=== PATIENT | female | born 1945 | race Caucasian/White ===

== ENCOUNTER 2019-08-09 20:16 | Inpatient (IN) | payer MEDICARE, SELFPAY ==
[2019-08-10 03:47] VITALS: BP 147/63; PULSE 68; RESP 18; TEMP 36.8; O2SAT 96
[2019-08-10] MEDS: pantoprazole 40 mg SDV IVP ×2 (03:53→12:02)
[2019-08-10 05:30] LABS: Add RBC Morph No
[2019-08-10 05:37] LABS: Basophils # 0.1 10^3/uL (0.0-0.1); Basophils % 0.6 %; Eosinophils # 0.1 10^3/uL (0.0-0.8); Eosinophils % 0.8 %; Hematocrit 39.9 % (37.0-47.0); Hemoglobin 12.9 g/dL (11.5-15.3); Lymphocytes # 1.4 10^3/uL (0.8-4.8); Mean Corpuscular HGB Conc 32.3 g/dL (30.0-36.0); Mean Corpuscular Hemoglobin 27.5 pg (28.0-34.0); Mean Corpuscular Volume 85.1 fL (81-99); Mean Platelet Volume 10.6 fL (7.4-10.4); Monocytes % 7.1 %; Neutrophils # 11.7 10^3/uL (1.8-7.7); Neutrophils % 81.2 %; Nucleated Red Blood Cells % 0 %; Platelet Count 288 10^3/cmm (130-400); Red Blood Count 4.69 10^6/uL (4.1-5.3); Red Cell Distribution Width 12.1 % (12.1-15.1); White Blood Count 14.4 10^3/uL (4.0-10.0)
[2019-08-10 05:52] LABS: Alanine Aminotransferase 28 U/L (0-33); Albumin Level 4.3 g/dL (3.5-5.2); Alkaline Phosphatase 94 IU/L (35-105); Anion Gap 19.7 (5-19); Aspartate Amino Transferase 36 U/L (0-32); Blood Urea Nitrogen 13 mg/dL (8-23); Calcium 9.4 mg/Dl (8.8-10.2); Carbon Dioxide 20 mmol/L (22-29); Chloride 93 mmol/L (98-107); Globulin 1.3 g/dL (1.3-4.6); Glucose 89 mg/dL (74-106); Potassium 3.7 mmol/L (3.5-5.1); Sodium 129 mmol/L (136-145); Total Bilirubin 0.6 mg/dL (0.15-1.2); Total Protein 5.6 g/dL (6.6-8.7)
[2019-08-10 08:00] VITALS: BP 164/75; PULSE 71; RESP 18; TEMP 36.7; O2SAT 97
[2019-08-10] MEDS: ondansetron 2 mg/ML SDV 2 mL 4 MG IVP ×2 (09:08→18:10)
[2019-08-10 11:47] LABS: Magnesium 1.9 mg/dL (1.7-2.3)
[2019-08-10 11:54] VITALS: BP 108/64; PULSE 86; RESP 16; TEMP 36.3; O2SAT 95
--- NOTE | 2019-08-10 13:29 | PC.CHAP ---
Pastoral Care Encounter/Spiritual Assessment Type of Contact [] Declined dynamometer tester visit [] Patient/Family/Request visit [] Outpatient visit [] Follow-up visit [] Physician referral [] Code/Alert [x] Routine visit [] Staff referral [] Actively dying [] Patient sleeping [] Family support [] [] Out of room [] Palliative care [] [] Receiving care in room [] Pre-surgical visit [] Trauma [] Long length of stay [] ICU visit [] Other: Relational/Emotional Strength [] Patient feels connected with others/family/visitors/staff [] Distress [x] Loneliness/isolation [] Abandonment Spirituality of Patient [x Person of Kiara [] Attends Judaism of their Ki[place] [] Believes in Prayer [] Reads Bible or Amish materials [] There are Spiritual issues to be addressed Foundry Engineer Interventions [x] Prayer [x] Active listening [x] Non-anxious presence [x] Spiritual/emotional support [] Crisis/trauma care [x] Spiritual counseling [] Bereavement support [] Provided bereavement packet [] Provided Bible/devotional materials [] Provided toy/stuffed animal, coloring book to patient or family member [] Completed spiritual assessment [] Provided Communion [] Anointing/[place] [] Salvation [] Other: Impact on Illness or Injury [] Angry [] Fearful [] Anxious [x] Often cries [x] Exhaustion [] Unable to work [] Unable to attend caodaism [] Unable to walk/stand [] Unable to read [] Unable to drive [] Unable to eat/drink [] Unable to sleep [] Unable to be with family [] Other: Summary wants to go home Time spent with patient 6 min
--- NOTE | 2019-08-10 15:58 | PM.PN ---
Subjective Subjective: Interval history: Vivian reports she feels better with her NG tube. It was reviewed. Vitals/I&O/Wt Last Vital Signs Temp 97.4 F L 08/10/19 11:54 Pulse 86 08/10/19 11:54 Resp 16 08/10/19 11:54 BP 108/64 08/10/19 11:54 Pulse Ox 95 08/10/19 11:54 08/10/19 08/10/19 08/10/19 06:59 14:59 22:59 Output Total 900 / 900 Balance -900 / -900 Physical Exam Narrative: EXAM NARRATIVE: General exam is an elderly white female with NG tube, conversant and oriented Cardiovascular regular rate and rhythm without murmur Lungs clear no wheezing or crackles Abdomen is soft. Slight tenderness epigastric area. Positive bowel sounds. No obvious organomegaly. Extremities no cyanosis clubbing or edema Data Labs: Other Labs: All Labs last 24 hrs except CBC/BMP 08/09/19 08/09/19 08/09/19 14:32 14:32 14:32 RBC 4.79 MCV 82.3 MCH 27.6 L MCHC 33.5 RDW 12.0 L MPV 10.7 H Neut % (Auto) 76.4 Lymph % (Auto) 16.5 [place] % (Auto) 5.2 Eos % (Auto) 0.9 Baso % (Auto) 0.6 Neut # (Auto) 10.7 H Lymph # (Auto) 2.3 [place] # (Auto) 0.7 Eos # (Auto) 0.1 Baso # (Auto) 0.1 Nucleated RBC % (a uto) 0 Nucleated RBCs # 0.0 Random Glucose 76 Lactic Acid Calcium 10.4 H Magnesium Total Bilirubin 0.6 AST 42 H ALT 34 H Alkaline Phosphata se 104 Troponin T Baselin e 27.36 H NT-Pro-B Natriuret Pep 592 H Total Protein 7.1 Albumin 4.5 Globulin 2.6 Lipase 114 H TSH Urine Color Urine Appearance Urine pH Ur Specific Gravit y Urine Protein Urine Glucose (UA) Urine Ketones Urine Occult Blood Urine Nitrite Urine Bilirubin Urine Urobilinogen Ur Leukocyte Ольга ase Influenza Type A A g Influenza Type B A g 08/09/19 08/09/19 08/09/19 15:33 15:49 16:50 RBC MCV MCH MCHC RDW MPV Neut % (Auto) Lymph % (Auto) [place] % (Auto) Eos % (Auto) Baso % (Auto) Neut # (Auto) Lymph # (Auto) [place] # (Auto) Eos # (Auto) Baso # (Auto) Nucleated RBC % (a uto) Nucleated RBCs # Random Glucose 73 Lactic Acid 1.0 Calcium 10.6 H Magnesium Total Bilirubin 0.7 AST 46 H ALT 37 H Alkaline Phosphata se 115 H Troponin T Baselin e NT-Pro-B Natriuret Pep Total Protein 7.6 Albumin 4.7 Globulin 2.9 Lipase TSH Urine Color Urine Appearance Urine pH Ur Specific Gravit y Urine Protein Urine Glucose (UA) Urine Ketones Urine Occult Blood Urine Nitrite Urine Bilirubin Urine Urobilinogen Ur Leukocyte Ольга ase Influenza Type A A g NEGATIVE Influenza Type B A g NEGATIVE 08/09/19 08/09/19 08/10/19 16:50 16:52 05:07 RBC 4.69 MCV 85.1 MCH 27.5 L MCHC 32.3 RDW 12.1 MPV 10.6 H Neut % (Auto) 81.2 Lymph % (Auto) 10.0 [place] % (Auto) 7.1 Eos % (Auto) 0.8 Baso % (Auto) 0.6 Neut # (Auto) 11.7 H Lymph # (Auto) 1.4 [place] # (Auto) 1.0 H Eos # (Auto) 0.1 Baso # (Auto) 0.1 Nucleated RBC % (a uto) 0 Nucleated RBCs # 0.0 Random Glucose Lactic Acid Calcium Magnesium Total Bilirubin AST ALT Alkaline Phosphata se Troponin T Baselin e NT-Pro-B Natriuret Pep Total Protein Albumin Globulin Lipase TSH 3.67 Urine Color YELLOW Urine Appearance CLEAR Urine pH 5 Ur Specific Gravit y 1.015 Urine Protein NEG Urine Glucose (UA) NORM Urine Ketones 1+ H Urine Occult Blood NEG Urine Nitrite NEG Urine Bilirubin NEG Urine Urobilinogen NORM Ur Leukocyte Ольга ase NEG Influenza Type A A g Influenza Type B A g 08/10/19 05:07 RBC MCV MCH MCHC RDW MPV Neut % (Auto) Lymph % (Auto) [place] % (Auto) Eos % (Auto) Baso % (Auto) Neut # (Auto) Lymph # (Auto) [place] # (Auto) Eos # (Auto) Baso # (Auto) Nucleated RBC % (a uto) Nucleated RBCs # Random Glucose Lactic Acid Calcium 9.4 Magnesium 1.9 Total Bilirubin 0.6 AST 36 H ALT 28 Alkaline Phosphata se 94 Troponin T Baselin e NT-Pro-B Natriuret Pep Total Protein 5.6 L Albumin 4.3 Globulin 1.3 Lipase TSH Urine Color Urine Appearance Urine pH Ur Specific Gravit y Urine Protein Urine Glucose (UA) Urine Ketones Urine Occult Blood Urine Nitrite Urine Bilirubin Urine Urobilinogen Ur Leukocyte Ольга ase Influenza Type A A g Influenza Type B A g A&P Assessment and plan (1) Intractable nausea and vomiting: Symptomatically improved after NG placement. I believe she needs an EGD. Currently on Protonix. Surgery consulted. Status: Acute Code(s): R11.2 - Nausea with vomiting, unspecified (2) Hyponatremia: Improved. Likely secondary to recurrent nausea and vomiting Status: Acute Code(s): E87.1 - Hypo-osmolality and hyponatremia (3) Lung cancer: Status: Acute Code(s): C34.90 - Malignant neoplasm of unspecified part of unspecified bronchus or lung (4) Transaminitis: Improved Status: Acute Code(s): R74.0 - Nonspecific elevation of levels of transaminase and lactic acid dehydrogenase [LDH] (5) Hypertension: Stable Status: Acute Code(s): I10 - Essential (primary) hypertension (6) GERD (gastroesophageal reflux disease): Status: Acute Code(s): K21.9 - Gastro-esophageal reflux disease without esophagitis Attestations Medical Necessity Statement*: Needs continued hospital stay for hydration secondary to intractable nausea and vomiting pending further evaluation Coding Level of Care Code Acute Ingot Weigher for [facility] Fwd Diagnoses Intractable nausea and vomiting R11.2 Hyponatremia E87.1 Lung cancer C34.90 Transaminitis R74.0 Hypertension I10 GERD (gastroesophageal reflux disease) K21.9
[2019-08-10 16:00] VITALS: BP 131/73; PULSE 94; RESP 20; TEMP 36.9; O2SAT 95
[2019-08-10 16:11] LABS: Glucose Point of Care 102 mg/dL (70-110)
[2019-08-10] MEDS: dextrose 5%-sod chloride 0.9% 1,000 ML 100 ML IV (22:00)
[2019-08-10 22:16] LABS: Glucose Point of Care 135 mg/dL (70-110)
[2019-08-11] VITALS (12 sets, daily range): BP systolic 110–175; BP diastolic 69–103; PULSE 57–125; RESP 16–20; TEMP 36.1–36.9; O2SAT 95–99
[2019-08-11] MEDS: pantoprazole 40 mg SDV IVP ×2 (00:13→11:35)
[2019-08-11] MEDS: ondansetron 2 mg/ML SDV 2 mL 4 MG IVP ×2 (00:13→07:57)
[2019-08-11] MEDS: dextrose 5%-sod chloride 0.9% 1,000 ML 100 ML IV ×2 (05:25→16:25)
[2019-08-11 05:44] LABS: Basophils # 0.1 10^3/uL (0.0-0.1); Basophils % 0.7 %; Eosinophils # 0.2 10^3/uL (0.0-0.8); Eosinophils % 1.2 %; Hematocrit 41.2 % (37.0-47.0); Hemoglobin 13.5 g/dL (11.5-15.3); Lymphocytes # 1.8 10^3/uL (0.8-4.8); Lymphocytes % 14.1 %; Mean Corpuscular HGB Conc 32.8 g/dL (30.0-36.0); Mean Corpuscular Hemoglobin 28.1 pg (28.0-34.0); Mean Corpuscular Volume 85.7 fL (81-99); Mean Platelet Volume 10.8 fL (7.4-10.4); Monocytes # 1.1 10^3/uL (0.2-0.9); Monocytes % 8.6 %; Neutrophils # 9.5 10^3/uL (1.8-7.7); Neutrophils % 75.2 %; Nucleated Red Blood Cells % 0 %; Platelet Count 277 10^3/cmm (130-400); Red Blood Count 4.81 10^6/uL (4.1-5.3); Red Cell Distribution Width 12.6 % (12.1-15.1); White Blood Count 12.7 10^3/uL (4.0-10.0)
[2019-08-11 05:46] LABS: Add RBC Morph No
[2019-08-11 06:03] LABS: Anion Gap 15.2 (5-19); Blood Urea Nitrogen 8 mg/dL (8-23); Calcium 9.9 mg/Dl (8.8-10.2); Carbon Dioxide 23 mmol/L (22-29); Chloride 101 mmol/L (98-107); Glucose 116 mg/dL (74-106); Potassium 3.2 mmol/L (3.5-5.1); Sodium 136 mmol/L (136-145)
[2019-08-11 06:52] LABS: Glucose Point of Care 113 mg/dL (70-110)
[2019-08-11] MEDS: sodium chloride 0.9% 1,000 ML 30 ML (08:05)
--- NOTE | 2019-08-11 08:17 | ANES.PREANES ---
Pre-Anesthetic Assessment Pre-Anesthetic Assessment: Height/Weight: Weight 57.924 kg Temp Pulse Resp BP Pulse Ox 98.3 F 88 20 H 169/89 96 08/11/19 08:13 08/11/19 08:13 08/11/19 08:13 08/11/19 08:13 08/11/19 08:13 Preop Diagnosis: intractable N/V Proposed Procedure: Operation Date: 08/11/19 07:30 Proposed Procedures p EGD(Not Applicable) - Prem Carranza MD Was Beta Brett taken within 24 hours: N/A Last intake: >3days Social: Social History: Tobacco (quit 20 yr ago) Exam: Pre-Anes Outpt Exam: alert, oriented x 3, clear to auscultation bilaterally (right diminshed) and regular rate & rhythm Airway: Submandibular: WNL Cervical ROM: WNL MP: 2 Dentition: False (both) Pulmonary: Pulmonary: SOB Comments: prev R lobectomy lung cancer CV/HEM: CV/HEM: HTN Comments: denies CP : : None reported Hepatic: Hepatic: None reported GI: GI: GERD Comments: NGT for N/V Metabolic: Metabolic: Thyroid (hypo) Musc/skel: Musc/skel: OA/DJD Neuropsych: Neuropsych: CASTILLO Anesthetic Plan: ASA status: III Anesthesia: MAC Risk of > 500 ml blood loss (7ml/kg in children): No Meds/Allergies Current Medications: Current Medications Generic Name Dose Route Start Last Admin Trade Name Freq PRN Reason Stop Dose Admin Dextrose/Sodium Ch loride 1,000 mls @ 100 m ls/hr 08/10/19 00:00 08/11/19 05:25 Dextrose 5%-Sod Chloride 0.9% IV 100 mls/hr .Q10H MARIALUISA Administration Ondansetron HCl 4 mg 08/10/19 00:00 08/11/19 07:57 Zofran IVP 4 mg Q6H PRN Administration NAUSEA AND VOMITI NG IN NPO Pantoprazole Sodiu m 40 mg 08/10/19 00:00 08/11/19 00:13 Protonix IVP 40 mg Q12H MARIALUISA Administration PFSH Anesthesia PFSH: Medical History (Updated 08/10/19 @ 16:00 by Haseeb Edward MD) Hypertension (Acute) Data Anesthesia Labs: Other Labs: Laboratory Results - last 48 hr 08/09/19 08/09/19 08/09/19 14:32 14:32 14:32 WBC 14.1 H RBC 4.79 Hgb 13.2 Hct 39.4 MCV 82.3 MCH 27.6 L MCHC 33.5 RDW 12.0 L Plt Count 312 MPV 10.7 H Neut % (Auto) 76.4 Lymph % (Auto) 16.5 [place] % (Auto) 5.2 Eos % (Auto) 0.9 Baso % (Auto) 0.6 Neut # (Auto) 10.7 H Lymph # (Auto) 2.3 [place] # (Auto) 0.7 Eos # (Auto) 0.1 Baso # (Auto) 0.1 Nucleated RBC % (a uto) 0 Nucleated RBCs # 0.0 Sodium 124 L Potassium 4.1 Chloride 80 L Carbon Dioxide 25 Anion Gap 23.1 H BUN 15 Creatinine 1.1 H Glucose POC Glucose Random Glucose 76 Lactic Acid Calcium 10.4 H Magnesium Total Bilirubin 0.6 AST 42 H ALT 34 H Alkaline Phosphata se 104 Troponin T Baselin e 27.36 H Troponin T Hi Sens 2 Hr Troponin T Hi Sens 2Hr Delta Troponin T Hi Sens 6Hr Troponin T Hi Sens 6Hr [place] NT-Pro-B Natriuret Pep 592 H Total Protein 7.1 Albumin 4.5 Globulin 2.6 Lipase 114 H TSH Urine Color Urine Appearance Urine pH Ur Specific Gravit y Urine Protein Urine Glucose (UA) Urine Ketones Urine Occult Blood Urine Nitrite Urine Bilirubin Urine Urobilinogen Ur Leukocyte Ольга ase Influenza Type A A g Influenza Type B A g 08/09/19 08/09/19 08/09/19 15:33 15:49 16:50 WBC RBC Hgb Hct MCV MCH MCHC RDW Plt Count MPV Neut % (Auto) Lymph % (Auto) [place] % (Auto) Eos % (Auto) Baso % (Auto) Neut # (Auto) Lymph # (Auto) [place] # (Auto) Eos # (Auto) Baso # (Auto) Nucleated RBC % (a uto) Nucleated RBCs # Sodium Potassium Chloride Carbon Dioxide Anion Gap BUN Creatinine Glucose POC Glucose Random Glucose Lactic Acid 1.0 Calcium Magnesium Total Bilirubin AST ALT Alkaline Phosphata se Troponin T Baselin e Troponin T Hi Sens 2 Hr 29.62 H Troponin T Hi Sens 2Hr Delta 2.26 Troponin T Hi Sens 6Hr Troponin T Hi Sens 6Hr [place] NT-Pro-B Natriuret Pep Total Protein Albumin Globulin Lipase TSH Urine Color Urine Appearance Urine pH Ur Specific Gravit y Urine Protein Urine Glucose (UA) Urine Ketones Urine Occult Blood Urine Nitrite Urine Bilirubin Urine Urobilinogen Ur Leukocyte Ольга ase Influenza Type A A g NEGATIVE Influenza Type B A g NEGATIVE 08/09/19 08/09/19 08/09/19 16:50 16:50 16:52 WBC RBC Hgb Hct MCV MCH MCHC RDW Plt Count MPV Neut % (Auto) Lymph % (Auto) [place] % (Auto) Eos % (Auto) Baso % (Auto) Neut # (Auto) Lymph # (Auto) [place] # (Auto) Eos # (Auto) Baso # (Auto) Nucleated RBC % (a uto) Nucleated RBCs # Sodium 125 L Potassium 4.0 Chloride 84 L Carbon Dioxide 23 Anion Gap 22.0 H BUN 15 Creatinine 1.1 H Glucose POC Glucose Random Glucose 73 Lactic Acid Calcium 10.6 H Magnesium Total Bilirubin 0.7 AST 46 H ALT 37 H Alkaline Phosphata se 115 H Troponin T Baselin e Troponin T Hi Sens 2 Hr Troponin T Hi Sens 2Hr Delta Troponin T Hi Sens 6Hr Troponin T Hi Sens 6Hr Delta NT-Pro-B Natriuret Pep Total Protein 7.6 Albumin 4.7 Globulin 2.9 Lipase TSH 3.67 Urine Color YELLOW Urine Appearance CLEAR Urine pH 5 Ur Specific Gravit y 1.015 Urine Protein NEG Urine Glucose (UA) NORM Urine Ketones 1+ H Urine Occult Blood NEG Urine Nitrite NEG Urine Bilirubin NEG Urine Urobilinogen NORM Ur Leukocyte Ольга ase NEG Influenza Type A A g Influenza Type B A g 08/09/19 08/10/19 08/10/19 20:38 05:07 05:07 WBC 14.4 H RBC 4.69 Hgb 12.9 Hct 39.9 MCV 85.1 MCH 27.5 L MCHC 32.3 RDW 12.1 Plt Count 288 MPV 10.6 H Neut % (Auto) 81.2 Lymph % (Auto) 10.0 [place] % (Auto) 7.1 Eos % (Auto) 0.8 Baso % (Auto) 0.6 Neut # (Auto) 11.7 H Lymph # (Auto) 1.4 [place] # (Auto) 1.0 H Eos # (Auto) 0.1 Baso # (Auto) 0.1 Nucleated RBC % (a uto) 0 Nucleated RBCs # 0.0 Sodium 129 L Potassium 3.7 Chloride 93 L Carbon Dioxide 20 L Anion Gap 19.7 H BUN 13 Creatinine 1.1 H Glucose 89 POC Glucose Random Glucose Lactic Acid Calcium 9.4 Magnesium 1.9 Total Bilirubin 0.6 AST 36 H ALT 28 Alkaline Phosphata se 94 Troponin T Baselin e Troponin T Hi Sens 2 Hr Troponin T Hi Sens 2Hr Delta Troponin T Hi Sens 6Hr 31.63 H Troponin T Hi Sens 6Hr Delta 4.27 NT-Pro-B Natriuret Pep Total Protein 5.6 L Albumin 4.3 Globulin 1.3 Lipase TSH Urine Color Urine Appearance Urine pH Ur Specific Gravit y Urine Protein Urine Glucose (UA) Urine Ketones Urine Occult Blood Urine Nitrite Urine Bilirubin Urine Urobilinogen Ur Leukocyte Ольга ase Influenza Type A A g Influenza Type B A g 08/10/19 08/10/19 08/11/19 16:04 22:11 05:06 WBC 12.7 H RBC 4.81 Hgb 13.5 Hct 41.2 MCV 85.7 MCH 28.1 MCHC 32.8 RDW 12.6 Plt Count 277 MPV 10.8 H Neut % (Auto) 75.2 Lymph % (Auto) 14.1 [place] % (Auto) 8.6 Eos % (Auto) 1.2 Baso % (Auto) 0.7 Neut # (Auto) 9.5 H Lymph # (Auto) 1.8 [place] # (Auto) 1.1 H Eos # (Auto) 0.2 Baso # (Auto) 0.1 Nucleated RBC % (a uto) 0 Nucleated RBCs # 0.0 Sodium Potassium Chloride Carbon Dioxide Anion Gap BUN Creatinine Glucose POC Glucose 102 135 Random Glucose Lactic Acid Calcium Magnesium Total Bilirubin AST ALT Alkaline Phosphata se Troponin T Baselin e Troponin T Hi Sens 2 Hr Troponin T Hi Sens 2Hr Delta Troponin T Hi Sens 6Hr Troponin T Hi Sens 6Hr [place] NT-Pro-B Natriuret Pep Total Protein Albumin Globulin Lipase TSH Urine Color Urine Appearance Urine pH Ur Specific Gravit y Urine Protein Urine Glucose (UA) Urine Ketones Urine Occult Blood Urine Nitrite Urine Bilirubin Urine Urobilinogen Ur Leukocyte Ольга ase Influenza Type A A g Influenza Type B A g 08/11/19 08/11/19 05:06 06:25 WBC RBC Hgb Hct MCV MCH MCHC RDW Plt Count MPV Neut % (Auto) Lymph % (Auto) [place] % (Auto) Eos % (Auto) Baso % (Auto) Neut # (Auto) Lymph # (Auto) [place] # (Auto) Eos # (Auto) Baso # (Auto) Nucleated RBC % (a uto) Nucleated RBCs # Sodium 136 Potassium 3.2 L Chloride 101 Carbon Dioxide 23 Anion Gap 15.2 BUN 8 Creatinine 1.0 H Glucose 116 H POC Glucose 113 Random Glucose Lactic Acid Calcium 9.9 Magnesium Total Bilirubin AST ALT Alkaline Phosphata se Troponin T Baselin e Troponin T Hi Sens 2 Hr Troponin T Hi Sens 2Hr Delta Troponin T Hi Sens 6Hr Troponin T Hi Sens 6Hr [place] NT-Pro-B Natriuret Pep Total Protein Albumin Globulin Lipase TSH Urine Color Urine Appearance Urine pH Ur Specific Gravit y Urine Protein Urine Glucose (UA) Urine Ketones Urine Occult Blood Urine Nitrite Urine Bilirubin Urine Urobilinogen Ur Leukocyte Ольга ase Influenza Type A A g Influenza Type B A g Cardiac Studies: No Data to Display
--- NOTE | 2019-08-11 11:03 | PC.NURSE ---
PT COUGHED UP NG TUBE POST PROCEDURE. DR GODOY SAID CAN LEAVE IT OUT. ORDER PUT IN.
--- NOTE | 2019-08-11 11:13 | PM.CONSULT ---
Providers/Reason For Consult Consulting Physican/Specialty*: Dr. Edward Reason for Consult*: Intractable nausea and vomiting Attending Physician: Haseeb Edward MD Primary Care Provider: Nina Lucia History of Present Illness History of Present Illness Chief complaint: Nausea and vomiting Vivian Hummel is a 74 year old female with multiple comorbidities who presented to the ER with 3-week history of intractable nausea and vomiting patient states that she had an EGD many years ago but denies any history of peptic ulcer disease. She denies any hematemesis melena or black stools. She denies any epigastric or chest pain. Review of Systems Const: Denies: fever, chills, change in weight or fatigue Eyes: Denies: change in vision ENMT: Denies: painful swallowing Card: Denies: chest pain Resp: Denies: shortness of breath GI: Denies: abdominal pain or blood in stool : Denies: painful urination Skin/Breast: Denies: rash, nipple discharge or breast mass/lump Neuro: Denies: seizure-like activity Petr/Lymph: Denies: easy bruising Meds/Allergies Home Medications and Allergies Home Medications Medication Instructions Recorded Confirmed Type Vitamin B-12 DAILY 08/10/19 History amlodipine 5 mg PO DAILY 08/10/19 08/10/19 History aspirin 325 mg PO DAILY 08/10/19 08/10/19 History atorvastatin 40 mg PO DAILY 08/10/19 08/10/19 History hydroxyzine pamoate 25 mg PO ONCE 08/10/19 08/10/19 History losartan 100 mg PO BID 08/10/19 08/10/19 History meloxicam 15 mg PO DAILY 08/10/19 08/10/19 History metoprolol succinate 50 mg PO BID 08/10/19 08/10/19 History emscwkolxgzp-We-msim-minerals tab PO 08/10/19 History [Multiple Vitamin, Womens] oxybutynin chloride 5 mg PO BID 08/10/19 08/10/19 History Allergies Allergy/AdvReac Type Severity Reaction Status Date / Time povidone-iodine Allergy Severe ALGY-Swell Verified 08/09/19 20:28 Lip/Tongue/Throat soap Allergy Severe ALGY-Swell Verified 08/09/19 20:28 Lip/Tongue/Throat Fish Containing Products Allergy Unknown Unknown Verified 08/09/19 20:28 iodine Allergy Unknown Unknown Verified 08/09/19 20:28 Current Medications Current Medications Generic Name Dose Route Start Last Admin Trade Name Freq PRN Reason Stop Dose Admin Dextrose/Sodium Chloride 1,000 mls @ 100 mls/hr 08/10/19 00:00 08/11/19 05:25 Dextrose 5%-Sod Chloride 0.9% IV 100 mls/hr .Q10H MARIALUISA Administration Ondansetron HCl 4 mg 08/10/19 00:00 08/11/19 07:57 Zofran IVP 4 mg Q6H PRN Administration NAUSEA AND VOMITING IN NPO Pantoprazole Sodium 40 mg 08/10/19 00:00 08/11/19 00:13 Protonix IVP 40 mg Q12H MARIALUISA Administration PFSH Acute PFSH: Statuses (acute, chronic, etc) shown below reflect problem list status as previously entered and may not be historically accurate Medical History (Updated 08/11/19 @ 11:32 by Prem Carranza MD) Hypertension (Acute) Lung cancer (Acute) Surgical History (Updated 08/11/19 @ 11:32 by Prem Carranza MD) H/O hysterectomy for benign disease (Acute) History of lobectomy of lung (Acute) History of mandibular surgery (Acute) S/P cholecystectomy (Acute) Vitals/I&O/Wt Last Vital Signs Temp 97 F L 08/11/19 09:42 Pulse 87 08/11/19 10:20 Resp 20 H 08/11/19 10:20 BP 157/83 08/11/19 10:20 Pulse Ox 98 08/11/19 10:20 08/10/19 08/11/19 08/11/19 22:59 06:59 14:59 Intake Total 220 / 3807.720 8572.000 / 1220.000 Output Total 900 / 1300 400 / 1300 670 / 670 Balance -680 / -80.000 600.000 / -80.000 -670 / -670 Weight last 48 hrs Weight 127 lb 11.2 oz Weight 127 lb 11.2 oz Physical Exam Const: COMMON NORMALS: no apparent distress ORIENTATION/CONSCIOUSNESS: Yes oriented to person, Yes oriented to place and Yes oriented to time HENMT: COMMON NORMALS: normocephalic HEAD & SCALP: normocephalic Eye: GENERAL EYE: normal appearance of both eyes Resp: COMMON NORMALS: clear to auscultation bilaterally AUSCULTATION: clear to auscultation bilaterally Cardio: COMMON NORMALS: S1 normal heart sound and S2 normal heart sound HEART SOUNDS: S1 normal and S2 normal GI: COMMON NORMALS: soft to palpation PALPATION: Yes soft Neuro: SENSORIUM/ORIENTATION: Yes oriented to person, Yes oriented to place and Yes oriented to time Skin: COMMON NORMALS: no rashes or lesions noted GENERAL SKIN EXAM: no rashes or lesions noted A&P Assessment and plan (1) Intractable nausea and vomiting: Plan for EGD under MAC Procedure, risks, benefits and alternatives have been discussed with the patient who wishes to proceed with surgery. Status: Acute Code(s): R11.2 - Nausea with vomiting, unspecified Consult Attestations Medical Necessity Statement: Intractable nausea and vomiting Coding Level of Care Code Acute Digital Account Coordinator for [facility] Fw Diagnoses Intractable nausea and vomiting R11.2
[2019-08-11] MEDS: lidocaine 1% INJ 20 mL 5 ML IV (11:34)
[2019-08-11] MEDS: potassium chloride premix 40 MEQ/100 ML PREMIX 25 MEQ IV (11:34)
[2019-08-11 11:36] LABS: Glucose Point of Care 111 mg/dL (70-110)
--- NOTE | 2019-08-11 12:31 | PM.PN ---
Subjective Subjective: Interval history: Vivian has undergone her EGD. 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 When I visited her she has no significant symptoms. NG has been removed. Clear liquid diet has been ordered. Medications: Reviewed: Yes Vitals/I&O/Wt Last Vital Signs Temp 98.4 F 08/11/19 12:00 Pulse 96 08/11/19 12:00 Resp 18 08/11/19 12:00 BP 123/74 08/11/19 12:00 Pulse Ox 99 08/11/19 12:00 08/10/19 08/11/19 08/11/19 22:59 06:59 14:59 Intake Total 220 / 220 1000.000 / 1220.000 Output Total 900 / 900 400 / 1300 670 / 670 Balance -680 / -680 600.000 / -80.000 -670 / -670 Weight last 48 hrs Weight 57.924 kg Weight 57.924 kg Physical Exam Narrative: EXAM NARRATIVE: General exam no apparent distress Cardiovascular regular in rhythm with a 2/6 systolic murmur Lungs clear Abdomen is soft with positive bowel sounds Extremities no cyanosis clubbing or edema A&P Assessment and plan (1) Intractable nausea and vomiting: Symptomatically improved after NG placement. Protonix initiated. EGD performed today demonstrating pyloric narrowing which was dilated. Starting clear liquid diet. Status: Acute Code(s): R11.2 - Nausea with vomiting, unspecified (2) Hyponatremia: Improved. Likely secondary to recurrent nausea and vomiting Status: Acute Code(s): E87.1 - Hypo-osmolality and hyponatremia (3) Lung cancer: Status: Acute Code(s): C34.90 - Malignant neoplasm of unspecified part of unspecified bronchus or lung (4) Transaminitis: Improved Status: Acute Code(s): R74.0 - Nonspecific elevation of levels of transaminase and lactic acid dehydrogenase [LDH] (5) Hypertension: Stable Status: Acute Code(s): I10 - Essential (primary) hypertension (6) GERD (gastroesophageal reflux disease): Status: Acute Code(s): K21.9 - Gastro-esophageal reflux disease without esophagitis Attestations Medical Necessity Statement*: Needs continued hospitalization for close monitoring following dilation of pyloric channel stenosis Coding Level of Care Code Acute Water/Wastewater Engineer for g Fwd Diagnoses Intractable nausea and vomiting R11.2 Hyponatremia E87.1 Lung cancer C34.90 Transaminitis R74.0 Hypertension I10 GERD (gastroesophageal reflux disease) K21.9
[2019-08-11 16:58] LABS: Glucose Point of Care 150 mg/dL (70-110)
[2019-08-11] MEDS: metoprolol succinate ER (24 HR) 50 mg Tablet PO (17:10)
[2019-08-11 21:07] LABS: Glucose Point of Care 109 mg/dL (70-110)
[2019-08-12 01:11] VITALS: BP 128/71; PULSE 57; RESP 20; TEMP 36.6; O2SAT 97
[2019-08-12 04:37] VITALS: BP 145/76; PULSE 57; RESP 20; TEMP 36.6; O2SAT 98
[2019-08-12 07:14] VITALS: BP 172/72; PULSE 63; RESP 18; TEMP 37.3; O2SAT 97
[2019-08-12 08:55] LABS: Glucose Point of Care 90 mg/dL (70-110)
[2019-08-12] MEDS: metoprolol succinate ER (24 HR) 50 mg Tablet PO (10:00)
[2019-08-12] MEDS: pantoprazole DR 40 mg Tablet PO (10:01)
[2019-08-12] MEDS: amlodipine 5 mg Tablet PO (10:01)
[2019-08-12] MEDS: atorvastatin 40 mg Tablet PO (10:01)
--- NOTE | 2019-08-12 10:40 | P.DS_ITS ---
Discharge Providers Date of Admission: 08/09/19 20:30 Date of Discharge: 08/12/19 Attending Provider at Admission: Noreen Healy MD Attending Provider at Discharge: Haseeb Edward MD Primary Care Provider: Nina Lucia Diagnoses at Discharge Discharge Diagnosis (1) Intractable nausea and vomiting: Status: Acute Problem details: Resolved. Secondary to gastric outlet obstruction, with pyloric channel narrowing. This was dilated (2) Hyponatremia: Status: Acute Problem details: Resolved (3) Lung cancer: Status: Acute Problem details: Unchanged (4) Transaminitis: Status: Acute Problem details: Resolved (5) Hypertension: Status: Acute Problem details: Stable (6) GERD (gastroesophageal reflux disease): Status: Acute Problem details: Improved following dilation of gastric outlet obstruction Reason for Visit Reason for Visit: Reason For Visit: Intractable N/V, Hyponatremia, Pancreatitis, Hospital Course Hospital Course: Vivian presented to the hospital with vomiting for 3 weeks. In the emergency department a CT scan was performed demonstrating increased debris in her stomach. She was hyponatremic. An NG was placed and she was rehydrated with IV fluids. The following day she was much improved. Surgery was consulted for EGD. This demonstrated pyloric channel narrowing, necessitating dilation. Following dilation she was able to initiate a diet, and had no further vomiting. It was thought she could be discharged home and was in stable condition at discharge. She was instructed to follow a soft diet with low residue, and follow-up in surgery clinic 2 to 3 weeks. Physical Exam Narrative: EXAM NARRATIVE: General exam no apparent distress Cardiovascular regular rate and rhythm without murmur Lungs clear Abdomen is soft, positive bowel sounds Extremities no cyanosis clubbing or edema Discharge Data Data Completed and Pending: Labs from last 24 hours 08/12/19 08/11/19 08/11/19 06:20 20:22 16:54 POC Glucose 90 109 150 08/11/19 11:33 POC Glucose 111 Vitals: Last Vital Signs Temp 99.2 F 08/12/19 07:14 Pulse 63 08/12/19 07:14 Resp 18 08/12/19 07:14 BP 172/72 08/12/19 07:14 Pulse Ox 97 08/12/19 07:14 Discharge Plan Discharge Patient Disposition: Home, Self-Care Condition: Stable Prescriptions: New aspirin 81 mg tablet,delayed release (DR/EC) 81 mg PO DAILY Qty: 30 RF: 0 Continued atorvastatin 40 mg Tablet 40 mg PO DAILY RF: 0 amlodipine 5 mg Tablet 5 mg PO DAILY RF: 0 oxybutynin chloride 5 mg Tablet 5 mg PO BID RF: 0 metoprolol succinate 50 mg Tablet Extended Release 24 Hr 50 mg PO BID RF: 0 losartan 100 mg Tablet 100 mg PO DAILY RF: 0 Multiple Vitamin, Womens Tablet PO RF: 0 Vitamin B-12 DAILY RF: 0 tramadol 50 mg Tablet 50 mg PO DAILY RF: 0 levothyroxine 88 mcg Tablet 88 mcg PO DAILY RF: 0 Changed omeprazole 40 mg Capsule,Delayed Release(Dr/Ec) 40 mg PO BIDPC Qty: 60 RF: 0 Discontinued hydroxyzine pamoate 25 mg Capsule 25 mg PO ONCE RF: 0 aspirin 325 mg Tablet 325 mg PO DAILY RF: 0 meloxicam 15 mg Tablet 15 mg PO DAILY RF: 0 hydrochlorothiazide 12.5 mg Capsule 12.5 mg PO DAILY RF: 0 Referrals: Nina Lucia APN [Primary Care Provider] - 4-7 days Haseeb Edward MD [Hospitalist] - Prem Carranza MD [Physician] - 2 weeks Discharge Diet: soft mechanical low residue Discharge Activity: Resume usual activity Discharge Attestations Time Spent in Discharge Care*: greater than 30 min Quality Metrics Clinical Quality Measures During this hospital stay, did patient experience: None Coding Level of Care Code Acute Vibratory Pile Driver for Chg Fwd Diagnoses Intractable nausea and vomiting R11.2 Hyponatremia E87.1 Lung cancer C34.90 Transaminitis R74.0 Hypertension I10 GERD (gastroesophageal reflux disease) K21.9
[2019-08-12 11:36] VITALS: BP 135/69; PULSE 69; RESP 18; TEMP 37.2; O2SAT 93
[2019-08-12 11:38] VITALS: RESP 18; TEMP 37.2; O2SAT 93
[2019-08-12 12:12] LABS: Glucose Point of Care 146 mg/dL (70-110)
== END 2019-08-12 13:22 | disposition home or self-care (01) | DRG 381 ==
PROVIDERS: Surgery; Admitting Provider Internal Medicine; Family Provider Nurse Practitioner Family; PCP Nurse Practitioner Family; Visit Provider Internal Medicine
PROC: 0DJ08ZZ Inspection of Upper Intestinal Tract, Via Natural or Artificial Opening Endoscopic (ICD-10-PCS; CPT 43235; principal; 2019-08-11 07:30)
DX: K31.1 Adult hypertrophic pyloric stenosis (principal); E87.1 Hypo-osmolality and hyponatremia; Z90.2 Acquired absence of lung [part of]; I25.10 Atherosclerotic heart disease of native coronary artery without angina pectoris; I10 Essential (primary) hypertension; K21.9 Gastro-esophageal reflux disease without esophagitis; G89.29 Other chronic pain; M54.9 Dorsalgia, unspecified; M19.90 Unspecified osteoarthritis, unspecified site; E78.5 Hyperlipidemia, unspecified; E03.9 Hypothyroidism, unspecified; N32.81 Overactive bladder; Z87.891 Personal history of nicotine dependence; R74.0 Nonspecific elevation of levels of transaminase and lactic acid dehydrogenase [LDH]; E86.0 Dehydration; Z90.49 Acquired absence of other specified parts of digestive tract
CPT/HCPCS: 36415; 36416; 43249; 71045; 71250; 74150; 80048; 80053; 81003; 82962; 83605; 83690; 83880; 84443; 84484; 85025; 87804; 93005; 96361; 96365; 96375; 99221; 99285; C9113; J2001; J2270; J2405; J2704; J2765; J3480; J3490; J7030; J7050

== ENCOUNTER 2019-09-13 06:13 | Day surgery (SDC) | payer MEDICARE, SELFPAY ==
[2019-09-12 07:31] VITALS: BMI 24.7
[2019-09-13 06:35] VITALS: BP 195/62; PULSE 54; RESP 18; TEMP 36.3; O2SAT 98
--- NOTE | 2019-09-13 06:51 | ANES.PREANE2 ---
Pre-Anesthetic Assessment Pre-Anesthetic Assessment: Height/Weight: Height 1.52 m Weight 57.606 kg Temp Pulse Resp BP Pulse Ox 97.4 F L 54 L 18 195/62 98 09/13/19 06:35 09/13/19 06:35 09/13/19 06:35 09/13/19 06:35 09/13/19 06:35 Preop Diagnosis: Pyloric stenosis Proposed Procedure: Operation Date: 09/13/19 07:00 Proposed Procedures p EGD 57670 K21.9(Not Applicable) - Prem Carranza MD Familial anesthetic complications: none Was Beta Brett taken within 24 hours: Yes Last intake: Intake Last Liquid Date 09/12/19 Last Liquid Time 22:00 Last Solid Date 09/12/19 Last Solid Time 20:00 Social: Social History: Tobacco (quit 25yrs ago) Exam: Pre-Anes Outpt Exam: alert, oriented x 3, clear to auscultation bilaterally and regular rate & rhythm Airway: Submandibular: WNL Cervical ROM: WNL MP: 2 Dentition: False (U& L) History/ROS: No significant history except as noted and No significant complaints Pulmonary: Comments: history of lung cancer with lobectomy CV/HEM: CV/HEM: Anemia and HTN : : None reported Hepatic: Hepatic: None reported GI: GI: GERD Comments: pyloric stenosis with history of balloon dilatation Metabolic: Metabolic: Hyperlipidemia and Thyroid Musc/skel: Musc/skel: OA/DJD Neuropsych: Neuropsych: None reported Anesthetic Plan: ASA status: II Anesthesia: Anesthesia Evaluation and MAC Risk of > 500 ml blood loss (7ml/kg in children): No PFSH Anesthesia PFSH: Social History Smoking and tobacco status: former smoker Alcohol intake: never Lives independently: Yes Household members: none Marital status: / History of recent travel: No Data Anesthesia Cardiac Studies: No Data to Display
--- NOTE | 2019-09-13 07:02 | PM.HPUD ---
H&P update H&P Update: DATE OF SURGERY/PROCEDURE: 09/13/19 DATE H&P PERFORMED: 08/23/18 H&P UPDATE INFORMATION: H&P completed within last 30 days and No changes to prior documentation PLANNED PROCEDURE: Operation Date: 09/13/19 07:00 Proposed Procedures p EGD 80306 K21.9(Not Applicable) - Prem Carranza MD Full H&P Perinent History: Medical/Surgical History: Medical History (Updated 08/23/19 @ 16:30 by Prem Carranza MD) Acquired hypothyroidism (Acute) Chronic constipation (Acute) Glaucoma (Acute) Hyperlipidemia (Acute) Hypertension (Acute) Stable Lung cancer (Acute) Unchanged Family History: Family History (Updated 08/23/19 @ 16:12 by NICOLAS Olvera) Mother Glaucoma Social History: Social History Smoking and tobacco status: former smoker Alcohol intake: never Lives independently: Yes Household members: none Marital status: / History of recent travel: No
--- NOTE | 2019-09-13 07:12 | PC.NURSE ---
multiple attempts made by Deann garcia, Lizzette garcia, and Jacy DAHL.
[2019-09-13] MEDS: sodium chloride 0.9% 1,000 ML 30 ML (07:15)
--- NOTE | 2019-09-13 07:29 | SUR.OPER ---
Balloon dilation used. Began with 6,7,8 progressed to sizes 8,9,10 progressed to sizes 10,11,12
--- NOTE | 2019-09-13 07:40 | SUR.OPER ---
Balloon dilation used size 12,13.5,15
[2019-09-13 07:49] VITALS: BP 122/48; PULSE 61; RESP 16; TEMP 36.3; O2SAT 94
[2019-09-13 08:13] VITALS: BP 147/70; PULSE 65; RESP 18; TEMP 36.4; O2SAT 97
--- NOTE | 2019-09-13 09:06 | ANE.PACU2 ---
 Inpatient post-anesthesia follow up: Airway intact: Yes Vital signs: Temperature 97.6 F Pulse Rate 65 Respiratory Rate 18 Blood Pressure 147/70 Pulse Oximetry 97 Oxygen Delivery Me thod Room Air Oxygen Flow Rate 3 Fraction of Inspir ed Oxygen Hydration adequate: Yes Nausea and vomiting: No Mental status: Baseline
== END 2019-09-13 08:45 | disposition home or self-care (01) ==
PROVIDERS: Visit Provider Surgery
PROC: 0DJ08ZZ Inspection of Upper Intestinal Tract, Via Natural or Artificial Opening Endoscopic (ICD-10-PCS; CPT 43235; principal; 2019-09-13 07:00)
DX: K31.1 Adult hypertrophic pyloric stenosis (principal); K21.9 Gastro-esophageal reflux disease without esophagitis; Z79.82 Long term (current) use of aspirin; E78.5 Hyperlipidemia, unspecified; Z87.891 Personal history of nicotine dependence; I10 Essential (primary) hypertension; M19.90 Unspecified osteoarthritis, unspecified site; K44.9 Diaphragmatic hernia without obstruction or gangrene
CPT/HCPCS: 12345; 43249; 88305; J2001; J2704; J7030

== ENCOUNTER → 2019-10-25 11:19 | Outpatient (BNVA) | payer MEDICARE, SELFPAY | PROVIDERS: PCP Family Medicine; Visit Provider Family Medicine | DX: E78.5 Hyperlipidemia, unspecified (principal); E03.9 Hypothyroidism, unspecified | CPT/HCPCS: 80053; 80061; 84443; 85025 ==

== ENCOUNTER → 2019-11-02 15:09 | Outpatient (BNVA) | payer MEDICARE, SELFPAY | PROVIDERS: PCP Family Medicine; Visit Provider Family Medicine | DX: J02.9 Acute pharyngitis, unspecified (principal); H66.92 Otitis media, unspecified, left ear; R05 Cough | CPT/HCPCS: 87081; 87880 ==

== ENCOUNTER → 2019-12-27 11:05 | Outpatient (BNVA) | payer MEDICARE, SELFPAY | PROVIDERS: PCP Family Medicine; Visit Provider Family Medicine | DX: M25.561 Pain in right knee (principal); M25.562 Pain in left knee; M79.671 Pain in right foot; M79.672 Pain in left foot; R60.0 Localized edema | CPT/HCPCS: 84550; 85651; 86038; 86431 ==

== ENCOUNTER → 2020-01-05 11:14 | Outpatient (BNVA) | payer MEDICARE, SELFPAY | PROVIDERS: PCP Family Medicine; Visit Provider Family Medicine | DX: R06.02 Shortness of breath (principal) | CPT/HCPCS: 71046 ==

== ENCOUNTER → 2020-02-21 08:42 | Outpatient (BNVA) | payer MEDICARE, SELFPAY | PROVIDERS: PCP Family Medicine; Visit Provider Nurse Practitioner Family | DX: N39.0 Urinary tract infection, site not specified (principal) | CPT/HCPCS: 81003 ==

== ENCOUNTER 2020-03-29 21:26 | Emergency (ER) | payer MEDICARE, SELFPAY ==
[2020-03-29 21:37] VITALS: BP 167/70; PULSE 61; RESP 18; TEMP 36.6; O2SAT 98; BMI 27.3
--- NOTE | 2020-03-29 21:53 | ED_ITS ---
HPI - Dizziness General: Chief Complaint: Dizziness Stated Complaint: dizzy/naseas/cant hold food down Time Seen by Provider: 03/29/20 21:32 Source: patient Mode of arrival: ambulatory Limitations: no limitations History of Present Illness: HPI Narrative: 75-year-old female states she has a history of gastric outlet obstruction from pyloric narrowing. Patient states over the last 2 to 3 days she has been having difficulty keeping foods down and a lot of nausea. She denies any fever. She denies any worsening or improving factors. Associated symptoms: Reports nausea and vomiting; Denies chest pain, chills or headache(s) Review of Systems Const: Denies: fever(s), chills, body aches or change in appetite Eyes: Denies: blurry vision or eye discomfort ENMT: Denies: throat pain or dental pain Card: Denies: chest pain Resp: Denies: dyspnea GI: Reports: nausea and vomiting : Denies: dysuria Musc: Denies: neck pain or back pain Skin/Breast: Denies: rash Neuro: Denies: headache(s) Psych: Denies: depression Petr/Lymph: Denies: easy bruising All/Imm: Denies: urticaria PFSH ED PFSH: Medical History (Updated 03/30/20 @ 00:55 by Ewa Pena MD) Acquired hypothyroidism Chronic constipation Glaucoma Hyperlipidemia Hypertension Stable Lung cancer Unchanged Pyloric stenosis Surgical History H/O esophagogastroduodenoscopy 07/29/2019: EGD with dilation for pyloric stenosis 09/13/2019: EGD with dilation to 15 mm for pyloric stenosis H/O hysterectomy for benign disease History of lobectomy of lung History of mandibular surgery S/P cholecystectomy Family History Mother Glaucoma Social History Smoking and tobacco status: former smoker Alcohol intake: never Lives independently: Yes Household members: none Marital status: / History of recent travel: No Physical Exam Const: COMMON NORMALS: no acute distress, patient oriented x3 and healthy appearing HENMT: COMMON NORMALS: normocephalic and atraumatic HEAD & SCALP: normocephalic and atraumatic Eye: COMMON NORMALS: Equal, round and reactive pupils present and EOMs intact bilaterally PUPIL: Yes Equal, round and reactive pupils present Neck/C-Spine: COMMON NORMALS: full ROM and supple Chest: COMMONS NORMALS: normal inspection of the chest and normal palpation of entire chest wall Resp: COMMON NORMALS: normal respiratory effort, No retractions, No use of accessory muscles and clear to auscultation bilaterally AUSCULTATION: clear to auscultation bilaterally Cardio: COMMON NORMALS: regular rate, regular rhythm and No murmurs present (Cardio) RATE: regular rate RHYTHM: regular rhythm GI: COMMON NORMALS: Normal to inspection, nondistended, normoactive bowel sounds present, Soft to palpation, non-tender and no masses PALPATION: Yes Soft to palpation Extremity: COMMON NORMALS: normal to inspection and full ROM Neuro: COMMON NORMALS: patient oriented x3, moves all extremities and no focal motor deficits Psych: COMMON NORMALS: mental status grossly normal, Normal thought process present and cooperative THOUGHT PROCESS: Normal thought process present Skin: COMMON NORMALS: no rashes or lesions noted and no wounds GENERAL SKIN EXAM: no rashes or lesions noted Course Vital Signs: Vital signs: Vital Signs Temperature 97.8 F 03/29/20 21:37 Pulse Rate 61 03/30/20 00:18 Respiratory Rate 15 03/30/20 01:08 Blood Pressure 175/79 03/30/20 01:08 Pulse Oximetry 99 03/30/20 00:18 MDM - Dizziness MDM Narrative: Medical decision making narrative: Patient presents with some nausea does have a history of pyloric dysfunction. Patient CT here shows no gastric outlet obstruction. Will get patient is set up appointment with Dr. Carranza. Patient also has vertigo that is chronic in nature. Patient took hydroxyzine in the past but feels much improved here after Antivert and will prescribe her Antivert and DC her hydroxyzine. She has no signs of acute stroke. Lab Data: Labs: Lab Results 03/29/20 03/29/20 Range/Units 22:18 22:18 WBC 10.0 (4.0-10.0) 10^3/ uL RBC 4.47 (4.1-5.3) 10^6/u L Hgb 11.9 (11.5-15.3) g/dL Hct 38.7 (37.0-47.0) % MCV 86.6 (81-99) fL MCH 26.6 L (28.0-34.0) pg MCHC 30.7 (30.0-36.0) g/dL RDW 13.6 (12.1-15.1) % Plt Count 330 (130-400) 10^3/c mm MPV 10.5 H (7.4-10.4) fL Neut % (Auto) 75.8 % Lymph % (Auto) 17.1 % [place] % (Auto) 5.0 % Eos % (Auto) 1.1 % Baso % (Auto) 0.7 % Neut # (Auto) 7.54 (1.8-7.7) 10^3/u L Lymph # (Auto) 1.7 (0.8-4.8) 10^3/u L [place] # (Auto) 0.5 (0.2-0.9) 10^3/u L Eos # (Auto) 0.1 (0.0-0.8) 10^3/u L Baso # (Auto) 0.1 (0.0-0.1) 10^3/u L Nucleated RBC % (a uto) 0 % Nucleated RBCs # 0.0 /100WBC Sodium 135 L (136-145) mmol/L Potassium 4.8 (3.5-5.1) mmol/L Chloride 101 (98-107) mmol/L Carbon Dioxide 23 (22-29) mmol/L Anion Gap 15.8 (5-19) BUN 23 (8-23) mg/dL Creatinine 1.2 H (0.5-0.9) mg/dL GFR Calculation Not Reportable Glucose 113 (65-115) mg/dL Calculated Osmolal ity 278 L (285-295) mOsm/k g Calcium 9.9 (8.5-10.5) mg/dL Total Bilirubin 0.6 (0.15-1.2) mg/dL AST 24 (0-32) U/L ALT 19 (0-33) U/L Alkaline Phosphata se 120 H (35-105) IU/L Total Protein 6.9 (6.6-8.7) g/dL Albumin 4.2 (3.5-5.2) g/dL Globulin 2.7 (1.3-4.6) g/dL Lipase 70 H (13-60) U/L Imaging Data^: CT Abd/Pel: Radiologist's impression: [address] [address] [address] Scan Report Signed Patient: Vivian Hummel Unit #: [id number] : 1945 Age/Sex: 75 / F ADM Date: 03/29/20 Loc: ER Room/Bed: Attending Dr: Ordering Provider/Ordering MD: Ewa Pena MD Date of Service: 03/29/20 Procedure(s): CT abdomen pelvis wo con [id number] Accession Number(s): [id number] Report Number: [id number] PROCEDURE INFORMATION: Exam: CT Abdomen And Pelvis Without Contrast Exam date and time: 03/29/2020 10:03 PM Age: 75 years old Clinical indication: Nausea and vomiting; Abdominal pain; Generalized; Prior surgery; Surgery type: Hysterectomy, cholecystectomy; Additional info: Abd pain TECHNIQUE: Imaging protocol: Computed tomography of the abdomen and pelvis without contrast. Radiation optimization: All CT scans at this facility use at least one of these dose optimization techniques: automated exposure control; mA and/or kV adjustment per patient size (includes targeted exams where dose is matched to clinical indication); or iterative reconstruction. Other contrast: Oral, redicat, 450; COMPARISON: CT abdomen pelvis w con* [id number] 08/05/2019 6:12 PM RADIATION DOSE METRICS: Total DLP (mGy-cm): 711.81 FINDINGS: Lungs: Partially calcified 9 mm nodularity seen within the left lower lobe laterally the likely representing partially calcifying the granuloma. Liver: There are stable small hepatic cysts present. Gallbladder and bile ducts: Status post cholecystectomy. The common bile duct is mildly prominent measuring 9.8 mm in its midportion tapering to normal caliber within the pancreas. Pancreas: Normal. No ductal dilation. Spleen: Normal. No splenomegaly. Adrenals: Normal. No mass. Kidneys and ureters: A stable hypoattenuation lesions seen within the left kidney measuring approximately 8 mm compatible with a simple cyst. Stomach and bowel: Diverticula are seen within the sigmoid colon. There are no inflammatory changes seen to suggest diverticulitis. There is some thickening of the proximal and mid gastric wall although the stomach is nondistended. However, gastritis cannot be entirely excluded. Appendix: See Soft tissues finding. Intraperitoneal space: Unremarkable. No free air. No significant fluid collection. Vasculature: Unremarkable. No abdominal aortic aneurysm. Lymph nodes: Unremarkable. No enlarged lymph nodes. Bladder: Unremarkable as visualized. Reproductive: Status post hysterectomy. Bones/joints: There appears to be a rib resection laterally on the right. Soft tissues: There is a small right inguinal hernia. The appendix extends into the hernia sac and appears to contain contrast material. There are no inflammatory changes seen surrounding the appendix to suggest appendicitis. CT/CT abdomen pelvis wo con [id number] IMPRESSION: 1. Stable small hepatic cysts 2. Some gastric wall thickening seen proximally although the stomach is nondistended. However, gastritis cannot be entirely excluded. 3. Diverticulosis of the sigmoid colon 4. Small right inguinal hernia containing the appendix. The appendix is otherwise normal containing some contrast material. 5. Partially calcified 9 mm nodularity in the left lower lobe laterally appearing stable compared with 08/09/2019. CT Head: Radiologist's impression: [place] [address] CT Scan Report Signed Patient: Vivian Hummel Unit #: [id number] : 1945 Age/Sex: 75 / F ADM Date: 03/29/20 Loc: ER Room/Bed: Attending Dr: Ordering Provider/Ordering MD: Ewa Pena MD Date of Service: 03/30/20 Procedure(s): CT head wo con* [id number] Accession Number(s): [id number] Report Number: [id number] PROCEDURE INFORMATION: Exam: CT Head Without Contrast Exam date and time: 03/30/2020 1:09 AM Age: 75 years old Clinical indication: Pain; Dizziness; Headache not specified; Prior surgery; Surgery date: 6+ months; Surgery type: Aneurysm; Additional info: Dizzy TECHNIQUE: Imaging protocol: Computed tomography of the head without contrast. Radiation optimization: All CT scans at this facility use at least one of these dose optimization techniques: automated exposure control; mA and/or kV adjustment per patient size (includes targeted exams where dose is matched to clinical indication); or iterative reconstruction. COMPARISON: CT head wo con* [id number] 02/23/2019 7:53 PM RADIATION DOSE METRICS: Total DLP (mGy-cm): 895.88 FINDINGS: Brain: There is moderate diffuse cerebral atrophy. Patchy areas of hypoattenuation are seen in the deep white of the cerebral hemispheres bilaterally compatible with deep white matter microvascular disease. Hypoattenuation and atrophy is seen within the right frontal and anterior temporal regions compatible with chronic infarction. These appear stable compared with 02/23/2019. Ventricles: Normal. No ventriculomegaly. Bones/joints: Postoperative changes are seen within the mandible on the left. Sinuses: Visualized sinuses are unremarkable. No fluid levels. Mastoid air cells: There is partial opacification the left mastoid sinuses. Vasculature: Status post right temporal craniotomy with aneurysmal clips seen within the right middle cerebral artery branches. Soft tissues: Unremarkable. CT/CT head wo con* [id number] IMPRESSION: 1. There are no acute intracranial findings. 2. Right frontal and temporal chronic infarctions appears stable compared with 02/23/2019. Discharge Plan Discharge Patient Disposition: Home Clinical Impression: Nausea, Abdominal pain, Dizziness Condition: Stable Prescriptions: New Zofran 4 mg tablet 4 mg PO QID PRN (Reason: nausea and vomiting) Qty: 14 RF: 0 meclizine 25 mg tablet 25 mg PO TID PRN (Reason: dizziness) Qty: 20 RF: 0 No Action cephalexin 500 mg capsule 500 mg PO BID Qty: 20 RF: 0 oxybutynin chloride 5 mg tablet 5 mg PO BID Qty: 180 RF: 2 Shingrix gE Antigen Component 50 mcg suspension for reconstitution 50 mcg IM ONCE Qty: 1 RF: 0 albuterol sulfate [ProAir HFA] 90 mcg/actuation HFA aerosol inhaler 2 puff INHALATION QID PRN (Reason: shortness of breath or wheezing) Qty: 18 RF: 1 furosemide [Lasix] 20 mg tablet 20 mg PO QAM Qty: 30 RF: 0 omeprazole 40 mg capsule,delayed release(DR/EC) 40 mg PO BID 30 Days Qty: 180 RF: 2 metoprolol succinate 50 mg tablet extended release 24 hr See Rx Instructions .ROUTE .COMPLEX Qty: 180 RF: 0 losartan 100 mg tablet 100 mg PO DAILY Qty: 90 RF: 1 hydroxyzine HCl 25 mg tablet 25 mg PO TID Qty: 270 RF: 0 polyethylene glycol 3350 17 gram/dose powder See Rx Instructions .ROUTE .COMPLEX Qty: 1020 RF: 0 atorvastatin 40 mg Tablet 40 mg PO DAILY RF: 0 Multiple Vitamin, Womens Tablet 1 tab PO DAILY RF: 0 levothyroxine 88 mcg Tablet 88 mcg PO DAILY RF: 0 aspirin 81 mg tablet,delayed release (DR/EC) 81 mg PO DAILY Qty: 30 RF: 0 fluticasone propionate 50 mcg/actuation spray,suspension 50 mcg INTRANASAL DAILY PRN (Reason: Allergy Symptoms) RF: 0 Referrals: Anita Ng MD [Primary Care Provider] - 1-3 days Discharge Diet: Advance as tolerated Discharge Activity: Resume usual activity Patient Instructions: Abdominal Pain (ED) Coding Level of Care Code ED Exceptional Student Education Aide for Abeba Fwd Exam Comprehensive
[2020-03-29] MEDS: ondansetron 2 mg/ML SDV 2 mL 4 MG IVP (22:15)
[2020-03-29] MEDS: sodium chloride 0.9% 1,000 ML 999 ML IV (22:16)
[2020-03-29 22:24] VITALS: BP 213/97; PULSE 69; RESP 17; O2SAT 98
[2020-03-29 22:38] LABS: Basophils # 0.1 10^3/uL (0.0-0.1); Basophils % 0.7 %; Eosinophils # 0.1 10^3/uL (0.0-0.8); Eosinophils % 1.1 %; Hematocrit 38.7 % (37.0-47.0); Hemoglobin 11.9 g/dL (11.5-15.3); Lymphocytes # 1.7 10^3/uL (0.8-4.8); Lymphocytes % 17.1 %; Mean Corpuscular HGB Conc 30.7 g/dL (30.0-36.0); Mean Corpuscular Hemoglobin 26.6 pg (28.0-34.0); Mean Corpuscular Volume 86.6 fL (81-99); Mean Platelet Volume 10.5 fL (7.4-10.4); Monocytes # 0.5 10^3/uL (0.2-0.9); Neutrophils # 7.54 10^3/uL (1.8-7.7); Neutrophils % 75.8 %; Nucleated Red Blood Cells % 0 %; Platelet Count 330 10^3/cmm (130-400); Red Blood Count 4.47 10^6/uL (4.1-5.3); Red Cell Distribution Width 13.6 % (12.1-15.1)
[2020-03-29 22:54] LABS: Alanine Aminotransferase 19 U/L (0-33); Albumin Level 4.2 g/dL (3.5-5.2); Alkaline Phosphatase 120 IU/L (35-105); Anion Gap 15.8 (5-19); Aspartate Amino Transferase 24 U/L (0-32); Blood Urea Nitrogen 23 mg/dL (8-23); Calcium 9.9 mg/dL (8.5-10.5); Carbon Dioxide 23 mmol/L (22-29); Chloride 101 mmol/L (98-107); Globulin 2.7 g/dL (1.3-4.6); Glucose 113 mg/dL (65-115); Lipase 70 U/L (13-60); Osmolality Calculated 278 mOsm/kg (285-295); Potassium 4.8 mmol/L (3.5-5.1); Sodium 135 mmol/L (136-145); Total Bilirubin 0.6 mg/dL (0.15-1.2); Total Protein 6.9 g/dL (6.6-8.7)
[2020-03-29 23:30] VITALS: BP 167/93; PULSE 63; RESP 16; O2SAT 97
--- NOTE | 2020-03-30 00:14 | PC.NURSE ---
PATIENT BACK FROM CT
[2020-03-30 00:18] VITALS: BP 164/74; PULSE 61; RESP 16; O2SAT 99
--- NOTE | 2020-03-30 00:56 | CTR_ITS ---
PROCEDURE INFORMATION: Exam: CT Head Without Contrast Exam date and time: 03/30/2020 1:09 AM Age: 75 years old Clinical indication: Pain; Dizziness; Headache not specified; Prior surgery; Surgery date: 6+ months; Surgery type: Aneurysm; Additional info: Dizzy TECHNIQUE: Imaging protocol: Computed tomography of the head without contrast. Radiation optimization: All CT scans at this facility use at least one of these dose optimization techniques: automated exposure control; mA and/or kV adjustment per patient size (includes targeted exams where dose is matched to clinical indication); or iterative reconstruction. COMPARISON: CT head wo con* [id number] 02/23/2019 7:53 PM RADIATION DOSE METRICS: Total DLP (mGy-cm): 895.88 FINDINGS: Brain: There is moderate diffuse cerebral atrophy. Patchy areas of hypoattenuation are seen in the deep white of the cerebral hemispheres bilaterally compatible with deep white matter microvascular disease. Hypoattenuation and atrophy is seen within the right frontal and anterior temporal regions compatible with chronic infarction. These appear stable compared with 02/23/2019. Ventricles: Normal. No ventriculomegaly. Bones/joints: Postoperative changes are seen within the mandible on the left. Sinuses: Visualized sinuses are unremarkable. No fluid levels. Mastoid air cells: There is partial opacification the left mastoid sinuses. Vasculature: Status post right temporal craniotomy with aneurysmal clips seen within the right middle cerebral artery branches. Soft tissues: Unremarkable. CT/CT head wo con* [id number] IMPRESSION: 1. There are no acute intracranial findings. 2. Right frontal and temporal chronic infarctions appears stable compared with 02/23/2019. Radiation Dose CTDIVOL = (mGy): DLP = 895.88 (mGy-cm)
[2020-03-30] MEDS: meclizine 25 mg tablet PO (01:06)
[2020-03-30 01:08] VITALS: BP 175/79; RESP 15
--- NOTE | 2020-03-30 01:21 | PC.NURSE ---
PATIENT TO CT
--- NOTE | 2020-03-30 01:29 | PC.NURSE ---
BACK FROM CT
[2020-03-30 01:57] VITALS: BP 171/94; PULSE 65; RESP 16; O2SAT 98
--- NOTE | 2020-03-30 09:14 | DCPLANNER ---
railroad emergency services manager had message to schedule a follow up appointment for patient with Dr. Carranza. railroad emergency services manager called [facility], spoke with Lauren, a follow up appointment is scheduled for Friday, April 10, 2020 at 1:[address] Carranza. Clinic will call patient with appointment information.
--- NOTE | 2020-04-27 15:25 | DCPLANNER ---
Patient had an appointment scheduled for 04.10.20 with [facility] - patient did attend appointment.
== END 2020-03-30 02:03 | disposition home or self-care (01) ==
PROVIDERS: Emergency Provider Emergency Medicine; PCP Family Medicine
DX: R42 Dizziness and giddiness (principal); R11.0 Nausea; R10.9 Unspecified abdominal pain; Z79.82 Long term (current) use of aspirin; E78.5 Hyperlipidemia, unspecified; I10 Essential (primary) hypertension; Z85.118 Personal history of other malignant neoplasm of bronchus and lung; Z87.891 Personal history of nicotine dependence; Z90.2 Acquired absence of lung [part of]
CPT/HCPCS: 12345; 70450; 74176; 80053; 83690; 85025; 96361; 96374; 96375; 99283; J2405; J7030; J8597

== ENCOUNTER → 2020-07-09 12:05 | Outpatient (BNVA) | payer MEDICARE, SELFPAY | PROVIDERS: PCP Family Medicine; Visit Provider Nurse Practitioner Family | DX: Z20.828 Contact with and (suspected) exposure to other viral communicable diseases (principal); J06.9 Acute upper respiratory infection, unspecified | CPT/HCPCS: 87635 ==

== ENCOUNTER → 2020-07-23 09:42 | Outpatient (BNVA) | payer MEDICARE, SELFPAY | PROVIDERS: PCP Family Medicine; Visit Provider Nurse Practitioner Family | DX: R05 Cough (principal); I10 Essential (primary) hypertension | CPT/HCPCS: 71046; 80053; 84443; 85025 ==

== ENCOUNTER → 2020-10-03 11:59 | Outpatient (BNVA) | payer MEDICARE, SELFPAY | PROVIDERS: PCP Family Medicine; Visit Provider Nurse Practitioner Family | DX: R30.0 Dysuria (principal); M25.561 Pain in right knee; M25.562 Pain in left knee; M85.80 Other specified disorders of bone density and structure, unspecified site; M17.11 Unilateral primary osteoarthritis, right knee | CPT/HCPCS: 73562; 81003; 87086 ==

== ENCOUNTER 2020-11-29 12:19 | Observation (INO) | payer MEDICARE, SELFPAY ==
[2020-11-29] VITALS (11 sets, daily range): BP systolic 148–198; BP diastolic 67–116; PULSE 56–77; RESP 14–20; TEMP 36.6–36.7; O2SAT 96–99; BMI 28.3
--- NOTE | 2020-11-29 12:21 | ECG_ITS ---
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 Measurements Intervals [place] Rate: 56 P: 66 UT: 226 QRS: 4 QRSD: 80 T: 50 QT: 395 QTc: 384 Interpretive Statements SINUS BRADYCARDIA WITH FIRST DEGREE AV BLOCK SEPTAL MYOCARDIAL INFARCTION , OF INDETERMINATE AGE [40+ ms Q WAVE IN V1/V2] Compared to ECG 08/09/2019 18:10:08 First degree AV block now present Myocardial infarct finding now present Sinus rhythm no longer present Electronically Signed On 11-29-2020 21:45:24 CDT by Stuart Nguyen M.D. [id number]
--- NOTE | 2020-11-29 12:21 | XR_ITS ---
WS: [id number] Portable AP upright chest, 11/29/2020 Clinical Data: chest pain Comparison: PA and lateral chest, 07/23/2020. Findings: No nodules, masses or effusions are seen. The heart is slightly enlarged. The pulmonary vas cularity is not increased. No pneumonia or pneumothorax is seen. 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 The aortic arch and descending aorta are tortuous. There is a calcified granulo ma in the left lower lobe. The patient has had surgery on the mandible with a plate on the right side and symphysis fixed with small screws. XR/XR chest 1V portable [id number] Impression: 1. Right thoracotomy changes which remain the same. 2. Cardiomegaly and atherosclerosis.
--- NOTE | 2020-11-29 12:35 | W.ED.CHESTPA ---
HPI - Chest Pain General: Chief Complaint: Chest Pain Stated Complaint: CHEST TIGHTNESS Time Seen by Provider: 11/29/20 12:20 History of Present Illness: HPI narrative: 75-year-old female presents morning via EMS complaining of chest pressure and dizziness. She has numbness of her face and tongue bilaterally. No to change in vision no difficulty with speech or swallowing no difficulty numbness or weakness that is lateralizing. She has had problems chronically with dizziness intermittently. She not had any shortness of breath with this. No radiation of the discomfort in her chest into the neck arms or back. MD complaint: chest pain Pertinent past history: coronary artery disease Onset (ago): minute(s) Timing of current episode: episodic Onset: during rest Pain location: left chest Pain radiation: none Severity: mild Quality: heaviness Relieving factors: nothing Exacerbating factors: nothing Associated symptoms: Reports nausea; Deny abdominal pain, diaphoresis, dyspnea, fever(s), leg edema, palpitations, sense of impending doom, syncope or vomiting Treatment prior to arrival: none Review of Systems Const: Denies: fever(s) or diaphoresis ENMT: Denies: throat pain, ear or mastoid pain, nasal discharge or nasal congestion Card: Denies: palpitations or syncope Resp: Denies: dyspnea GI: Reports: nausea; Denies: abdominal pain or vomiting : Denies: flank pain, difficulty voiding, dysuria, urinary frequency or urinary urgency Skin/Breast: Denies: rash or pruritus PENDING SALE TO [facility] ED PFSH: Medical History (Updated 11/30/20 @ 16:18 by Quoc Mckay DO) Acquired hypothyroidism Chronic constipation Glaucoma Hyperlipidemia Hypertension Stable Lung cancer Pyloric stenosis Surgical History H/O esophagogastroduodenoscopy 07/29/2019: EGD with dilation for pyloric stenosis 09/13/2019: EGD with dilation to 15 mm for pyloric stenosis H/O hysterectomy for benign disease History of lobectomy of lung History of mandibular surgery S/P cholecystectomy Family History Mother Glaucoma Social History Smoking and tobacco status: former smoker Quit status (tobacco): has quit using tobacco Year quit tobacco: 1998 Former quit date comment: smoked PPD 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 Second hand smoke exposure: No Alcohol intake: never Lives independently: Yes Household members: none Marital status: / Current occupational status: retired History of recent travel: No Current gender identity: Female Physical Exam Const: COMMON NORMALS: no acute distress GENERAL APPEARANCE: cooperative and comfortable HENMT: COMMON NORMALS: normocephalic, atraumatic and hearing grossly normal bilaterally HEAD & SCALP: normocephalic and atraumatic Eye: COMMON NORMALS: Equal, round and reactive pupils present, EOMs intact bilaterally, conjunctivae normal and no scleral icterus CONJUNCTIVA: Yes conjunctivae normal PUPIL: Yes Equal, round and reactive pupils present Neck/C-Spine: COMMON NORMALS: full ROM, no lymphadenopathy, supple and no JVD Lymph: LYMPHATIC: no lymphadenopathy noted and no lymphedema noted Resp: COMMON NORMALS: normal respiratory effort, No retractions, No use of accessory muscles and clear to auscultation bilaterally AUSCULTATION: clear to auscultation bilaterally Cardio: COMMON NORMALS: no JVD, regular rate, regular rhythm and No murmurs present (Cardio) RATE: regular rate RHYTHM: regular rhythm GI: COMMON NORMALS: Soft to palpation and No hepatosplenomegaly present AUSCULTATION: Yes normoactive bowel sounds PALPATION: Yes Soft to palpation, No Tenderness to palpation present (GI), No Guarding due to palpation present (GI) and Yes No hepatosplenomegaly present Extremity: COMMON NORMALS: normal to inspection, capillary refill normal, no clubbing, cyanosis or edema, no calf tenderness and no pedal edema Skin: COMMON NORMALS: no rashes or lesions noted GENERAL SKIN EXAM: no rashes or lesions noted Course Vital Signs: Vital signs: Vital Signs Temperature 97.7 F 11/30/20 15:17 Pulse Rate 76 11/30/20 15:17 Respiratory Rate 18 11/30/20 15:17 Blood Pressure 160/73 11/30/20 15:17 Pulse Oximetry 97 11/30/20 15:17 MDM - Chest Pain MDM Narrative: Medical decision making narrative: Positive delta troponin will admit for rule out SC discussed with the patient discussed with hospitalist. Patient TIA symptoms have resolved her blood pressure still remains accelerated. Lab Data: Attestation: I reviewed the patient's lab results. Labs: Lab Results 11/29/20 11/29/20 11/29/20 Range/Units 12:50 12:50 12:50 WBC 14.6 H (4.0-10.0) 10^3/ uL RBC 5.02 (4.1-5.3) 10^6/u L Hgb 13.9 (11.5-15.3) g/dL Hct 44.8 (37.0-47.0) % MCV 89.2 (81-99) fL MCH 27.7 L (28.0-34.0) pg MCHC 31.0 (30.0-36.0) g/dL RDW 13.4 (12.1-15.1) % Plt Count 254 (130-400) 10^3/c mm MPV 11.2 H (7.4-10.4) fL Neut % (Auto) 82.5 % Lymph % (Auto) 11.1 % [place] % (Auto) 3.9 % Eos % (Auto) 1.3 % Baso % (Auto) 0.8 % Neut # (Auto) 12.06 H (1.8-7.7) 10^3/u L Lymph # (Auto) 1.6 (0.8-4.8) 10^3/u L [place] # (Auto) 0.6 (0.2-0.9) 10^3/u L Eos # (Auto) 0.2 (0.0-0.8) 10^3/u L Baso # (Auto) 0.1 (0.0-0.1) 10^3/u L Nucleated RBC % (a uto) 0 % Nucleated RBCs # 0.0 /100WBC Sodium Cancelled Potassium Cancelled Chloride Cancelled Carbon Dioxide Cancelled Anion Gap Cancelled BUN Cancelled Creatinine Cancelled GFR Calculation Cancelled Glucose Cancelled Calculated Osmolal ity Cancelled Calcium Cancelled Total Bilirubin Cancelled AST Cancelled ALT Cancelled Alkaline Phosphata se Cancelled Troponin T Baselin e Cancelled Troponin T 120 Min [place] (0-10) ng/L Delta Troponin T (0-10) ABS# Total Protein Cancelled Albumin Cancelled Globulin Cancelled Urine Color (Yellow) Urine Appearance (CLEAR) Urine pH (5-7) Ur Specific Gravit y (1.005-1.030) Urine Protein (Negative) Urine Glucose (UA) (Normal) Urine Ketones (Negative) Urine Blood (Negative) Urine Nitrate (Negative) Urine Bilirubin (Negative) Urine Urobilinogen (Negative) mg/dL Ur Leukocyte Ольга ase (Negative) 11/29/20 11/29/20 11/29/20 Range/Units 13:48 13:48 14:25 WBC (4.0-10.0) 10^3/ uL RBC (4.1-5.3) 10^6/u L Hgb (11.5-15.3) g/dL Hct (37.0-47.0) % MCV (81-99) fL MCH (28.0-34.0) pg MCHC (30.0-36.0) g/dL RDW (12.1-15.1) % Plt Count (130-400) 10^3/c mm MPV (7.4-10.4) fL Neut % (Auto) % Lymph % (Auto) % [place] % (Auto) % Eos % (Auto) % Baso % (Auto) % Neut # (Auto) (1.8-7.7) 10^3/u L Lymph # (Auto) (0.8-4.8) 10^3/u L [place] # (Auto) (0.2-0.9) 10^3/u L Eos # (Auto) (0.0-0.8) 10^3/u L Baso # (Auto) (0.0-0.1) 10^3/u L Nucleated RBC % (a uto) % Nucleated RBCs # /100WBC Sodium 139 Potassium 4.1 Chloride 104 Carbon Dioxide 26 Anion Gap 13.1 BUN 11 Creatinine 0.9 GFR Calculation Not Reportable Glucose 88 Calculated Osmolal ity 287 Calcium 8.9 Total Bilirubin 0.4 AST 27 ALT 52 H Alkaline Phosphata se 112 H Troponin T Baselin e 17 H Troponin T 120 Min [place] (0-10) ng/L Delta Troponin T (0-10) ABS# Total Protein 6.2 L Albumin 3.8 Globulin 2.4 Urine Color Straw (Yellow) Urine Appearance Clear (CLEAR) Urine pH 5 (5-7) Ur Specific Gravit y 1.010 (1.005-1.030) Urine Protein Neg (Negative) Urine Glucose (UA) Norm (Normal) Urine Ketones Negative (Negative) Urine Blood Neg (Negative) Urine Nitrate Negative (Negative) Urine Bilirubin Neg (Negative) Urine Urobilinogen Norm (Negative) mg/dL Ur Leukocyte Ольга ase Negative (Negative) 11/29/20 Range/Units 16:08 WBC (4.0-10.0) 10^3/ uL RBC (4.1-5.3) 10^6/u L Hgb (11.5-15.3) g/dL Hct (37.0-47.0) % MCV (81-99) fL MCH (28.0-34.0) pg MCHC (30.0-36.0) g/dL RDW (12.1-15.1) % Plt Count (130-400) 10^3/c mm MPV (7.4-10.4) fL Neut % (Auto) % Lymph % (Auto) % [place] % (Auto) % Eos % (Auto) % Baso % (Auto) % Neut # (Auto) (1.8-7.7) 10^3/u L Lymph # (Auto) (0.8-4.8) 10^3/u L [place] # (Auto) (0.2-0.9) 10^3/u L Eos # (Auto) (0.0-0.8) 10^3/u L Baso # (Auto) (0.0-0.1) 10^3/u L Nucleated RBC % (a uto) % Nucleated RBCs # /100WBC Sodium Potassium Chloride Carbon Dioxide Anion Gap BUN Creatinine GFR Calculation Glucose Calculated Osmolal ity Calcium Total Bilirubin AST ALT Alkaline Phosphata se Troponin T Baselin e Troponin T 120 Min [place] 21.55 H (0-10) ng/L Delta Troponin T 4.55 (0-10) ABS# Total Protein Albumin Globulin Urine Color (Yellow) Urine Appearance (CLEAR) Urine pH (5-7) Ur Specific Gravit y (1.005-1.030) Urine Protein (Negative) Urine Glucose (UA) (Normal) Urine Ketones (Negative) Urine Blood (Negative) Urine Nitrate (Negative) Urine Bilirubin (Negative) Urine Urobilinogen (Negative) mg/dL Ur Leukocyte Ольга ase (Negative) Discharge Plan Discharge Patient Disposition: Admitted As Inpatient Admit Provider: Kvng Carias Clinical Impression: Elevated troponin, Brain TIA, Accelerated hypertension Condition: Stable Discharge Diet: Cardiac Discharge Activity: Resume usual activity Coding Level of Care Code 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
--- NOTE | 2020-11-29 13:01 | PC.NURSE ---
Took Meclizine at 0400 and 10 this morning. Dizziness continues.
[2020-11-29 13:04] LABS: Basophils # 0.1 10^3/uL (0.0-0.1); Basophils % 0.8 %; Eosinophils # 0.2 10^3/uL (0.0-0.8); Eosinophils % 1.3 %; Hematocrit 44.8 % (37.0-47.0); Hemoglobin 13.9 g/dL (11.5-15.3); Lymphocytes # 1.6 10^3/uL (0.8-4.8); Lymphocytes % 11.1 %; Mean Corpuscular Hemoglobin 27.7 pg (28.0-34.0); Mean Corpuscular Volume 89.2 fL (81-99); Mean Platelet Volume 11.2 fL (7.4-10.4); Monocytes # 0.6 10^3/uL (0.2-0.9); Monocytes % 3.9 %; Neutrophils # 12.06 10^3/uL (1.8-7.7); Neutrophils % 82.5 %; Nucleated Red Blood Cells % 0 %; Platelet Count 254 10^3/cmm (130-400); Red Blood Count 5.02 10^6/uL (4.1-5.3); Red Cell Distribution Width 13.4 % (12.1-15.1); White Blood Count 14.6 10^3/uL (4.0-10.0)
--- NOTE | 2020-11-29 13:39 | PC.PHAR ---
pt states she takes care of her own medications-pt states she normally takes meclizine 25mg bid @13,17 but states sometimes she takes more-rx was written for 25mg tid prn-pt states she takes miralax bid rx written on 10/12/20 for once a day-pt states she only has one inhaler-
[2020-11-29 14:21] LABS: Alanine Aminotransferase 52 U/L (0-33); Albumin Level 3.8 g/dL (3.5-5.2); Alkaline Phosphatase 112 IU/L (35-105); Anion Gap 13.1 (5-19); Aspartate Amino Transferase 27 U/L (0-32); Blood Urea Nitrogen 11 mg/dL (8-23); Calcium 8.9 mg/dL (8.5-10.5); Carbon Dioxide 26 mmol/L (22-29); Chloride 104 mmol/L (98-107); Creatinine Clr Calc Pharmacy 44.3014; Globulin 2.4 g/dL (1.3-4.6); Glucose 88 mg/dL (65-115); Osmolality Calculated 287 mOsm/kg (285-295); Potassium 4.1 mmol/L (3.5-5.1); Sodium 139 mmol/L (136-145); Total Bilirubin 0.4 mg/dL (0.15-1.2); Total Protein 6.2 g/dL (6.6-8.7)
--- NOTE | 2020-11-29 14:21 | ECG_ITS ---
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 Measurements Intervals [place] Rate: 55 P: 76 ID: [id number] QRS: 5 QRSD: 85 T: 45 QT: 408 QTc: 393 Interpretive Statements SINUS BRADYCARDIA WITH FIRST DEGREE AV BLOCK SEPTAL MYOCARDIAL INFARCTION , OF INDETERMINATE AGE [40+ ms Q WAVE IN V1/V2] Compared to ECG 11/29/2020 12:26:32 No significant changes Electronically Signed On 11-29-2020 21:54:55 CDT by Stuart Nguyen M.D. [email or web address]/[id number]
[2020-11-29 14:22] LABS: Troponin(5th) Baseline 17 ng/L (0-10)
--- NOTE | 2020-11-29 14:24 | CT_ITS ---
WS: [id number] CT HEAD TECHNIQUE: Noncontrast CT of the head obtained from the skullbase to the vertex. CLINICAL INFORMATION: dizziness, numbness tingling COMPARISON: March 30, 2020 DLP: 796.[address] scans at [facility] use at least one of these dose optimization techniques: automat ed exposure control; mA and/or kV adjustment per patient size (includes targeted exams where dose is matched to clinical indication); or iterative reconstruction. FINDINGS: No evidence of intracranial hemorrhage or mass effect. Ventricular system and basal cisterns are olvera nt. Prior postoperative changes right frontal temporal craniotomy with aneurysm coiling. Chronic ence phalomalacia right frontal and anterior temporal lobes with encephalomalacia. Stable 9 mm calcified l esion along the corpus callosum. No hydrocephalus. No extra axial fluid collections. Right mastoid ai r cells well aerated. Mucosal thickening left mastoid air cells. Paranasal sinuses are well aerated. CT/CT head wo con* [id number] IMPRESSION: 1. No evidence of intracranial hemorrhage or mass effect. 2. No significant changes since March 30, 2020 3. Prior postoperative changes right frontotemporal craniotomy with encephalom alacia in the right frontal and right anterior temporal lobes. 4. Prior aneurysm coiling right MCA trifurcation.
[2020-11-29 14:48] LABS: Add Urine Microscopic? NO; Charge for UA Resulting for Rev
[2020-11-29 15:21] LABS: Bilirubin Urine Neg (Negative); Blood Urine Neg (Negative); Glucose Urine UA Norm (Normal); Ketones Urine Negative (Negative); Leukocyte Esterase Urine Negative (Negative); Nitrate Urine Negative (Negative); Protein Urine Neg (Negative); Urine Appearance Clear (CLEAR); Urine Color Straw (Yellow); Urobilinogen Urine Norm (Negative); pH Urine 5 (5-7)
[2020-11-29 17:01] LABS: Troponin 5 2HR 21.55 ng/L (0-10); Troponin 5 2HR Delta 4.55 ABS# (0-10)
[2020-11-29] MEDS: aspirin 81 mg Chew Tablet 324 MG PO (18:03)
[2020-11-29] MEDS: enoxaparin 80 mg/0.8 mL Syringe 70 MG SUBCUT (18:03)
[2020-11-29] MEDS: nitroglycerin 1 gm/inch oint Pkt 0.5 INCH TOPICAL (18:03)
--- NOTE | 2020-11-29 18:17 | PM.HP ---
Providers/Chief Complaint Primary Care Provider: Anita Ng MD Chief Complaint: CHEST TIGHTNESS History of Present Illness Vivian Hummel is a 75 year old female with a past medical history of CVA, hypertension, hyperlipidemia, hypothyroidism, vertigo, history of lung cancer status post thoracotomy, COPD, who presents [facility] due to complaints of elevated blood pressure with associated facial numbness, dizziness, and chest pain. Patient tells me that she lives by herself, early in the morning, she noticed that her blood pressure was high, after taking her blood pressure medications, and she started to feel dizziness, it was like the room was spinning around her, but occur in any position, she then started develop bilateral facial numbness, no other paresthesias, no facial droop, no slurring of her speech, no focal neurologic deficits, no focal new weakness,. She said that also during this time she started to develop some chest pain, substernal, pressure-like pain, lasting a few minutes, nonradiating, no lightheadedness, dizziness, no nausea, no vomiting, no fevers, no chills. She takes her medications as prescribed. Denies smoking, quit smoking many years ago, no alcohol use, no drug use. Review of Systems Const: Denies: fever(s), chills, fatigue or malaise Eyes: Denies: change in vision or blurry vision ENMT: Denies: nasal congestion Card: Reports: chest pain and lightheadedness; Denies: palpitations, irregular heart rhythm, edema, syncope or pre-syncope Resp: Denies: dyspnea, productive cough, non-productive cough or wheezing GI: Denies: abdominal pain, nausea, vomiting, hematemesis, diarrhea, constipation, hematochezia or melena : Denies: flank pain, dysuria or urinary frequency Musc: Denies: neck pain or back pain Skin/Breast: Denies: rash Neuro: Reports: sensory changes; Denies: headache(s), numbness in extremities, weakness in extremities, lack of coordination, difficulty walking, frequent falls, dizziness, vertigo, confusion, Slurred speech present, difficulty communicating thoughts, seizure-like activity or involuntary movements Psych: Denies: anxiety or depression Endo: Denies: polyuria or polydipsia Medications/Allergies Home Medications Medication Instructions Recorded Confirmed Last Taken Type albuterol sulfate 90 mcg/actuation 2 puff INHALATION QID PRN #18 gm 02/27/20 11/29/20 Unknown Rx aerosol inhaler Celebrex 200 mg PO BID@,11/29/20 11/29/20 11/29/20 04:00 History acetaminophen [Tylenol Extra 500 mg PO PRN 11/29/20 11/29/20 Unknown History Strength] aspirin 325 mg PO DAILY@11/29/20 11/29/20 11/29/20 04:00 History atorvastatin 40 mg PO DAILY@11/29/20 11/29/20 11/28/20 History fluticasone propionate 2 spray INTRANASAL DAILY PRN 11/29/20 11/29/20 Unknown History furosemide 20 mg PO DAILY@11/29/20 11/29/20 11/29/20 07:00 History levothyroxine 88 mcg PO DAILY@11/29/20 11/29/20 11/28/20 History losartan 100 mg PO DAILY@11/29/20 11/29/20 11/29/20 04:00 History meclizine 25 mg PO BID@, PRN 11/29/20 11/29/20 11/29/20 10:00 History see pharmacy comment metoprolol succinate 50 mg PO BID@,11/29/20 11/29/20 11/29/20 04:00 History multivitamin 1 tab PO DAILY@11/29/20 11/29/20 11/28/20 History omeprazole 40 mg PO BID@,11/29/20 11/29/20 11/29/20 04:00 History oxybutynin chloride 5 mg PO BID@,11/29/20 11/29/20 11/29/20 04:00 History polyethylene glycol 3350 17 g PO BID@08,20 11/29/20 11/29/20 Unknown History Allergies Allergy/AdvReac Type Severity Reaction Status Date / Time povidone-iodine Allergy Severe ALGY-Swell Verified 11/29/20 12:31 Lip/Tongue/Throat soap Allergy Severe ALGY-Swell Verified 10/17/20 13:57 Lip/Tongue/Throat Fish Containing Products Allergy Unknown ALGY-Swell Verified 11/29/20 12:31 Lip/Tongue/Throat iodine Allergy Unknown ALGY-Swell Verified 11/29/20 12:31 Lip/Tongue/Throat PFSH Acute PFSH: Medical History (Updated 11/29/20 @ 18:26 by Kvng Carias MD) Acquired hypothyroidism Chronic constipation Glaucoma Hyperlipidemia Hypertension Stable Lung cancer Pyloric stenosis Surgical History H/O esophagogastroduodenoscopy 07/29/2019: EGD with dilation for pyloric stenosis 09/13/2019: EGD with dilation to 15 mm for pyloric stenosis H/O hysterectomy for benign disease History of lobectomy of lung History of mandibular surgery S/P cholecystectomy Family History Mother Glaucoma Social History Smoking and tobacco status: former smoker Quit status (tobacco): has quit using tobacco Year quit tobacco: 1998 Former quit date comment: smoked 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 Second hand smoke exposure: No Alcohol intake: never Lives independently: Yes Household members: none Marital status: / Current occupational status: retired History of recent travel: No Current gender identity: Female Vitals/I&O/Wt Last Vital Signs Temp 97.9 F 11/29/20 12:20 Pulse 59 L 11/29/20 15:48 Resp 14 11/29/20 15:48 BP 153/73 11/29/20 15:48 Pulse Ox 99 11/29/20 15:48 Weight last 48 hrs Weight 65.771 kg Physical Exam Const: COMMON NORMALS: no acute distress and patient oriented x3 GENERAL APPEARANCE: cooperative and comfortable HENMT: COMMON NORMALS: normocephalic HEAD & SCALP: normocephalic Eye: COMMON NORMALS: Equal, round and reactive pupils present and EOMs intact bilaterally GENERAL EYE: appearance normal, both eyes and all related structures PUPIL: Yes Equal, round and reactive pupils present Neck/C-Spine: COMMON NORMALS: full ROM THYROID: Thyroid normal Lymph: LYMPHATIC: no lymphadenopathy noted Resp: COMMON NORMALS: normal respiratory effort, No retractions, No use of accessory muscles and clear to auscultation bilaterally AUSCULTATION: clear to auscultation bilaterally Cardio: COMMON NORMALS: no JVD, regular rate, regular rhythm, S1 normal heart sound present, S2 normal heart sound present, No gallops present (Cardio), No clicks present (Cardio) and No murmurs present (Cardio) RATE: regular rate RHYTHM: regular rhythm HEART SOUNDS: S1 normal heart sound present and S2 normal heart sound present GI: COMMON NORMALS: Normal to inspection, nondistended, normoactive bowel sounds present, Soft to palpation, non-tender and No hepatosplenomegaly present PALPATION: Yes Soft to palpation and Yes No hepatosplenomegaly present Extremity: COMMON NORMALS: normal to inspection, full ROM and no pedal edema Neuro: COMMON NORMALS: patient oriented x3, CN's II-XII intact bilaterally, moves all extremities and no focal motor deficits Psych: COMMON NORMALS: mental status grossly normal, Normal thought process present and cooperative THOUGHT PROCESS: Normal thought process present Data : 11/29/20 12:50 11/29/20 13:48 A&P Assessment and plan (1) Transient ischemic attack: CT: -right frontal temporal craniotomy with aneurysm coiling. -chronic encephalomalacia right frontal and anterior temporal lobes with encephalomalacia -facial numbness, vertigo -no resolved PLAN: -cardiac echocardiogram -carotid ultrasound -neurochecks -telemetry monitoring -start home blood pressure medications -labetalol PRN for SBP>180 or DBP>100, hold if HR<60 Status: Acute (2) Chest pain: PLAN: -aspirin, atorvastatin, metoprolol -echocardiogram -monitor for chest pain -troponin, EKG, monitoring -npo midnight for stres test tommorow morning Status: Acute (3) Hypertensive urgency: PLAN: -continue metoprolol 50mg BID -losartan 100mg qD -labetalol PRN Status: Acute (4) Hyperlipidemia: -atorvastatin Status: Acute (5) COPD (chronic obstructive pulmonary disease): Status: Acute (6) Lung cancer: Status: Acute (7) Hypertension: Status: Acute Qualifiers: Hypertension type: essential hypertension Qualified Code(s): I10 - Essential (primary) hypertension Attestations Medical Necessity Statement*: patient requires hospitalization,outpatient with observation, for chest pain, tia, htn urgency Coding Level of Care Code 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
[2020-11-29 20:05] LABS: Troponin 5 6HR 19.82 ng/L (0-10); Troponin 5 6HR Delta 2.82 ng/L (0-12)
[2020-11-30] VITALS (11 sets, daily range): BP systolic 135–174; BP diastolic 68–81; PULSE 62–84; RESP 17–20; TEMP 36.5–37.1; O2SAT 92–97
[2020-11-30 05:08] LABS: Basophils # 0.1 10^3/uL (0.0-0.1); Basophils % 0.9 %; Eosinophils # 0.2 10^3/uL (0.0-0.8); Eosinophils % 2.3 %; Hematocrit 37.6 % (37.0-47.0); Hemoglobin 11.8 g/dL (11.5-15.3); Lymphocytes # 2.1 10^3/uL (0.8-4.8); Lymphocytes % 22.5 %; Mean Corpuscular HGB Conc 31.4 g/dL (30.0-36.0); Mean Corpuscular Hemoglobin 27.4 pg (28.0-34.0); Mean Corpuscular Volume 87.2 fL (81-99); Monocytes # 0.6 10^3/uL (0.2-0.9); Monocytes % 6.5 %; Neutrophils # 6.42 10^3/uL (1.8-7.7); Neutrophils % 67.5 %; Nucleated Red Blood Cells % 0 %; Platelet Count 237 10^3/cmm (130-400); Red Blood Count 4.31 10^6/uL (4.1-5.3); Red Cell Distribution Width 13.4 % (12.1-15.1); White Blood Count 9.5 10^3/uL (4.0-10.0)
[2020-11-30 05:26] LABS: Alanine Aminotransferase 47 U/L (0-33); Albumin Level 3.5 g/dL (3.5-5.2); Alkaline Phosphatase 98 IU/L (35-105); Aspartate Amino Transferase 27 U/L (0-32); Blood Urea Nitrogen 13 mg/dL (8-23); Carbon Dioxide 26 mmol/L (22-29); Chloride 107 mmol/L (98-107); Creatinine Clr Calc Pharmacy 44.3014; Globulin 2.2 g/dL (1.3-4.6); Glucose 99 mg/dL (65-115); Osmolality Calculated 292 mOsm/kg (285-295); Sodium 141 mmol/L (136-145); Total Bilirubin 0.3 mg/dL (0.15-1.2); Total Protein 5.7 g/dL (6.6-8.7)
[2020-11-30 05:29] LABS: Cholesterol 136 mg/dL (0-200); HDL Cholesterol 40 mg/dL (60-100); LDL Cholesterol Calculated 65 mg/dL (50-129); LDL HDL Ratio 1.63 RATIO (0.00-3.22); NT Pro B Type Natriuretic Pept 512 pg/mL (0-450); Triglycerides 153 mg/dL (0-150)
[2020-11-30 05:31] LABS: Magnesium 1.8 mg/dL (1.7-2.3); Phosphorus 3.8 mg/dL (2.5-4.5); Thyroid Stimulating Hormone 0.77 uIU/mL (0.27-4.20)
[2020-11-30 06:33] LABS: Estmated Average Glucose 105; Hemoglobin A1C 5.3 % (4.0-6.0)
--- NOTE | 2020-11-30 06:37 | ECG_ITS ---
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 The perfusion scan will be documented separately. DATA: Baseline heart rate was 72 beats per minute. Baseline blood pressure was 172/86 millimeters of mercury. Target heart rate was 143. Maximum heart rate achieved was 118. which was 82 % of the predicted target heart rate. Maximum blood pressure was 204/86 millimeters of mercury. The reason for ending the test was completion of the protocol. The patient did not experience any symptoms. ELECTROCARDIOGRAM: BASELINE: Sinus rhythm. Normal axis. Otherwise, no ST-T changes suggestive of ischemia noted. No arrhythmia noted. EXERCISE: After Lexiscan injection, no ST-T changes suggestive of ischemic noted. No arrhythmia noted. CONCLUSION: Please note due to baseline abnormality of the EKG specificity and sensitivity of the EKG portion of LexiScan MIBI stress test will be low 1. EKG not suggestive of ischemia 2. Lexiscan injection unremarkable. Patient was noted to be hypertensive 3. Perfusion scan will be documented separately. Electronically Signed On 12-01-2020 19:26:00 CDT by LIZ BOBO [email or web address] [email or web address]/OM/[id number]
--- NOTE | 2020-11-30 12:14 | P.DS_ITS ---
Discharge Providers Date of Admission: 11/29/20 17:37 Date of Discharge: November 30, 2020 Attending Provider at Admission: Kvng Carias MD Attending Provider at Discharge: Kvng Carias MD Primary Care Provider: Anita Ng MD Diagnoses at Discharge Discharge Diagnosis (1) Transient ischemic attack: Status: Acute (2) Chest pain: Status: Acute (3) Hypertensive urgency: Status: Acute (4) Hyperlipidemia: Status: Acute (5) COPD (chronic obstructive pulmonary disease): Status: Acute (6) Lung cancer: Status: Acute (7) Hypertension: Status: Acute Permanent problem details: Stable Qualifiers: Hypertension type: essential hypertension Qualified Code(s): I10 - Essential (primary) hypertension Reason for Visit Reason for Visit: CHEST TIGHTNESS Hospital Course Hospital Course Vivian Hummel is a 75 year old female with a past medical history of CVA, hypertension, hyperlipidemia, hypothyroidism, vertigo, history of lung cancer status post thoracotomy, COPD, who presents [facility] due to complaints of elevated blood pressure with associated facial numbness, dizziness, and chest pain. Patient describes a chain of events as she develops some chest tightness, with some fluttering of her chest she felt, it felt like her heart skipped a beat, and after she started to feel lightheaded and dizzy, and developed facial numbness. Currently as inpatient her symptoms had resolved, alert oriented x3, NIH stroke scale 0. This is highly suspicious for a paroxysmal atrial fibrillation event. As inpatient her EKGs showed sinus bradycardia with first- degree AV block, telemetry did not show any A. fib events. Nonetheless, I am still highly suspicious for an A. fib events so I have discharge her with an event monitor, with close follow-up with cardiology as outpatient For her chest pain, EKG showed no acute ST-T wave changes, did show Q waves in septal leads, no significant troponin leak, no chest pain as inpatient. Stress test showed low probability of obstructive CAD. 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 Received PT OT as inpatient, as this TIA episode occurred on aspirin 325. I will discharge her on aspirin 81 mg daily, with Plavix 75 mg daily for 3 weeks, statin, with follow-up with neurology as outpatient. As above I am highly concerned for the possibility of paroxysmal atrial fibrillation events as etiology behind her symptomatology, I have discharged her on event monitor with close follow-up with cardiology. But certainly patient's hypertensive urgency could be the etiology behind her TIA. For hypertensive urgency, most of her blood pressure resolved with her home blood pressure medications, I have added added Norvasc 10 mg daily, with a follow-up with primary care provider as outpatient Physical Exam Const: COMMON NORMALS: no acute distress and patient oriented x3 HENMT: COMMON NORMALS: normocephalic HEAD & SCALP: normocephalic Neck/C-Spine: COMMON NORMALS: no JVD Resp: COMMON NORMALS: normal respiratory effort, No retractions, No use of accessory muscles and clear to auscultation bilaterally AUSCULTATION: clear to auscultation bilaterally Cardio: COMMON NORMALS: no JVD, regular rate, regular rhythm, S1 normal heart sound present and S2 normal heart sound present RATE: regular rate RHYTHM: regular rhythm HEART SOUNDS: S1 normal heart sound present and S2 normal heart sound present GI: COMMON NORMALS: Normal to inspection, nondistended, normoactive bowel sounds present, Soft to palpation, non-tender, No hepatosplenomegaly present, no masses and no bruits PALPATION: Yes Soft to palpation and Yes No hepatosplenomegaly present Extremity: COMMON NORMALS: capillary refill normal, no clubbing, cyanosis or edema, no calf tenderness and no pedal edema Neuro: COMMON NORMALS: patient oriented x3 Psych: COMMON NORMALS: mental status grossly normal Discharge Data Data Completed and Pending: Completed Studies During Hospitalization Category Date Time Status CT head wo con* [id number] Stat Cat Scan 11/29/20 14:24 Completed XR chest 1V monse ble [id number] Stat Exams 11/29/20 12:21 Completed Pending at discharge Category Date Time Status Sestamibi Stress Test Request Routi ne Exams 11/29/20 20:42 Stop Req Sestamibi Stress Test Request Routi ne Exams 11/30/20 06:37 Ordered Magnesium AM LABS Lab 12/01/20 04:00 Ordered Magnesium AM LABS Lab 12/02/20 04:00 Ordered Phosphorus AM LAB S Lab 12/01/20 04:00 Ordered Phosphorus AM LAB S Lab 12/02/20 04:00 Ordered NM vandana perf SPECT r/s* [id number] Routin e Nuc Med 11/30/20 20:42 Ordered CV carotid duplex BI* [id number] Routine Ultrasound 11/30/20 20:42 Taken CV echo complete* [id number] Routine Ultrasound 11/30/20 20:42 Taken Labs from last 24 hours 11/30/20 11/30/20 11/30/20 04:08 04:08 04:08 WBC RBC Hgb Hct MCV MCH MCHC RDW Plt Count MPV Neut % (Auto) Lymph % (Auto) [place] % (Auto) Eos % (Auto) Baso % (Auto) Neut # (Auto) Lymph # (Auto) [place] # (Auto) Eos # (Auto) Baso # (Auto) Nucleated RBC % (a uto) Nucleated RBCs # Sodium Potassium Chloride Carbon Dioxide Anion Gap BUN Creatinine GFR Calculation Glucose Estimat Average Gl ucose 105 Hemoglobin A1c 5.3 Calculated Osmolal ity Calcium Phosphorus 3.8 Magnesium 1.8 Total Bilirubin AST ALT Alkaline Phosphata se Troponin T Baselin e Troponin T 120 Min [place] Delta Troponin T Troponin T Hi Sens 6Hr Troponin T Hi Sens 6Hr Delta NT-Pro-B Natriuret Pep 512 H Total Protein Albumin Globulin Triglycerides 153 H Cholesterol 136 LDL Cholesterol, C alc 65 HDL Cholesterol 40 L LDL/HDL Ratio 1.63 Cholesterol/HDL Ra brenda 3.40 TSH 0.77 Urine Color Urine Appearance Urine pH Ur Specific Gravit y Urine Protein Urine Glucose (UA) Urine Ketones Urine Blood Urine Nitrate Urine Bilirubin Urine Urobilinogen Ur Leukocyte Ольга ase 11/30/20 11/30/20 11/29/20 04:08 04:08 19:32 WBC 9.5 RBC 4.31 Hgb 11.8 Hct 37.6 MCV 87.2 MCH 27.4 L MCHC 31.4 RDW 13.4 Plt Count 237 MPV 11.0 H Neut % (Auto) 67.5 Lymph % (Auto) 22.5 [place] % (Auto) 6.5 Eos % (Auto) 2.3 Baso % (Auto) 0.9 Neut # (Auto) 6.42 Lymph # (Auto) 2.1 [place] # (Auto) 0.6 Eos # (Auto) 0.2 Baso # (Auto) 0.1 Nucleated RBC % (a uto) 0 Nucleated RBCs # 0.0 Sodium 141 Potassium 4.0 Chloride 107 Carbon Dioxide 26 Anion Gap 12.0 BUN 13 Creatinine 0.9 GFR Calculation Not Reportable Glucose 99 Estimat Average Gl ucose Hemoglobin A1c Calculated Osmolal ity 292 Calcium 9.0 Phosphorus Magnesium Total Bilirubin 0.3 AST 27 ALT 47 H Alkaline Phosphata se 98 Troponin T Baselin e Troponin T 120 Min [place] Delta Troponin T Troponin T Hi Sens 6Hr 19.82 H Troponin T Hi Sens 6Hr Delta 2.82 NT-Pro-B Natriuret Pep Total Protein 5.7 L Albumin 3.5 Globulin 2.2 Triglycerides Cholesterol LDL Cholesterol, C alc HDL Cholesterol LDL/HDL Ratio Cholesterol/HDL Ra brenda TSH Urine Color Urine Appearance Urine pH Ur Specific Gravit y Urine Protein Urine Glucose (UA) Urine Ketones Urine Blood Urine Nitrate Urine Bilirubin Urine Urobilinogen Ur Leukocyte Ольга ase 11/29/20 11/29/20 11/29/20 16:08 14:25 13:48 WBC RBC Hgb Hct MCV MCH MCHC RDW Plt Count MPV Neut % (Auto) Lymph % (Auto) [place] % (Auto) Eos % (Auto) Baso % (Auto) Neut # (Auto) Lymph # (Auto) [place] # (Auto) Eos # (Auto) Baso # (Auto) Nucleated RBC % (a uto) Nucleated RBCs # Sodium Potassium Chloride Carbon Dioxide Anion Gap BUN Creatinine GFR Calculation Glucose Estimat Average Gl ucose Hemoglobin A1c Calculated Osmolal ity Calcium Phosphorus Magnesium Total Bilirubin AST ALT Alkaline Phosphata se Troponin T Baselin e 17 H Troponin T 120 Min [place] 21.55 H Delta Troponin T 4.55 Troponin T Hi Sens 6Hr Troponin T Hi Sens 6Hr Delta NT-Pro-B Natriuret Pep Total Protein Albumin Globulin Triglycerides Cholesterol LDL Cholesterol, C alc HDL Cholesterol LDL/HDL Ratio Cholesterol/HDL Ra brenda TSH Urine Color Straw Urine Appearance Clear Urine pH 5 Ur Specific Gravit y 1.010 Urine Protein Neg Urine Glucose (UA) Norm Urine Ketones Negative Urine Blood Neg Urine Nitrate Negative Urine Bilirubin Neg Urine Urobilinogen Norm Ur Leukocyte Ольга ase Negative 11/29/20 11/29/20 11/29/20 13:48 12:50 12:50 WBC RBC Hgb Hct MCV MCH MCHC RDW Plt Count MPV Neut % (Auto) Lymph % (Auto) [place] % (Auto) Eos % (Auto) Baso % (Auto) Neut # (Auto) Lymph # (Auto) [place] # (Auto) Eos # (Auto) Baso # (Auto) Nucleated RBC % (a uto) Nucleated RBCs # Sodium 139 Cancelled Potassium 4.1 Cancelled Chloride 104 Cancelled Carbon Dioxide 26 Cancelled Anion Gap 13.1 Cancelled BUN 11 Cancelled Creatinine 0.9 Cancelled GFR Calculation Not Reportable Cancelled Glucose 88 Cancelled Estimat Average Gl ucose Hemoglobin A1c Calculated Osmolal ity 287 Cancelled Calcium 8.9 Cancelled Phosphorus Magnesium Total Bilirubin 0.4 Cancelled AST 27 Cancelled ALT 52 H Cancelled Alkaline Phosphata se 112 H Cancelled Troponin T Baselin e Cancelled Troponin T 120 Min [place] Delta Troponin T Troponin T Hi Sens 6Hr Troponin T Hi Sens 6Hr Delta NT-Pro-B Natriuret Pep Total Protein 6.2 L Cancelled Albumin 3.8 Cancelled Globulin 2.4 Cancelled Triglycerides Cholesterol LDL Cholesterol, C alc HDL Cholesterol LDL/HDL Ratio Cholesterol/HDL Ra brenda TSH Urine Color Urine Appearance Urine pH Ur Specific Gravit y Urine Protein Urine Glucose (UA) Urine Ketones Urine Blood Urine Nitrate Urine Bilirubin Urine Urobilinogen Ur Leukocyte Ольга ase 11/29/20 12:50 WBC 14.6 H RBC 5.02 Hgb 13.9 Hct 44.8 MCV 89.2 MCH 27.7 L MCHC 31.0 RDW 13.4 Plt Count 254 MPV 11.2 H Neut % (Auto) 82.5 Lymph % (Auto) 11.1 [place] % (Auto) 3.9 Eos % (Auto) 1.3 Baso % (Auto) 0.8 Neut # (Auto) 12.06 H Lymph # (Auto) 1.6 [place] # (Auto) 0.6 Eos # (Auto) 0.2 Baso # (Auto) 0.1 Nucleated RBC % (a uto) 0 Nucleated RBCs # 0.0 Sodium Potassium Chloride Carbon Dioxide Anion Gap BUN Creatinine GFR Calculation Glucose Estimat Average Gl ucose Hemoglobin A1c Calculated Osmolal ity Calcium Phosphorus Magnesium Total Bilirubin AST ALT Alkaline Phosphata se Troponin T Baselin e Troponin T 120 Min [place] Delta Troponin T Troponin T Hi Sens 6Hr Troponin T Hi Sens 6Hr Delta NT-Pro-B Natriuret Pep Total Protein Albumin Globulin Triglycerides Cholesterol LDL Cholesterol, C alc HDL Cholesterol LDL/HDL Ratio Cholesterol/HDL Ra brenda TSH Urine Color Urine Appearance Urine pH Ur Specific Gravit y Urine Protein Urine Glucose (UA) Urine Ketones Urine Blood Urine Nitrate Urine Bilirubin Urine Urobilinogen Ur Leukocyte Ольга ase Vitals: Last Vital Signs Temp 98 F 11/30/20 11:44 Pulse 74 11/30/20 11:44 Resp 20 H 11/30/20 11:44 BP 164/78 11/30/20 11:44 Pulse Ox 94 11/30/20 11:44 Discharge Plan Discharge Patient Disposition: Home Condition: Stable Prescriptions: New aspirin 81 mg Tablet,Delayed Release (Dr/Ec) 81 mg PO DAILY 30 Days Qty: 30 RF: 0 clopidogrel 75 mg Tablet 75 mg PO DAILY 21 Days Qty: 21 RF: 0 amlodipine 10 mg Tablet 10 mg PO DAILY 30 Days Qty: 30 RF: 0 Continued albuterol sulfate [ProAir HFA] 90 mcg/actuation HFA aerosol inhaler 2 puff INHALATION QID PRN (Reason: shortness of breath or wheezing) Qty: 18 RF: 1 multivitamin Tablet 1 tab PO DAILY@11 RF: 0 Tylenol Extra Strength 500 mg Tablet 500 mg PO PRN RF: 0 atorvastatin 40 mg tablet 40 mg PO DAILY@17 RF: 0 metoprolol succinate 50 mg tablet extended release 24 hr 50 mg PO BID@ RF: 0 omeprazole 40 mg capsule,delayed release(DR/EC) 40 mg PO BID@ RF: 0 levothyroxine 88 mcg tablet 88 mcg PO DAILY@13 RF: 0 meclizine 25 mg tablet 25 mg PO BID@ PRN (Reason: dizziness) RF: 0 furosemide 20 mg tablet 20 mg PO DAILY@07 RF: 0 polyethylene glycol 3350 17 gram/dose powder 17 g PO BID@ RF: 0 oxybutynin chloride 5 mg tablet 5 mg PO BID@ RF: 0 losartan 100 mg tablet 100 mg PO DAILY@04 RF: 0 fluticasone propionate 50 mcg/actuation spray,suspension 2 spray INTRANASAL DAILY PRN (Reason: Allergy Symptoms) RF: 0 Discontinued aspirin 325 mg Tablet 325 mg PO DAILY@04 RF: 0 Celebrex 200 mg capsule 200 mg PO BID@ RF: 0 Discharge Orders: Discharge Order (Routine); Ordered 11/30/20 Ordered By: Kvng Carias Other Ambulatory Orders: CA cardiac event monitor (Routine) Timeframe: 1 Day Facility: [facility] - Location: Cardiac Diagnostic Laboratory Ordered By: Kvng Carias Referrals: Nubia Bean MD [Physician] - 1 month Noreen Moyer MD [Physician] - 1 month Discharge Diet: Cardiac Discharge Activity: Resume usual activity Patient Instructions: Opioid Safety Activity Restrictions/Additional Instructions: -If you have recurrent chest palpitations, please go to emergency room -If no recurrent chest pain please go to emergency room -If you have recurrent strokelike symptoms, please call 911 -Please continue aspirin 81 mg daily indefinitely -Please continue Plavix 75 mg daily for 3 weeks -Follow-up with your primary care provider in 1 week for recheck CBC -If you have any bloody or black stools please come the emergency room Discharge Attestations Time Spent in Discharge Care*: greater than 30 min Quality Metrics Clinical Quality Measures During this hospital stay, did patient experience: None Coding Level of Care Code Acute [facility] note Exam Comprehensive Diagnoses Transient ischemic attack G45.9 Chest pain R07.9 Hypertensive urgency I16.0 Hyperlipidemia E78.5 COPD (chronic obstructive pulmonary disease) J44.9 Lung cancer C34.90 Hypertension I10 Hypertension type: essential hypertension
[2020-11-30] MEDS: aminophylline 25 mg/mL SDV 10 mL IVP ×2 (12:40→12:48)
[2020-11-30] MEDS: regadenoson 0.4 Mg/5 ml Syringe IVP (12:40)
[2020-11-30] MEDS: acetaminophen 500 mg Tablet PO (14:01)
[2020-11-30] MEDS: amlodipine 10 mg Tablet PO (14:02)
[2020-11-30] MEDS: levothyroxine 88 mcg Tablet PO (14:02)
[2020-11-30] MEDS: clopidogrel 75 mg Tablet PO (14:02)
[2020-11-30] MEDS: multivitamin therapeutic Tablet 1 TAB PO (14:03)
--- NOTE | 2020-11-30 14:29 | PC.CHAP ---
Pastoral Care Encounter/Spiritual Assessment Type of Contact [] Declined elder assistant visit [] Patient/Family/Request visit [] Outpatient visit [] Follow-up visit [] Physician referral [] Code/Alert [] Routine visit [] Staff referral [] Actively dying [] Patient sleeping [] Family support [] [xx] Out of room [] Palliative care [] [] Receiving care in room [] Pre-surgical visit [] Trauma [] Long length of stay [] ICU visit [] Other: Relational/Emotional Strength [] Patient feels connected with others/family/visitors/staff [] Distress [] Loneliness/isolation [] Abandonment Spirituality of Patient [] Person of Kiara [] Attends Restorationism of their Kiara [] Believes in Prayer [] Reads Bible or Yazdanism materials [] There are Spiritual issues to be addressed Greenskeeper Head Interventions [] Prayer [] Active listening [] Non-anxious presence [] Spiritual/emotional support [] Crisis/trauma care [] Spiritual counseling [] Bereavement support [] Provided bereavement packet [] Provided Bible/devotional materials [] Provided toy/stuffed animal, coloring book to patient or family member [] Provided Communion [] Anointing/[place] [] Salvation [] Completed spiritual assessment [] Other: Impact on Illness or Injury [] Angry [] Fearful [] Anxious [] Often cries [] Exhaustion [] Unable to work [] Unable to attend latter-day [] Unable to walk/stand [] Unable to read [] Unable to drive [] Unable to eat/drink [] Unable to sleep [] Unable to be with family [] Patient intubated [] Other: Summary Patient was busy with medical staff at beginning of elder assistant's rounds and out of room for testing at end of elder assistant's rounds. Follow up needed. Time spent with patient
[2020-11-30] MEDS: losartan 50 mg Tablet 100 MG PO (14:39)
[2020-11-30] MEDS: FUROsemide 20 mg Tablet PO (14:39)
[2020-11-30] MEDS: enoxaparin 40 mg/0.4 mL Syringe SUBCUT (14:40)
--- NOTE | 2020-11-30 15:58 | PC.RESP ---
Pulmonary Rehab information sent to patient.
--- NOTE | 2020-11-30 17:58 | PC.NURSE ---
pt verbalized understanding of discharge instructions, follow up appointments, home medications, and new prescriptions. pt is wanting to eat dinner prior to discharge.
[2020-11-30] MEDS: oxybutynin 5 mg Tablet PO (18:05)
[2020-11-30] MEDS: famotidine 20 mg Tablet PO (18:05)
[2020-11-30] MEDS: pantoprazole DR 40 mg Tablet PO (18:05)
[2020-11-30] MEDS: atorvastatin 40 mg Tablet PO (18:05)
[2020-11-30] MEDS: metoprolol succinate ER (24 HR) 50 mg Tablet PO (18:05)
--- NOTE | 2020-11-30 20:42 | NMCV_ITS ---
NM vandana perf SPECT r/s* [id number] Vivian Hummel Age: 75 Gender: F : 1945 Exam Date: 11/30/2020 11:59 Ordering Phys: Kvng Carias MD Technologist: CHANDNI Walker Exam Location: [facility] Indications: CHEST TIGHTNESS STRESS TEST Please see separate [facility] for full findings IMAGE PROTOCOL Rest/Stress 1 Lexiscan Day Radiopharmaceutical Dose (mCi) Administration Site Administered by Rest: Tc-99m 10.6 IV CHANDNI Hoyos Sestamibi Stress:Tc-99m 30.4 IV CHANDNI Hoyos Sestamibi Rest: 30-Nov-2020 60 Discovery 630 Stress: 30-Nov-2020 30 Discovery 630 0.4mg Lexiscan. Supine position only as patient was unable to lay prone. SPECT RESULTS Technical Quality: Excellent Raw Data Analysis: Normal Image Corrections: No attenuation or motion correction applied Summed Stress Score: 0 Summed Rest Score: 0 Summed Difference Score: 0 PERFUSION FINDINGS SPECT images demonstrate homogeneous tracer distribution throughout the myocardium. FUNCTIONAL RESULTS (calculated via Gated SPECT) Stress Image LV EF (%): 80 Stress EDV (mL):51 TID: 1 Stress ESV (mL):10 Rest Image LV EF (%): 80 FUNCTIONAL FINDINGS: There is normal left ventricular systolic function. IMPRESSIONS Myocardial perfusion imaging is normal and low probability for obstructive coronary artery disease. EKG segment will be documented separately. Noreen Moyer MD (Electronically Signed) Final Date: 30 November 2020 15:38 S
--- NOTE | 2020-11-30 20:42 | USCV_ITS ---
Vivian Hummel Age: 75 Gender: F : 1945 Exam Date: 11/30/2020 06:08 Ordering Phys: Kvng Carias MD Technologist: Mai Jacome [place]am [place] [facility] [place] Indication: Shortness of breath BP: 135 / 68 HR: 62 Rhythm: Sinus Technical Quality: Technically difficult study MEASUREMENTS (Male / Female) Normal Values 2D ECHO LV Diastolic Diameter PLAX 3.2 cm 4.2 - 5.9 / 3.9 - 5.3 cm LV Systolic Diameter PLAX 2.0 cm IVS Diastolic Thickness 1.3 cm 0.6 - 1.0 / 0.6 - 0.9 cm IVS Systolic Thickness 1.5 cm LVPW Diastolic Thickness 1.2 cm 0.6 - 1.0 / 0.6 - 0.9 cm LVPW Systolic Thickness 1.4 cm LVOT Diameter 2.0 cm LV Ejection Fraction 2D Teich 69.9 % LV Ejection Fraction MOD 2C 59.0 % LV Ejection Fraction 2C AL 57.9 % LA Diameter 2.9 cm LA Width 3.3 cm LA Height 4.4 cm RA Width 2.8 cm RA Height 4.3 cm Aorta at Sinotubular Diameter 2.5 cm M-MODE LV Diastolic Diameter MM 5.6 cm 4.2 - 5.9 / 3.9 - 5.3 cm LV Systolic Diameter MM 3.3 cm LV Ejection Fraction MM Teich 71.6 % IVS Diastolic Thickness MM 1.4 cm 0.6 - 1.0 / 0.6 - 0.9 cm IVS Systolic Thickness MM 1.9 cm LVPW Diastolic Thickness MM 1.3 cm 0.6 - 1.0 / 0.6 - 0.9 cm LVPW Systolic Thickness MM 2.3 cm Aortic Annulus Diameter 3.5 cm LA Ao Ratio MM 0.9 MV E Point Septal Separation 0.4 cm DOPPLER AV Peak Velocity 162.0 cm/s LVOT Peak Velocity 140.0 cm/s AV Area Cont Eq vti 2.7 cm squared AV Area Cont Eq pk 2.8 cm squared MV Area PHT 4.4 cm squared Mitral E to A Ratio 0.9 MV E' Velocity 39.5 cm/s Mitral E to MV E' Ratio 7.5 Mitral E to LV E' Lateral Ratio 7.3 Mitral E to LV E' Septal Ratio 7.7 TR Peak Velocity 355.3 cm/s TR Peak Gradient 50.5 mmHg TV Peak E Velocity 83.0 cm/s Right Atrial Pressure 3.0 mmHg Pulmonary Artery Systolic Pressu 53.5 mmHg PV Peak Velocity 92.0 cm/s RV Acceleration Time 0.1 s RV Ejection Time 0.3 s RV AcT/ET 0.2 FINDINGS Left Ventricle Normal left ventricular cavity size. Normal left ventricular systolic function. No regional wall motion abnormalities. Left ventricular ejection fraction is estimated at 60 %. Grade I/IV diastolic dysfunction (abnormal relaxation filling pattern), normal to mildly elevated filling pressures. Right Ventricle The right ventricle is normal in size and function. Right Atrium The right atrium is normal in size. Left Atrium The left atrium is normal in size. Mitral Valve Structurally normal mitral valve without significant stenosis or prolapse. There is no mitral regurgitation. Aortic Valve Structurally normal aortic valve without significant sclerosis or stenosis. There is no aortic regurgitation. Tricuspid Valve Structurally normal tricuspid valve without significant stenosis or regurgitation. Pulmonary artery systolic pressure is normal. Pulmonic Valve Structurally normal pulmonic valve without significant stenosis. There is no pulmonic regurgitation. Pericardium Normal pericardium without effusion. Aorta Normal ascending aorta dimension. CONCLUSIONS 1-Normal left ventricular cavity size. Normal left ventricular systolic function. No regional wall motion abnormalities. Left ventricular ejection fraction is estimated at 60 %. Grade I/IV diastolic dysfunction (abnormal relaxation filling pattern), normal to mildly elevated filling pressures. 2-There is no pericardial effusion. 3-No significant valve abnormalities. 4-Right atrial pressure is around 5 mm of mercury. 5-There are no prior echocardiogram studies to compare. Noreen Moyer MD (Electronically Signed) Final Date: 30 November 2020 16:18 S
--- NOTE | 2020-11-30 20:42 | USCV_ITS ---
Estephanie Vivian Age: 75 Gender: F : 1945 Exam Date: 11/30/2020 06:45 Ordering Phys: Kvng Carais MD Technologist: Mai Jacome Exam Location: [facility] [place] Indication: Shortness of breath Risk Factors: Previous Vascular Surgery: Right Brachial BP: / Left Brachial BP: / Right Left Velocity (cm/s) Spectral Plaque Velocity (cm/s) Spectral Plaque Syst/Diast Broadening Syst/Diast Broadening 52.00/ 8.50 Prox CCA 100.00/ 19.70 64.20/ 10.70 Mid CCA 70.40 / 14.80 68.40/ 9.30 Distal CCA 57.60 / 10.20 48.90/ 11.50 Prox ICA 45.20 / 10.20 48.20/ 10.20 Mid ICA 42.70 / 9.50 43.40/ 8.10 Distal ICA 57.30 / 18.70 117.00 ECA 111.50 0.76 ICA/CCA 0.81 Antegrade Vertebral Antegrade 32.60/ 7.50 cm/s 66.20/ 15.40 cm/s Tri Subclavian Tri 145.7 235.7 0 0 CONCLUSIONS Right ICA stenosis <50%. Left ICA stenosis <50%. Normal antegrade Doppler flow noted in the right vertebral artery. Normal antegrade Doppler flow noted in the left vertebral artery. Johnny River MD (Electronically Signed) Final Date: 30 November 2020 13:11 S
== END 2020-11-30 19:02 | disposition home or self-care (01) ==
LOC: ER 17:41 → MEDSURG 19:31
PROVIDERS: Admitting Provider Family Medicine; Emergency Provider Family Medicine; PCP Family Medicine; Visit Provider Family Medicine
DX: G45.9 Transient cerebral ischemic attack, unspecified (principal); R07.9 Chest pain, unspecified; I16.0 Hypertensive urgency; E78.5 Hyperlipidemia, unspecified; J44.9 Chronic obstructive pulmonary disease, unspecified; C34.90 Malignant neoplasm of unspecified part of unspecified bronchus or lung; I10 Essential (primary) hypertension; E03.9 Hypothyroidism, unspecified; Z85.118 Personal history of other malignant neoplasm of bronchus and lung; Z87.891 Personal history of nicotine dependence
CPT/HCPCS: 36415; 70450; 71045; 78452; 80053; 80061; 81003; 83036; 83735; 83880; 84100; 84443; 84484; 85025; 93005; 93017; 93306; 93880; 94664; 96372; 96374; 97110; 97161; 97166; 99285; A9500; G0378; J0280; J1650; J2785

== ENCOUNTER 2020-12-07 13:57 | Emergency (ER) | payer MEDICARE, SELFPAY ==
[2020-12-07 14:04] VITALS: BP 147/71; PULSE 65; RESP 15; TEMP 36.4; O2SAT 98; BMI 29.2
[2020-12-07 14:37] VITALS: PULSE 73
--- NOTE | 2020-12-07 14:37 | CTR_ITS ---
PROCEDURE INFORMATION: Exam: CT Abdomen And Pelvis With Contrast Exam date and time: 12/07/2020 2:56 PM Age: 75 years old Clinical indication: Bloating and nausea; Prior surgery; Surgery date: 6+ months; Surgery type: Hyst, gb; Patient HX: C/O abd pain w nausea and distention TECHNIQUE: Imaging protocol: Computed tomography of the abdomen and pelvis with contrast. Total images: 221 Radiation optimization: All CT scans at this facility use at least one of these dose optimization techniques: automated exposure control; mA and/or kV adjustment per patient size (includes targeted exams where dose is matched to clinical indication); or iterative reconstruction. Contrast material: VISI 320; Contrast volume: 95 ml; Contrast route: INTRAVENOUS (IV); COMPARISON: CT abdomen pelvis wo con [id number] 03/30/2020 12:03 AM RADIATION DOSE METRICS: Total DLP (mGy-cm): 1312.44 FINDINGS: Lungs: Limited assessment of the lung bases fails to reveal evidence for active cardiopulmonary process. Heart: Cardiac size upper limits of normal. No visible pericardial effusion. Liver: No visible hepatic mass. Stable small hepatic cysts. Gallbladder and bile ducts: Status post cholecystectomy. Pancreas: Pancreas unremarkable. No visible pancreatic ductal ectasia. Spleen: Normal. No splenomegaly. Adrenal glands: Adrenal glands unremarkable. Kidneys and ureters: No hydronephrosis or perinephric fluid bilaterally. No visible nephrolithiasis. No visible ureterolithiasis. Stable small simple renal cortical cysts. No follow-up recommended. Stomach and bowel: Diverticulosis coli without visible evidence for acute diverticulitis. Nonobstructive bowel pattern. No visible adynamic or reactive ileus. Appendix: The appendix is visualized and appears noninflamed. The appendix contains oral contrast from previous examinations. Intraperitoneal space: No visible evidence of mesenteric lymphadenitis or active mesenteritis/panniculitis. No visible pneumoperitoneum or intraperitoneal ascites. Vasculature: The abdominal aorta is nonaneurysmal. Moderate arterial sclerotic disease. Portal vein patent. Lymph nodes: No current visible evidence of active mesenteric or retroperitoneal lymphadenopathy. Urinary bladder: Urinary bladder unremarkable. Reproductive: Status post hysterectomy. Bones/joints: No visible active or acute osseous pathology. Degenerative disease and degenerative disc disease of the spine most advanced L2/L3. Old compression deformity T12. Mild scoliotic curvature. Soft tissues: Small right inguinal hernia containing the noninflamed appendix. This is called a De Garengeot hernia CT/CT abdomen pelvis w con* [id number] IMPRESSION: 1. Currently no visible evidence for acute abdominal or pelvic pathologic process. 2. De Garengeot hernia. 3. The appendix is visualized and appears noninflamed. 4. Diverticulosis coli without visible evidence for acute diverticulitis. Radiation Dose CTDIVOL = (mGy): DLP = 1312.44 (mGy-cm)
--- NOTE | 2020-12-07 14:53 | W.ED.ABDPA2 ---
HPI - Abdominal Pain General: Chief Complaint: Abdominal Pain Stated Complaint: abd distention, nausea Time Seen by Provider: 12/07/20 14:08 History of Present Illness: HPI narrative: 85-year-old female presents emergency room complaint abdominal discomfort distention and nausea. She did have a bowel movement today she is concerned that she may have a bowel obstruction because of her previous history of bowel obstructions. No fever sweats chills no dysuria urgency or frequency. Patient denies shortness of breath or chest pain. MD elicited complaint: abdominal pain Onset (ago): hour(s) Location: Diffuse Severity: mild Quality: cramping Radiation: none Migration to: no migration Exacerbating factors: nothing Relieving factors: nothing Associated Symptoms: Reports bloating, GI cramping, nausea and poor appetite; Denies anorexia, belching, change in bowel habits, change in stool character, chills, coffee ground emesis, constipation, diarrhea, dyspepsia, dysuria, excessive flatus, fever(s), heartburn, hematochezia, hematuria, hematemesis, fecal incontinence, loose stools, melena, syncope and vomiting Review of Systems Const: Denies: fever(s) or chills ENMT: Denies: throat pain, ear or mastoid pain, nasal discharge or nasal congestion Card: Denies: syncope Resp: Denies: dyspnea, productive cough or non-productive cough GI: Reports: nausea, bloating and GI cramping; Denies: vomiting, hematemesis, coffee ground emesis, heartburn, diarrhea, constipation, belching, excessive flatus, fecal incontinence, change in bowel habits, change in stool character, hematochezia or melena : Denies: dysuria or hematuria Skin/Breast: Denies: rash or pruritus PFSH ED PFSH: Medical History Acquired hypothyroidism Chronic constipation Glaucoma Hyperlipidemia Hypertension Stable Lung cancer Pyloric stenosis Surgical History H/O esophagogastroduodenoscopy 07/29/2019: EGD with dilation for pyloric stenosis 09/13/2019: EGD with dilation to 15 mm for pyloric stenosis H/O hysterectomy for benign disease History of lobectomy of lung History of mandibular surgery S/P cholecystectomy Family History Mother Glaucoma Social History Smoking and tobacco status: former smoker Quit status (tobacco): has quit using tobacco Year quit tobacco: 1998 Former quit date comment: smoked PPD 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 Second hand smoke exposure: No Alcohol intake: never Lives independently: Yes Household members: none Marital status: / Current occupational status: retired History of recent travel: No Current gender identity: Female Physical Exam Const: COMMON NORMALS: average body habitus, patient oriented x3 and alert GENERAL APPEARANCE: cooperative, comfortable, well kempt and well developed NUTRITIONAL APPEARANCE: obese ORIENTATION/CONSCIOUSNESS: Yes awake, Yes oriented to person and Yes oriented to place HENMT: COMMON NORMALS: normocephalic, atraumatic and EAC's normal HEAD & SCALP: normocephalic and atraumatic EXTERNAL AUDITORY CANAL: EAC's normal Eye: COMMON NORMALS: Equal, round and reactive pupils present, EOMs intact bilaterally, conjunctivae normal and no scleral icterus CONJUNCTIVA: Yes conjunctivae normal PUPIL: Yes Equal, round and reactive pupils present Neck/C-Spine: COMMON NORMALS: full ROM, no lymphadenopathy, supple, no meningeal signs and Thyroid normal THYROID: Thyroid normal and asymmetrical Lymph: LYMPHATIC: no lymphadenopathy noted Resp: COMMON NORMALS: normal respiratory effort, No retractions, No use of accessory muscles and clear to auscultation bilaterally AUSCULTATION: clear to auscultation bilaterally Cardio: COMMON NORMALS: regular rate and regular rhythm RATE: regular rate RHYTHM: regular rhythm HEART SOUNDS: no murmurs GI: COMMON NORMALS: Normal to inspection, nondistended, normoactive bowel sounds present, Soft to palpation and No hepatosplenomegaly present PALPATION: Yes Soft to palpation and Yes No hepatosplenomegaly present : COMMON NORMALS: Yes no CVA tenderness BLADDER/KIDNEY EXAM: Yes no CVA tenderness Back/Pelvis: COMMON NORMALS: no CVA tenderness LUMBAR SPINE/LOWER BACK: Yes normal to inspection Extremity: COMMON NORMALS: no clubbing, cyanosis or edema, no calf tenderness and no pedal edema Neuro: COMMON NORMALS: patient oriented x3 SENSORIUM/ORIENTATION: Yes alert, Yes oriented to person and Yes oriented to place MENINGEAL SIGNS: Yes no meningeal signs Psych: APPEARANCE: Yes well kempt Skin: COMMON NORMALS: no rashes or lesions noted and turgor normal GENERAL SKIN EXAM: no rashes or lesions noted and turgor normal Course Vital Signs: Vital signs: Vital Signs Temperature 97.5 F L 12/07/20 14:04 Pulse Rate 78 12/07/20 18:07 Respiratory Rate 18 12/07/20 18:07 Blood Pressure 133/78 12/07/20 18:07 Pulse Oximetry 94 12/07/20 18:07 MDM - Abdominal Pain MDM Narrative: Medical decision making narrative: Repeat exam patient still has good bowel sounds mildly tender but nothing specific CT is negative she has a slight elevation of her white count is 16 3. We will have her do a clear liquid diet for the next 24 hours advance as tolerated. If she has any worsening or change return would like a recheck with her doctor within the next 24 to 48 hours. Lab Data: Labs: Lab Results 12/07/20 12/07/20 12/07/20 Range/Units 15:10 15:10 15:10 WBC 16.3 H (4.0-10.0) 10^3/ uL RBC 4.84 (4.1-5.3) 10^6/u L Hgb 13.4 (11.5-15.3) g/dL Hct 41.7 (37.0-47.0) % MCV 86.2 (81-99) fL MCH 27.7 L (28.0-34.0) pg MCHC 32.1 (30.0-36.0) g/dL RDW 13.2 (12.1-15.1) % Plt Count 274 (130-400) 10^3/c mm MPV 11.1 H (7.4-10.4) fL Neut % (Auto) 83.2 % Lymph % (Auto) 10.4 % [place] % (Auto) 4.5 % Eos % (Auto) 1.0 % Baso % (Auto) 0.5 % Neut # (Auto) 13.60 H (1.8-7.7) 10^3/u L Lymph # (Auto) 1.7 (0.8-4.8) 10^3/u L [place] # (Auto) 0.7 (0.2-0.9) 10^3/u L Eos # (Auto) 0.2 (0.0-0.8) 10^3/u L Baso # (Auto) 0.1 (0.0-0.1) 10^3/u L Nucleated RBC % (a uto) 0 % Nucleated RBCs # 0.0 /100WBC Sodium 133 L (136-145) mmol/L Potassium 4.5 (3.5-5.1) mmol/L Chloride 96 L (98-107) mmol/L Carbon Dioxide 23 (22-29) mmol/L Anion Gap 18.5 (5-19) BUN 21 (8-23) mg/dL Creatinine 1.4 H (0.5-0.9) mg/dL GFR Calculation Not Reportable Glucose 97 (65-115) mg/dL Calculated Osmolal ity 279 L (285-295) mOsm/k g Lactic Acid 1.2 (0.5-2.2) mmol/L Calcium 9.3 (8.5-10.5) mg/dL Total Bilirubin 0.5 (0.15-1.2) mg/dL AST 26 (0-32) U/L ALT 59 H (0-33) U/L Alkaline Phosphata se 134 H (35-105) IU/L Total Protein 6.9 (6.6-8.7) g/dL Albumin 4.3 (3.5-5.2) g/dL Globulin 2.6 (1.3-4.6) g/dL Lipase 51 (13-60) U/L Urine Color (Yellow) Urine Appearance (CLEAR) Urine pH (5-7) Ur Specific Gravit y (1.005-1.030) Urine Protein (Negative) Urine Glucose (UA) (Normal) Urine Ketones (Negative) Urine Blood (Negative) Urine Nitrate (Negative) Urine Bilirubin (Negative) Urine Urobilinogen (Negative) mg/dL Ur Leukocyte Ольга ase (Negative) Urine RBC (0-2) /hpf Urine WBC (0-5) /hpf Ur Squamous Epith Cells (0-5) /hpf Amorphous Sediment Urine Bacteria (NONE) /hpf 12/07/20 Range/Units 16:46 WBC (4.0-10.0) 10^3/ uL RBC (4.1-5.3) 10^6/u L Hgb (11.5-15.3) g/dL Hct (37.0-47.0) % MCV (81-99) fL MCH (28.0-34.0) pg MCHC (30.0-36.0) g/dL RDW (12.1-15.1) % Plt Count (130-400) 10^3/c mm MPV (7.4-10.4) fL Neut % (Auto) % Lymph % (Auto) % [place] % (Auto) % Eos % (Auto) % Baso % (Auto) % Neut # (Auto) (1.8-7.7) 10^3/u L Lymph # (Auto) (0.8-4.8) 10^3/u L [place] # (Auto) (0.2-0.9) 10^3/u L Eos # (Auto) (0.0-0.8) 10^3/u L Baso # (Auto) (0.0-0.1) 10^3/u L Nucleated RBC % (a uto) % Nucleated RBCs # /100WBC Sodium (136-145) mmol/L Potassium (3.5-5.1) mmol/L Chloride (98-107) mmol/L Carbon Dioxide (22-29) mmol/L Anion Gap (5-19) BUN (8-23) mg/dL Creatinine (0.5-0.9) mg/dL GFR Calculation Glucose (65-115) mg/dL Calculated Osmolal ity (285-295) mOsm/k g Lactic Acid (0.5-2.2) mmol/L Calcium (8.5-10.5) mg/dL Total Bilirubin (0.15-1.2) mg/dL AST (0-32) U/L ALT (0-33) U/L Alkaline Phosphata se (35-105) IU/L Total Protein (6.6-8.7) g/dL Albumin (3.5-5.2) g/dL Globulin (1.3-4.6) g/dL Lipase (13-60) U/L Urine Color Straw (Yellow) Urine Appearance Clear (CLEAR) Urine pH 5 (5-7) Ur Specific Gravit y 1.005 (1.005-1.030) Urine Protein Neg (Negative) Urine Glucose (UA) Norm (Normal) Urine Ketones Negative (Negative) Urine Blood Neg (Negative) Urine Nitrate Negative (Negative) Urine Bilirubin Neg (Negative) Urine Urobilinogen Norm (Negative) mg/dL Ur Leukocyte Ольга ase 1+ H (Negative) Urine RBC None (0-2) /hpf Urine WBC 0-4 H (0-5) /hpf Ur Squamous Epith Cells 0-4 H (0-5) /hpf Amorphous Sediment Not Reportable Urine Bacteria Trace (NONE) /hpf Discharge Plan Discharge Patient Disposition: Home Clinical Impression: Abdominal pain Condition: Stable Prescriptions: No Action potassium chloride 10 mEq capsule, extended release 10 meq PO DAILY Qty: 30 RF: 3 albuterol sulfate [ProAir HFA] 90 mcg/actuation HFA aerosol inhaler 2 puff INHALATION QID PRN (Reason: shortness of breath or wheezing) Qty: 18 RF: 1 oxybutynin chloride 5 mg tablet See Rx Instructions .ROUTE .COMPLEX Qty: 180 RF: 0 multivitamin Tablet 1 tab PO DAILY@11 RF: 0 acetaminophen [Tylenol Extra Strength] 500 mg Tablet 500 mg PO PRN RF: 0 atorvastatin 40 mg tablet 40 mg PO DAILY RF: 0 metoprolol succinate 50 mg tablet extended release 24 hr 50 mg PO BID@04,17 RF: 0 omeprazole 40 mg capsule,delayed release(DR/EC) 40 mg PO BID@04,17 RF: 0 levothyroxine 88 mcg tablet 88 mcg PO DAILY@1400 RF: 0 meclizine 25 mg tablet 25 mg PO BID PRN (Reason: dizziness) RF: 0 polyethylene glycol 3350 17 gram/dose powder 17 g PO BID@08,20 RF: 0 losartan 100 mg tablet 100 mg PO DAILY RF: 0 fluticasone propionate 50 mcg/actuation spray,suspension 2 spray INTRANASAL DAILY PRN (Reason: Allergy Symptoms) RF: 0 aspirin 81 mg Tablet,Delayed Release (Dr/Ec) 81 mg PO DAILY 30 Days Qty: 30 RF: 0 amlodipine 10 mg Tablet 10 mg PO DAILY 30 Days Qty: 30 RF: 0 clopidogrel 75 mg Tablet 75 mg PO DAILY 21 Days Qty: 21 RF: 0 celecoxib 200 mg capsule 200 mg PO BID RF: 0 furosemide 40 mg tablet 40 mg PO DAILY RF: 0 diclofenac sodium 75 mg tablet,delayed release (DR/EC) 75 mg PO BID PRN (Reason: pain) RF: 0 Discharge Orders: Discharge ED (Routine); Ordered 12/07/20 Ordered By: Quoc Mckay Referrals: Anita Ng MD [Primary Care Provider] - Discharge Diet: Usual diet Discharge Activity: Resume usual activity Patient Instructions: Abdominal Pain (ED), Opioid Safety Activity Restrictions/Additional Instructions: Return if pain worsens. Coding Level of Care Code ED Benefits Analyst for Abeba Vazquez
[2020-12-07 15:19] LABS: Basophils # 0.1 10^3/uL (0.0-0.1); Basophils % 0.5 %; Eosinophils # 0.2 10^3/uL (0.0-0.8); Hematocrit 41.7 % (37.0-47.0); Hemoglobin 13.4 g/dL (11.5-15.3); Lymphocytes # 1.7 10^3/uL (0.8-4.8); Lymphocytes % 10.4 %; Mean Corpuscular HGB Conc 32.1 g/dL (30.0-36.0); Mean Corpuscular Hemoglobin 27.7 pg (28.0-34.0); Mean Corpuscular Volume 86.2 fL (81-99); Mean Platelet Volume 11.1 fL (7.4-10.4); Monocytes # 0.7 10^3/uL (0.2-0.9); Monocytes % 4.5 %; Neutrophils % 83.2 %; Nucleated Red Blood Cells % 0 %; Platelet Count 274 10^3/cmm (130-400); Red Blood Count 4.84 10^6/uL (4.1-5.3); Red Cell Distribution Width 13.2 % (12.1-15.1); White Blood Count 16.3 10^3/uL (4.0-10.0)
[2020-12-07] MEDS: hydrocortisone 100 mg/2 mL SDV IVP (15:20)
[2020-12-07] MEDS: diphenhydrAMINE 50 mg/mL SDV 1mL 25 MG IVP (15:20)
[2020-12-07] MEDS: sodium chloride 0.9% 1,000 ML 999 ML IV (15:21)
[2020-12-07] MEDS: ondansetron 2 mg/ML SDV 2 mL 4 MG IVP (15:21)
[2020-12-07 15:39] LABS: Lactic Sepsis W/Reflex 1.2 mmol/L (0.5-2.2)
[2020-12-07 15:40] LABS: Alanine Aminotransferase 59 U/L (0-33); Albumin Level 4.3 g/dL (3.5-5.2); Alkaline Phosphatase 134 IU/L (35-105); Anion Gap 18.5 (5-19); Aspartate Amino Transferase 26 U/L (0-32); Blood Urea Nitrogen 21 mg/dL (8-23); Calcium 9.3 mg/dL (8.5-10.5); Carbon Dioxide 23 mmol/L (22-29); Chloride 96 mmol/L (98-107); Globulin 2.6 g/dL (1.3-4.6); Glucose 97 mg/dL (65-115); Lipase 51 U/L (13-60); Osmolality Calculated 279 mOsm/kg (285-295); Potassium 4.5 mmol/L (3.5-5.1); Sodium 133 mmol/L (136-145); Total Bilirubin 0.5 mg/dL (0.15-1.2); Total Protein 6.9 g/dL (6.6-8.7)
[2020-12-07] MEDS: iodixanol 320 mg/mL 100mL Btl IV (15:46)
[2020-12-07 16:11] VITALS: RESP 15
[2020-12-07 16:58] VITALS: BP 137/64; PULSE 73; RESP 15; O2SAT 94
[2020-12-07 17:18] LABS: Add Urine Microscopic? YES; Bilirubin Urine Neg (Negative); Blood Urine Neg (Negative); Glucose Urine UA Norm (Normal); Ketones Urine Negative (Negative); Leukocyte Esterase Urine 1+ (Negative); Nitrate Urine Negative (Negative); Protein Urine Neg (Negative); Specific Gravity, Urine 1.005 (1.005-1.030); Urine Appearance Clear (CLEAR); Urine Color Straw (Yellow); Urobilinogen Urine Norm (Negative); pH Urine 5 (5-7)
[2020-12-07 17:20] LABS: Add Urine Culture? No; Bacteria Urine TRACE /hpf; Squamous Epithelial Cell Urine 0-4 /hpf (0-5); WBC Urine 0-4 /hpf (0-5)
[2020-12-07 18:00] VITALS: BP 133/78; PULSE 78; RESP 18; O2SAT 94
[2020-12-07 18:07] VITALS: BP 133/78; PULSE 78; RESP 18; O2SAT 94
== END 2020-12-07 18:07 | disposition home or self-care (01) ==
PROVIDERS: Emergency Provider Family Medicine; PCP Family Medicine
DX: R10.9 Unspecified abdominal pain (principal); Z79.82 Long term (current) use of aspirin; Z79.02 Long term (current) use of antithrombotics/antiplatelets; E78.5 Hyperlipidemia, unspecified; I10 Essential (primary) hypertension; Z85.118 Personal history of other malignant neoplasm of bronchus and lung; Z87.891 Personal history of nicotine dependence; Z90.2 Acquired absence of lung [part of]
CPT/HCPCS: 74177; 80053; 81001; 83605; 83690; 85025; 96361; 96374; 96375; 99284; J1200; J1720; J2405; J7030; Q9967

== ENCOUNTER → 2020-12-31 12:27 | Outpatient (BNVA) | payer MEDICARE, SELFPAY | PROVIDERS: PCP Family Medicine; Visit Provider Specialist | DX: G45.0 Vertebro-basilar artery syndrome (principal); R60.1 Generalized edema; N17.9 Acute kidney failure, unspecified; J44.9 Chronic obstructive pulmonary disease, unspecified; Z87.891 Personal history of nicotine dependence | CPT/HCPCS: 99205 ==

== ENCOUNTER 2020-12-31 14:59 | Outpatient (CLI) | payer MEDICARE, SELFPAY ==
[2020-12-31 15:38] LABS: Basophils # 0.1 10^3/uL (0.0-0.1); Basophils % 1.2 %; Eosinophils # 0.2 10^3/uL (0.0-0.8); Eosinophils % 2.4 %; Hematocrit 38.6 % (37.0-47.0); Hemoglobin 12.2 g/dL (11.5-15.3); Lymphocytes # 1.7 10^3/uL (0.8-4.8); Lymphocytes % 17.2 %; Mean Corpuscular HGB Conc 31.6 g/dL (30.0-36.0); Mean Corpuscular Hemoglobin 28.1 pg (28.0-34.0); Mean Corpuscular Volume 88.9 fL (81-99); Mean Platelet Volume 10.9 fL (7.4-10.4); Monocytes # 0.7 10^3/uL (0.2-0.9); Monocytes % 7.2 %; Neutrophils # 7.01 10^3/uL (1.8-7.7); Neutrophils % 71.6 %; Nucleated Red Blood Cells % 0 %; Platelet Count 296 10^3/cmm (130-400); Red Blood Count 4.34 10^6/uL (4.1-5.3); White Blood Count 9.8 10^3/uL (4.0-10.0)
[2020-12-31 16:04] LABS: Alanine Aminotransferase 39 U/L (0-33); Albumin Level 4.1 g/dL (3.5-5.2); Alkaline Phosphatase 84 IU/L (35-105); Anion Gap 14.9 (5-19); Aspartate Amino Transferase 24 U/L (0-32); Blood Urea Nitrogen 24 mg/dL (8-23); C Reactive Protein 0.3 mg/L (0.0-4.9); Calcium 9.3 mg/dL (8.5-10.5); Carbon Dioxide 26 mmol/L (22-29); Chloride 103 mmol/L (98-107); Globulin 2.7 g/dL (1.3-4.6); Glucose 86 mg/dL (65-115); Osmolality Calculated 291 mOsm/kg (285-295); Potassium 4.9 mmol/L (3.5-5.1); Sodium 139 mmol/L (136-145); Total Bilirubin 0.5 mg/dL (0.15-1.2); Total Protein 6.8 g/dL (6.6-8.7)
[2020-12-31 16:31] LABS: Free T4 Free Thyroxine 1.64 ng/dL (0.82-1.77)
[2020-12-31 16:33] LABS: Erythrocyte Sedimentation Rate 16 mm/hr (0-15)
== END 2020-12-31 15:00 | disposition home or self-care (01) ==
LOC: LAB 15:03
PROVIDERS: PCP Family Medicine; Visit Provider Specialist
DX: I63.9 Cerebral infarction, unspecified (principal)
CPT/HCPCS: 80053; 84439; 85025; 85651; 86140

== ENCOUNTER 2021-01-10 13:03 | Outpatient (CLI) | payer MEDICARE, SELFPAY ==
--- NOTE | 2021-01-10 13:30 | CT_ITS ---
WS: [id number] CTA HEAD AND NECK TECHNIQUE: Contrast enhanced CTA of the head and neck with coronal and sagittal reformatted images an d maximum intensity projection (MIP) images. NASCET criteria utilized. CLINICAL INFORMATION: I63.9 - Cerebral infarction, unspecified COMPARISON: Ultrasound November 30, 2020 DLP: 1719.[address] scans at [facility] use at least one of these dose optimization techniques: automat ed exposure control; mA and/or kV adjustment per patient size (includes targeted exams where dose is matched to clinical indication); or iterative reconstruction. FINDINGS: RIGHT: Right common carotid artery is patent. No significant right ICA stenosis. Mild calcified ather omatous disease right carotid bulb extending into the ICA. Right ICA is patent to the skull base. Tor tuous right cervical ICA. LEFT: Left common carotid artery is patent. Mild atheromatous disease left carotid bulb extending int o the ICA. No significant left ICA stenosis. Left ICA is patent to the skull base. INTRACRANIAL CTA: Codominant and patent vertebral arteries bilaterally. Basilar artery is patent. Anterior dominant cir culation. Both ICAs are patent at the skull base. Mild cavernous carotid calcification. Normal vascularity to t he NIELS and MCA territories bilaterally. No evidence of high-grade proximal stenosis. Persistent right HOOP COILER. Lung apices are well aerated. A few hazy groundglass opacities in the left upper lobe. Aortic arch ca lcification. Paranasal sinuses and mastoid air cells are well aerated. Prior postoperative changes ri ght frontotemporal craniotomy with aneurysm clipping right MCA trifurcation. Chronic infarct with enc ephalomalacia in the right frontal lobe and right anterior temporal lobe. Mild parenchymal volume los s. Slight reversal the normal cervical lordosis. Moderate spondylitic changes. Slight anterolisthesis C2 on C3 and C3 on C4 worse at C3 on C4 measuring 3.[address]/CT angio headneck* [id number] IMPRESSION: 1. No significant ICA stenosis bilaterally. Mild carotid bulb calcification. 2. Codominant and patent vertebral arteries bilaterally. 3. Normal intracranial CTA. No flow-limiting stenosis. 4. Right frontoparietal craniotomy with aneurysm clipping right MCA trifurcati on. 5. Chronic infarcts involving the right frontal lobe and anterior right tempor al lobe with encephalomalacia. 6. Slight anterolisthesis C2 on C3 and C3 on C4. Mild spondylitic changes cerv ical spine.
[2021-01-10] MEDS: iodixanol 320 mg/mL 100mL Btl IV (13:56)
== END 2021-01-10 13:04 | disposition home or self-care (01) ==
LOC: RAD 13:09
PROVIDERS: PCP Family Medicine; Visit Provider Specialist
DX: I63.9 Cerebral infarction, unspecified (principal); I65.23 Occlusion and stenosis of bilateral carotid arteries; I67.1 Cerebral aneurysm, nonruptured; G93.89 Other specified disorders of brain
CPT/HCPCS: 70496; 70498; 99205

== ENCOUNTER 2021-01-19 12:42 | Emergency (ER) | payer MEDICARE, SELFPAY ==
[2021-01-19 12:53] VITALS: BP 147/71; PULSE 67; RESP 18; TEMP 37; O2SAT 98; BMI 28.1
--- NOTE | 2021-01-19 13:15 | XRR_ITS ---
PROCEDURE INFORMATION: Exam: XR Right Hip Exam date and time: 01/19/2021 1:15 PM Age: 75 years old Clinical indication: Injury or trauma; Fall; Blunt trauma (contusions or hematomas); Right; Hip; Additional info: One view pelvis too please; Trauma TECHNIQUE: Imaging protocol: XR Right hip. Views: 1 view hip with pelvis when performed. COMPARISON: CT abdomen pelvis w con* [id number] 12/07/2020 3:58 PM FINDINGS: Bones/joints: There are degenerative changes across the hip joints. No evidence for acute fracture. Soft tissues: Unremarkable. XR/XR hip RT 2-3V wo/w pel* [id number] IMPRESSION: No evidence for acute fracture.
--- NOTE | 2021-01-19 13:16 | W.ED.FALL ---
HPI - Fall General: Chief Complaint: Fall Stated Complaint: RIGHT KNEE/TIBIA PAIN S/P FALL Time Seen by Provider: 01/19/21 13:07 Source: patient Mode of arrival: EMS Limitations: no limitations History of Present Illness: HPI Narrative: Patient is a 75-year-old female who presents to ED today with complaint of right lower extremity pain following a fall. Patient tells me she was outside watering her bowens when she accidentally tripped and fell and landed on her right leg. She is noting pain to her right hip and right knee. She tells me she has not been ambulatory since the fall. Denies striking her head or LOC. Denies neck or back pain. complaint: fall Onset (ago): hour(s) Fall from: standing Fall witnessed: yes, by family Place fall occurred: home Loss of consciousness: None Prolonged down time: no Symptoms prior to fall: none Context: tripped/slipped Location of injury - extremities: Right: knee Associated symptoms-after fall: Reports difficulty walking (secondary to pain/injury); Denies abdominal pain, chest pain, headache(s), lightheadedness or neck pain Review of Systems Const: Denies: fever(s), chills, fatigue or malaise Eyes: Denies: change in vision or blurry vision Card: Denies: chest pain, palpitations, irregular heart rhythm, edema, lightheadedness, syncope or pre-syncope Resp: Denies: dyspnea GI: Denies: abdominal pain, nausea or vomiting Musc: Reports: joint pain (R knee, R hip), joint swelling (R knee) and limited range of motion (secondary to pain); Denies: neck pain, back pain, extremity pain, extremity swelling, joint redness or joint warmth Neuro: Reports: difficulty walking (secondary to pain/injury); Denies: headache(s), numbness in extremities, weakness in extremities or sensory changes PFS ED PFSH: Medical History Acquired hypothyroidism Brain TIA Chronic constipation COVID-19 Glaucoma Hyperlipidemia Hypertension Stable Lung cancer Pyloric stenosis Surgical History H/O esophagogastroduodenoscopy 07/29/2019: EGD with dilation for pyloric stenosis 09/13/2019: EGD with dilation to 15 mm for pyloric stenosis H/O hysterectomy for benign disease History of lobectomy of lung History of mandibular surgery S/P cholecystectomy Family History Mother Glaucoma Social History Smoking and tobacco status: former smoker Quit status (tobacco): has quit using tobacco Year quit tobacco: 1998 Former quit date comment: smoked PPD 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 Second hand smoke exposure: No Alcohol intake: never Lives independently: Yes Household members: none Marital status: / Current occupational status: retired History of recent travel: No Current gender identity: Female Physical Exam Const: COMMON NORMALS: no acute distress, patient oriented x3, no limitations and alert GENERAL APPEARANCE: cooperative ORIENTATION/CONSCIOUSNESS: Yes awake, Yes oriented to person, Yes oriented to place and Yes oriented to time HENMT: COMMON NORMALS: normocephalic and atraumatic HEAD & SCALP: normocephalic and atraumatic Neck/C-Spine: COMMON NORMALS: full ROM CERVICAL SPINE: Yes cervical ROM normal, No Cervical spine tenderness and No Paracervical muscle tenderness Chest: COMMONS NORMALS: normal inspection of the chest and normal palpation of entire chest wall Resp: COMMON NORMALS: normal respiratory effort and clear to auscultation bilaterally AUSCULTATION: clear to auscultation bilaterally Cardio: COMMON NORMALS: regular rate and regular rhythm RATE: regular rate RHYTHM: regular rhythm GI: COMMON NORMALS: Normal to inspection, nondistended, normoactive bowel sounds present, Soft to palpation and non-tender PALPATION: Yes Soft to palpation Back/Pelvis: COMMON NORMALS: thoracic and lumbar spine normal to inspection, no thoracic nor lumbar tenderness and thoraco-lumbar ROM normal Extremity: GENERAL: Yes normal exam except as noted OTHER: mild tenderness to posterolateral R hip w/o deformity/shortening/rotation; she has a large amount of swelling and developing ecchymosis to lateral aspect of R knee; very tender to palpation here; extremity NV intact Neuro: COMMON NORMALS: patient oriented x3, moves all extremities, no focal motor deficits and no sensory deficits noted SENSORIUM/ORIENTATION: Yes alert, Yes oriented to person, Yes oriented to place and Yes oriented to time Skin: COMMON NORMALS: no rashes or lesions noted GENERAL SKIN EXAM: no rashes or lesions noted TRAUMA: no lacerations or abrasions Course Vital Signs: Vital signs: Vital Signs Temperature 98.6 F 01/19/21 12:53 Pulse Rate 67 01/19/21 12:53 Respiratory Rate 18 01/19/21 12:53 Blood Pressure 147/71 01/19/21 12:53 Pulse Oximetry 98 01/19/21 12:53 MDM - Fall MDM Narrative: Medical decision making narrative: Patient's XRs are negative. She was ambulated here with walker and did well. She reported pain but stated it was tolerable. She will be allowed home. Recommend usage of her walker at home to prevent falls. Ice/elevation for R LE hematoma. Recommend follow up with PCP next week. Lab Data: Labs: Lab Results 01/19/21 01/19/21 Range/Units 14:30 14:30 WBC 12.6 H (4.0-10.0) 10^3/ uL RBC 4.52 (4.1-5.3) 10^6/u L Hgb 12.6 (11.5-15.3) g/dL Hct 39.3 (37.0-47.0) % MCV 86.9 (81-99) fL MCH 27.9 L (28.0-34.0) pg MCHC 32.1 (30.0-36.0) g/dL RDW 14.1 (12.1-15.1) % Plt Count 300 (130-400) 10^3/c mm MPV 10.7 H (7.4-10.4) fL Neut % (Auto) 75.0 % Lymph % (Auto) 16.0 % Limestone % (Auto) 5.8 % Eos % (Auto) 2.1 % Baso % (Auto) 0.7 % Neut # (Auto) 9.44 H (1.8-7.7) 10^3/u L Lymph # (Auto) 2.0 (0.8-4.8) 10^3/u L Limestone # (Auto) 0.7 (0.2-0.9) 10^3/u L Eos # (Auto) 0.3 (0.0-0.8) 10^3/u L Baso # (Auto) 0.1 (0.0-0.1) 10^3/u L Nucleated RBC % (a uto) 0 % Nucleated RBCs # 0.0 /100WBC Sodium 137 (136-145) mmol/L Potassium 3.9 (3.5-5.1) mmol/L Chloride 105 (98-107) mmol/L Carbon Dioxide 21 L (22-29) mmol/L Anion Gap 14.9 (5-19) BUN 18 (8-23) mg/dL Creatinine 1.1 H (0.5-0.9) mg/dL GFR Calculation Not Reportable Glucose 99 (65-115) mg/dL Calculated Osmolal ity 286 (285-295) mOsm/k g Calcium 9.0 (8.5-10.5) mg/dL Total Bilirubin 0.3 (0.15-1.2) mg/dL AST 21 (0-32) U/L ALT 39 H (0-33) U/L Alkaline Phosphata se 93 (35-105) IU/L Total Protein 6.3 L (6.6-8.7) g/dL Albumin 4.0 (3.5-5.2) g/dL Globulin 2.3 (1.3-4.6) g/dL Imaging Data^: XR R knee: Radiologist's impression: [address] [id number] ReportSigned Patient: Vivian Hummel #: [id number]: [id number]#:[id number]/Sex: 75 / FADM Date: 01/19/21Loc: ERRoom/Bed:Attending Dr: Ordering Provider/Ordering MD: Yamel Ramachandran Date of Service: 01/19/21 Procedure(s): XR knee RT 3V* [id number] Accession Number(s): [id number] Report Number: [id number] PROCEDURE INFORMATION: Exam: XR Right Knee Exam date and time: 01/19/2021 1:15 PM Age: 75 years old Clinical indication: Injury or trauma; Fall; Blunt trauma; Knee; Right TECHNIQUE: Imaging protocol: XR Right knee. Views: 3 views. COMPARISON: No relevant prior studies available. FINDINGS: Bones/joints: There are tricompartmental primary osteoarthritic changes including joint space narrowing, subchondral cystic/sclerotic changes, and marginal osteophyte formations. Soft tissues: There is edema in the soft tissues surrounding the knee. XR/XR knee RT 3V* [id number] IMPRESSION: 1. There is edema in the soft tissues surrounding the knee. 2. 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 Dictated By:Winnie Ramirez MDSigned By:Winnie Ramirez MDSigned Date/Time:01/19/21 1446DD/ 1445 XR R hip/pelvis: Radiologist's impression: [address] [place], [place] [address]JKdv ReportSigned Patient: Vivian Hummel #: [id number]: 1945cct#:[id number]/Sex: 75 / FADM Date: 01/19/21Loc: ERRoom/Bed:Attending Dr: Ordering Provider/Ordering MD: Yamel Ramachandran Date of Service: 01/19/21 Procedure(s): XR hip RT 2-3V wo/w pel* [id number] Accession Number(s): [id number] Report Number: [id number] PROCEDURE INFORMATION: Exam: XR Right Hip Exam date and time: 01/19/2021 1:15 PM Age: 75 years old Clinical indication: Injury or trauma; Fall; Blunt trauma (contusions or hematomas); Right; Hip; Additional info: One view pelvis too please; Trauma TECHNIQUE: Imaging protocol: XR Right hip. Views: 1 view hip with pelvis when performed. COMPARISON: CT abdomen pelvis w con* [id number] 12/07/2020 3:58 PM FINDINGS: Bones/joints: There are degenerative changes across the hip joints. No evidence for acute fracture. Soft tissues: Unremarkable. XR/XR hip RT 2-3V wo/w pel* [id number] IMPRESSION: No evidence for acute fracture. Dictated By:Winnie Ramirez MDSigned By:Winnie Ramirez MDSigned Date/Time:01/19/21 1450DD/ 1448 XR R tib/fib: Radiologist's impression: [address] [place] [address] XRay Report Signed Patient: Vivian Hummel Unit #: [id number] : 1945 Age/Sex: 75 / F ADM Date: 01/19/21 Loc: ER Room/Bed: Attending Dr: Ordering Provider/Ordering MD: Yamel Ramachandran Date of Service: 01/19/21 Procedure(s): XR tibia fibula RT 2V 38580 Accession Number(s): [id number] Report Number: [id number] PROCEDURE INFORMATION: Exam: XR Right Tibia and Fibula Exam date and time: 01/19/2021 1:29 PM Age: 75 years old Clinical indication: Injury or trauma; Fall; Blunt trauma; Lower leg; Right; Additional info: One view pelvis too please; Trauma TECHNIQUE: Imaging protocol: XR Right tibia and fibula. Views: 2 views. COMPARISON: CR (LOW EXM, ) 01/19/2021 1:25 PM FINDINGS: Bones/joints: Multi-articular primary osteoarthritic changes including joint space narrowing, subchondral cystic/sclerotic changes, and marginal osteophyte formations. No evidence for acute fracture. Soft tissues: There is edema in the soft tissues surrounding the lower leg. XR/XR tibia fibula RT 2V [id number] IMPRESSION: There is edema in the soft tissues surrounding the lower leg. Dictated By: Winnie Ramirez MD Signed By: Winnie Ramirez MD Signed Date/Time: 01/19/211452 DD/ 145 Discharge Plan Discharge Patient Disposition: Home Clinical Impression: Fall from slip, trip, or stumble Qualifiers: Encounter type: initial encounter Qualified Code(s): W01.0XXA - Fall on same level from slipping, tripping and stumbling without subsequent striking against object, initial encounter Contusion of leg, right Qualifiers: Encounter type: initial encounter Qualified Code(s): S80.11XA - Contusion of right lower leg, initial encounter Condition: Stable Prescriptions: No Action amitriptyline 10 mg tablet 10 mg PO DAILY Qty: 30 RF: 0 ondansetron 8 mg tablet,disintegrating 8 mg PO TID Qty: 30 RF: 2 albuterol sulfate [ProAir HFA] 90 mcg/actuation HFA aerosol inhaler 2 puff INHALATION QID PRN (Reason: shortness of breath or wheezing) Qty: 18 RF: 1 multivitamin Tablet 1 tab PO DAILY@11 RF: 0 acetaminophen [Tylenol Extra Strength] 500 mg Tablet 500 mg PO PRN RF: 0 atorvastatin 40 mg tablet 40 mg PO DAILY@0430 RF: 0 metoprolol succinate 50 mg tablet extended release 24 hr 50 mg PO BID@, RF: 0 omeprazole 40 mg capsule,delayed release(DR/EC) 40 mg PO BID@, RF: 0 levothyroxine 88 mcg tablet 88 mcg PO DAILY@1400 RF: 0 meclizine 25 mg tablet 25 mg PO BID PRN (Reason: dizziness) RF: 0 polyethylene glycol 3350 17 gram/dose powder 17 g PO BID@,20 RF: 0 losartan 100 mg tablet 100 mg PO DAILY@0430 RF: 0 fluticasone propionate 50 mcg/actuation spray,suspension 2 spray INTRANASAL DAILY PRN (Reason: Allergy Symptoms) RF: 0 furosemide 40 mg tablet 80 mg PO DAILY@0430 RF: 0 Hold Instructions: Dose Change Vitamin C 1 tab PO DAILY@0430 RF: 0 vitamin B complex 1 tab PO DAILY@0430 RF: 0 Mobic 15 mg tablet 15 mg PO DAILY@0430 RF: 0 clopidogrel 75 mg tablet 75 mg PO DAILY@0430 RF: 0 amlodipine 10 mg tablet 10 mg PO DAILY@0430 RF: 0 oxybutynin chloride 5 mg tablet 5 mg PO BID@0430,1400 RF: 0 potassium chloride 20 mEq tablet extended release 20 meq PO DAILY@0430 RF: 0 Discharge Orders: Discharge ED (Routine); Ordered 01/19/21 Ordered By: Yamel Ramachandran Referrals: Anita Ng MD [Primary Care Provider] - Patient Instructions: Contusion, RICE Therapy (ED) Activity Restrictions/Additional Instructions: As we discussed your x-rays today are negative. The swelling to your right leg will take 1 to 2 weeks for improvement. It may appear/look worse before it begins to improve. Ice the affected area for 15-20 mins every other hour as well as elevate to help with swelling. You may also apply a compression bandage. Walk with your walker or cane at all times to prevent further falls. You need to follow-up with your primary care provider next week for reevaluation. Coding Level of Care Code ED Offset [employer] for Chg Fwd Exam Comprehensive
[2021-01-19 14:42] LABS: Basophils # 0.1 10^3/uL (0.0-0.1); Basophils % 0.7 %; Eosinophils # 0.3 10^3/uL (0.0-0.8); Eosinophils % 2.1 %; Hematocrit 39.3 % (37.0-47.0); Hemoglobin 12.6 g/dL (11.5-15.3); Mean Corpuscular HGB Conc 32.1 g/dL (30.0-36.0); Mean Corpuscular Hemoglobin 27.9 pg (28.0-34.0); Mean Corpuscular Volume 86.9 fL (81-99); Mean Platelet Volume 10.7 fL (7.4-10.4); Monocytes # 0.7 10^3/uL (0.2-0.9); Monocytes % 5.8 %; Neutrophils # 9.44 10^3/uL (1.8-7.7); Nucleated Red Blood Cells % 0 %; Platelet Count 300 10^3/cmm (130-400); Red Blood Count 4.52 10^6/uL (4.1-5.3); Red Cell Distribution Width 14.1 % (12.1-15.1); White Blood Count 12.6 10^3/uL (4.0-10.0)
[2021-01-19 14:53] LABS: Alanine Aminotransferase 39 U/L (0-33); Alkaline Phosphatase 93 IU/L (35-105); Anion Gap 14.9 (5-19); Aspartate Amino Transferase 21 U/L (0-32); Blood Urea Nitrogen 18 mg/dL (8-23); Carbon Dioxide 21 mmol/L (22-29); Chloride 105 mmol/L (98-107); Globulin 2.3 g/dL (1.3-4.6); Glucose 99 mg/dL (65-115); Osmolality Calculated 286 mOsm/kg (285-295); Potassium 3.9 mmol/L (3.5-5.1); Sodium 137 mmol/L (136-145); Total Bilirubin 0.3 mg/dL (0.15-1.2); Total Protein 6.3 g/dL (6.6-8.7)
[2021-01-19 15:29] VITALS: BP 138/88; PULSE 88; RESP 18; O2SAT 98
[2021-01-19 15:48] VITALS: BP 138/88; PULSE 88; RESP 18; O2SAT 98
== END 2021-01-19 15:53 | disposition home or self-care (01) ==
PROVIDERS: Emergency Provider Physician Assistant; PCP Family Medicine
DX: S80.11XA Contusion of right lower leg, initial encounter (principal); W01.0XXA Fall on same level from slipping, tripping and stumbling without subsequent striking against object, initial encounter; I10 Essential (primary) hypertension; E78.5 Hyperlipidemia, unspecified; G45.9 Transient cerebral ischemic attack, unspecified; Z85.118 Personal history of other malignant neoplasm of bronchus and lung; Z86.16 Personal history of COVID-19
CPT/HCPCS: 51702; 73502; 73562; 73590; 80053; 85025; 99283

== ENCOUNTER 2021-04-18 08:59 | Outpatient (CLI) | payer MEDICARE, SELFPAY ==
--- NOTE | 2021-04-18 09:30 | USCV_ITS ---
Vivian Hummel Age: 76 Gender: F : 1945 Exam Date: 04/18/2021 09:27 Ordering Phys: Noreen Moyer MD ([email or web address]) Technologist: Mai Jacome [place] [facility] [place]: H[place]ORY: Lower extremity swelling. PROCEDURES: Bilateral duplex Venous Insufficiency study of the Deep and Superficial systems was carried out according to normal protocol with the patient in supine positon for deep system and dependent position for the superficial system. FINDINGS: There is no evidence of bilateral deep vein thrombosis. No notable reflux was seen at this time. The veins were found to be easily compressible with spontaneous blood flow. Non pulsatile flow pattern. CONCLUSIONS No evidence of DVT in the above-mentioned identifiable veins. No significant venous reflux either in the deep or in the superficial veins Relatively small caliber veins bilaterally. The below-knee veins were found to be less than 1 cm deep from the surface The venous dimensions and the depth from the surface are as mentioned above Dr Stuart Nguyen MD [facility] (Electronically Signed) Final Date: 19 April 2021 09:12 S
== END 2021-04-18 09:00 | disposition home or self-care (01) ==
LOC: US 09:02
PROVIDERS: PCP Family Medicine; Visit Provider Internal Medicine Cardiovascular Disease
DX: I83.892 Varicose veins of left lower extremity with other complications (principal); M79.89 Other specified soft tissue disorders
CPT/HCPCS: 80053; 85025; 93970

== ENCOUNTER → 2021-09-24 10:45 | Outpatient (BNVA) | payer MEDICARE, SELFPAY | PROVIDERS: PCP Family Medicine; Visit Provider Nurse Practitioner Family | DX: J44.9 Chronic obstructive pulmonary disease, unspecified (principal); I10 Essential (primary) hypertension; E78.5 Hyperlipidemia, unspecified; E03.9 Hypothyroidism, unspecified; J32.9 Chronic sinusitis, unspecified; M25.561 Pain in right knee; M25.562 Pain in left knee; G89.29 Other chronic pain; K21.9 Gastro-esophageal reflux disease without esophagitis | CPT/HCPCS: 80053; 80061; 84443 ==

== ENCOUNTER → 2021-11-18 14:03 | Outpatient (BNVA) | payer MEDICARE, SELFPAY | PROVIDERS: PCP Family Medicine; Referring Provider Nurse Practitioner Family; Visit Provider Specialist | DX: M17.0 Bilateral primary osteoarthritis of knee (principal); Z87.891 Personal history of nicotine dependence | CPT/HCPCS: 73560; 73565; 99203; 99204 ==

== ENCOUNTER → 2021-12-05 09:35 | Outpatient (BNVA) | payer MEDICARE, SELFPAY | PROVIDERS: PCP Family Medicine; Visit Provider Specialist | DX: M17.0 Bilateral primary osteoarthritis of knee (principal); Z71.89 Other specified counseling; Z87.891 Personal history of nicotine dependence | CPT/HCPCS: 20610; J7327 ==

== ENCOUNTER → 2021-12-19 11:54 | Outpatient (BNVA) | payer MEDICARE, SELFPAY | PROVIDERS: PCP Family Medicine; Visit Provider Nurse Practitioner Family | DX: N39.0 Urinary tract infection, site not specified (principal); R10.31 Right lower quadrant pain; R07.9 Chest pain, unspecified; R10.11 Right upper quadrant pain; J44.9 Chronic obstructive pulmonary disease, unspecified; R91.1 Solitary pulmonary nodule; Z85.118 Personal history of other malignant neoplasm of bronchus and lung; M17.0 Bilateral primary osteoarthritis of knee; M25.50 Pain in unspecified joint; M25.552 Pain in left hip; K46.9 Unspecified abdominal hernia without obstruction or gangrene; R19.5 Other fecal abnormalities | CPT/HCPCS: 80053; 85651 ==

== ENCOUNTER 2021-12-27 09:23 | Outpatient (CLI) | payer MEDICARE, MEDICAID, SELFPAY ==
--- NOTE | 2021-12-27 10:45 | US_ITS ---
WS: [id number] TRANSABDOMINAL PELVIC ULTRASOUND HISTORY: vaginal prolapse, abnormal CT, COMPARISON: 12/07/2020 Only transabdominal imaging is obtained due to patient's discomfort. Patient is status post hysterectomy. No uterus identified. No midline mass. No free fluid. Neither ov john is identified. No adnexal mass. US/US pelvic complete* [id number] IMPRESSION: 1. Prior hysterectomy. The uterus and neither ovary are identified. 2. No free fluid.
== END 2021-12-27 09:24 | disposition home or self-care (01) ==
PROVIDERS: PCP Family Medicine; Visit Provider Nurse Practitioner Family
DX: N81.10 Cystocele, unspecified (principal); R93.89 Abnormal findings on diagnostic imaging of other specified body structures
CPT/HCPCS: 76856

== ENCOUNTER 2022-02-26 09:13 | Outpatient (CLI) | payer MEDICARE, MEDICAID, SELFPAY ==
--- NOTE | 2022-02-26 09:15 | US_ITS ---
WS: [id number] Limited abdomen ultrasound. HISTORY: RIGHT lower quadrant pain. Ultrasound directed to the RIGHT lower quadrant. The appendix is not identified. There is a very larg e amount of shadowing from bowel. No inflammatory mass. No free fluid in the pelvis. The urinary blad jose david is moderately well distended and normal. US/US abdomen limited [id number] IMPRESSION: Appendix is not identified. There is a large amount shadowing from bowel conten t in the RIGHT lower quadrant.
== END 2022-02-26 09:14 | disposition home or self-care (01) ==
LOC: RAD 09:14
PROVIDERS: PCP Family Medicine; Visit Provider Nurse Practitioner Family
DX: R10.31 Right lower quadrant pain (principal); R10.11 Right upper quadrant pain
CPT/HCPCS: 76705

== ENCOUNTER 2022-03-06 09:10 | Outpatient (CLI) | payer MEDICARE, MEDICAID, SELFPAY ==
--- NOTE | 2022-03-06 09:30 | CT_ITS ---
WS: [id number] CT CHEST, ABDOMEN AND PELVIS WITHOUT CONTRAST HISTORY: chest pain, SOB, R/O metastatic disease (Iodine allergy) TECHNIQUE: Contiguous 5 mm axial imaging performed through the chest, abdomen and pelvis without IV c ontrast, oral contrast has not been provided. Coronal and sagittal reformats chest. Coronal and sagit lauren reformats through the abdomen and pelvis. All CT scans at [facility] use at least one of these dose optimization techniques: automated exposure control; mA and/or kV adjustment per patient s ize (includes targeted exams where dose is matched to clinical indication); or iterative reconstructi on. CONTRAST: None DLP: 1114.77 mGy.cm COMPARISON: 12/07/[address]: Multifocal areas of groundglass attenuation throughout the lungs but greatest in the LEFT u pper lobe. The largest groundglass focus measures 2.1 x 2.7 cm. These are greatest in the upper lung pastor bilaterally. Benign granuloma in the central LEFT lung. Resection RIGHT upper lobe. No recurre nt solid mass. Postoperative changes are noted in the lateral RIGHT thorax with rib resections. Chandni l size aorta. Atherosclerotic changes throughout a nondilated aorta. No mediastinal or hilar adenopat hy. No axillary adenopathy. Heart is normal size. Abdomen CT: Normal size liver with a few scattered hypodensities which were present on the prior stud y. No bile duct dilatation. Prior cholecystectomy. Normal spleen and pancreas. Normal adrenal glands. Very slight renal atrophy with no obstruction. Moderate atherosclerotic disease within the aorta but no aneurysm. No ascites or adenopathy. Stomach is normally distended. No small bowel obstruction. The appendix is not identified. There are a few scattered diverticula in the distal colon. Pelvic CT: Well-distended urinary bladder. No free fluid or adenopathy in the pelvis. Moderate-sized RIGHT inguinal hernia contains fat only. Small fat-containing hernia on the LEFT. CT/[place] [id number] IMPRESSION: 1. Bilateral inguinal hernia contains fat only. RIGHT inguinal hernia is large r than the LEFT. 2. Mild sigmoid diverticulosis. 3. Numerous bilateral groundglass opacifications but greatest in the LEFT uppe r lobe. Stable since 12/07/2020. 4. Volume loss and postsurgical changes in the RIGHT thorax. No interval rose e. No suspicious solid mass. 5. No adrenal mass.
== END 2022-03-06 09:11 | disposition home or self-care (01) ==
LOC: RAD 09:10
PROVIDERS: PCP Family Medicine; Visit Provider Nurse Practitioner Family
DX: K46.9 Unspecified abdominal hernia without obstruction or gangrene (principal); R19.5 Other fecal abnormalities; R10.11 Right upper quadrant pain; R10.12 Left upper quadrant pain; K57.30 Diverticulosis of large intestine without perforation or abscess without bleeding
CPT/HCPCS: 71250; 74176

== ENCOUNTER → 2022-04-21 12:24 | Outpatient (BNVA) | payer MEDICARE, MEDICAID, SELFPAY | PROVIDERS: PCP Family Medicine; Visit Provider Nurse Practitioner Family | DX: E78.5 Hyperlipidemia, unspecified (principal); E03.9 Hypothyroidism, unspecified; K21.9 Gastro-esophageal reflux disease without esophagitis; I10 Essential (primary) hypertension; R60.9 Edema, unspecified; J44.9 Chronic obstructive pulmonary disease, unspecified | CPT/HCPCS: 80053; 80061; 84443 ==

== ENCOUNTER → 2022-06-04 12:18 | Outpatient (BNVA) | payer MEDICARE, MEDICAID, SELFPAY | PROVIDERS: PCP Family Medicine; Visit Provider Internal Medicine Cardiovascular Disease | DX: I10 Essential (primary) hypertension (principal); E78.5 Hyperlipidemia, unspecified; Z86.73 Personal history of transient ischemic attack (TIA), and cerebral infarction without residual deficits; Z87.891 Personal history of nicotine dependence; I87.2 Venous insufficiency (chronic) (peripheral) | CPT/HCPCS: 99213; 99214 ==

== ENCOUNTER → 2022-09-11 12:00 | Outpatient (BNVA) | payer MEDICARE, MEDICAID, SELFPAY | PROVIDERS: PCP Family Medicine; Visit Provider Nurse Practitioner Family | DX: E78.5 Hyperlipidemia, unspecified (principal); I10 Essential (primary) hypertension; K21.9 Gastro-esophageal reflux disease without esophagitis | CPT/HCPCS: 80053; 80061; 84443 ==

== ENCOUNTER → 2022-11-03 12:36 | Outpatient (BNVA) | payer MEDICARE, MEDICAID, SELFPAY | PROVIDERS: PCP Family Medicine; Visit Provider Nurse Practitioner Family | DX: N39.0 Urinary tract infection, site not specified (principal) | CPT/HCPCS: 81003; 87086 ==

== ENCOUNTER → 2022-11-28 15:00 | Outpatient (BNVA) | payer MEDICARE, MEDICAID, SELFPAY | PROVIDERS: PCP Family Medicine; Referring Provider Nurse Practitioner Family; Visit Provider Obstetrics & Gynecology | DX: N39.0 Urinary tract infection, site not specified (principal) | CPT/HCPCS: 87086 ==

== ENCOUNTER → 2022-12-10 14:45 | Outpatient (BNVA) | payer MEDICARE, MEDICAID, SELFPAY | PROVIDERS: PCP Family Medicine; Visit Provider Internal Medicine Cardiovascular Disease | DX: Z86.73 Personal history of transient ischemic attack (TIA), and cerebral infarction without residual deficits (principal); Q28.2 Arteriovenous malformation of cerebral vessels; I10 Essential (primary) hypertension; R60.0 Localized edema; E78.5 Hyperlipidemia, unspecified; Z87.891 Personal history of nicotine dependence | CPT/HCPCS: 99214 ==

== ENCOUNTER → 2023-01-06 10:49 | Outpatient (BNVA) | payer MEDICARE, MEDICAID, SELFPAY | PROVIDERS: PCP Family Medicine; Visit Provider Obstetrics & Gynecology | DX: Z01.818 Encounter for other preprocedural examination (principal) | CPT/HCPCS: 81000 ==

== ENCOUNTER → 2023-01-21 11:37 | Outpatient (BNVA) | payer MEDICARE, MEDICAID, SELFPAY | PROVIDERS: PCP Family Medicine; Visit Provider Nurse Practitioner Family | DX: T14.8XXA Other injury of unspecified body region, initial encounter (principal); W57.XXXA Bitten or stung by nonvenomous insect and other nonvenomous arthropods, initial encounter | CPT/HCPCS: 80053; 86618; 86666; 86757 ==

== ENCOUNTER 2023-02-26 22:06 | Inpatient (IN) | payer MEDICARE, MEDICAID, SELFPAY ==
[2023-02-26 22:08] VITALS: BP 118/74; PULSE 121; RESP 16; TEMP 38; O2SAT 90; BMI 26.9
--- NOTE | 2023-02-26 22:14 | CTR_ITS ---
PROCEDURE INFORMATION: Exam: CT Head Without Contrast Exam date and time: 02/26/2023 10:31 PM Age: 78 years old Clinical indication: Injury or trauma; Fall; Blunt trauma (contusions or hematomas); Consciousness not specified TECHNIQUE: Imaging protocol: Computed tomography of the head without contrast. Radiation optimization: All CT scans at this facility use at least one of these dose optimization techniques: automated exposure control; mA and/or kV adjustment per patient size (includes targeted exams where dose is matched to clinical indication); or iterative reconstruction. REPORTING DATA: Count of CT and Cardiac NM exams in prior 12 months: This patient has received [address] and 0 known cardiac nuclear medicine studies in the 12 months prior to the current study. COMPARISON: CT head wo con* [id number] 11/29/2020 2:57 PM RADIATION DOSE METRICS: Total DLP (mGy-cm): 1222.52 FINDINGS: Brain: There is gliosis and encephalomalacia identified in the right frontal lobe and right temporal lobe. The patient appears to be status post aneurysm repair. There is mild small vessel disease. There is no evidence of acute parenchymal hemorrhage, extra-axial collection, or acute infarction. There is no mass effect, midline shift, or downward herniation. Cerebral ventricles: No ventriculomegaly. Paranasal sinuses: Visualized sinuses are unremarkable. No fluid levels. Mastoid air cells: Visualized mastoid air cells are well aerated. Bones/joints: The patient is status post right frontotemporal craniotomy. Soft tissues: There is right periorbital soft tissue swelling. CT/CT head wo con* [id number] IMPRESSION: 1. No evidence of acute intracranial process. 2. Right frontal lobe and right temporal lobe gliosis and encephalomalacia likely due to old ischemic or hemorrhagic event. 3. Mild small vessel disease.
--- NOTE | 2023-02-26 22:14 | XRR_ITS ---
PROCEDURE INFORMATION: Exam: XR Chest Exam date and time: 02/26/2023 10:46 PM Age: 78 years old Clinical indication: Injury or trauma; Fall; Crushing TECHNIQUE: Imaging protocol: Radiologic exam of the chest. Views: 1 view. COMPARISON: [place] [id number] 03/06/2022 9:59 AM FINDINGS: Lungs: There is a calcified granuloma towards the left lung base. Otherwise the lungs are clear. Pleural spaces: Unremarkable. No pleural effusion. No pneumothorax. Heart/Mediastinum: Unremarkable. No cardiomegaly. Bones/joints: Unremarkable. XR/XR chest 1V portable [id number] IMPRESSION: No evidence of acute pulmonary process.
--- NOTE | 2023-02-26 22:14 | XRR_ITS ---
PROCEDURE INFORMATION: Exam: XR Right Hip Exam date and time: 02/26/2023 10:38 PM Age: 78 years old Clinical indication: Injury or trauma; Fall; Crushing; Right; Hip and pelvic region; Hip and pelvic area TECHNIQUE: Imaging protocol: Radiologic exam of the right hip. Views: 1 view hip with pelvis when performed. COMPARISON: CR XR pelvis 1-2V* [id number] 02/26/2023 10:35 PM FINDINGS: Bones/joints: Unremarkable. No acute fracture. Soft tissues: Unremarkable. XR/XR hip RT 2-3V wo/w pel* [id number] IMPRESSION: No acute findings.
--- NOTE | 2023-02-26 22:14 | XRR_ITS ---
PROCEDURE INFORMATION: Exam: XR Right Elbow Exam date and time: 02/26/2023 10:43 PM Age: 78 years old Clinical indication: Injury or trauma; Fall; Crushing; Elbow; Right TECHNIQUE: Imaging protocol: Radiologic exam of the right elbow. Views: 3 or more views. COMPARISON: No relevant prior studies available. FINDINGS: Bones/joints: There appears to be a nondisplaced fracture through the radial neck. Soft tissues: Normal. XR/XR elbow RT min 3V* [id number] IMPRESSION: Nondisplaced radial neck fracture.
--- NOTE | 2023-02-26 22:14 | XRR_ITS ---
PROCEDURE INFORMATION: Exam: XR Right Femur Exam date and time: 02/26/2023 10:39 PM Age: 78 years old Clinical indication: Injury or trauma; Fall; Crushing; Upper leg; Right TECHNIQUE: Imaging protocol: Radiologic exam of the right femur. Views: 2 views. COMPARISON: CR (PELVIS, ) 02/26/2023 10:38 PM FINDINGS: Bones/joints: There is osteopenia present. There is advanced osteoarthritis of the knee joint. No acute fracture. Soft tissues: Unremarkable. XR/XR femur RT min 2V* [id number] IMPRESSION: 1. No acute findings. The bones are osteopenic limiting the sensitivity of radiography. 2. Advanced right knee osteoarthritis.
--- NOTE | 2023-02-26 22:14 | XRR_ITS ---
PROCEDURE INFORMATION: Exam: XR Pelvis Exam date and time: 02/26/2023 10:35 PM Age: 78 years old Clinical indication: Injury or trauma; Fall; Crushing; Right; Hip and pelvic region; Hip and pelvic area TECHNIQUE: Imaging protocol: Radiologic exam of the pelvis. Views: 1 or 2 view. COMPARISON: [place] [id number] 03/06/2022 9:59 AM FINDINGS: Bones/joints: There is osteopenia present. There is mild bilateral osteoarthritis. No acute fracture. Soft tissues: Unremarkable. XR/XR pelvis 1-2V* [id number] IMPRESSION: No acute findings. The bones are osteopenic limiting the sensitivity of radiography.
--- NOTE | 2023-02-26 22:16 | ED_ITS ---
HPI - Fall General: Chief Complaint: Trauma Stated Complaint: FALL Time Seen by Provider: 02/26/23 22:07 Source: patient and EMS Mode of arrival: EMS Limitations: no limitations History of Present Illness: 78-year-old female who is here after a fall at home states she tripped and fell she did hit her head landed on her right side she did have loss conscious has a mild headache states most pain she has in her right hip femur she also has some right elbow pain denies any worsening proving factors. Associated symptoms-after fall: Reports headache(s); Denies abdominal pain, chest pain or neck pain Review of Systems Const: Denies: fever(s), chills, body aches or change in appetite ENMT: Denies: throat pain or dental pain Card: Denies: chest pain Resp: Denies: dyspnea GI: Denies: abdominal pain, nausea, vomiting or diarrhea Musc: Reports: extremity pain; Denies: neck pain or back pain Skin/Breast: Denies: rash Neuro: Reports: headache(s) PFSH ED PFSH: Medical History Acquired hypothyroidism Brain TIA Chronic constipation Chronic venous insufficiency of lower extremity COVID-19 Glaucoma Hyperlipidemia Hypertension Stable Lung cancer Pyloric stenosis Surgical History H/O esophagogastroduodenoscopy 07/29/2019: EGD with dilation for pyloric stenosis 09/13/2019: EGD with dilation to 15 mm for pyloric stenosis H/O hysterectomy for benign disease History of lobectomy of lung History of mandibular surgery S/P cholecystectomy Family History Mother Glaucoma Social History Smoking and tobacco status: former smoker Quit status (tobacco): has quit using tobacco Year quit tobacco: 1998 Former quit date comment: smoked PPD 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 Second hand smoke exposure: No Alcohol intake: never Substance/Drug Use: never Lives independently: Yes Household members: none Marital status: / Current occupational status: retired Current gender identity: Female Physical Exam Const: COMMON NORMALS: no acute distress, patient oriented x3 and healthy appearing HENMT: OTHER: Contusion forehead Eye: COMMON NORMALS: Equal, round and reactive pupils present and EOMs intact bilaterally PUPIL: Yes Equal, round and reactive pupils present Neck/C-Spine: COMMON NORMALS: full ROM and supple CERVICAL SPINE: Yes cervical ROM normal, No pain with cervical ROM and No Cervical spine tenderness Chest: COMMONS NORMALS: normal inspection of the chest and normal palpation of entire chest wall Resp: COMMON NORMALS: normal respiratory effort, No retractions, No use of accessory muscles and clear to auscultation bilaterally AUSCULTATION: clear to auscultation bilaterally Cardio: COMMON NORMALS: regular rate, regular rhythm and No murmurs present (Cardio) RATE: regular rate RHYTHM: regular rhythm GI: COMMON NORMALS: Normal to inspection, nondistended, normoactive bowel sounds present, Soft to palpation, non-tender and no masses PALPATION: Yes Soft to palpation Extremity: NARRATIVE EXTREMITY EXAM: Tenderness over right hip and femur along with right elbow Neuro: COMMON NORMALS: patient oriented x3, moves all extremities and no focal motor deficits Psych: COMMON NORMALS: mental status grossly normal, Normal thought process present and cooperative THOUGHT PROCESS: Normal thought process present Skin: COMMON NORMALS: no rashes or lesions noted and no wounds GENERAL SKIN EXAM: no rashes or lesions noted Course Vital Signs: Vital signs: Vital Signs Temperature 100.4 F H 02/26/23 22:08 Pulse Rate 93 02/27/23 01:50 Respiratory Rate 16 02/27/23 01:50 Blood Pressure 135/91 02/27/23 01:50 Pulse Oximetry 99 02/27/23 01:50 Oxygen Delivery Me thod Nasal Cannula 02/27/23 01:32 Oxygen Flow Rate 2 02/27/23 01:32 MDM - Fall Medical Decision Making Patient presents here with pubic rami fracture along with a radial head fracture from a fall she is not able to ambulate she does live alone I spoke to the spitalist will admit at this time. She did have an elevated white count no signs of infection or source. Medical Records I reviewed the patient's medical records. Lab Data I reviewed the patient's lab results. 02/26/23 23:37 02/26/23 23:37 Radiology Impressions Chest X-Ray 02/26/23 22:14 IMPRESSION: No evidence of acute pulmonary process. Elbow X-Ray 02/26/23 22:14 IMPRESSION: Nondisplaced radial neck fracture. Femur X-Ray 02/26/23 22:14 IMPRESSION: 1. No acute findings. The bones are osteopenic limiting the sensitivity of radiography. 2. Advanced right knee osteoarthritis. Head CT 02/26/23 22:14 IMPRESSION: 1. No evidence of acute intracranial process. 2. Right frontal lobe and right temporal lobe gliosis and encephalomalacia likely due to old ischemic or hemorrhagic event. 3. Mild small vessel disease. Hip/Pelvis X-Ray 02/26/23 22:14 IMPRESSION: No acute findings. Pelvis X-Ray 02/26/23 22:14 IMPRESSION: No acute findings. The bones are osteopenic limiting the sensitivity of radiography. Hip CT 02/26/23 23:30 IMPRESSION: 1. Acute partially displaced and comminuted fracture through the right inferior pubic ramus. There is a nondisplaced fracture through the right superior pubic ramus just lateral to the pubic symphysis. 2. Presumed soft tissue hematoma in the lateral right thigh. Laboratory Results WBC 24.2 10^3/uL (4.0-10.0) H 02/26/23 23:37 RBC 4.15 10^6/uL (4.1-5.3) 02/26/23 23:37 Hgb 11.5 g/dL (11.5-15.3) 02/26/23 23:37 Hct 37.2 % (37.0-47.0) 02/26/23 23:37 MCV 89.6 fl (81-99) 02/26/23 23:37 MCH 27.7 pg (28.0-34.0) L 02/26/23 23:37 MCHC 30.9 g/dL (30.0-36.0) 02/26/23 23:37 RDW 13.7 % (12.1-15.1) 02/26/23 23:37 Plt Count 250 10^3/cmm (130-400) 02/26/23 23:37 MPV 10.7 fL (7.4-10.4) H 02/26/23 23:37 Neut % (Auto) 86.8 % 02/26/23 23:37 Lymph % (Auto) 7.0 % 02/26/23 23:37 Pickett % (Auto) 4.6 % 02/26/23 23:37 Eos % (Auto) 0.2 % 02/26/23 23:37 Baso % (Auto) 0.4 % 02/26/23 23:37 Neut # (Auto) 20.99 10^3/uL (1.8-7.7) H 02/26/23 23:37 Lymph # (Auto) 1.7 10^3/uL (0.8-4.8) 02/26/23 23:37 Pickett # (Auto) 1.1 10^3/uL (0.2-0.9) H 02/26/23 23:37 Eos # (Auto) 0.1 10^3/uL (0.0-0.8) 02/26/23 23:37 Baso # (Auto) 0.1 10^3/uL (0.0-0.1) 02/26/23 23:37 Nucleated RBC % (auto) 0 % 02/26/23 23:37 Nucleated RBCs # 0.0 /100WBC 02/26/23 23:37 PT 13.80 SECONDS (12.1-14.9) 02/26/23 23:37 INR 1.03 (0.8-1.2) 02/26/23 23:37 Sodium 142 mmol/L (136-145) 02/26/23 23:37 Potassium 3.8 mmol/L (3.5-5.1) 02/26/23 23:37 Chloride 104 mmol/L (98-107) 02/26/23 23:37 Carbon Dioxide 24 mmol/L (22-29) 02/26/23 23:37 Anion Gap 17.8 (5-19) 02/26/23 23:37 BUN 22 mg/dL (8-23) 02/26/23 23:37 Creatinine 1.6 mg/dL (0.5-0.9) H 02/26/23 23:37 GFR Calculation Not Reportable 02/26/23 23:37 Glucose 149 mg/dL (65-115) H 02/26/23 23:37 Calculated Osmolality 300 mOsm/kg (285-295) H 02/26/23 23:37 Lactic Acid 2.9 mmol/L (0.5-2.2) H 02/26/23 23:37 Calcium 9.3 mg/dL (8.5-10.5) 02/26/23 23:37 Urine Color Yellow (Yellow) 02/27/23 00:15 Urine Appearance Sl hazy (CLEAR) A 02/27/23 00:15 Urine pH 5 (5-7) 02/27/23 00:15 Ur Specific Biddle 1.020 (1.005-1.030) 02/27/23 00:15 Urine Protein Trace (Negative) 02/27/23 00:15 Urine Glucose (UA) Norm (Normal) 02/27/23 00:15 Urine Ketones 1+ (Negative) H 02/27/23 00:15 Urine Blood Neg (Negative) 02/27/23 00:15 Urine Nitrate Negative (Negative) 02/27/23 00:15 Urine Bilirubin Neg (Negative) 02/27/23 00:15 Urine Urobilinogen Neg mg/dL (Negative) 02/27/23 00:15 Ur Leukocyte Esterase Negative (Negative) 02/27/23 00:15 Urine RBC None /hpf (0-2) 02/27/23 00:15 Urine WBC None /hpf (0-5) 02/27/23 00:15 Ur Squamous Epith Cells None /hpf (0-5) 02/27/23 00:15 Amorphous Sediment Not Reportable 02/27/23 00:15 Urine Bacteria Trace /hpf (NONE) 02/27/23 00:15 Hyaline Casts 5-10 /lpf H 02/27/23 00:15 Urine Mucus 3+ /hpf 02/27/23 00:15 Discharge Plan Discharge Patient Disposition: Admitted As Inpatient Clinical Impression: Fall, Closed pelvic fracture, Closed fracture of right elbow Condition: Stable Prescriptions: No Action metoprolol succinate 50 mg tablet extended release 24 hr 50 mg PO BID Qty: 180 3RF aspirin [Adult Low Dose Aspirin] 81 mg tablet,delayed release (DR/EC) 81 mg PO DAILY potassium chloride 20 mEq tablet extended release 20 meq PO DAILY Qty: 90 3RF fluticasone propionate 50 mcg/actuation spray,suspension 2 spray INTRANASAL DAILY PRN (Reason: Allergy Symptoms) Qty: 16 11RF doxycycline hyclate 100 mg capsule 100 mg PO DAILY 10 Days Qty: 20 0RF atorvastatin 40 mg tablet 40 mg PO DAILY Qty: 90 3RF clopidogrel 75 mg tablet 75 mg PO DAILY 90 Days Qty: 90 1RF furosemide 40 mg tablet 40 mg PO DAILY Qty: 90 3RF Hold Instructions: Dose Change oxybutynin chloride 5 mg tablet See Rx Instructions .ROUTE .COMPLEX Qty: 180 0RF Dose Instruction: TAKE 1 TABLET TWICE DAILY AT 4:30AM AND 2PM Rx Instructions: TAKE 1 TABLET TWICE DAILY AT 4:30AM AND 2PM clotrimazole 1 % cream See Rx Instructions .ROUTE .COMPLEX Qty: 45 0RF Dose Instruction: APPLY 1 APPLICATION TOPICALLY TWICE A DAY FOR 4 WEEKS Rx Instructions: APPLY 1 APPLICATION TOPICALLY TWICE A DAY FOR 4 WEEKS levothyroxine 88 mcg tablet See Rx Instructions .ROUTE .COMPLEX Qty: 90 3RF Dose Instruction: TAKE 1 TABLET EVERY DAY Rx Instructions: TAKE 1 TABLET EVERY DAY multivitamin Tablet 1 tab PO DAILY@11 polyethylene glycol 3350 17 gram/dose powder 17 g PO BID@08,20 PRN (Reason: Constipation) Vitamin C 1 tab PO DAILY@0430 vitamin B complex 1 tab PO DAILY@0430 omeprazole 40 mg capsule,delayed release(DR/EC) 40 mg PO BID Rx Instructions: TAKE 1 CAPSULE TWICE DAILY AT 4:00 AM AND 5:00 PM meclizine 25 mg tablet 25 mg PO TID Rx Instructions: TAKE 1 TABLET THREE TIMES DAILY NEEDED FOR DIZZINESS Referrals: Ainta Ng MD [Primary Care Provider] - Coding Level of Care Code ED Senior [employer] for [facility] Vazquez
[2023-02-26 22:18] VITALS: BP 118/74; PULSE 108; RESP 16; O2SAT 90
[2023-02-26] MEDS: acetaminophen 500 mg Tablet 1000 MG PO (23:09)
[2023-02-26] MEDS: ondansetron 2 mg/ML SDV 2 mL 4 MG IVP (23:10)
[2023-02-26 23:12] VITALS: BP 118/74; PULSE 97; RESP 16; O2SAT 94
--- NOTE | 2023-02-26 23:30 | CTR_ITS ---
PROCEDURE INFORMATION: Exam: CT Right Lower Extremity With Contrast; Thigh Exam date and time: 02/27/2023 12:23 AM Age: 78 years old Clinical indication: Injury or trauma; Fall; Swelling (edema); Thigh or upper leg; Right TECHNIQUE: Imaging protocol: CT of the right lower extremity with intravenous contrast was performed. Exam focused on the thigh. Radiation optimization: All CT scans at this facility use at least one of these dose optimization techniques: automated exposure control; mA and/or kV adjustment per patient size (includes targeted exams where dose is matched to clinical indication); or iterative reconstruction. Contrast material: OMNI 350; Contrast volume: 70 ml; Contrast route: INTRAVENOUS (IV); REPORTING DATA: Count of CT and Cardiac NM exams in prior 12 months: This patient has received [address] and 0 known cardiac nuclear medicine studies in the 12 months prior to the current study. COMPARISON: CR (LOW EXM, ) 02/26/2023 10:39 PM RADIATION DOSE METRICS: Total DLP (mGy-cm): 395.71 FINDINGS: Bones/joints: There is a partially displaced and comminuted fracture through the right inferior right pubic ramus. There is a nondisplaced fracture through the right superior pubic ramus just lateral to the pubic symphysis. Soft tissues: There is presumed hematoma in the subcutaneous fat of the lateral right thigh measuring 5.2 x 3[address]/CT hip RT w con [id number] IMPRESSION: 1. Acute partially displaced and comminuted fracture through the right inferior pubic ramus. There is a nondisplaced fracture through the right superior pubic ramus just lateral to the pubic symphysis. 2. Presumed soft tissue hematoma in the lateral right thigh.
[2023-02-26 23:43] LABS: Basophils # 0.1 10^3/uL (0.0-0.1); Basophils % 0.4 %; Eosinophils # 0.1 10^3/uL (0.0-0.8); Eosinophils % 0.2 %; Hematocrit 37.2 % (37.0-47.0); Hemoglobin 11.5 g/dL (11.5-15.3); Lymphocytes # 1.7 10^3/uL (0.8-4.8); Mean Corpuscular HGB Conc 30.9 g/dL (30.0-36.0); Mean Corpuscular Hemoglobin 27.7 pg (28.0-34.0); Mean Corpuscular Volume 89.6 fl (81-99); Mean Platelet Volume 10.7 fL (7.4-10.4); Monocytes # 1.1 10^3/uL (0.2-0.9); Monocytes % 4.6 %; Neutrophils # 20.99 10^3/uL (1.8-7.7); Neutrophils % 86.8 %; Nucleated Red Blood Cells % 0 %; Platelet Count 250 10^3/cmm (130-400); Red Blood Count 4.15 10^6/uL (4.1-5.3); Red Cell Distribution Width 13.7 % (12.1-15.1); White Blood Count 24.2 10^3/uL (4.0-10.0)
[2023-02-26 23:55] LABS: INR 1.03 (0.8-1.2)
[2023-02-27] VITALS (17 sets, daily range): BP systolic 92–156; BP diastolic 51–96; PULSE 67–102; RESP 16–19; TEMP 36.1–36.9; O2SAT 91–100
[2023-02-27] MEDS: diphenhydrAMINE 50 mg/mL SDV 1mL IVP (00:07)
[2023-02-27] MEDS: methylPREDNISolone sod succ 40 MG in water for injection-sterile 1 ML 12 MG IVP (00:07)
[2023-02-27 00:09] LABS: Anion Gap 17.8 (5-19); Blood Urea Nitrogen 22 mg/dL (8-23); Calcium 9.3 mg/dL (8.5-10.5); Carbon Dioxide 24 mmol/L (22-29); Chloride 104 mmol/L (98-107); Glucose 149 mg/dL (65-115); Osmolality Calculated 300 mOsm/kg (285-295); Potassium 3.8 mmol/L (3.5-5.1); Sodium 142 mmol/L (136-145)
[2023-02-27 00:12] LABS: Lactic Sepsis W/Reflex 2.9 mmol/L (0.5-2.2)
[2023-02-27] MEDS: iohexol 350 mg/mL 500 mL Btl (per mL) IV (00:24)
[2023-02-27 00:34] LABS: Urine Appearance SL Hazy (CLEAR); Urine Color Yellow (Yellow)
[2023-02-27 00:35] LABS: Add Urine Microscopic? YES; Bilirubin Urine Neg (Negative); Blood Urine Neg (Negative); Glucose Urine UA Norm (Normal); Ketones Urine 1+ (Negative); Leukocyte Esterase Urine Negative (Negative); Nitrate Urine Negative (Negative); Protein Urine Trace (Negative); Urobilinogen Urine Neg (Negative); pH Urine 5 (5-7)
[2023-02-27 00:36] LABS: Add Urine Culture? No; Bacteria Urine TRACE /hpf; Mucus Urine 3+ /hpf
[2023-02-27] MEDS: sodium chloride 0.9% 1,000 ML 999 ML IV ×2 (00:43→01:38)
--- NOTE | 2023-02-27 01:24 | PC.NURSE ---
Pt c/o R sided pain. Upon initial assessment, pt strongly states that she does not want opioids. Pt states that she feels uncomfortable with taking them as she feels silly and hallucinated one time after taking opioids. Pt given acetaminophen for pain control. RN educated pt about pain control and how opioids would be appropriate for controlling her high level of pain after falling at home. RN also educated pt on her right to choose and deny medication, but that her pain may not be controlled by regular painkillers alone. Pt verbalized understanding. Pt still refusing opioid medication at this time. notified. Will continue to monitor.
[2023-02-27 01:48] LABS: Reflex Lactate Order REFLEX LACTIC ORDERD
[2023-02-27] MEDS: oxyCODONE 5 mg IR Tab/Cap PO ×4 (01:58→19:04)
--- NOTE | 2023-02-27 02:02 | PM.HP ---
Providers/Chief Complaint Admitting Physician: Haseeb Edward MD Primary Care Provider: Anita Ng MD Chief Complaint: FALL History of Present Illness Vivian Hummel is a 78 year old female who presented to the emergency department after a fall. She reports she has had several other falls within the last 6 months to year. She states she usually falls when she turns quickly, as she did tonight to go to the TV although she cannot remember all of the events. After the fall around 7 PM she believes she was unconscious for a while. Son found her, and she was complaining of right elbow, right hip, and right head pain. She has had no vomiting, nausea. She has had no significant recent illness. She had been on doxycycline recently for a tick bite but had not been ill with the tick bite in any fashion. She has not had any dysuria, or abdominal pain. She has not been short of breath or coughing. Prior to the fall she felt completely normal. In the emergency department she was placed in a sling. She was in significant pain and refused to get up to try to ambulate. She initially refused pain medication. Review of Systems General: Reports: 10 or more systems reviewed and unremarkable except in HPI and below Card: Denies: chest pain Resp: Denies: dyspnea GI: Denies: abdominal pain, nausea, vomiting, hematochezia or melena Medications/Allergies Home Medications Medication Instructions Recorded Confirmed Last Taken Type multivitamin 1 tab PO DAILY@11 11/29/20 01/21/23 01/06/23 History Vitamin C 1 tab PO DAILY@0430 01/19/21 01/21/23 01/06/23 History vitamin B complex 1 tab PO DAILY@0430 01/19/21 01/21/23 01/06/23 History aspirin 81 mg tablet,delayed 81 mg PO DAILY 07/25/21 01/21/23 01/06/23 History release (Adult Low Dose Aspirin) polyethylene glycol 3350 17 17 g PO BID@08,20 PRN Constipation 07/25/21 01/21/23 01/06/23 History gram/dose oral powder potassium chloride 20 mEq 20 meq PO DAILY #90 tabs 07/25/21 01/21/23 01/06/23 Rx tablet,extended release metoprolol succinate 50 mg 50 mg PO BID #180 tabs 06/04/22 01/21/23 01/06/23 Rx tablet,extended release 24 hr atorvastatin 40 mg tablet 40 mg PO DAILY #90 tabs 07/14/22 01/21/23 01/06/23 Rx fluticasone propionate 50 2 spray intranasal DAILY PRN 09/26/22 01/21/23 01/04/23 Rx mcg/actuation nasal Allergy Symptoms #16 grams spray,suspension clopidogrel 75 mg tablet 75 mg PO DAILY 90 days #90 tabs 12/15/22 01/21/23 01/06/23 Rx meclizine 25 mg tablet 25 mg PO TID 01/06/23 01/21/23 01/06/23 History omeprazole 40 mg capsule,delayed 40 mg PO BID 01/06/23 01/21/23 01/06/23 History release furosemide 40 mg tablet 40 mg PO DAILY #90 tabs 01/15/23 01/21/23 Unknown Rx oxybutynin chloride 5 mg tablet See Rx Instructions .Route 01/15/23 01/21/23 Unknown Rx .COMPLEX #180 tabs doxycycline hyclate 100 mg capsule 100 mg PO DAILY 10 days #20 caps 01/21/23 01/21/23 Unknown Rx clotrimazole 1 % topical cream See Rx Instructions .Route 02/13/23 Unknown Rx .COMPLEX #45 grams levothyroxine 88 mcg tablet See Rx Instructions .Route 02/16/23 Unknown Rx .COMPLEX #90 tabs Allergies Allergy/AdvReac Type Severity Reaction Status Date / Time povidone-iodine Allergy Severe ALGY-Swell Verified 01/06/23 10:51 Lip/Tongue/Throat soap Allergy Severe ALGY-Swell Verified 01/06/23 10:51 Lip/Tongue/Throat Fish Containing Products Allergy Unknown ALGY-Swell Verified 01/06/23 10:51 Lip/Tongue/Throat iodine Allergy Unknown ALGY-Swell Verified 01/06/23 10:51 Lip/Tongue/Throat Opioids - Morphine Analogues Allergy ADR-Halluci Verified 01/06/23 12:06 inder PFSH Acute PFSH: Medical History (Updated 02/27/23 @ 02:33 by Haseeb Edward MD) Acquired hypothyroidism Brain TIA Chronic constipation Chronic venous insufficiency of lower extremity COPD (chronic obstructive pulmonary disease) COVID-19 GERD (gastroesophageal reflux disease) Improved following dilation of gastric outlet obstruction Glaucoma Hyperlipidemia Hypertension Stable Lung cancer Pyloric stenosis Vaginal prolapse Surgical History H/O esophagogastroduodenoscopy 07/29/2019: EGD with dilation for pyloric stenosis 09/13/2019: EGD with dilation to 15 mm for pyloric stenosis H/O hysterectomy for benign disease History of lobectomy of lung History of mandibular surgery S/P cholecystectomy Family History Mother Glaucoma Social History Smoking and tobacco status: former smoker Quit status (tobacco): has quit using tobacco Year quit tobacco: 1998 Former quit date comment: smoked PPD 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 Second hand smoke exposure: No Alcohol intake: never Substance/Drug Use: never Lives independently: Yes Household members: none Marital status: / Current occupational status: retired Current gender identity: Female Vitals/I&O/Wt Last Vital Signs Temp 100.4 F H 02/26/23 22:08 Pulse 93 02/27/23 01:50 Resp 16 02/27/23 01:50 BP 135/91 02/27/23 01:50 Pulse Ox 99 02/27/23 01:50 O2 Del Method Nasal Cannula 02/27/23 01:32 O2 Flow Rate 2 02/27/23 01:32 02/26/23 02/26/23 02/27/23 14:59 22:59 06:59 Intake Total Balance Weight last 48 hrs Weight 62.596 kg Physical Exam Narrative: General exam is a white female, conversant and pleasant, with obvious right facial, latter day hematoma. Note that her temperature was 100.4 HEENT: Pupils equally round, oropharynx clear Neck is supple no lymphadenopathy thyromegaly Cardiovascular regular rate and rhythm with gallop and a 2/6 to 3/6 systolic murmur Lungs clear no wheezing or crackles Abdomen is soft with positive bowel sounds. No obvious organomegaly. /hip exam demonstrates significant hematoma overlying the right upper hip/greater trochanter Skin no rash Neuro no obvious focal deficits Data 02/26/23 23:37 02/26/23 23:37 Other Labs: INR is 1.03 Lactic acid 2.9 Calcium 9.3 Urinalysis negative I have ordered liver function tests, procalcitonin, TSH, blood culture Hip CT demonstrates a comminuted fracture through the right inferior pubic ramus, and a right superior pubic ramus fracture as well. Hematoma is noted in the thigh. Pelvis x-ray did not show any acute findings nor did hip x-ray. Head CT which I reviewed demonstrated no acute findings Femur x-ray on the right demonstrated some arthritis Elbow x-ray demonstrated a nondisplaced radial neck fracture Chest x-ray which I reviewed demonstrated no infiltrate. A&P Assessment and plan (1) Closed pelvic fracture: Patient has a closed pelvic fracture Physical therapy to be consulted Pain control with oxycodone, Tylenol. She wants to try to avoid any IV narcotics It is unknown at this time with her other injuries including closed fracture of the elbow, underlying severe arthritis of her knees, if she will be able to go home with home health and therapy or she will need nursing facility placement. Physical therapy can help us determine this. This is associated with a hematoma which is 5 x 4 x 11 cm. Holding Plavix and aspirin currently. Repeat CBC this afternoon. (2) Closed fracture of right elbow: Sling was placed Outpatient orthopedic follow-up (3) Fall: Patient suffered a fall. Some of the characteristics are mechanical but because of her difficulty remembering all of this cannot exclude syncope. Secondary to heart murmur we will check echocardiogram. Check EKG, placed on telemetry CT head is already been done and no acute findings are noted. 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 Check CK (4) Closed head injury: Patient reports loss of consciousness. This is consistent with closed head injury, with concussion Close monitoring of neurologic status (5) Heart murmur: Check echocardiogram (6) Leukocytosis: Patient reports no preceding illness prior to the fall other than a tick bite for which she was on doxycycline, which had healed. As her temperature was 100.4, and leukocytosis was present we will check procalcitonin and blood cultures. Hold off on antibiotics for this time Elevated temperature, and white blood cell count could be secondary to hematoma Repeat CBC tomorrow Plan Multiple other medical problems as outlined in past medical history Full code SCDs for DVT prophylaxis. Anticoagulation held secondary to significant hematoma and pelvis Attestations Medical Necessity Statement*: May need less than 2 midnight stay for evaluation and treatment of fall, closed pelvic fracture, radial neck fracture, elevated temperature Diagnoses Closed pelvic fracture S32.9XXA Closed fracture of right elbow S42.401A Fall W19.XXXA Closed head injury S09.90XA Heart murmur R01.1 Leukocytosis D72.829 Time Spent (min) 61
--- NOTE | 2023-02-27 02:50 | USCV_ITS ---
Vivian Hummel Age: 78 Gender: F : 1945 Exam Date: 02/27/2023 04:09 Ordering Phys: Haseeb Edward MD Technologist: MELVA Exam Location: [facility] – [place] Indication: syncope, GLF, RT arm fx, RT hip fx. murmur. No history of cardiac intervention per patient. BP: 110 / 90 HR: 82 Rhythm: Sinus Technical Quality: technically difficult c/o RT hip/arm fractures MEASUREMENTS (Male / Female) Normal Values 2D ECHO LV Diastolic Diameter PLAX 3.1 cm 4.2 - 5.9 / 3.9 - 5.3 cm LV Systolic Diameter PLAX 2.2 cm IVS Diastolic Thickness 1.2 cm 0.6 - 1.0 / 0.6 - 0.9 cm IVS Systolic Thickness 1.3 cm LVPW Diastolic Thickness 1.1 cm 0.6 - 1.0 / 0.6 - 0.9 cm LVPW Systolic Thickness 1.4 cm LVOT Diameter 1.8 cm LV Ejection Fraction 2D Teich 56.0 % LV Ejection Fraction MOD 2C 58.9 % LV Ejection Fraction 2C AL 58.2 % LA Diameter 3.2 cm LA Width 2.6 cm LA Height 4.8 cm RA Width 3.1 cm RA Height 3.0 cm Aorta at Sinotubular Diameter 2.4 cm IVC Diameter 1.2 cm M-MODE Aortic Annulus Diameter 2.9 cm LA Ao Ratio MM 1.2 MV E Point Septal Separation 0.3 cm DOPPLER AV Peak Velocity 480.7 cm/s LVOT Peak Velocity 126.0 cm/s AV Area Cont Eq vti 0.5 cm squared AV Area Cont Eq pk 0.6 cm squared MV Peak Velocity 130.0 cm/s MV Area PHT 3.5 cm squared Mitral E to A Ratio 0.6 MV E' Velocity 34.5 cm/s Mitral E to MV E' Ratio 9.4 Mitral E to LV E' Lateral Ratio 11.0 Mitral E to LV E' Septal Ratio 8.2 TR Peak Velocity 275.0 cm/s TR Peak Gradient 30.3 mmHg TV Peak E Velocity 58.0 cm/s Right Atrial Pressure 5.0 mmHg Pulmonary Artery Systolic Pressu 35.3 mmHg PV Peak Velocity 100.0 cm/s RV Acceleration Time 0.1 s RV Ejection Time 0.3 s RV AcT/ET 0.3 FINDINGS Left Ventricle Study is technically difficult. Left ventricle size and function probably within normal limits. Ejection fraction 55 to 60%. No obvious wall motion disturbances. Grade 2 diastolic dysfunction. Right Ventricle Normal right ventricular size and systolic function. Normal right ventricular systolic pressure. Right Atrium The right atrium is normal in size. Left Atrium The left atrium is normal in size. Mitral Valve Structurally normal mitral valve. Mitral valve not well visualized. Aortic Valve Aortic valve not well visualized. Structurally normal trileaflet aortic valve. Tricuspid Valve Tricuspid valve not well visualized. Pulmonic Valve Pulmonic valve not well visualized. Pericardium Normal pericardium without effusion. Aorta Normal ascending aorta dimension. IVC The inferior vena cava appears normal. CONCLUSIONS Study is technically difficult. Left ventricle size and function probably within normal limits. Ejection fraction 55 to 60%. No obvious wall motion disturbances. Grade 2 diastolic dysfunction. From the previous echo dated 11/30/2020, there has been no change. Dr. Casey Jj MD (Electronically Signed) Final Date: 27 February 2023 08:30 S
[2023-02-27 02:58] LABS: Creatine Phosphokinase 123 U/L (26-192)
[2023-02-27 03:02] LABS: Lactic Acid level (Lactate) 2.7 mmol/L (0.5-2.2)
[2023-02-27 03:09] LABS: Thyroid Stimulating Hormone 3.07 uIU/mL (0.27-4.20)
[2023-02-27 03:20] LABS: Alanine Aminotransferase 36 U/L (0-33); Albumin Level 3.7 g/dL (3.5-5.2); Alkaline Phosphatase 90 U/L (35-105); Aspartate Amino Transferase 27 U/L (0-32); Total Bilirubin 0.3 mg/dL (0.15-1.2); Total Protein 5.7 g/dL (6.6-8.7)
--- NOTE | 2023-02-27 03:31 | ECG_ITS ---
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 Measurements Intervals [place] Rate: 88 P: 72 SC: 198 QRS: 52 QRSD: 86 T: 65 QT: 362 QTc: 440 Interpretive Statements SINUS RHYTHM Compared to ECG 11/29/2020 14:27:03 Sinus bradycardia no longer present First degree AV block no longer present Myocardial infarct finding no longer present Electronically Signed On 02-27-2023 11:43:28 CDT by Casey Jj M.D. [email or web address]
[2023-02-27] MEDS: sodium chloride 0.9% 1,000 ML 75 ML IV ×2 (03:53→16:43)
--- NOTE | 2023-02-27 03:58 | PC.NURSE ---
Admission skin assessment: Pt states that she has 2 small areas on her bottom at the crack but when nursing staff attempted to roll her to look it was too painful. Will reassess when the pt get up to the restroom.
[2023-02-27 04:09] LABS: Adenovirus Not Detected (NOT DETECT); Chlamydia Pneumoniae Not Detected (NOT DETECT); Coronavirus 229E,HKU1,NL63,OC4 Not Detected (NOT DETECT); Human Metapneumovirus Not Detected (NOT DETECT); Human Rhinovirus/Enterovirus Not Detected (NOT DETECT); Influenza A Not Detected (NOT DETECT); Influenza A H1 Not Detected (NOT DETECT); Influenza A H1-2009 Not Detected (NOT DETECT); Influenza A H3 Not Detected (NOT DETECT); Influenza B Not Detected (NOT DETECT); Mycoplasma Pneumoniae Not Detected (NOT DETECT); Parainfluenza Virus Type 1 Not Detected (NOT DETECT); Parainfluenza Virus Type 2 Not Detected (NOT DETECT); Parainfluenza Virus Type 3 Not Detected (NOT DETECT); Parainfluenza Virus Type 4 Not Detected (NOT DETECT); Respiratory Syncytial Virus A Not Detected (NOT DETECT); Respiratory Syncytial Virus B Not Detected (NOT DETECT); SARS-COV-2 Not Detected (NOT DETECT)
[2023-02-27] MEDS: metoprolol succinate ER (24 HR) 50 mg Tablet PO (08:41)
[2023-02-27] MEDS: pantoprazole DR 40 mg Tablet PO ×2 (08:41→19:04)
[2023-02-27] MEDS: levothyroxine 88 mcg Tablet PO (08:41)
--- NOTE | 2023-02-27 09:10 | PC.PHAR ---
Addendum entered by Rosio Burr 02/27/23 09:18: [facility] the pt called and cancelled her rx for valsartan 160mg daily-rx last filled 12/01/22 90d/s Original Note: pt states she takes care of her own medications-pt states she is unsure of all the names of her medications-pt states she had a list with her meds on it that she brought in, the list was not in pts room or medsur chart-medications entered are meds the pt states she could remember she took and what [facility] pharmacy states they mail to her-praveen states last filled kcl 20meq daily rx filled 07/11/22 90d/s no refills-tanner last filled doxycycline hyclate 100mg daily filled 01/21/23 20d/s-notes are made in the pharmacy comments
[2023-02-27 09:48] LABS: Basophils % 0.2 %; Eosinophils % 0.1 %; Hematocrit 30.1 % (37.0-47.0); Hemoglobin 8.7 g/dL (11.5-15.3); Mean Corpuscular HGB Conc 28.9 g/dL (30.0-36.0); Mean Corpuscular Hemoglobin 28.4 pg (28.0-34.0); Mean Corpuscular Volume 98.4 fl (81-99); Mean Platelet Volume 11.1 fL (7.4-10.4); Monocytes # 0.5 10^3/uL (0.2-0.9); Monocytes % 2.9 %; Neutrophils # 14.44 10^3/uL (1.8-7.7); Neutrophils % 90.5 %; Nucleated Red Blood Cells % 0 %; Platelet Count 167 10^3/cmm (130-400); Red Blood Count 3.06 10^6/uL (4.1-5.3); Red Cell Distribution Width 13.7 % (12.1-15.1)
--- NOTE | 2023-02-27 11:59 | CTR_ITS ---
PROCEDURE INFORMATION: Exam: CT Chest Without Contrast; Diagnostic Exam date and time: 02/27/2023 2:36 PM Age: 78 years old Clinical indication: Pain; Other: Generalized; Prior surgery; Surgery date: 6+ months; Surgery type: Gb, hyst, RT lung; Additional info: Fall, fevers, hypoxia, anemia TECHNIQUE: Imaging protocol: Diagnostic computed tomography of the chest without contrast. Radiation optimization: All CT scans at this facility use at least one of these dose optimization techniques: automated exposure control; mA and/or kV adjustment per patient size (includes targeted exams where dose is matched to clinical indication); or iterative reconstruction. REPORTING DATA: Count of CT and Cardiac NM exams in prior 12 months: This patient has received 2 known CTs and 0 known cardiac nuclear medicine studies in the 12 months prior to the current study. COMPARISON: CT chest [facility] [id number] 03/06/2022 9:59 AM RADIATION DOSE METRICS: Total DLP (mGy-cm): 0.01 FINDINGS: Lungs: Right upper lobectomy changes. Ill-defined ground-glass opacities noted within both lungs, predominantly located left upper lobe. Calcified granuloma noted in the left lung base. No suspicious mass. Pleural spaces: No pneumothorax. No pleural effusion. Heart: No cardiomegaly. No pericardial effusion. Lymph nodes: No enlarged lymph nodes. Vasculature: No aortic aneurysm. Bones/joints: No acute fracture. Soft tissues: Unremarkable. PROCEDURE INFORMATION: Exam: CT Abdomen And Pelvis Without Contrast Exam date and time: 02/27/2023 2:36 PM Age: 78 years old Clinical indication: Pain; Other: Generalized; Prior surgery; Surgery date: 6+ months; Surgery type: Gb, hyst, RT lung; Additional info: Fall, fevers, hypoxia, anemia TECHNIQUE: Imaging protocol: Computed tomography of the abdomen and pelvis without contrast. Radiation optimization: All CT scans at this facility use at least one of these dose optimization techniques: automated exposure control; mA and/or kV adjustment per patient size (includes targeted exams where dose is matched to clinical indication); or iterative reconstruction. REPORTING DATA: Count of CT and Cardiac NM exams in prior 12 months: This patient has received 2 known CTs and 0 known cardiac nuclear medicine studies in the 12 months prior to the current study. COMPARISON: CT chest [facility] [id number] 03/06/2022 9:59 AM RADIATION DOSE METRICS: Total DLP (mGy-cm): 844.45 FINDINGS: Liver: A few scattered subcentimeter cysts noted in both lobes. Gallbladder and bile ducts: Cholecystectomy. No ductal dilation. Pancreas: Normal. No ductal dilation. Spleen: Normal. No splenomegaly. Adrenal glands: Normal. No mass. Kidneys and ureters: 1.7 cm simple cyst noted in the left kidney. No hydronephrosis. Stomach and bowel: No obstruction. No mucosal thickening. Appendix: No evidence of appendicitis. Intraperitoneal space: No free air. No significant fluid collection. Vasculature: No abdominal aortic aneurysm. Lymph nodes: No enlarged lymph nodes. Urinary bladder: Unremarkable as visualized. Reproductive: Hysterectomy. Bones/joints: Fracture through the right inferior pubic ramus. No additional fractures. Soft tissues: Subcutaneous soft tissue stranding and a partially visualized hematoma measuring over 8 cm in length seen in the right anterior thigh. CT/[place] [id number] IMPRESSION: 1. No acute traumatic intrathoracic findings. 2. Ill-defined ground-glass opacities noted within both lungs, predominantly in the left upper lobe, suggestive of small airway infectious or inflammatory process. 3. Right upper lobectomy changes. IMPRESSION: Fracture through the right inferior pubic ramus. There is soft tissue stranding and a partially visualized hematoma measuring over 8 cm in length in the right anterior thigh. COMMENTS: Consistent with the [employer]'s Incidental Findings Committee white paper (J Am Lawrence Radiol 2018): Any incidental renal lesion less than 1 cm or classified as too small to characterize, or any incidental cystic renal lesion characterized as simple-appearing, is likely benign. No follow-up imaging is recommended for these lesions per consensus recommendations based on imaging criteria.
[2023-02-27] MEDS: polyethylene glycol 3350 Pkt 17 gm PO (12:13)
[2023-02-27 12:47] LABS: Hematocrit 30.5 % (37.0-47.0); Hemoglobin 8.9 g/dL (11.5-15.3)
[2023-02-27 13:09] LABS: Lactic Sepsis W/Reflex 2.6 mmol/L (0.5-2.2)
[2023-02-27 13:16] LABS: Anion Gap 16.6 (5-19); Blood Urea Nitrogen 26 mg/dL (8-23); Calcium 8.4 mg/dL (8.5-10.5); Carbon Dioxide 21 mmol/L (22-29); Chloride 107 mmol/L (98-107); Glucose 153 mg/dL (65-115); Osmolality Calculated 298 mOsm/kg (285-295); Potassium 4.6 mmol/L (3.5-5.1); Sodium 140 mmol/L (136-145)
[2023-02-27 13:50] LABS: Adenovirus Not Detected (NOT DETECT); Chlamydia Pneumoniae Not Detected (NOT DETECT); Coronavirus 229E,HKU1,NL63,OC4 Not Detected (NOT DETECT); Human Metapneumovirus Not Detected (NOT DETECT); Human Rhinovirus/Enterovirus Not Detected (NOT DETECT); Influenza A Not Detected (NOT DETECT); Influenza A H1 Not Detected (NOT DETECT); Influenza A H1-2009 Not Detected (NOT DETECT); Influenza A H3 Not Detected (NOT DETECT); Influenza B Not Detected (NOT DETECT); Mycoplasma Pneumoniae Not Detected (NOT DETECT); Parainfluenza Virus Type 1 Not Detected (NOT DETECT); Parainfluenza Virus Type 2 Not Detected (NOT DETECT); Parainfluenza Virus Type 3 Not Detected (NOT DETECT); Parainfluenza Virus Type 4 Not Detected (NOT DETECT); Respiratory Syncytial Virus A Not Detected (NOT DETECT); Respiratory Syncytial Virus B Not Detected (NOT DETECT); SARS-COV-2 Not Detected (NOT DETECT)
[2023-02-27 13:54] LABS: C Reactive Protein 16.7 mg/L (0.0-4.9)
[2023-02-27] MEDS: lactated ringers 500 ML 999 ML IV (13:56)
[2023-02-27 14:28] LABS: Reflex Lactate Order REFLEX LACTIC ORDERD
--- NOTE | 2023-02-27 15:07 | PM.PN ---
Subjective Subjective: - Patient was examined this morning -She denies any lightheadedness, denies any dizziness -She does not know how she fell, but does report loss of consciousness -She is surprised about the bruise of her right thigh -Denies any abdominal pain, no nausea, no vomiting - she tells me that she wants to avoid narcotics in bed due to severe pain she is willing to take it, but she wants to be put her back on her bowel regimen -She denies any feeling feverish overnight -She does complain of diffuse pain -Did is any dysuria, hematuria no shortness of breath no cough Vitals/I&O/Wt Last Vital Signs Temp 97.1 F L 02/27/23 12:00 Pulse 79 02/27/23 12:00 Resp 17 02/27/23 12:14 BP 92/57 02/27/23 12:00 Pulse Ox 100 02/27/23 12:00 O2 Del Method Nasal Cannula 02/27/23 12:00 O2 Flow Rate 2 02/27/23 01:32 02/27/23 02/27/23 02/27/23 06:59 14:59 22:59 Intake Total 2000 600 / 600 Balance 2000 600 / 600 Weight last 48 hrs Weight 62.596 kg Physical Exam Const: COMMON NORMALS: no acute distress and patient oriented x3 Resp: COMMON NORMALS: normal respiratory effort, No retractions, No use of accessory muscles and clear to auscultation bilaterally AUSCULTATION: clear to auscultation bilaterally Cardio: COMMON NORMALS: regular rate, regular rhythm, S1 normal heart sound present and S2 normal heart sound present RATE: regular rate RHYTHM: regular rhythm HEART SOUNDS: S1 normal heart sound present and S2 normal heart sound present GI: COMMON NORMALS: Normal to inspection, nondistended, normoactive bowel sounds present and non-tender Extremity: COMMON NORMALS: no pedal edema Neuro: COMMON NORMALS: patient oriented x3 Psych: COMMON NORMALS: mental status grossly normal Skin: NARRATIVE SKIN EXAM: Right thigh bruising, measuring 10 x 10 cm Bruising, right occipital region Data 02/27/23 12:32 02/27/23 12:32 Micro: Microbiology 02/27/23 02:26 Blood Culture - Preliminary Blood SPECIMEN COLLECTED 02/27/23 02:18 Blood Culture - Preliminary Blood SPECIMEN COLLECTED A&P Assessment and plan (1) Closed pelvic fracture: Patient has a closed pelvic fracture Physical therapy to be consulted Pain control with oxycodone, Tylenol PT OT (2) Closed fracture of right elbow: Sling was placed Outpatient orthopedic follow-up (3) Fall: Patient suffered a fall. Some of the characteristics are mechanical but because of her difficulty remembering all of this cannot exclude syncope. Secondary to heart murmur we will check echocardiogram. Check EKG, placed on telemetry CT head is already been done and no acute findings are noted. 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 (4) Closed head injury: Patient reports loss of consciousness. This is consistent with closed head injury, with concussion Close monitoring of neurologic status (5) Heart murmur: Check echocardiogram (6) Leukocytosis: - Leukocytosis, with fever -UA negative for UTI -Chest x-ray no focal pneumonia -Blood cultures pending. ? Respiratory viral panel. ? We will order griffith CT scan -Does have a right thigh hematoma (7) Traumatic hematoma of right thigh: - Hemoglobin down to 8.9 -Does have hypotension -Does have lactic acidosis -CT abdomen pelvis -Hold all blood thinners including aspirin, Plavix (8) Hypotension: - Combination of anemia, dehydration, right thigh hematoma -Monitor hemodynamics closely (9) Lactic acidosis: - Combination of fall, dehydration, anemia (10) Anemia: - Combination of dilutional, and right thigh hematoma -Monitor hemoglobin -CT abdomen -Hemoglobin every 6 hours -Transfuse if less than 7 (11) Acute kidney injury: - IV fluids (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 Anticoagulation held secondary to significant hematoma and pelvis Plan for today, CT chest abdomen pelvis, monitor hemoglobin, IV fluids, monitor fevers trend, respiratory viral panel follow blood cultures, follow echo Attestations Medical Necessity Statement*: Patient requires hospitalization for fall, with right thigh hematoma with hypotension with anemia with lactic acidosis with CEDRIC Diagnoses Closed pelvic fracture S32.9XXA Closed fracture of right elbow S42.401A Fall W19.XXXA Closed head injury S09.90XA Heart murmur R01.1 Leukocytosis D72.829 Traumatic hematoma of right thigh S70.11XA Hypotension I95.9 Lactic acidosis E87.20 Anemia D64.9 Acute kidney injury N17.9 Arteriovenous malformation, brain Q28.2 Brain aneurysm I67.1 Pyloric stenosis K31.1 Chronic constipation K59.09
--- NOTE | 2023-02-27 15:11 | PC.NURSE ---
Bladder scan. Pt hasnt urinated and tried this morning but couldnt. I bladder scanned and it showed 418ml of urine.
[2023-02-27 16:03] LABS: Lactic Acid level (Lactate) 2.2 mmol/L (0.5-2.2)
[2023-02-27] MEDS: cefTRIAXone 1,000 MG in sodium chloride 0.9% (plus) 50 ML 100 MG IV (16:43)
[2023-02-27] MEDS: acetaminophen 325 mg Tablet 650 MG PO (16:48)
[2023-02-27] MEDS: ondansetron 2 mg/ML SDV 2 mL 4 MG IVP (17:03)
[2023-02-27] MEDS: azithromycin 500 MG in sodium chloride 0.9% 250 ML 250 MG IV (17:54)
[2023-02-27 19:16] LABS: Hematocrit 24.1 % (37.0-47.0); Hemoglobin 7.3 g/dL (11.5-15.3)
[2023-02-28] VITALS (23 sets, daily range): BP systolic 100–179; BP diastolic 49–81; PULSE 59–114; RESP 15–18; TEMP 36.4–37.4; O2SAT 92–99
[2023-02-28 00:42] LABS: Hematocrit 25.3 % (37.0-47.0); Hemoglobin 7.6 g/dL (11.5-15.3)
[2023-02-28] MEDS: HYDROmorphone 1 mg/mL INJ 1 mL 0.5 MG IVP ×2 (00:50→10:45)
[2023-02-28 06:04] LABS: Basophils # 0.1 10^3/uL (0.0-0.1); Basophils % 0.4 %; Eosinophils # 0.3 10^3/uL (0.0-0.8); Eosinophils % 1.8 %; Hematocrit 24.7 % (37.0-47.0); Hemoglobin 7.5 g/dL (11.5-15.3); Lymphocytes # 1.5 10^3/uL (0.8-4.8); Lymphocytes % 9.5 %; Mean Corpuscular HGB Conc 30.4 g/dL (30.0-36.0); Mean Corpuscular Hemoglobin 28.2 pg (28.0-34.0); Mean Corpuscular Volume 92.9 fl (81-99); Mean Platelet Volume 11.5 fL (7.4-10.4); Monocytes # 1.1 10^3/uL (0.2-0.9); Monocytes % 6.6 %; Neutrophils # 12.94 10^3/uL (1.8-7.7); Neutrophils % 81.3 %; Nucleated Red Blood Cells % 0 %; Platelet Count 141 10^3/cmm (130-400); Red Blood Count 2.66 10^6/uL (4.1-5.3); Red Cell Distribution Width 14.1 % (12.1-15.1); White Blood Count 15.9 10^3/uL (4.0-10.0)
[2023-02-28 06:38] LABS: Alanine Aminotransferase 29 U/L (0-33); Albumin Level 3.1 g/dL (3.5-5.2); Alkaline Phosphatase 66 U/L (35-105); Aspartate Amino Transferase 25 U/L (0-32); Blood Urea Nitrogen 32 mg/dL (8-23); Calcium 8.3 mg/dL (8.5-10.5); Carbon Dioxide 23 mmol/L (22-29); Chloride 109 mmol/L (98-107); Globulin 1.7 g/dL (1.3-4.6); Glucose 102 mg/dL (65-115); Magnesium 1.8 mg/dL (1.7-2.3); Osmolality Calculated 297 mOsm/kg (285-295); Sodium 140 mmol/L (136-145); Total Bilirubin 0.3 mg/dL (0.15-1.2); Total Protein 4.8 g/dL (6.6-8.7)
[2023-02-28] MEDS: oxyCODONE 5 mg IR Tab/Cap PO ×2 (08:39→17:04)
[2023-02-28] MEDS: levothyroxine 88 mcg Tablet PO (08:40)
[2023-02-28] MEDS: pantoprazole DR 40 mg Tablet PO ×2 (08:40→17:04)
[2023-02-28] MEDS: polyethylene glycol 3350 Pkt 17 gm PO (08:40)
--- NOTE | 2023-02-28 12:27 | PM.PN ---
Subjective Subjective: - Patient was seen this morning -She is to cannulate of pain in her right elbow, pain in her tailbone -No fevers, no chills, no nausea, no vomiting -She tells me that it hurts whenever she moves, Vitals/I&O/Wt Last Vital Signs Temp 98.8 F 02/28/23 12:19 Pulse 100 02/28/23 12:19 Resp 16 02/28/23 12:19 BP 147/72 02/28/23 12:19 Pulse Ox 92 02/28/23 12:19 O2 Del Method Nasal Cannula 02/28/23 11:36 O2 Flow Rate 1 02/27/23 20:00 02/27/23 02/28/23 02/28/23 22:59 06:59 14:59 Intake Total 2122.5 / 2722.5 1600 / 1600 Output Total 425 / 425 Balance 1697.5 / 2297.5 1600 / 1600 Weight last 48 hrs Weight 62.596 kg Physical Exam Const: COMMON NORMALS: no acute distress and patient oriented x3 Resp: COMMON NORMALS: normal respiratory effort, No retractions, No use of accessory muscles and clear to auscultation bilaterally AUSCULTATION: clear to auscultation bilaterally Cardio: COMMON NORMALS: regular rate, regular rhythm, S1 normal heart sound present and S2 normal heart sound present RATE: regular rate RHYTHM: regular rhythm HEART SOUNDS: S1 normal heart sound present and S2 normal heart sound present GI: COMMON NORMALS: Normal to inspection, nondistended, normoactive bowel sounds present and non-tender Extremity: COMMON NORMALS: no pedal edema Neuro: COMMON NORMALS: patient oriented x3 Psych: COMMON NORMALS: mental status grossly normal Skin: NARRATIVE SKIN EXAM: - Bruising, right occipital region -Bruising, right jaw region -Bruising, right thigh, measuring 10 x 10 cm extending over to the right buttocks, down right thigh Urinary Catheter Management: Chavez: Cath Placed During This Visit: yes Reason for Continuing Indwelling Catheter: Acute Urinary Retention or Obstruction Urinary Catheter Date of Insertion: 02/27/23 Urinary Catheter Time of Insertion: 17:05 Data 02/28/23 05:53 02/28/23 05:53 Micro: Microbiology 02/27/23 02:26 Blood Culture - Preliminary Blood NEGATIVE TO DATE 02/27/23 02:18 Blood Culture - Preliminary Blood NEGATIVE TO DATE A&P Assessment and plan (1) Closed pelvic fracture: Patient has a closed pelvic fracture Fracture through the right inferior pubic ramus. Physical therapy to be consulted Pain control with oxycodone, Tylenol PT OT (2) Closed fracture of right elbow: Sling was placed Outpatient orthopedic follow-up (3) Fall: Patient suffered a fall. Some of the characteristics are mechanical but because of her difficulty remembering all of this cannot exclude syncope. Secondary to heart murmur we will check echocardiogram. Check EKG, placed on telemetry CT head is already been done and no acute findings are noted. 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 (4) Closed head injury: Patient reports loss of consciousness. This is consistent with closed head injury, with concussion Close monitoring of neurologic status (5) Heart murmur: Check echocardiogram (6) Leukocytosis: - Secondary to pneumonia (7) Traumatic hematoma of right thigh: - Hemoglobin down to 7.3 -Does have hypotension -Does have lactic acidosis -CT abdomen pelvis no evidence of retroperitoneal hematoma -Hold all blood thinners including aspirin, Plavix, discussed risk and benefits in detail with patient, she voiced understanding, all questions answered, agreed to proceed -Will be transfused 1 unit PRBC (8) Hypotension: - Combination of anemia, dehydration, right thigh hematoma -Monitor hemodynamics closely (9) Lactic acidosis: - Combination of fall, dehydration, anemia (10) Anemia: - Combination of dilutional, and right thigh hematoma -Monitor hemoglobin -CT abdomen does not show any radiographic evidence of retroperitoneal hematoma -Will transfuse 1 unit PRBC (11) Acute kidney injury: - IV fluids (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 ? Ill-defined ground-glass opacities noted within both lungs, predominantly in the left upper lobe, suggestive of small airway infectious or inflammatory process. -Likely explanation behind her leukocytosis and fevers -Currently on Rocephin and azithromycin Plan Multiple other medical problems as outlined in past medical history Full code SCDs for DVT prophylaxis. Anticoagulation held secondary to significant hematoma and pelvis Plan for today, pain control, up out of bed transfuse 1 unit PRBC, monitor hemodynamics, antibiotic therapy Attestations Medical Necessity Statement*: Patient requires hospitalization due to pubic rami fracture, right thigh hematoma, anemia, pneumonia Diagnoses Closed pelvic fracture S32.9XXA Closed fracture of right elbow S42.401A Fall W19.XXXA Closed head injury S09.90XA Heart murmur R01.1 Leukocytosis D72.829 Traumatic hematoma of right thigh S70.11XA Hypotension I95.9 Lactic acidosis E87.20 Anemia D64.9 Acute kidney injury N17.9 Arteriovenous malformation, brain Q28.2 Brain aneurysm I67.1 Pyloric stenosis K31.1 Chronic constipation K59.09 Pneumonia J18.9
[2023-02-28] MEDS: HYDROmorphone 1 mg/mL INJ 1 mL IVP (15:07)
[2023-02-28] MEDS: sodium chloride 0.9% 100 mL Bag 50 ML IV (15:18)
[2023-02-28] MEDS: cefTRIAXone 1,000 MG in sodium chloride 0.9% (plus) 50 ML 100 MG IV (16:31)
[2023-02-28] MEDS: azithromycin 500 MG in sodium chloride 0.9% 250 ML 250 MG IV (16:59)
[2023-02-28] MEDS: docusate sodium 100 mg Capsule PO (17:04)
[2023-02-28 21:40] LABS: Glucose Point of Care 101 mg/dL (70-110)
[2023-03-01] VITALS (17 sets, daily range): BP systolic 134–161; BP diastolic 57–75; PULSE 76–119; RESP 16–20; TEMP 36.2–37.1; O2SAT 94–97
[2023-03-01] MEDS: HYDROmorphone 1 mg/mL INJ 1 mL IVP ×2 (00:37→16:56)
[2023-03-01 05:06] LABS: Basophils # 0.1 10^3/uL (0.0-0.1); Basophils % 0.6 %; Eosinophils # 0.2 10^3/uL (0.0-0.8); Eosinophils % 1.6 %; Hemoglobin 9.3 g/dL (11.5-15.3); Lymphocytes # 1.5 10^3/uL (0.8-4.8); Lymphocytes % 10.6 %; Mean Corpuscular HGB Conc 32.1 g/dL (30.0-36.0); Mean Corpuscular Hemoglobin 29.2 pg (28.0-34.0); Mean Corpuscular Volume 90.9 fl (81-99); Mean Platelet Volume 11.8 fL (7.4-10.4); Monocytes # 1.1 10^3/uL (0.2-0.9); Neutrophils # 10.97 10^3/uL (1.8-7.7); Neutrophils % 78.8 %; Nucleated Red Blood Cells % 0 %; Platelet Count 119 10^3/cmm (130-400); Red Blood Count 3.19 10^6/uL (4.1-5.3); Red Cell Distribution Width 14.7 % (12.1-15.1); White Blood Count 13.9 10^3/uL (4.0-10.0)
[2023-03-01 05:40] LABS: Blood Urea Nitrogen 32 mg/dL (8-23); Calcium 8.4 mg/dL (8.5-10.5); Carbon Dioxide 21 mmol/L (22-29); Chloride 112 mmol/L (98-107); Glucose 109 mg/dL (65-115); Osmolality Calculated 301 mOsm/kg (285-295); Sodium 142 mmol/L (136-145)
[2023-03-01 05:41] LABS: Anion Gap 14.2 (5-19); Potassium 5.2 mmol/L (3.5-5.1)
[2023-03-01] MEDS: levothyroxine 88 mcg Tablet PO (08:37)
[2023-03-01] MEDS: pantoprazole DR 40 mg Tablet PO ×2 (08:37→17:56)
[2023-03-01] MEDS: docusate sodium 100 mg Capsule PO ×2 (08:37→17:55)
[2023-03-01] MEDS: oxyCODONE 5 mg IR Tab/Cap PO ×3 (08:38→20:06)
[2023-03-01] MEDS: polyethylene glycol 3350 Pkt 17 gm PO ×2 (08:38→19:54)
[2023-03-01] MEDS: cefTRIAXone 1,000 MG in sodium chloride 0.9% (plus) 50 ML 100 MG IV (15:52)
--- NOTE | 2023-03-01 15:55 | P.PN_ITS ---
Subjective Subjective: - Overnight there were concerns for increased confusion, left arm weakness -This morning patient is alert oriented x3, following all commands, denies any paresthesias or acute weakness, she does have a headache, no blurry vision, no nausea, vomiting -Patient's son is at bedside -I had an extensive discussion with patient, and her son about her medical condition including her fall, concerns for concussion, now with her right elbow fracture, and a right thigh hematoma requiring 1 unit transfusion, we are holding all her anticoagulant therapy given her acute anemia -We discussed the risks and benefits of holding aspirin and Plavix, they voiced understanding, all Qs answered, agreed to proceed -however depending on clinical progress I will resume aspirin this afternoon -She takes MiraLAX twice daily at home she was also resumed here she also takes metoprolol she wants us to resume it -She continues to have pain, she is trying her best not to use narcatoics -She continues to have pain, she continues to try to ambulate, but she has a lot of pain in her coccyx Vitals/I&O/Wt Last Vital Signs Temp 97.5 F L 03/01/23 12:00 Pulse 89 03/01/23 14:33 Resp 19 H 03/01/23 13:01 BP 153/73 03/01/23 12:00 Pulse Ox 97 03/01/23 14:33 O2 Del Method Nasal Cannula 03/01/23 14:33 O2 Flow Rate 2 03/01/23 14:33 03/01/23 03/01/23 03/01/23 06:59 14:59 22:59 Intake Total 960 / 960 Output Total 350 / 650 350 / 350 Balance -350 / 1490 610 / 610 Physical Exam Const: COMMON NORMALS: no acute distress and patient oriented x3 Neck/C-Spine: COMMON NORMALS: no JVD Resp: COMMON NORMALS: normal respiratory effort, No retractions, No use of accessory muscles and clear to auscultation bilaterally AUSCULTATION: clear to auscultation bilaterally Cardio: COMMON NORMALS: no JVD, regular rate, regular rhythm, S1 normal heart sound present and S2 normal heart sound present RATE: regular rate RHYTHM: regular rhythm HEART SOUNDS: S1 normal heart sound present and S2 normal hear t sound present GI: COMMON NORMALS: Normal to inspection, nondistended, normoactive bowel sounds present and non-tender Extremity: COMMON NORMALS: no pedal edema Neuro: COMMON NORMALS: patient oriented x3 Psych: COMMON NORMALS: mental status grossly normal Skin: NARRATIVE SKIN EXAM: - Bruising, right occipital region, right jaw region, right thigh Urinary Catheter Management: Chavez: Cath Placed During This Visit: yes Reason for Continuing Indwelling Catheter: Acute Urinary Retention or Obstruction Urinary Catheter Date of Insertion: 02/27/23 Urinary Catheter Time of Insertion: 17:05 Data 03/01/23 04:59 03/01/23 04:59 Micro: Microbiology 02/28/23 03:42 MRSA Culture - Final Nose A&P Assessment and plan (1) Closed pelvic fracture: Patient has a closed pelvic fracture Fracture through the right inferior pubic ramus. Physical therapy to be consulted Pain control with oxycodone, Dilaudid, Tylenol PT OT (2) Closed fracture of right elbow: Sling was placed Outpatient orthopedic follow-up (3) Fall: Patient suffered a fall. Some of the characteristics are mechanical but because of her difficulty remembering all of this cannot exclude syncope. CT head is already been done and no acute findings are noted. 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 (4) Closed head injury: Patient reports loss of consciousness. This is consistent with closed head injury, with concussion Close monitoring of neurologic status (5) Heart murmur: (6) Leukocytosis: - Secondary to pneumonia (7) Traumatic hematoma of right thigh: - Hemoglobin down to 7.3, status post 1 unit PRBC -Hypotension resolved -Lactic acidosis resolved -CT abdomen pelvis no evidence of retroperitoneal hematoma -Hold all blood thinners including Plavix, discussed risk and benefits in detail with patient, she voiced understanding, all questions answered, agreed to proceed -Resume aspirin tonight (8) Hypotension: - Combination of anemia, dehydration, right thigh hematoma -Monitor hemodynamics closely (9) Lactic acidosis: - Combination of fall, dehydration, anemia (10) Anemia: - Combination of dilutional, and right thigh hematoma -Monitor hemoglobin -CT abdomen does not show any radiographic evidence of retroperitoneal hematoma -Status post 1 unit PRBC (11) Acute kidney injury: - Off IV fluids (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 ? Ill-defined ground-glass opacities noted within both lungs, predominantly in the left upper lobe, suggestive of small airway infectious or inflammatory process. -Likely explanation behind her leukocytosis and fevers -Currently on Rocephin and azithromycin (17) Intractable pain: (18) Physical deconditioning: (19) Protein calorie malnutrition: Plan Multiple other medical problems as outlined in past medical history Full code SCDs for DVT prophylaxis. Anticoagulation held secondary to significant hematoma and pelvis Plan for today, pain control, up out of bed continue antibiotics, metoprolol, start aspirin, start statin, start Lasix, Attestations Medical Necessity Statement*: Patient requires hospitalization for pneumonia, anemia, right thigh hematoma, fall, intractable pain Coding Level of Care Code 49413 High Time for a total of 60 minutes, includes reviewing past or interval history, examining/interviewing patient, placing orders, counseling patient/family/other support, updating patient/family/other support, discussing plan of care with staff, communicating with other healthcare providers, documenting encounter and coordinating care Diagnoses Closed pelvic fracture S32.9XXA Closed fracture of right elbow S42.401A Fall W19.XXXA Closed head injury S09.90XA Heart murmur R01.1 Leukocytosis D72.829 Traumatic hematoma of right thigh S70.11XA Hypotension I95.9 Lactic acidosis E87.20 Anemia D64.9 Acute kidney injury N17.9 Arteriovenous malformation, brain Q28.2 Brain aneurysm I67.1 Pyloric stenosis K31.1 Chronic constipation K59.09 Pneumonia J18.9 Intractable pain R52 Physical deconditioning R53.81 Protein calorie malnutrition E46
[2023-03-01] MEDS: ondansetron 2 mg/ML SDV 2 mL 4 MG IVP (16:56)
[2023-03-01] MEDS: azithromycin 500 MG in sodium chloride 0.9% 250 ML 250 MG IV (16:59)
[2023-03-01] MEDS: atorvastatin 40 mg Tablet PO (17:56)
[2023-03-01] MEDS: FUROsemide 40 mg Tablet PO (17:56)
[2023-03-01] MEDS: metoprolol tartrate 25 mg Tablet PO (17:56)
[2023-03-01] MEDS: aspirin 81 mg EC Tablet PO (17:56)
[2023-03-02] VITALS (12 sets, daily range): BP systolic 143–162; BP diastolic 67–80; PULSE 66–100; RESP 16–18; TEMP 36.8–37.1; O2SAT 95–98
[2023-03-02] MEDS: oxyCODONE 5 mg IR Tab/Cap PO ×3 (00:50→13:07)
[2023-03-02] MEDS: ondansetron 2 mg/ML SDV 2 mL 4 MG IVP ×2 (01:52→10:40)
[2023-03-02] MEDS: metoprolol tartrate 25 mg Tablet PO (05:42)
[2023-03-02 06:19] LABS: Basophils # 0.1 10^3/uL (0.0-0.1); Basophils % 0.8 %; Eosinophils # 0.7 10^3/uL (0.0-0.8); Eosinophils % 5.9 %; Hematocrit 28.8 % (37.0-47.0); Hemoglobin 8.9 g/dL (11.5-15.3); Lymphocytes # 1.9 10^3/uL (0.8-4.8); Lymphocytes % 15.8 %; Mean Corpuscular HGB Conc 30.9 g/dL (30.0-36.0); Mean Corpuscular Hemoglobin 28.3 pg (28.0-34.0); Mean Corpuscular Volume 91.4 fl (81-99); Mean Platelet Volume 11.1 fL (7.4-10.4); Monocytes # 0.9 10^3/uL (0.2-0.9); Monocytes % 7.9 %; Neutrophils # 8.24 10^3/uL (1.8-7.7); Neutrophils % 69.1 %; Nucleated Red Blood Cells % 0 %; Platelet Count 148 10^3/cmm (130-400); Red Blood Count 3.15 10^6/uL (4.1-5.3); Red Cell Distribution Width 14.5 % (12.1-15.1); White Blood Count 11.9 10^3/uL (4.0-10.0)
[2023-03-02 06:48] LABS: Anion Gap 12.6 (5-19); Blood Urea Nitrogen 22 mg/dL (8-23); Calcium 8.6 mg/dL (8.5-10.5); Carbon Dioxide 24 mmol/L (22-29); Chloride 106 mmol/L (98-107); Glucose 99 mg/dL (65-115); Osmolality Calculated 289 mOsm/kg (285-295); Potassium 4.6 mmol/L (3.5-5.1); Sodium 138 mmol/L (136-145)
--- NOTE | 2023-03-02 07:55 | PC.SOCIAL ---
IMM Update pg 2 of IMM not updated @ this time as patient remains in observation status.
[2023-03-02] MEDS: docusate sodium 100 mg Capsule PO (08:30)
[2023-03-02] MEDS: levothyroxine 88 mcg Tablet PO (08:30)
[2023-03-02] MEDS: pantoprazole DR 40 mg Tablet PO ×2 (08:30→17:11)
[2023-03-02] MEDS: aspirin 81 mg EC Tablet PO (08:30)
[2023-03-02] MEDS: atorvastatin 40 mg Tablet PO (08:30)
[2023-03-02] MEDS: ascorbic acid 500 mg Tablet PO (08:30)
[2023-03-02] MEDS: polyethylene glycol 3350 Pkt 17 gm PO ×2 (08:30→19:55)
[2023-03-02] MEDS: aluminum-mag hydrox-simethicon 30 ML, sucralfate oral liq 1 GM PO (15:40)
[2023-03-02] MEDS: cefTRIAXone 1,000 MG in sodium chloride 0.9% (plus) 50 ML 100 MG IV (15:42)
[2023-03-02] MEDS: FUROsemide 40 mg Tablet PO (15:42)
--- NOTE | 2023-03-02 16:04 | PM.PN ---
Subjective Subjective: Patient was seen this morning, she continues to complain of pain, pain in her lower coccyx, decreased mobility, no fevers, no chills Vitals/I&O/Wt Last Vital Signs Temp 98.2 F 03/02/23 15:36 Pulse 95 03/02/23 15:36 Resp 17 03/02/23 15:36 BP 162/76 03/02/23 15:36 Pulse Ox 98 03/02/23 15:36 O2 Del Method Nasal Cannula 03/02/23 15:36 O2 Flow Rate 1.5 03/02/23 08:00 03/02/23 03/02/23 03/02/23 06:59 14:59 22:59 Intake Total 120 / 2160 720 / 720 Output Total 600 / 1650 Balance -480 / 510 720 / 720 Physical Exam Const: COMMON NORMALS: no acute distress and patient oriented x3 Resp: COMMON NORMALS: normal respiratory effort, No retractions, No use of accessory muscles and clear to auscultation bilaterally AUSCULTATION: clear to auscultation bilaterally Cardio: COMMON NORMALS: regular rate, regular rhythm, S1 normal heart sound present and S2 normal heart sound present RATE: regular rate RHYTHM: regular rhythm HEART SOUNDS: S1 normal heart sound present and S2 normal heart sound present GI: COMMON NORMALS: Normal to inspection, nondistended, normoactive bowel sounds present Extremity: COMMON NORMALS: no pedal edema Neuro: COMMON NORMALS: patient oriented x3 Psych: COMMON NORMALS: mental status grossly normal Skin: NARRATIVE SKIN EXAM: Bruising, right occipital region, right jaw region, right thigh Urinary Catheter Management: Chavez: Cath Placed During This Visit: yes Reason for Continuing Indwelling Catheter: Required Immobilization for Trauma or Surgery or Anesthesia Urinary Catheter Date of Insertion: 02/27/23 Urinary Catheter Time of Insertion: 17:05 Data 03/02/23 05:54 03/02/23 05:54 A&P Assessment and plan (1) Closed pelvic fracture: Patient has a closed pelvic fracture Fracture through the right inferior pubic ramus. Physical therapy to be consulted Pain control with oxycodone, Dilaudid, Tylenol PT OT (2) Closed fracture of right elbow: Sling was placed Outpatient orthopedic follow-up (3) Fall: Patient suffered a fall. Some of the characteristics are mechanical but because of her difficulty remembering all of this cannot exclude syncope. CT head is already been done and no acute findings are noted. 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 (4) Closed head injury: Patient reports loss of consciousness. This is consistent with closed head injury, with concussion Close monitoring of neurologic status (5) Heart murmur: (6) Leukocytosis: - Secondary to pneumonia (7) Traumatic hematoma of right thigh: - Hemoglobin down to 7.3, status post 1 unit PRBC -Hypotension resolved -Lactic acidosis resolved -CT abdomen pelvis no evidence of retroperitoneal hematoma -Hold all blood thinners including Plavix, discussed risk and benefits in detail with patient, she voiced understanding, all questions answered, agreed to proceed -Resume aspirin tonight (8) Hypotension: - Combination of anemia, dehydration, right thigh hematoma -Monitor hemodynamics closely (9) Lactic acidosis: - Combination of fall, dehydration, anemia (10) Anemia: - Combination of dilutional, and right thigh hematoma -Monitor hemoglobin -CT abdomen does not show any radiographic evidence of retroperitoneal hematoma -Status post 1 unit PRBC (11) Acute kidney injury: - Off IV fluids (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 ? Ill-defined ground-glass opacities noted within both lungs, predominantly in the left upper lobe, suggestive of small airway infectious or inflammatory process. -Likely explanation behind her leukocytosis and fevers -Currently on Rocephin and azithromycin (17) Intractable pain: (18) Physical deconditioning: (19) Protein calorie malnutrition: Plan Multiple other medical problems as outlined in past medical history Full code SCDs for DVT prophylaxis. Anticoagulation held secondary to significant hematoma and pelvis Plan for today, pain control, up out of bed continue antibiotics, increase metoprolol, start aspirin, start statin, start Lasix, continue to hold Plavix Attestations Medical Necessity Statement*: Patient requires hospitalization for right thigh hematoma, fall with sacral fracture, deconditioning, protein calorie malnutrition Diagnoses Closed pelvic fracture S32.9XXA Closed fracture of right elbow S42.401A Fall W19.XXXA Closed head injury S09.90XA Heart murmur R01.1 Leukocytosis D72.829 Traumatic hematoma of right thigh S70.11XA Hypotension I95.9 Lactic acidosis E87.20 Anemia D64.9 Acute kidney injury N17.9 Arteriovenous malformation, brain Q28.2 Brain aneurysm I67.1 Pyloric stenosis K31.1 Chronic constipation K59.09 Pneumonia J18.9 Intractable pain R52 Physical deconditioning R53.81 Protein calorie malnutrition E46
[2023-03-02] MEDS: azithromycin 500 MG in sodium chloride 0.9% 250 ML 250 MG IV (17:11)
[2023-03-02] MEDS: metoprolol tartrate 50 mg Tablet PO (17:11)
[2023-03-03] VITALS (14 sets, daily range): BP systolic 127–171; BP diastolic 51–75; PULSE 65–78; RESP 14–18; TEMP 36.4–37; O2SAT 97–100
[2023-03-03] MEDS: oxyCODONE 5 mg IR Tab/Cap PO ×3 (02:07→17:10)
[2023-03-03] MEDS: metoprolol tartrate 50 mg Tablet PO ×2 (05:24→17:10)
[2023-03-03 06:03] LABS: SARS Covid-2 Antigen negative (Negative)
[2023-03-03 07:19] LABS: Basophils # 0.1 10^3/uL (0.0-0.1); Basophils % 0.9 %; Eosinophils # 0.8 10^3/uL (0.0-0.8); Eosinophils % 9.1 %; Hemoglobin 7.6 g/dL (11.5-15.3); Lymphocytes # 1.7 10^3/uL (0.8-4.8); Lymphocytes % 19.2 %; Mean Corpuscular HGB Conc 31.7 g/dL (30.0-36.0); Mean Corpuscular Hemoglobin 28.7 pg (28.0-34.0); Mean Corpuscular Volume 90.6 fl (81-99); Mean Platelet Volume 11.4 fL (7.4-10.4); Monocytes # 0.8 10^3/uL (0.2-0.9); Monocytes % 8.8 %; Neutrophils # 5.49 10^3/uL (1.8-7.7); Neutrophils % 61.6 %; Nucleated Red Blood Cells % 0 %; Platelet Count 164 10^3/cmm (130-400); Red Blood Count 2.65 10^6/uL (4.1-5.3); Red Cell Distribution Width 13.9 % (12.1-15.1); White Blood Count 8.9 10^3/uL (4.0-10.0)
[2023-03-03 07:38] LABS: Anion Gap 10.3 (5-19); Blood Urea Nitrogen 19 mg/dL (8-23); Calcium 8.6 mg/dL (8.5-10.5); Carbon Dioxide 28 mmol/L (22-29); Chloride 106 mmol/L (98-107); Glucose 90 mg/dL (65-115); Osmolality Calculated 292 mOsm/kg (285-295); Potassium 4.3 mmol/L (3.5-5.1); Sodium 140 mmol/L (136-145)
[2023-03-03] MEDS: docusate sodium 100 mg Capsule PO (08:21)
[2023-03-03] MEDS: polyethylene glycol 3350 Pkt 17 gm PO ×2 (08:21→21:50)
[2023-03-03] MEDS: pantoprazole DR 40 mg Tablet PO ×2 (08:21→17:10)
[2023-03-03] MEDS: atorvastatin 40 mg Tablet PO (08:21)
[2023-03-03] MEDS: aspirin 81 mg EC Tablet PO (08:21)
[2023-03-03] MEDS: levothyroxine 88 mcg Tablet PO (08:22)
[2023-03-03] MEDS: ascorbic acid 500 mg Tablet PO (08:22)
[2023-03-03] MEDS: ondansetron 2 mg/ML SDV 2 mL 4 MG IVP (10:56)
--- NOTE | 2023-03-03 16:40 | P.PN_ITS ---
Subjective Subjective: Patient was seen several times throughout the morning, with a family meeting in the afternoon, patient and family were worried about her hemoglobin dropping down to 7.6, she will get 1 unit PRBC, she continues to have lower sacral pain, lack of energy, she had 1 episode of nausea this morning but no vomiting no abdominal pain she continues to complain of some episodes of headache, episodes of confusion, no neck pain, no neck stiffness, no chest pain, chest palpitations she tells me that the pain medications tend to work but she tends to avoid them as much as she can, I had an extensive discussion with family that I resumed her aspirin given her history of CVA, and to help with some degree of DVT prophylaxis given her immobility however with her drop of hemoglobin she is intolerant to any antiplatelet therapy so we will have to hold aspirin and Plavix for at least a month, which carries a risk of CVAs, acute cardiac events and DVTs, it her age and especially worried about her risk of DVTs, so we have to get her up and move her, have her sit up in a chair or do calf raises in bed and she understands this, in addition she has been having headaches as she has been keeping the TV on throughout the day, I advised that with her concussion, this can worsen her cough concussion-like symptoms or headaches, she should try reading or crossword puzzles, but I would avoid any type of extraneous mental exertion the TV tends to be overstimulating to the brain and I will not allow the brain to rest, advised to not watch any form of TV a few hours before bedtime, her family voiced understanding, all questions answered, they voiced understanding, hopefully she can be discharged to longterm facility tomorrow after hemoglobin stabilizes Vitals/I&O/Wt Last Vital Signs Temp 98.1 F 03/03/23 13:15 Pulse 78 03/03/23 13:15 Resp 15 03/03/23 13:15 BP 145/65 03/03/23 13:15 Pulse Ox 98 03/03/23 13:15 O2 Del Method Nasal Cannula 03/03/23 10:52 O2 Flow Rate 2 03/02/23 20:00 03/03/23 03/03/23 03/03/23 06:59 14:59 22:59 Intake Total 120 / 1530 1080 / 1080 Output Total 1400 / 1400 500 / 500 Balance -1280 / 130 580 / 580 Physical Exam Const: COMMON NORMALS: no acute distress and patient oriented x3 Resp: COMMON NORMALS: normal respiratory effort, No retractions, No use of accessory muscles and clear to auscultation bilaterally AUSCULTATION: clear to auscultation bilaterally Cardio: COMMON NORMALS: regular rate, regular rhythm, S1 normal heart sound present and S2 normal heart sound present RATE: regular rate RHYTHM: regular rhythm HEART SOUNDS: S1 normal heart sound present and S2 normal heart sound present GI: COMMON NORMALS: Normal to inspection, nondistended, normoactive bowel sounds present and non-tender Extremity: COMMON NORMALS: no pedal edema NARRATIVE EXTREMITY EXAM: Bruising, right occipital region, right mandibular region, right jaw region, right thigh Neuro: COMMON NORMALS: patient oriented x3 Psych: COMMON NORMALS: mental status grossly normal Urinary Catheter Management: Chavez: Cath Placed During This Visit: yes Reason for Continuing Indwelling Catheter: Required Immobilization for Trauma or Surgery or Anesthesia Urinary Catheter Date of Insertion: 02/27/23 Urinary Catheter Time of Insertion: 17:05 Data 03/03/23 06:46 03/03/23 06:46 A&P Assessment and plan (1) Closed pelvic fracture: Patient has a closed pelvic fracture Fracture through the right inferior pubic ramus. Physical therapy to be consulted Pain control with oxycodone, Dilaudid, Tylenol PT OT (2) Closed fracture of right elbow: Sling was placed Outpatient orthopedic follow-up (3) Fall: Patient suffered a fall. Some of the characteristics are mechanical but because of her difficulty remembering all of this cannot exclude syncope. CT head is already been done and no acute findings are noted. 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 (4) Closed head injury: Patient reports loss of consciousness. This is consistent with closed head injury, with concussion Close monitoring of neurologic status (5) Heart murmur: (6) Leukocytosis: - Secondary to pneumonia (7) Traumatic hematoma of right thigh: - Hemoglobin down to 7.3, status post 1 unit PRBC -Hypotension resolved -Lactic acidosis resolved -CT abdomen pelvis no evidence of retroperitoneal hematoma -Hold all blood thinners including Plavix, discussed risk and benefits in detail with patient, she voiced understanding, all questions answered, agreed to procee d -Resume aspirin tonight (8) Hypotension: - Combination of anemia, dehydration, right thigh hematoma -Monitor hemodynamics closely (9) Lactic acidosis: - Combination of fall, dehydration, anemia (10) Anemia: - Combination of dilutional, and right thigh hematoma -Monitor hemoglobin -CT abdomen does not show any radiographic evidence of retroperitoneal hematoma -Status post 1 unit PRBC, will give another unit PRBC (11) Acute kidney injury: - Off IV fluids (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 ? Ill-defined ground-glass opacities noted within both lungs, predominantly in the left upper lobe, suggestive of small airway infectious or inflammatory process. -Likely explanation behind her leukocytosis and fevers -De-escalate to doxycycline (17) Intractable pain: (18) Physical deconditioning: (19) Protein calorie malnutrition: Plan Multiple other medical problems as outlined in past medical history Full code SCDs for DVT prophylaxis. Anticoagulation held secondary to significant hematoma and pelvis Plan for today, pain control, up out of bed continue antibiotics, increase metoprolol, stop aspirin, switch to doxycycline, anemia, transfuse 1 unit PRBC Attestations Medical Necessity Statement*: Patient requires hospitalization for anemia, transfuse 1 unit PRBC, spoke to patient, spoke to family, over 70 minutes in patient care, discussion with family, and High Time for a total of 70 minutes, includes reviewing past or interval history, examining/interviewing patient, placing orders, counseling patient/family/other support, updating patient/family/other support, discussing plan of care with staff, communicating with other healthcare providers, documenting encounter and coordinating care Diagnoses Closed pelvic fracture S32.9XXA Closed fracture of right elbow S42.401A Fall W19.XXXA Closed head injury S09.90XA Heart murmur R01.1 Leukocytosis D72.829 Traumatic hematoma of right thigh S70.11XA Hypotension I95.9 Lactic acidosis E87.20 Anemia D64.9 Acute kidney injury N17.9 Arteriovenous malformation, brain Q28.2 Brain aneurysm I67.1 Pyloric stenosis K31.1 Chronic constipation K59.09 Pneumonia J18.9 Intractable pain R52 Physical deconditioning R53.81 Protein calorie malnutrition E46
[2023-03-03] MEDS: FUROsemide 40 mg Tablet PO (17:09)
[2023-03-03] MEDS: doxycycline 100 mg Tablet PO (17:09)
[2023-03-04] VITALS (11 sets, daily range): BP systolic 134–151; BP diastolic 53–83; PULSE 55–70; RESP 16–18; TEMP 36.4–37; O2SAT 97–100
[2023-03-04] MEDS: oxyCODONE 5 mg IR Tab/Cap PO ×2 (04:16→16:10)
[2023-03-04] MEDS: metoprolol tartrate 50 mg Tablet PO ×2 (05:11→17:11)
[2023-03-04 07:06] LABS: Basophils # 0.1 10^3/uL (0.0-0.1); Eosinophils # 0.7 10^3/uL (0.0-0.8); Eosinophils % 7.6 %; Hematocrit 30.7 % (37.0-47.0); Lymphocytes # 1.6 10^3/uL (0.8-4.8); Lymphocytes % 17.7 %; Mean Corpuscular HGB Conc 32.2 g/dL (30.0-36.0); Mean Corpuscular Hemoglobin 28.6 pg (28.0-34.0); Mean Corpuscular Volume 88.7 fl (81-99); Mean Platelet Volume 10.5 fL (7.4-10.4); Monocytes # 0.9 10^3/uL (0.2-0.9); Monocytes % 9.8 %; Nucleated Red Blood Cells % 0 %; Platelet Count 201 10^3/cmm (130-400); Red Blood Count 3.46 10^6/uL (4.1-5.3); Red Cell Distribution Width 14.8 % (12.1-15.1); White Blood Count 9.1 10^3/uL (4.0-10.0)
[2023-03-04 07:23] LABS: Hemoglobin 9.9 g/dL (11.5-15.3)
[2023-03-04 07:24] LABS: Blood Urea Nitrogen 15 mg/dL (8-23); Calcium 8.9 mg/dL (8.5-10.5); Carbon Dioxide 29 mmol/L (22-29); Chloride 104 mmol/L (98-107); Glucose 91 mg/dL (65-115); Osmolality Calculated 292 mOsm/kg (285-295); Sodium 141 mmol/L (136-145)
[2023-03-04 07:30] LABS: Anion Gap 12.7 (5-19); Potassium 4.7 mmol/L (3.5-5.1)
[2023-03-04] MEDS: doxycycline 100 mg Tablet PO ×2 (09:25→17:11)
[2023-03-04] MEDS: levothyroxine 88 mcg Tablet PO (09:25)
[2023-03-04] MEDS: atorvastatin 40 mg Tablet PO (09:26)
[2023-03-04] MEDS: ascorbic acid 500 mg Tablet PO (09:26)
[2023-03-04] MEDS: pantoprazole DR 40 mg Tablet PO ×2 (09:26→17:11)
[2023-03-04] MEDS: HYDROmorphone 1 mg/mL INJ 1 mL IVP (09:30)
--- NOTE | 2023-03-04 11:31 | P.DS_ITS ---
Discharge Providers Date of Admission: 03/02/23 16:31 Date of Discharge: March 04, 2023 Attending Provider at Admission: Haseeb Edward MD Attending Provider at Discharge: Kvng Carias MD Primary Care Provider: Anita Ng MD Diagnoses at Discharge Discharge Diagnosis (1) Closed pelvic fracture: Status: Acute (2) Closed fracture of right elbow: Status: Acute (3) Fall: Status: Acute (4) Closed head injury: Status: Acute (5) Heart murmur: Status: Acute (6) Leukocytosis: Status: Acute (7) Traumatic hematoma of right thigh: Status: Acute (8) Hypotension: Status: Acute (9) Lactic acidosis: Status: Acute (10) Anemia: Status: Acute (11) Acute kidney injury: Status: Acute (12) Arteriovenous malformation, brain: Status: Acute (13) Brain aneurysm: Status: Acute (14) Pyloric stenosis: Status: Acute (15) Chronic constipation: Status: Acute (16) Pneumonia: Status: Acute (17) Intractable pain: Status: Acute (18) Physical deconditioning: Status: Acute (19) Protein calorie malnutrition: Status: Acute Reason for Visit Reason for Visit: FALL Hospital Course Hospital Course Vivian Hummel is a 78 year old female who presented to the emergency department after a fall.? She reports she has had several other falls within the last 6 months to year.? She states she usually falls when she turns quickly, as she did tonight to go to the TV although she cannot remember all of the events.? After the fall around 7 PM she believes she was unconscious for a while.? Son found her, and she was complaining of right elbow, right hip, and right head pain.? She has had no vomiting, nausea.? She has had no significant recent illness.? She had been on doxycycline recently for a tick bite but had not been ill with the tick bite in any fashion.? She has not had any dysuria, or abdominal pain.? She has not been short of breath or coughing.? Prior to the fall she felt completely normal. In the emergency department she was placed in a sling.? She was in significant pain and refused to get up to try to ambulate.? She initially refused pain medication. Patient was admitted to [facility] for closed pelvic fracture, conservatively managed, received PT OT, pain control, discharged to custodial facility for PT OT discharged on oxycodone for pain control. For her right elbow fracture, placed in a sling, discharged with a sling, with outpatient orthopedic follow-up Given her closed head injury, there was concerns for concussion during hospitalization, she has episodes of headaches, forgetfulness, advised that she likely has a concussion, continue to monitor, avoid strenuous mental exertion, avoid screen time, conservative management of headaches. If her symptoms persist follow-up with neurology. Patient had a leukocytosis during hospitalization, likely secondary to pneumonia, managed with antibiotic therapy, discharged on doxycycline Patient was found to have traumatic hematoma of the right thigh, hemoglobin down to 7.3, status post 2 units PRBC, hemoglobin discharge was 9.9 In terms of antiplatelet therapy, aspirin, Plavix, patient was not able to tolerate Plavix or aspirin during his hospitalization due to recurrent recurrent anemia, I gave her a trial of aspirin for 48 hours and her hemoglobin dropped to 7.6 necessitating another unit of PRBC. On discharge I have held Plavix and his aspirin, for at least 1 month. I will have cardiology with repeat hemoglobin in 2 weeks. I had extensive discussion with patient and family about 4 s risk of cardiovascular events, risk of strokes, risk of hypercoagulable events. Certainly this is a difficult situation, on the one hand she he is at increased risk he is at increased risk of including but not limited to cardiovascular events, risk of strokes, CAD, hypercoagulable events, but on the other hand he has a risk of worsening anemia, worsening right thigh hematoma. After discussing the risks and benefits, and shared decision-making, she voiced understanding, all questions answered, agreed to hold antiplatelet therapy. She was advised if she were to have chest pain, chest palpitations, shortness of breath, strokelike symptoms, calf pain or calf swelling or hemoptysis or hematemesis please come to the emergency room immediately Physical Exam Const: COMMON NORMALS: no acute distress and patient oriented x3 Resp: COMMON NORMALS: normal respiratory effort, No retractions, No use of accessory muscles and clear to auscultation bilaterally AUSCULTATION: clear to auscultation bilaterally Cardio: COMMON NORMALS: regular rate, regular rhythm, S1 normal heart sound present and S2 normal heart sound present RATE: regular rate RHYTHM: regular rhythm HEART SOUNDS: S1 normal heart sound present and S2 normal heart sound present GI: COMMON NORMALS: Normal to inspection, nondistended, normoactive bowel sounds present and non-tender Extremity: COMMON NORMALS: no pedal edema Neuro: COMMON NORMALS: patient oriented x3 Psych: COMMON NORMALS: mental status grossly normal Urinary Catheter Management: Chavez: Cath Placed During This Visit: yes, but has since been removed by the nurse Reason for Continuing Indwelling Catheter: Decision to DC Catheter Urinary Catheter Date of Insertion: 02/27/23 Urinary Catheter Time of Insertion: 17:05 Date Urinary Catheter Removed: 03/04/23 Time Urinary Catheter Discontinued: 06:45 Discharge Data Studies Completed and Pending Completed Studies During Hospitalization Category Date Time Status CT chest abdomen pelvis [[place] [id number] Cat Scan 02/27/23 11:59 Completed ] Routine CT head wo con* [id number] Stat Cat Scan 02/26/23 22:[address] hip RT w con [id number] Stat Cat Scan 02/26/23 23:30 Completed CXRP [XR chest 1V portable [id number]] Stat Exams 02/26/23 22:14 Completed XR elbow RT min 3V* [id number] Stat Exams 02/26/23 22:14 Completed XR femur RT min 2V* [id number] Stat Exams 02/26/23 22:14 Completed XR hip RT 2-3V wo/w pel* [id number] Stat Exams 02/26/23 22:14 Completed XR pelvis 1-2V* [id number] Stat Exams 02/26/23 22:14 Completed CV. echo complete* [id number] Routine Ultrasound 02/27/23 02:50 Completed Pending at discharge Category Date Time Status Basic Metabolic Panel AM LABS Lab 03/05/23 04:00 Ordered Basic Metabolic Panel AM LABS Lab 03/06/23 04:00 Ordered Complete Blood Count w/Auto AM LABS Lab 03/05/23 04:00 Ordered Complete Blood Count w/Auto AM LABS Lab 03/06/23 04:00 Ordered Sputum Culture and Gram Stain Stat Lab 02/27/23 15:56 Uncollected Radiology Impressions Chest X-Ray 02/26/23 22:14 IMPRESSION: No evidence of acute pulmonary process. Elbow X-Ray 02/26/23 22:14 IMPRESSION: Nondisplaced radial neck fracture. Femur X-Ray 02/26/23 22:14 IMPRESSION: 1. No acute findings. The bones are osteopenic limiting the sensitivity of radiography. 2. Advanced right knee osteoarthritis. Head CT 02/26/23 22:14 IMPRESSION: 1. No evidence of acute intracranial process. 2. Right frontal lobe and right temporal lobe gliosis and encephalomalacia likely due to old ischemic or hemorrhagic event. 3. Mild small vessel disease. Hip/Pelvis X-Ray 02/26/23 22:14 IMPRESSION: No acute findings. Pelvis X-Ray 02/26/23 22:14 IMPRESSION: No acute findings. The bones are osteopenic limiting the sensitivity of radiography. Hip CT 02/26/23 23:30 IMPRESSION: 1. Acute partially displaced and comminuted fracture through the right inferior pubic ramus. There is a nondisplaced fracture through the right superior pubic ramus just lateral to the pubic symphysis. 2. Presumed soft tissue hematoma in the lateral right thigh. Chest/Abdomen/Pelvis CT 02/27/23 11:59 IMPRESSION: 1. No acute traumatic intrathoracic findings. 2. Ill-defined ground-glass opacities noted within both lungs, predominantly in the left upper lobe, suggestive of small airway infectious or inflammatory process. 3. Right upper lobectomy changes. IMPRESSION: Fracture through the right inferior pubic ramus. There is soft tissue stranding and a partially visualized hematoma measuring over 8 cm in length in the right anterior thigh. COMMENTS: Consistent with the [employer]'s Incidental Findings Committee white paper (J Am Lawrence Radiol 2018): Any incidental renal lesion less than 1 cm or classified as too small to characterize, or any incidental cystic renal lesion characterized as simple-appearing, is likely benign. No follow-up imaging is recommended for these lesions per consensus recommendations based on imaging criteria. ADDENDUM: 02/27/23 1528 There is also a nondisplaced fracture through the right superior pubic ramus. Please see corresponding lower extremity CT report for further description of the hematoma. Laboratory Results WBC 9.1 10^3/uL (4.0-10.0) 03/04/23 06:20 RBC 3.46 10^6/uL (4.1-5.3) L 03/04/23 06:20 Hgb 9.9 g/dL (11.5-15.3) L D 03/04/23 06:20 Hct 30.7 % (37.0-47.0) L 03/04/23 06:20 MCV 88.7 fl (81-99) 03/04/23 06:20 MCH 28.6 pg (28.0-34.0) 03/04/23 06:20 MCHC 32.2 g/dL (30.0-36.0) 03/04/23 06:20 RDW 14.8 % (12.1-15.1) 03/04/23 06:20 Plt Count 201 10^3/cmm (130-400) 03/04/23 06:20 MPV 10.5 fL (7.4-10.4) H 03/04/23 06:20 Neut % (Auto) 63.0 % 03/04/23 06:20 Lymph % (Auto) 17.7 % 03/04/23 06:20 M[place] % (Auto) 9.8 % 03/04/23 06:20 Eos % (Auto) 7.6 % 03/04/23 06:20 Baso % (Auto) 1.0 % 03/04/23 06:20 Neut # (Auto) 5.70 10^3/uL (1.8-7.7) 03/04/23 06:20 Lymph # (Auto) 1.6 10^3/uL (0.8-4.8) 03/04/23 06:20 Mckinley # (Auto) 0.9 10^3/uL (0.2-0.9) 03/04/23 06:20 Eos # (Auto) 0.7 10^3/uL (0.0-0.8) 03/04/23 06:20 Baso # (Auto) 0.1 10^3/uL (0.0-0.1) 03/04/23 06:20 Nucleated RBC % (auto) 0 % 03/04/23 06:20 Nucleated RBCs # 0.0 /100WBC 03/04/23 06:20 PT 13.80 SECONDS (12.1-14.9) 02/26/23 23:37 INR 1.03 (0.8-1.2) 02/26/23 23:37 Sodium 141 mmol/L (136-145) 03/04/23 06:20 Potassium 4.7 mmol/L (3.5-5.1) 03/04/23 06:20 Chloride 104 mmol/L (98-107) 03/04/23 06:20 Carbon Dioxide 29 mmol/L (22-29) 03/04/23 06:20 Anion Gap 12.7 (5-19) 03/04/23 06:20 BUN 15 mg/dL (8-23) 03/04/23 06:20 Creatinine 1.0 mg/dL (0.5-0.9) H 03/04/23 06:20 GFR Calculation Not Reportable 03/04/23 06:20 Glucose 91 mg/dL (65-115) 03/04/23 06:20 POC Glucose 101 mg/dL (70-110) 02/28/23 21:19 Calculated Osmolality 292 mOsm/kg (285-295) 03/04/23 06:20 Lactic Acid 2.6 mmol/L (0.5-2.2) H 02/27/23 12:32 Lactic Acid (Sepsis) 2.2 mmol/L (0.5-2.2) 02/27/23 15:40 Calcium 8.9 mg/dL (8.5-10.5) 03/04/23 06:20 Magnesium 1.8 mg/dL (1.7-2.3) 02/28/23 05:53 Total Bilirubin 0.3 mg/dL (0.15-1.2) 02/28/23 05:53 Direct Bilirubin 0.20 mg/dL (0.00-0.30) 02/26/23 23:37 AST 25 U/L (0-32) 02/28/23 05:53 ALT 29 U/L (0-33) 02/28/23 05:53 Alkaline Phosphatase 66 U/L (35-105) 02/28/23 05:53 Creatine Kinase 123 U/L (26-192) 02/26/23 23:37 C-Reactive Protein 16.7 mg/L (0.0-4.9) H 02/27/23 12:32 C-Reactive Protein Cancelled 02/27/23 12:32 Total Protein 4.8 g/dL (6.6-8.7) L 02/28/23 05:53 Albumin 3.1 g/dL (3.5-5.2) L 02/28/23 05:53 Globulin 1.7 g/dL (1.3-4.6) 02/28/23 05:53 Procalcitonin 0.10 ng/mL (0-0.5) 02/26/23 23:37 TSH 3.07 uIU/mL (0.27-4.20) 02/26/23 23:37 Random Cortisol 15.20 ug/dL (2.47-19.5) 02/27/23 12:32 Urine Color Yellow (Yellow) 02/27/23 00:15 Urine Appearance Sl hazy (CLEAR) A 02/27/23 00:15 Urine pH 5 (5-7) 02/27/23 00:15 Ur Specific [place] 1.020 (1.005-1.030) 02/27/23 00:15 Urine Protein Trace (Negative) 02/27/23 00:15 Urine Glucose (UA) Norm (Normal) 02/27/23 00:15 Urine Ketones 1+ (Negative) H 02/27/23 00:15 Urine Blood Neg (Negative) 02/27/23 00:15 Urine Nitrate Negative (Negative) 02/27/23 00:15 Urine Bilirubin Neg (Negative) 02/27/23 00:15 Urine Urobilinogen Neg mg/dL (Negative) 02/27/23 00:15 Ur Leukocyte Esterase Negative (Negative) 02/27/23 00:15 Urine RBC None /hpf (0-2) 02/27/23 00:15 Urine WBC None /hpf (0-5) 02/27/23 00:15 Ur Squamous Epith Cells None /hpf (0-5) 02/27/23 00:15 Amorphous Sediment Not Reportable 02/27/23 00:15 Urine Bacteria Trace /hpf (NONE) 02/27/23 00:15 Hyaline Casts 5-10 /lpf H 02/27/23 00:15 Urine Mucus 3+ /hpf 02/27/23 00:15 Nasal Influ A H1 2009 PCR Not detected (NOT DETECT) 02/27/23 11:25 Adenovirus (PCR) Not detected (NOT DETECT) 02/27/23 11:25 C. pneumoniae DNA (PCR) Not detected (NOT DETECT) 02/27/23 11:25 Coronavirus 229E (PCR) Not detected (NOT DETECT) 02/27/23 11:25 Human Metapneumovir PCR Not detected (NOT DETECT) 02/27/23 11:25 Influenza A (H1) PCR Not detected (NOT DETECT) 02/27/23 11:25 Influenza A (H3) PCR Not detected (NOT DETECT) 02/27/23 11:25 Influenza Type A (PCR) Not detected (NOT DETECT) 02/27/23 11:25 Influenza Type B (PCR) Not detected (NOT DETECT) 02/27/23 11:25 M. pneumoniae (PCR) Not detected (NOT DETECT) 02/27/23 11:25 Parainfluenza 1 (PCR) Not detected (NOT DETECT) 02/27/23 11:25 Parainfluenza 2 (PCR) Not detected (NOT DETECT) 02/27/23 11:25 Parainfluenza 3 (PCR) Not detected (NOT DETECT) 02/27/23 11:25 Parainfluenza 4 (PCR) Not detected (NOT DETECT) 02/27/23 11:25 RSV Type A (PCR) Not detected (NOT DETECT) 02/27/23 11:25 RSV Type B (PCR) Not detected (NOT DETECT) 02/27/23 11:25 Entero/Rhino (PCR) Not detected (NOT DETECT) 02/27/23 11:25 SARS-CoV-2 (PCR) Not detected (NOT DETECT) 02/27/23 11:25 SARS-CoV-2 Ag (Rapid) negative (Negative) 03/03/23 05:30 Blood Type A Positive 02/28/23 12:00 Blood Type Cancelled 02/28/23 12:00 Rho(D) Type Cancelled 02/28/23 12:00 Rho(D) Type Positive 02/28/23 12:00 Antibody Screen Cancelled 02/28/23 12:00 Antibody Screen Negative 02/28/23 12:00 Crossmatch See Detail 02/28/23 12:00 Vitals Last Vital Signs Temp 97.7 F 03/04/23 11:18 Pulse 65 03/04/23 11:18 Resp 18 03/04/23 11:18 BP 144/76 03/04/23 11:18 Pulse Ox 99 03/04/23 11:18 O2 Del Method Nasal Cannula 03/04/23 11:18 O2 Flow Rate 2 03/03/23 20:00 Discharge Plan Discharge Patient Disposition: Xfer SNF Condition: Stable Prescriptions: New oxycodone 5 mg Tablet 5 mg PO Q6H PRN (Reason: Severe Pain) 7 Days Qty: 28 0RF polyethylene glycol 3350 17 gram Powder In Packet 17 g PO Q24H PRN (Reason: constipation) 30 Days Qty: 60 0RF docusate sodium 100 mg Capsule 100 mg PO BID 30 Days Qty: 60 0RF doxycycline monohydrate 100 mg Tablet 100 mg PO BID 5 Days Qty: 10 0RF Continued metoprolol succinate 50 mg tablet extended release 24 hr 50 mg PO BID Qty: 180 3RF potassium chloride 20 mEq tablet extended release 20 meq PO DAILY Qty: 90 3RF atorvastatin 40 mg tablet 40 mg PO DAILY Qty: 90 3RF furosemide 40 mg tablet 40 mg PO DAILY Qty: 90 3RF Hold Instructions: Dose Change multivitamin Tablet 1 tab PO DAILY@11 polyethylene glycol 3350 17 gram/dose powder 17 g PO DAILY PRN (Reason: Constipation) omeprazole 40 mg capsule,delayed release(DR/EC) 40 mg PO BID meclizine 25 mg tablet 25 mg PO TID PRN (Reason: Dizziness) levothyroxine 88 mcg tablet 88 mcg PO DAILY Vitamin C 500 mg Tablet 500 mg PO DAILY vitamin B complex Tablet 1 tab PO DAILY oxybutynin chloride 5 mg tablet 5 mg PO BID@0430,1400 Held aspirin [Adult Low Dose Aspirin] 81 mg tablet,delayed release (DR/EC) 81 mg PO DAILY Hold Instructions: Resume on 04/06/23. clopidogrel 75 mg tablet 75 mg PO DAILY 90 Days Qty: 90 1RF Hold Instructions: Resume on 04/06/23. Discontinued fluticasone propionate 50 mcg/actuation spray,suspension 2 spray INTRANASAL DAILY PRN (Reason: Allergy Symptoms) Qty: 16 11RF clotrimazole 1 % cream See Rx Instructions .ROUTE .COMPLEX Qty: 45 0RF Dose Instruction: APPLY 1 APPLICATION TOPICALLY TWICE A DAY FOR 4 WEEKS Rx Instructions: APPLY 1 APPLICATION TOPICALLY TWICE A DAY FOR 4 WEEKS Discharge Orders: Discharge Order (Routine); Ordered 03/04/23 Ordered By: Kvng Carias Referrals: [facility] [Outside] Stuart Nguyen MD [Physician] - 03/18/23 11:00 am (PRIOR MADE APPOINTMENT WITH DR BRISCOE. ) Jose Roberto Saeed DO [Physician] - 03/10/23 11:30 am (right elbow fracture) Anita Ng MD [Primary Care Provider] - 03/11/23 2:20 pm Discharge Diet: Cardiac Discharge Activity: Resume usual activity Patient Instructions: Opioid Safety Activity Restrictions/Additional Instructions: - Please repeat hemoglobin in 48 hours, hemoglobin discharge 9.9 -Please hold aspirin and Plavix for at least 1 month -Please monitor for hypercoagulable events -Please monitor right thigh for expansion, monitor for risks for infection -For her right elbow fracture, sacral fracture, see Dr. Saeed -Pain control, please use oxycodone sparingly, Discharge Attestations Time Spent in Discharge Care*: greater than 30 min Quality Metrics Clinical Quality Measures [ No reported AMI, CVA or VTE this stay] Coding Level of Care Code 86392 Total time (in minutes) for Discharge: 50 Diagnoses Closed pelvic fracture S32.9XXA Closed fracture of right elbow S42.401A Fall W19.XXXA Closed head injury S09.90XA Heart murmur R01.1 Leukocytosis D72.829 Traumatic hematoma of right thigh S70.11XA Hypotension I95.9 Lactic acidosis E87.20 Anemia D64.9 Acute kidney injury N17.9 Arteriovenous malformation, brain Q28.2 Brain aneurysm I67.1 Pyloric stenosis K31.1 Chronic constipation K59.09 Pneumonia J18.9 Intractable pain R52 Physical deconditioning R53.81 Protein calorie malnutrition E46
[2023-03-04] MEDS: FUROsemide 40 mg Tablet PO (16:10)
[2023-03-05] VITALS (11 sets, daily range): BP systolic 150–174; BP diastolic 68–83; PULSE 58–91; RESP 14–18; TEMP 36.6; O2SAT 95–100
[2023-03-05] MEDS: oxyCODONE 5 mg IR Tab/Cap PO ×3 (00:01→13:36)
[2023-03-05] MEDS: ondansetron 2 mg/ML SDV 2 mL 4 MG IVP ×2 (00:16→13:55)
[2023-03-05 05:52] LABS: Basophils # 0.1 10^3/uL (0.0-0.1); Basophils % 0.9 %; Eosinophils # 0.7 10^3/uL (0.0-0.8); Eosinophils % 6.4 %; Hematocrit 29.9 % (37.0-47.0); Hemoglobin 9.6 g/dL (11.5-15.3); Lymphocytes # 1.9 10^3/uL (0.8-4.8); Lymphocytes % 17.7 %; Mean Corpuscular HGB Conc 32.1 g/dL (30.0-36.0); Mean Corpuscular Hemoglobin 28.5 pg (28.0-34.0); Mean Corpuscular Volume 88.7 fl (81-99); Mean Platelet Volume 10.3 fL (7.4-10.4); Monocytes # 1.1 10^3/uL (0.2-0.9); Monocytes % 10.1 %; Neutrophils # 6.92 10^3/uL (1.8-7.7); Neutrophils % 64.3 %; Nucleated Red Blood Cells % 0 %; Platelet Count 218 10^3/cmm (130-400); Red Blood Count 3.37 10^6/uL (4.1-5.3); Red Cell Distribution Width 14.4 % (12.1-15.1); White Blood Count 10.8 10^3/uL (4.0-10.0)
[2023-03-05 06:22] LABS: Anion Gap 12.8 (5-19); Blood Urea Nitrogen 16 mg/dL (8-23); Calcium 8.6 mg/dL (8.5-10.5); Carbon Dioxide 31 mmol/L (22-29); Chloride 101 mmol/L (98-107); Glucose 92 mg/dL (65-115); Osmolality Calculated 293 mOsm/kg (285-295); Potassium 3.8 mmol/L (3.5-5.1); Sodium 141 mmol/L (136-145)
[2023-03-05] MEDS: pantoprazole DR 40 mg Tablet PO (09:59)
[2023-03-05] MEDS: levothyroxine 88 mcg Tablet PO (09:59)
[2023-03-05] MEDS: ascorbic acid 500 mg Tablet PO (09:59)
[2023-03-05] MEDS: atorvastatin 40 mg Tablet PO (09:59)
[2023-03-05] MEDS: doxycycline 100 mg Tablet PO (09:59)
--- NOTE | 2023-03-05 10:33 | PC.SOCIAL ---
IMM update IMM updated with patient. Patient physically signed IMM. Copy Pg 2 provided to patient. Verbalized an understandings. Initialled, dated, timed, and placed in chart.
--- NOTE | 2023-03-05 12:18 | P.PN_ITS ---
Subjective Subjective: this is progress note from march 04 2023, patient was seen in am, no fever, no shortness of breath, seen in evening with [facility] at bedside, son at bedside, patient family would like hermelinda to go to [facility] as they have concerns at [facility] Vitals/I&O/Wt Last Vital Signs Temp 97.8 F 03/05/23 08:00 Pulse 83 03/05/23 08:00 Resp 16 03/05/23 09:59 BP 157/68 03/05/23 08:00 Pulse Ox 98 03/05/23 09:59 O2 Del Method Room Air 03/05/23 04:00 O2 Flow Rate 2 03/05/23 08:00 03/04/23 03/05/23 03/05/23 22:59 06:59 14:59 Intake Total 480 / 1773 2022 240 / 240 Output Total 650 / 650 Balance 480 / 3 2022 -410 / -410 Physical Exam Const: COMMON NORMALS: no acute distress and patient oriented x3 Resp: COMMON NORMALS: normal respiratory effort, No retractions, No use of accessory muscles and clear to auscultation bilaterally AUSCULTATION: clear to auscultation bilaterally Cardio: COMMON NORMALS: regular rate, regular rhythm, S1 normal heart sound present and S2 normal heart sound present RATE: regular rate RHYTHM: regular rhythm HEART SOUNDS: S1 normal heart sound present and S2 normal heart sound present GI: COMMON NORMALS: Normal to inspection, nondistended, normoactive bowel sounds present Extremity: COMMON NORMALS: no pedal edema Neuro: COMMON NORMALS: patient oriented x3 Psych: COMMON NORMALS: mental status grossly normal Urinary Catheter Management: Chavez: Cath Placed During This Visit: yes, but has since been removed by the nurse Reason for Continuing Indwelling Catheter: Decision to DC Catheter Urinary Catheter Date of Insertion: 02/27/23 Urinary Catheter Time of Insertion: 17:05 Date Urinary Catheter Removed: 03/04/23 Time Urinary Catheter Discontinued: 06:45 Data 03/05/23 05:39 03/05/23 05:39 A&P Assessment and plan (1) Closed pelvic fracture: Patient has a closed pelvic fracture Fracture through the right inferior pubic ramus. Physical therapy to be consulted Pain control with oxycodone, Dilaudid, Tylenol PT OT (2) Closed fracture of right elbow: Sling was placed Outpatient orthopedic follow-up (3) Fall: Patient suffered a fall. Some of the characteristics are mechanical but because of her difficulty remembering all of this cannot exclude syncope. CT head is already been done and no acute findings are noted. 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 (4) Closed head injury: Patient reports loss of consciousness. This is consistent with closed head injury, with concussion Close monitoring of neurologic status (5) Heart murmur: (6) Leukocytosis: - Secondary to pneumonia (7) Traumatic hematoma of right thigh: - Hemoglobin down to 7.3, status post 1 unit PRBC -Hypotension resolved -Lactic acidosis resolved -CT abdomen pelvis no evidence of retroperitoneal hematoma -Hold all blood thinners including Plavix, discussed risk and benefits in detail with patient, she voiced understanding, all questions answered, agreed to proceed -Resume aspirin tonight (8) Hypotension: - Combination of anemia, dehydration, right thigh hematoma -Monitor hemodynamics closely (9) Lactic acidosis: - Combination of fall, dehydration, anemia (10) Anemia: - Combination of dilutional, and right thigh hematoma -Monitor hemoglobin -CT abdomen does not show any radiographic evidence of retroperitoneal hematoma -Status post 1 unit PRBC, will give another unit PRBC (11) Acute kidney injury: - Off IV fluids (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 ? Ill-defined ground-glass opacities noted within both lungs, predominantly in the left upper lobe, suggestive of small airway infectious or inflammatory process. -Likely explanation behind her leukocytosis and fevers -De-escalate to doxycycline (17) Intractable pain: (18) Physical deconditioning: (19) Protein calorie malnutrition: Plan Multiple other medical problems as outlined in past medical history Full code SCDs for DVT prophylaxis. Anticoagulation held secondary to significant hematoma and pelvis Plan for today, pain control, up out of bed continue antibiotics, increase metoprolol,switch to doxycycline, anemia, Attestations Medical Necessity Statement*: patient requires hospitalization for fall, elbow fracture,right thigh hematoma Diagnoses Closed pelvic fracture S32.9XXA Closed fracture of right elbow S42.401A Fall W19.XXXA Closed head injury S09.90XA Heart murmur R01.1 Leukocytosis D72.829 Traumatic hematoma of right thigh S70.11XA Hypotension I95.9 Lactic acidosis E87.20 Anemia D64.9 Acute kidney injury N17.9 Arteriovenous malformation, brain Q28.2 Brain aneurysm I67.1 Pyloric stenosis K31.1 Chronic constipation K59.09 Pneumonia J18.9 Intractable pain R52 Physical deconditioning R53.81 Protein calorie malnutrition E46
[2023-03-05] MEDS: FUROsemide 10 mg/mL SDV 4mL 40 MG IVP (12:20)
[2023-03-05 15:33] LABS: SARS Covid-2 Antigen negative (Negative)
--- NOTE | 2023-03-05 16:57 | PC.NURSE ---
report was called to bruno hale at [facility] at 1439
== END 2023-03-05 16:56 | disposition skilled nursing facility (03) | DRG 535 ==
LOC: ER 02-27 02:16 → MEDSURG 02-27 02:29
PROVIDERS: Admitting Provider Internal Medicine; Emergency Provider Emergency Medicine; PCP Family Medicine; Visit Provider Family Medicine
DX: S32.591A Other specified fracture of right pubis, initial encounter for closed fracture (principal); J18.9 Pneumonia, unspecified organism; Q28.2 Arteriovenous malformation of cerebral vessels; S06.0X9A Concussion with loss of consciousness of unspecified duration, initial encounter; J44.0 Chronic obstructive pulmonary disease with (acute) lower respiratory infection; N17.9 Acute kidney failure, unspecified; K31.1 Adult hypertrophic pyloric stenosis; E46 Unspecified protein-calorie malnutrition; S32.511A Fracture of superior rim of right pubis, initial encounter for closed fracture; S52.134A Nondisplaced fracture of neck of right radius, initial encounter for closed fracture; W19.XXXA Unspecified fall, initial encounter; S70.11XA Contusion of right thigh, initial encounter; R01.1 Cardiac murmur, unspecified; I95.9 Hypotension, unspecified; D64.9 Anemia, unspecified; E86.0 Dehydration; K59.09 Other constipation; Z68.27 Body mass index [BMI] 27.0-27.9, adult; Z86.73 Personal history of transient ischemic attack (TIA), and cerebral infarction without residual deficits; M85.851 Other specified disorders of bone density and structure, right thigh; M17.11 Unilateral primary osteoarthritis, right knee; Z87.891 Personal history of nicotine dependence; Z90.2 Acquired absence of lung [part of]; Z85.118 Personal history of other malignant neoplasm of bronchus and lung; E78.5 Hyperlipidemia, unspecified; H40.9 Unspecified glaucoma; K21.9 Gastro-esophageal reflux disease without esophagitis; Z86.16 Personal history of COVID-19; E03.9 Hypothyroidism, unspecified
CPT/HCPCS: 36415; 36416; 36430; 51702; 70450; 71045; 71250; 72170; 73080; 73502; 73552; 73701; 74176; 80048; 80053; 80076; 81001; 82533; 82550; 82962; 83605; 83735; 84145; 84443; 85014; 85018; 85025; 85610; 86140; 86850; 86900; 86920; 87040; 87426; 87486; 87581; 87633; 87635; 87641; 93005; 93306; 96374; 96375; 97110; 97161; 97165; 97530; 97535; 99285; G0378; J0456; J0696; J1170; J1200; J1940; J2405; J2920; J7030; J7050; J7120; P9016; P9040; Q9967

== ENCOUNTER → 2023-03-10 12:01 | Outpatient (BNVA) | payer MEDICARE, MEDICAID, SELFPAY | PROVIDERS: PCP Family Medicine; Referring Provider Family Medicine; Visit Provider Student in an Organized Health Care Education/Training Program | DX: S52.131A Displaced fracture of neck of right radius, initial encounter for closed fracture; S32.591A Other specified fracture of right pubis, initial encounter for closed fracture; S32.511A Fracture of superior rim of right pubis, initial encounter for closed fracture; W18.39XA Other fall on same level, initial encounter | CPT/HCPCS: 24650; 73080; 73110; 99204 ==

== ENCOUNTER 2023-03-11 18:57 | Emergency (ER) | payer MEDICARE, MEDICAID, SELFPAY ==
[2023-03-11 18:59] VITALS: BMI 26.9
[2023-03-11 19:03] VITALS: BP 144/62; PULSE 67; RESP 16; O2SAT 98
--- NOTE | 2023-03-11 19:23 | W.ED.GENADLT ---
HPI - General Adult General: Chief complaint: General Medical Stated complaint: RT side weakness Time Seen by Provider: 03/11/23 18:58 Source: patient and EMS Mode of arrival: EMS Limitations: no limitations History of Present Illness: 78-year-old female who was seen here last week after a fall she had had a pelvic rami fracture she does have a large hematoma of the right thigh as well states she is had some pain and feeling with some numbness on that hematoma she denies any headache she denies any weakness or numbness to her upper extremities she denies any worsening proving factors. Associated symptoms: Deny chest pain, dyspnea, headache(s), nausea, rash or vomiting Review of Systems Const: Denies: fever(s), chills, body aches or change in appetite ENMT: Denies: throat pain or dental pain Card: Denies: chest pain Resp: Denies: dyspnea GI: Denies: abdominal pain, nausea, vomiting or diarrhea Musc: Denies: neck pain or back pain Skin/Breast: Denies: rash Neuro: Reports: numbness in extremities; Denies: headache(s) PFSH ED PFSH: Medical History Acquired hypothyroidism Brain TIA Chronic constipation Chronic venous insufficiency of lower extremity COPD (chronic obstructive pulmonary disease) COVID-19 GERD (gastroesophageal reflux disease) Improved following dilation of gastric outlet obstruction Glaucoma Hyperlipidemia Hypertension Stable Lung cancer Pyloric stenosis Vaginal prolapse Surgical History H/O esophagogastroduodenoscopy 07/29/2019: EGD with dilation for pyloric stenosis 09/13/2019: EGD with dilation to 15 mm for pyloric stenosis H/O hysterectomy for benign disease History of lobectomy of lung History of mandibular surgery S/P cholecystectomy Family History Mother Glaucoma Social History Smoking and tobacco status: former smoker Quit status (tobacco): has quit using tobacco Year quit tobacco: 1998 Former quit date comment: smoked PPD 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 Second hand smoke exposure: No Alcohol intake: never Substance/Drug Use: never Lives independently: Yes Household members: none Marital status: / Current occupational status: retired Current gender identity: Female Physical Exam Const: COMMON NORMALS: no acute distress, patient oriented x3 and healthy appearing HENMT: COMMON NORMALS: normocephalic; head/scalp not atraumatic (Old contusions right side of forehead) HEAD & SCALP: normocephalic; not atraumatic (Old contusions right side of forehead) Eye: COMMON NORMALS: Equal, round and reactive pupils present and EOMs intact bilaterally PUPIL: Yes Equal, round and reactive pupils present Neck/C-Spine: COMMON NORMALS: full ROM and supple Chest: COMMONS NORMALS: normal inspection of the chest and normal palpation of entire chest wall Resp: COMMON NORMALS: normal respiratory effort, No retractions, No use of accessory muscles and clear to auscultation bilaterally AUSCULTATION: clear to auscultation bilaterally Cardio: COMMON NORMALS: regular rate, regular rhythm and No murmurs present (Cardio) RATE: regular rate RHYTHM: regular rhythm GI: COMMON NORMALS: Normal to inspection, nondistended, normoactive bowel sounds present, Soft to palpation, non-tender and no masses PALPATION: Yes Soft to palpation Extremity: NARRATIVE EXTREMITY EXAM: Hematoma and contusion to right thigh from previous fall she has no numbness on my exam no signs of compartment syndrome distal pulses intact no weakness Neuro: COMMON NORMALS: patient oriented x3, moves all extremities and no focal motor deficits Psych: COMMON NORMALS: mental status grossly normal, Normal thought process present and cooperative THOUGHT PROCESS: Normal thought process present Skin: COMMON NORMALS: no rashes or lesions noted and no wounds GENERAL SKIN EXAM: no rashes or lesions noted Course Vital Signs: Vital signs: Vital Signs Pulse Rate 67 03/11/23 19:03 Respiratory Rate 16 03/11/23 19:03 Blood Pressure 144/62 03/11/23 19:03 Pulse Oximetry 98 03/11/23 19:03 [facility] - General Adult Medical Decision Making Patient presents here with complaints she states that she fell like she is having some numbness along the bruising to her right thigh this is likely from the hematoma does not appear to be expanding she has no signs of compartment syndrome distal pulses sensations intact she is no headaches no neck pain no signs of a stroke or head bleed at this time we will place an Branden wrap over the hematoma she is to ice it as well she is stable for discharge Medical Records I reviewed the patient's medical records. Lab Data I reviewed the patient's lab results. Discharge Plan Discharge Patient Disposition: Home Clinical Impression: Hematoma of right thigh Condition: Stable Prescriptions: No Action metoprolol succinate 50 mg tablet extended release 24 hr 50 mg PO BID Qty: 180 3RF aspirin [Adult Low Dose Aspirin] 81 mg tablet,delayed release (DR/EC) 81 mg PO DAILY Hold Instructions: Resume on 04/06/23. potassium chloride 20 mEq tablet extended release 20 meq PO DAILY Qty: 90 3RF ondansetron HCl 4 mg tablet 4 mg PO Q8H bisacodyl 10 mg suppository 10 mg [place] DAILY PRN oxybutynin chloride 5 mg tablet 5 mg PO BID atorvastatin 40 mg tablet 40 mg PO DAILY Qty: 90 3RF clopidogrel 75 mg tablet 75 mg PO DAILY 90 Days Qty: 90 1RF Hold Instructions: Resume on 04/06/23. furosemide 40 mg tablet 40 mg PO DAILY Qty: 90 3RF Hold Instructions: Dose Change multivitamin Tablet 1 tab PO DAILY@11 omeprazole 40 mg capsule,delayed release(DR/EC) 40 mg PO BID meclizine 25 mg tablet 25 mg PO TID PRN (Reason: Dizziness) levothyroxine 88 mcg tablet 88 mcg PO DAILY Vitamin C 500 mg Tablet 500 mg PO DAILY vitamin B complex Tablet 1 tab PO DAILY polyethylene glycol 3350 17 gram/dose powder 17 g PO DAILY PRN (Reason: Constipation) Qty: 119 0RF oxycodone 5 mg tablet 5 mg PO Q8H PRN (Reason: pain) 7 Days Qty: 21 0RF Discharge Orders: Discharge ED (Routine); Ordered 03/11/23 Ordered By: Ewa Pena Referrals: Antia Ng MD [Primary Care Provider] - Discharge Diet: Advance as tolerated Discharge Activity: Resume usual activity Patient Instructions: Hematoma (ED) Coding Level of Care Code ED Rn Clinical Documentation for Abeba Vazquez
== END 2023-03-11 23:43 | disposition home or self-care (01) ==
PROVIDERS: Emergency Provider Emergency Medicine; PCP Family Medicine
DX: S70.11XA Contusion of right thigh, initial encounter (principal); J44.9 Chronic obstructive pulmonary disease, unspecified; I10 Essential (primary) hypertension; E78.5 Hyperlipidemia, unspecified; E03.9 Hypothyroidism, unspecified; Z79.899 Other long term (current) drug therapy; Z79.82 Long term (current) use of aspirin; Z87.891 Personal history of nicotine dependence; Z86.16 Personal history of COVID-19; X58.XXXA Exposure to other specified factors, initial encounter
CPT/HCPCS: 99282

== ENCOUNTER → 2023-03-18 11:02 | Outpatient (BNVA) | payer MEDICARE, MEDICAID, SELFPAY | PROVIDERS: PCP Internal Medicine; Visit Provider Internal Medicine Cardiovascular Disease | DX: S70.11XA Contusion of right thigh, initial encounter (principal); W19.XXXA Unspecified fall, initial encounter; Y93.9 Activity, unspecified; Y92.009 Unspecified place in unspecified non-institutional (private) residence as the place of occurrence of the external cause; D64.9 Anemia, unspecified; J44.9 Chronic obstructive pulmonary disease, unspecified; Z86.73 Personal history of transient ischemic attack (TIA), and cerebral infarction without residual deficits; G45.0 Vertebro-basilar artery syndrome; I10 Essential (primary) hypertension; E78.5 Hyperlipidemia, unspecified | CPT/HCPCS: 99214 ==

== ENCOUNTER → 2023-03-31 13:32 | Outpatient (BNVA) | payer MEDICARE, MEDICAID, SELFPAY | PROVIDERS: PCP Internal Medicine; Visit Provider Student in an Organized Health Care Education/Training Program | DX: S52.131A Displaced fracture of neck of right radius, initial encounter for closed fracture (principal); S32.591A Other specified fracture of right pubis, initial encounter for closed fracture; S32.511A Fracture of superior rim of right pubis, initial encounter for closed fracture; W18.39XA Other fall on same level, initial encounter | CPT/HCPCS: 72190; 73080; 99213 ==

== ENCOUNTER 2023-04-02 20:12 | Emergency (ER) | payer MEDICARE, MEDICAID, SELFPAY ==
[2023-04-02 20:14] VITALS: BP 148/72; PULSE 68; RESP 16; TEMP 36.8; O2SAT 100
--- NOTE | 2023-04-02 20:15 | XRR_ITS ---
PROCEDURE INFORMATION: Exam: XR Abdomen Exam date and time: 04/02/2023 8:31 PM Age: 78 years old Clinical indication: Constipation TECHNIQUE: Imaging protocol: Radiologic exam of the abdomen. Views: Frontal supine view of the abdomen. 1 View. COMPARISON: [place] [id number] 02/27/2023 2:36 PM FINDINGS: Gastrointestinal tract: Large amount of stool in the rectum and distal sigmoid colon with moderate stool scattered throughout the remainder of the colon. No small bowel distention or obstruction. Intraperitoneal space: No visible pneumoperitoneum. Organs: Cholecystectomy clips. Bones/joints: Unremarkable. XR/XR KUB [id number] IMPRESSION: Findings consistent with rectal impaction and constipation.
[2023-04-02] MEDS: glycerin adult supp 1 EACH PR (21:45)
[2023-04-02] MEDS: lactulose oral liq 20 gm/30 mL UDC 30 GM PO (21:45)
--- NOTE | 2023-04-02 21:52 | W.ED.ABDPA2 ---
HPI - Abdominal Pain General: Chief Complaint: Abdominal Pain Stated Complaint: Constipation Time Seen by Provider: 04/02/23 20:58 Source: patient Mode of arrival: ambulatory Limitations: no limitations History of Present Illness: 78-year-old female who states she has been constipated states she has not had a bowel movement in 8 days states been having some lower abdominal pain and feeling full had some nausea she denies any vomiting she denies any fevers she has tried laxatives with no improvement. Associated Symptoms: Reports constipation; Denies chills, diarrhea, dysuria, fever(s), nausea and vomiting Review of Systems Const: Denies: fever(s) or chills Eyes: Denies: eye discomfort ENMT: Denies: throat pain or dental pain Card: Denies: chest pain Resp: Denies: dyspnea GI: Reports: abdominal pain and constipation; Denies: nausea, vomiting or diarrhea : Denies: dysuria Musc: Denies: neck pain or back pain Skin/Breast: Denies: rash Neuro: Denies: headache(s) PFSH ED PFSH: Medical History Acquired hypothyroidism Brain TIA Chronic constipation Chronic venous insufficiency of lower extremity COPD (chronic obstructive pulmonary disease) COVID-19 GERD (gastroesophageal reflux disease) Improved following dilation of gastric outlet obstruction Glaucoma Hyperlipidemia Hypertension Stable Lung cancer Pyloric stenosis Vaginal prolapse Surgical History H/O esophagogastroduodenoscopy 07/29/2019: EGD with dilation for pyloric stenosis 09/13/2019: EGD with dilation to 15 mm for pyloric stenosis H/O hysterectomy for benign disease History of lobectomy of lung History of mandibular surgery S/P cholecystectomy Family History Mother Glaucoma Social History Smoking and tobacco status: former smoker Quit status (tobacco): has quit using tobacco Year quit tobacco: 1998 Former quit date comment: smoked PPD 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 Second hand smoke exposure: No Alcohol intake: never Substance/Drug Use: never Lives independently: Yes Household members: none Marital status: / Current occupational status: retired Current gender identity: Female Physical Exam Const: COMMON NORMALS: no acute distress, patient oriented x3 and healthy appearing HENMT: COMMON NORMALS: normocephalic and atraumatic HEAD & SCALP: normocephalic and atraumatic Neck/C-Spine: COMMON NORMALS: full ROM and supple Chest: COMMONS NORMALS: normal inspection of the chest and normal palpation of entire chest wall Resp: COMMON NORMALS: normal respiratory effort, No retractions, No use of accessory muscles and clear to auscultation bilaterally AUSCULTATION: clear to auscultation bilaterally Cardio: COMMON NORMALS: regular rate, regular rhythm and No murmurs present (Cardio) RATE: regular rate RHYTHM: regular rhythm GI: COMMON NORMALS: Normal to inspection, nondistended, normoactive bowel sounds present, Soft to palpation, non-tender and no masses PALPATION: Yes Soft to palpation Extremity: COMMON NORMALS: normal to inspection and full ROM Neuro: COMMON NORMALS: patient oriented x3, moves all extremities and no focal motor deficits Psych: COMMON NORMALS: mental status grossly normal, Normal thought process present and cooperative THOUGHT PROCESS: Normal thought process present Skin: COMMON NORMALS: no rashes or lesions noted and no wounds GENERAL SKIN EXAM: no rashes or lesions noted Procedures Rectal Disimpaction Time out performed rectal disimpaction: Yes Indication: fecal impaction Procedural Sedation: No Sedation/Analgesia: benzodiazepines Technique: manual disimpaction with gloved finger Result: significant stool output Patient Tolerated Procedure: well Complications: none Course Vital Signs: Vital signs: Vital Signs Temperature 98.3 F 04/02/23 20:14 Pulse Rate 76 04/02/23 23:00 Respiratory Rate 16 04/02/23 20:14 Blood Pressure 138/66 04/02/23 23:00 Pulse Oximetry 100 04/02/23 23:00 Oxygen Delivery Me thod Room Air 04/02/23 23:00 Oxygen Flow Rate 2 04/02/23 20:14 MDM - Abdominal Pain Medical Decision Making Patient presents here with constipation did restfully disimpact her and got a significant mount out did give her lactulose she is continue to MiraLAX at home return if worsening abdominal exam is benign otherwise. Medical Records I reviewed the patient's medical records. Lab Data I reviewed the patient's lab results. 04/02/23 21:57 04/02/23 21:57 Labs/Radiology: Radiology Impressions KUB X-Ray 04/02/23 20:15 IMPRESSION: Findings consistent with rectal impaction and constipation. Laboratory Results WBC 12.33 10^3/uL (3.29-11.43) H 04/02/23 21:57 RBC 4.91 10^6/uL (3.85-5.65) 04/02/23 21:57 Hgb 14.00 g/dL (11.27-16.99) 04/02/23 21:57 Hct 45.7 % (36-47) 04/02/23 21:57 MCV 93.1 fl (85-98) 04/02/23 21:57 MCH 28.5 pg (27-33) 04/02/23 21:57 MCHC 30.6 g/dL (30-55) 04/02/23 21:57 RDW 14.5 % (12.1-15.1) 04/02/23 21:57 Plt Count 269 10^3/cmm (157-399) 04/02/23 21:57 MPV 11.6 fL (7.4-10.4) H 04/02/23 21:57 Neut % (Auto) 82.5 % 04/02/23 21:57 Lymph % (Auto) 11.2 % 04/02/23 21:57 [place] % (Auto) 4.0 % 04/02/23 21:57 Eos % (Auto) 1.1 % 04/02/23 21:57 Baso % (Auto) 1.0 % 04/02/23 21:57 Neut # (Auto) 10.18 10^3/uL (1.8-7.7) H 04/02/23 21:57 Lymph # (Auto) 1.4 10^3/uL (0.8-4.8) 04/02/23 21:57 [place] # (Auto) 0.5 10^3/uL (0.2-0.9) 04/02/23 21:57 Eos # (Auto) 0.1 10^3/uL (0.0-0.8) 04/02/23 21:57 Baso # (Auto) 0.1 10^3/uL (0.0-0.1) 04/02/23 21:57 Nucleated RBC % (auto) 0 % 04/02/23 21:57 Nucleated RBCs # 0.0 /100WBC 04/02/23 21:57 Sodium 143 mmol/L (136-145) 04/02/23 21:57 Potassium 4.5 mmol/L (3.5-5.1) 04/02/23 21:57 Chloride 102 mmol/L (98-107) 04/02/23 21:57 Carbon Dioxide 27 mmol/L (22-29) 04/02/23 21:57 Anion Gap 18.5 (5-19) 04/02/23 21:57 BUN 26 mg/dL (8-23) H 04/02/23 21:57 Creatinine 1.0 mg/dL (0.5-0.9) H 04/02/23 21:57 GFR Calculation Not Reportable 04/02/23 21:57 Glucose 93 mg/dL (65-115) 04/02/23 21:57 Calculated Osmolality 300 mOsm/kg (285-295) H 04/02/23 21:57 Calcium 10.3 mg/dL (8.5-10.5) 04/02/23 21:57 Total Bilirubin 0.5 mg/dL (0.15-1.2) 04/02/23 21:57 AST 32 U/L (0-32) 04/02/23 21:57 ALT 30 U/L (0-33) 04/02/23 21:57 Alkaline Phosphatase 188 U/L (35-105) H 04/02/23 21:57 Total Protein 7.5 g/dL (6.6-8.7) 04/02/23 21:57 Albumin 4.7 g/dL (3.5-5.2) 04/02/23 21:57 Globulin 2.8 g/dL (1.3-4.6) 04/02/23 21:57 Discharge Plan Discharge Patient Disposition: Home Clinical Impression: Constipation Condition: Stable Prescriptions: New Miralax 17 gram powder in packet 17 g PO BID PRN (Reason: constipation) Qty: 30 0RF No Action aspirin [Adult Low Dose Aspirin] 81 mg tablet,delayed release (DR/EC) 81 mg PO DAILY Hold Instructions: Resume on 04/06/23. potassium chloride 20 mEq tablet extended release 20 meq PO DAILY Qty: 90 3RF atorvastatin 40 mg tablet 40 mg PO DAILY metoprolol succinate 50 mg tablet extended release 24 hr 50 mg PO BID oxycodone 5 mg tablet 5 mg PO Q6H PRN bisacodyl 10 mg suppository 10 mg [place] DAILY PRN oxybutynin chloride 5 mg tablet 5 mg PO BID clopidogrel 75 mg tablet 75 mg PO DAILY 90 Days Qty: 90 1RF Hold Instructions: Resume on 04/06/23. furosemide 40 mg tablet 40 mg PO DAILY Qty: 90 3RF Hold Instructions: Dose Change valsartan 160 mg tablet 160 mg PO DAILY Qty: 90 3RF docusate sodium [Colace] 100 mg capsule 100 mg PO BID Qty: 60 4RF ondansetron HCl 4 mg tablet 4 mg PO Q8H PRN (Reason: nausea and vomiting) Qty: 30 0RF multivitamin Tablet 1 tab PO DAILY@11 omeprazole 40 mg capsule,delayed release(DR/EC) 40 mg PO BID meclizine 25 mg tablet 25 mg PO TID PRN (Reason: Dizziness) levothyroxine 88 mcg tablet 88 mcg PO DAILY Vitamin C 500 mg Tablet 500 mg PO DAILY vitamin B complex Tablet 1 tab PO DAILY polyethylene glycol 3350 17 gram/dose powder 17 g PO DAILY PRN (Reason: Constipation) Qty: 119 0RF Discharge Orders: Discharge ED (Routine); Ordered 04/02/23 Ordered By: Ewa Pena Referrals: Bhargav De Leon DO [Primary Care Provider] - 1-3 days Discharge Diet: Advance as tolerated Discharge Activity: Resume usual activity Patient Instructions: Constipation (ED) Coding Level of Care Code ED Machinery Engineer for Abeba Vazquez
[2023-04-02 22:02] VITALS: BP 155/65; PULSE 75; O2SAT 99
[2023-04-02 22:06] LABS: Basophils # 0.1 10^3/uL (0.0-0.1); Eosinophils # 0.1 10^3/uL (0.0-0.8); Eosinophils % 1.1 %; Hematocrit 45.7 % (36-47); Lymphocytes # 1.4 10^3/uL (0.8-4.8); Lymphocytes % 11.2 %; Mean Corpuscular HGB Conc 30.6 g/dL (30-55); Mean Corpuscular Hemoglobin 28.5 pg (27-33); Mean Corpuscular Volume 93.1 fl (85-98); Mean Platelet Volume 11.6 fL (7.4-10.4); Monocytes # 0.5 10^3/uL (0.2-0.9); Neutrophils # 10.18 10^3/uL (1.8-7.7); Neutrophils % 82.5 %; Nucleated Red Blood Cells % 0 %; Platelet Count 269 10^3/cmm (157-399); Red Blood Count 4.91 10^6/uL (3.85-5.65); Red Cell Distribution Width 14.5 % (12.1-15.1); White Blood Count 12.33 10^3/uL (3.29-11.43)
[2023-04-02 22:21] LABS: Alanine Aminotransferase 30 U/L (0-33); Albumin Level 4.7 g/dL (3.5-5.2); Alkaline Phosphatase 188 U/L (35-105); Blood Urea Nitrogen 26 mg/dL (8-23); Calcium 10.3 mg/dL (8.5-10.5); Carbon Dioxide 27 mmol/L (22-29); Chloride 102 mmol/L (98-107); Globulin 2.8 g/dL (1.3-4.6); Glucose 93 mg/dL (65-115); Osmolality Calculated 300 mOsm/kg (285-295); Sodium 143 mmol/L (136-145); Total Bilirubin 0.5 mg/dL (0.15-1.2); Total Protein 7.5 g/dL (6.6-8.7)
[2023-04-02 22:25] LABS: Anion Gap 18.5 (5-19); Potassium 4.5 mmol/L (3.5-5.1)
[2023-04-02 22:26] LABS: Aspartate Amino Transferase 32 U/L (0-32)
[2023-04-02 23:00] VITALS: BP 138/66; PULSE 76; O2SAT 100
[2023-04-02] MEDS: LORazepam 2 mg/mL INJ 1 mL 0.5 MG IVP (23:02)
== END 2023-04-03 00:18 | disposition home or self-care (01) ==
PROVIDERS: Emergency Provider Emergency Medicine; PCP Internal Medicine
DX: K59.00 Constipation, unspecified (principal)
CPT/HCPCS: 36415; 74018; 80053; 85025; 96374; 99284; J2060

== ENCOUNTER 2023-05-02 13:11 | Emergency (ER) | payer MEDICARE, MEDICAID, SELFPAY ==
[2023-05-02 13:17] VITALS: BP 154/59; PULSE 67; RESP 18; TEMP 36.8; O2SAT 99
--- NOTE | 2023-05-02 13:35 | ECG_ITS ---
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 Measurements Intervals [place] Rate: 66 P: 66 MI: 203 QRS: 13 QRSD: 90 T: 42 QT: 395 QTc: 414 Interpretive Statements SINUS RHYTHM Compared to ECG 02/27/2023 03:31:27 No significant changes Electronically Signed On 05-02-2023 20:30:14 CDT by Martin Garcia M.D. [email or web address] point mature adult care unitCiel Medicalmemorial health system marietta memorial hospitalXenoport/store/OM/[id number]
--- NOTE | 2023-05-02 14:03 | XRR_ITS ---
PROCEDURE INFORMATION: Exam: XR Chest Exam date and time: 05/02/2023 2:17 PM Age: 78 years old Clinical indication: Pain; Chest pressure; Prior surgery; Surgery date: 6+ months; Surgery type: RT lung; Additional info: Dyspnea/cough TECHNIQUE: Imaging protocol: Radiologic exam of the chest. Views: 1 view. COMPARISON: [place] [id number] 02/27/2023 2:36 PM FINDINGS: Lungs: Calcified granuloma noted in the left lung base. Left basilar scarring. No consolidation. Pleural spaces: Unremarkable. No pleural effusion. No pneumothorax. Heart/Mediastinum: Unremarkable. No cardiomegaly. Bones/joints: Unremarkable. XR/XR chest 1V portable [id number] IMPRESSION: No acute findings.
--- NOTE | 2023-05-02 14:03 | W.ED.GENADLT ---
Documented by User: Quoc Mckay DO 05/03/23 14:56 HPI - General Adult General: Chief complaint: General Medical Stated complaint: CHEST PAIN Time Seen by Provider: 05/02/23 13:22 Source: patient Mode of arrival: ambulatory History of Present Illness: 78-year-old female who presents emergency room complaining of shortness of breath right-sided chest pain. Moderate cough nonproductive. She relates a lot of this to having originated in a fall she had in February of this year. No fever sweats chills or productive cough she does have some chest discomfort with it is worsened with cough and with deep breathing. No hemoptysis. She was seen earlier this week and started on Levaquin. Onset (ago): day(s) Location: chest Severity: moderate Quality: aching Pain Consistency: intermittent Associated symptoms: Reports chest pain and cough; Deny confusion, diaphoresis, decreased appetite, dyspnea, fevers/chills, headache(s), malaise, nausea, rash, palpitations, seizures, short of breath, syncope, vomiting or weakness Treatments prior to arrival: none Review of Systems Const: Denies: fever(s), chills, malaise or diaphoresis Card: Reports: chest pain; Denies: palpitations, irregular heart rhythm, edema or syncope Resp: Denies: dyspnea GI: Denies: abdominal pain, nausea or vomiting : Denies: dysuria, urinary frequency or urinary urgency Skin/Breast: Denies: rash Neuro: Denies: headache(s) or confusion PFSH ED PFSH: Medical History Acquired hypothyroidism Brain TIA Chronic constipation Chronic venous insufficiency of lower extremity COPD (chronic obstructive pulmonary disease) COVID-19 GERD (gastroesophageal reflux disease) Improved following dilation of gastric outlet obstruction Glaucoma Hyperlipidemia Hypertension Stable Lung cancer Pyloric stenosis Vaginal prolapse Surgical History H/O esophagogastroduodenoscopy 07/29/2019: EGD with dilation for pyloric stenosis 09/13/2019: EGD with dilation to 15 mm for pyloric stenosis H/O hysterectomy for benign disease History of lobectomy of lung History of mandibular surgery S/P cholecystectomy Family History Mother Glaucoma Social History Smoking and tobacco status: former smoker Quit status (tobacco): has quit using tobacco Year quit tobacco: 1998 Former quit date comment: smoked PPD 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 Second hand smoke exposure: No Alcohol intake: never Substance/Drug Use: never Lives independently: Yes Household members: none Marital status: / Current occupational status: retired Current gender identity: Female Physical Exam Const: GENERAL APPEARANCE: cooperative and comfortable ORIENTATION/CONSCIOUSNESS: Yes awake, Yes oriented to person, Yes oriented to place and Yes oriented to time HENMT: COMMON NORMALS: normocephalic, atraumatic and hearing grossly normal bilaterally HEAD & SCALP: normocephalic and atraumatic Resp: COMMON NORMALS: normal respiratory effort, No retractions, No use of accessory muscles and clear to auscultation bilaterally AUSCULTATION: clear to auscultation bilaterally Cardio: COMMON NORMALS: regular rate, regular rhythm and No murmurs present (Cardio) RATE: regular rate RHYTHM: regular rhythm GI: COMMON NORMALS: Soft to palpation and No hepatosplenomegaly present AUSCULTATION: Yes normoactive bowel sounds PALPATION: Yes Soft to palpation, No Tenderness to palpation present (GI), No Guarding due to palpation present (GI) and Yes No hepatosplenomegaly present Extremity: COMMON NORMALS: normal to inspection, capillary refill normal, no clubbing, cyanosis or edema, no calf tenderness and no pedal edema Neuro: SENSORIUM/ORIENTATION: Yes oriented to person, Yes oriented to place and Yes oriented to time Skin: COMMON NORMALS: no rashes or lesions noted GENERAL SKIN EXAM: no rashes or lesions noted Course Vital Signs: Vital signs: Vital Signs Temperature 98.2 F 05/02/23 13:17 Pulse Rate 63 05/02/23 19:08 Respiratory Rate 18 05/02/23 19:08 Blood Pressure 137/63 05/02/23 19:08 Pulse Oximetry 3 L 05/02/23 19:08 Oxygen Delivery Me thod Nasal Cannula 05/02/23 19:08 Oxygen Flow Rate 2 05/02/23 13:17 MDM - General Adult Medical Decision Making Care signed out to Dr. Tamayo at change of shift. See final notes for diagnosis and disposition. 78-year-old female checked out to me at shift change by Dr. Vaughan. She complained of shortness of breath and right-sided chest pain. She has oxygen at home which she uses sometimes. Her CBC is normal. BMP is not remarkable. Nasal cannula at 2 L of oxygen is giving us 99% saturations. She is not tachycardic. Other vitals are stable. Chest x-ray is negative. Delta troponin is 1.6. On reentering the room to discuss results, patient has a listed complaints. The first is that his bilateral leg swelling, history of a fall with bruising and seroma to the right hip and concern over resulting clot as a cause of her chest discomfort and shortness of breath. She was informed that she has no signs of PE on exam, EKG, or her vitals. Despite this, bilateral lower extremity ultrasound was ordered, and is negative for DVT. She will check her blood pressure twice daily as there was concern over a relative increase in her blood pressure lately. She was counseled that she may follow-up with orthopedics or pain management regarding her hip seroma in case it needed to be drained. She will be treated for bronchitis as a cause of her right-sided chest discomfort, and shortness of breath. Close outpatient follow-up. Medical Records I reviewed the patient's medical records. Lab Data I reviewed the patient's lab results. 05/02/23 15:15 05/02/23 13:58 Radiology Impressions Chest X-Ray 05/02/23 14:03 IMPRESSION: No acute findings. Venous Duplex 05/02/23 19:18 IMPRESSION: No evidence of deep vein thrombosis. Laboratory Results WBC 9.76 10^3/uL (3.29-11.43) 05/02/23 15:15 Corrected WBC Cancelled 05/02/23 13:58 RBC 4.40 10^6/uL (3.85-5.65) 05/02/23 15:15 Hgb 12.60 g/dL (11.27-16.99) 05/02/23 15:15 Hct 40.9 % (36-47) 05/02/23 15:15 MCV 93.0 fl (85-98) 05/02/23 15:15 MCH 28.6 pg (27-33) 05/02/23 15:15 MCHC 30.8 g/dL (30-55) 05/02/23 15:15 RDW 13.3 % (12.1-15.1) 05/02/23 15:15 Plt Count 223 10^3/cmm (157-399) 05/02/23 15:15 MPV 11.1 fL (7.4-10.4) H 05/02/23 15:15 Gran % Cancelled 05/02/23 13:58 Neut % (Auto) 71.2 % 05/02/23 15:15 Lymph % (Auto) 17.8 % 05/02/23 15:15 Chester % (Auto) 6.5 % 05/02/23 15:15 Eos % (Auto) 3.5 % 05/02/23 15:15 Baso % (Auto) 0.6 % 05/02/23 15:15 Neut # (Auto) 6.95 10^3/uL (1.8-7.7) 05/02/23 15:15 Lymph # (Auto) 1.7 10^3/uL (0.8-4.8) 05/02/23 15:15 Chester # (Auto) 0.6 10^3/uL (0.2-0.9) 05/02/23 15:15 Eos # (Auto) 0.3 10^3/uL (0.0-0.8) 05/02/23 15:15 Baso # (Auto) 0.1 10^3/uL (0.0-0.1) 05/02/23 15:15 Absolute Gran (auto) Cancelled 05/02/23 13:58 Nucleated RBC % (auto) 0 % 05/02/23 15:15 Nucleated RBCs # 0.0 /100WBC 05/02/23 15:15 Sodium 137 mmol/L (136-145) 05/02/23 13:58 Potassium 4.2 mmol/L (3.5-5.1) 05/02/23 13:58 Chloride 99 mmol/L (98-107) 05/02/23 13:58 Carbon Dioxide 29 mmol/L (22-29) 05/02/23 13:58 Anion Gap 13.2 (5-19) 05/02/23 13:58 BUN 16 mg/dL (8-23) 05/02/23 13:58 Creatinine 1.0 mg/dL (0.5-0.9) H 05/02/23 13:58 GFR Calculation Not Reportable 05/02/23 13:58 Glucose 91 mg/dL (65-115) 05/02/23 13:58 Calculated Osmolality 285 mOsm/kg (285-295) 05/02/23 13:58 Calcium 9.2 mg/dL (8.5-10.5) 05/02/23 13:58 Total Bilirubin 0.3 mg/dL (0.15-1.2) 05/02/23 13:58 AST 19 U/L (0-32) 05/02/23 13:58 ALT 22 U/L (0-33) 05/02/23 13:58 Alkaline Phosphatase 105 U/L (35-105) 05/02/23 13:58 Troponin T Baseline 18 ng/L (0-10) H 05/02/23 15:15 Troponin T 120 Minute 19.58 ng/L (0-10) H 05/02/23 17:38 Delta Troponin T 1.58 ABS# (0-10) 05/02/23 17:38 Total Protein 6.2 g/dL (6.6-8.7) L 05/02/23 13:58 Albumin 3.9 g/dL (3.5-5.2) 05/02/23 13:58 Globulin 2.3 g/dL (1.3-4.6) 05/02/23 13:58 Discharge Plan Discharge Patient Disposition: Home Clinical Impression: Chest pain, Bronchitis Condition: Stable Prescriptions: New doxycycline hyclate 100 mg capsule 100 mg PO BID 7 Days Qty: 14 0RF Medrol (Esteban) 4 mg tablets,dose pack See Rx Instructions PO .COMPLEX Qty: 21 0RF Rx Instructions: orally per package directions albuterol sulfate 90 mcg/actuation HFA aerosol inhaler 2 inh inhalation Q4H PRN (Reason: shortness of breath or wheezing) Qty: 6.7 1RF No Action potassium chloride 20 mEq tablet extended release 20 meq PO DAILY Qty: 90 3RF bisacodyl 10 mg suppository 10 mg [place] DAILY PRN (Reason: Constipation) oxybutynin chloride 5 mg tablet 5 mg PO BID nystatin 100,000 unit/gram cream 1 applic topical BID 14 Days Qty: 60 1RF levofloxacin 500 mg tablet 500 mg PO DAILY 7 Days Qty: 7 0RF levothyroxine 88 mcg tablet 88 mcg PO DAILY 90 Days Qty: 90 1RF furosemide 40 mg tablet 40 mg PO DAILY 90 Days Qty: 90 1RF Hold Instructions: Dose Change metoprolol succinate 50 mg tablet extended release 24 hr 50 mg PO BID 90 Days Qty: 180 1RF atorvastatin 40 mg tablet 40 mg PO DAILY 90 Days Qty: 90 1RF lidocaine 5 % adhesive patch,medicated 1 patch topical DAILY 30 Days Qty: 30 1RF Rx Instructions: leave on most painful area for up to 12 hrs docusate sodium [Colace] 100 mg capsule 100 mg PO BID Qty: 60 4RF ondansetron HCl 4 mg tablet 4 mg PO Q8H PRN (Reason: nausea and vomiting) Qty: 30 0RF omeprazole 40 mg capsule,delayed release(DR/EC) 40 mg PO BID meclizine 25 mg tablet 25 mg PO TID PRN (Reason: Dizziness) ascorbic acid (vitamin C) [Vitamin C] 500 mg Tablet 500 mg PO DAILY vitamin B complex Tablet 1 tab PO DAILY calcium citrate-vitamin D3 315 mg-6.25 mcg (250 unit) tablet 1 tab PO DAILY Therems Multivitamin 400 mcg tablet 1 tab PO DAILY polyethylene glycol 3350 [Miralax] 17 gram powder in packet 17 g PO BID PRN (Reason: constipation) Qty: 30 0RF Discharge Orders: Discharge ED (Routine); Ordered 05/02/23 Ordered By: Edwin Tamayo Referrals: Bhargav De Leon DO [Primary Care Provider] - 1-3 days Patient Instructions: Chest Pain (ED), Acute Bronchitis (ED), Opioid Safety, Pain Management Activity Restrictions/Additional Instructions: Use the inhaler every 4 hours while awake for the next 48 hours scheduled, then as needed. Other medications as directed. Return for worsening pain despite treatment, worsening shortness of breath despite treatment, fever despite 2-3 doses of antibiotics, other concerning symptoms. Follow-up with your doctor the beginning of next week. Coding Level of Care Code ED Inspector Experimental Assembly for Chg Fwd Documented by User: Edwin Tamayo DO 05/02/23 21:05 HPI - General Adult General: Chief complaint: General Medical Stated complaint: CHEST PAIN Time Seen by Provider: 05/02/23 13:22 PFSH ED PFSH: Medical History Acquired hypothyroidism Brain TIA Chronic constipation Chronic venous insufficiency of lower extremity COPD (chronic obstructive pulmonary disease) COVID-19 GERD (gastroesophageal reflux disease) Improved following dilation of gastric outlet obstruction Glaucoma Hyperlipidemia Hypertension Stable Lung cancer Pyloric stenosis Vaginal prolapse Surgical History H/O esophagogastroduodenoscopy 07/29/2019: EGD with dilation for pyloric stenosis 09/13/2019: EGD with dilation to 15 mm for pyloric stenosis H/O hysterectomy for benign disease History of lobectomy of lung History of mandibular surgery S/P cholecystectomy Family History Mother Glaucoma Social History Smoking and tobacco status: former smoker Quit status (tobacco): has quit using tobacco Year quit tobacco: 1998 Former quit date comment: smoked PPD 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 Second hand smoke exposure: No Alcohol intake: never Substance/Drug Use: never Lives independently: Yes Household members: none Marital status: / Current occupational status: retired Current gender identity: Female Course Vital Signs: Vital signs: Vital Signs Temperature 98.2 F 05/02/23 13:17 Pulse Rate 63 05/02/23 19:08 Respiratory Rate 18 05/02/23 19:08 Blood Pressure 137/63 05/02/23 19:08 Pulse Oximetry 3 L 05/02/23 19:08 Oxygen Delivery Me thod Nasal Cannula 05/02/23 19:08 Oxygen Flow Rate 2 05/02/23 13:17 MDM - General Adult Medical Decision Making 78-year-old female checked out to me at shift change by Dr. Vaughan. She complained of shortness of breath and right-sided chest pain. She has oxygen at home which she uses sometimes. Her CBC is normal. BMP is not remarkable. Nasal cannula at 2 L of oxygen is giving us 99% saturations. She is not tachycardic. Other vitals are stable. Chest x-ray is negative. Delta troponin is 1.6. On reentering the room to discuss results, patient has a listed complaints. The first is that his bilateral leg swelling, history of a fall with bruising and seroma to the right hip and concern over resulting clot as a cause of her chest discomfort and shortness of breath. She was informed that she has no signs of PE on exam, EKG, or her vitals. Despite this, bilateral lower extremity ultrasound was ordered, and is negative for DVT. She will check her blood pressure twice daily as there was concern over a relative increase in her blood pressure lately. She was counseled that she may follow-up with orthopedics or pain management regarding her hip seroma in case it needed to be drained. She will be treated for bronchitis as a cause of her right-sided chest discomfort, and shortness of breath. Close outpatient follow-up. Lab Data 05/02/23 15:15 05/02/23 13:58 Radiology Impressions Chest X-Ray 05/02/23 14:03 IMPRESSION: No acute findings. Venous Duplex 05/02/23 19:18 IMPRESSION: No evidence of deep vein thrombosis. Laboratory Results WBC 9.76 10^3/uL (3.29-11.43) 05/02/23 15:15 Corrected WBC Cancelled 05/02/23 13:58 RBC 4.40 10^6/uL (3.85-5.65) 05/02/23 15:15 Hgb 12.60 g/dL (11.27-16.99) 05/02/23 15:15 Hct 40.9 % (36-47) 05/02/23 15:15 MCV 93.0 fl (85-98) 05/02/23 15:15 MCH 28.6 pg (27-33) 05/02/23 15:15 MCHC 30.8 g/dL (30-55) 05/02/23 15:15 RDW 13.3 % (12.1-15.1) 05/02/23 15:15 Plt Count 223 10^3/cmm (157-399) 05/02/23 15:15 MPV 11.1 fL (7.4-10.4) H 05/02/23 15:15 Gran % Cancelled 05/02/23 13:58 Neut % (Auto) 71.2 % 05/02/23 15:15 Lymph % (Auto) 17.8 % 05/02/23 15:15 Chester % (Auto) 6.5 % 05/02/23 15:15 Eos % (Auto) 3.5 % 05/02/23 15:15 Baso % (Auto) 0.6 % 05/02/23 15:15 Neut # (Auto) 6.95 10^3/uL (1.8-7.7) 05/02/23 15:15 Lymph # (Auto) 1.7 10^3/uL (0.8-4.8) 05/02/23 15:15 Chester # (Auto) 0.6 10^3/uL (0.2-0.9) 05/02/23 15:15 Eos # (Auto) 0.3 10^3/uL (0.0-0.8) 05/02/23 15:15 Baso # (Auto) 0.1 10^3/uL (0.0-0.1) 05/02/23 15:15 Absolute Gran (auto) Cancelled 05/02/23 13:58 Nucleated RBC % (auto) 0 % 05/02/23 15:15 Nucleated RBCs # 0.0 /100WBC 05/02/23 15:15 Sodium 137 mmol/L (136-145) 05/02/23 13:58 Potassium 4.2 mmol/L (3.5-5.1) 05/02/23 13:58 Chloride 99 mmol/L (98-107) 05/02/23 13:58 Carbon Dioxide 29 mmol/L (22-29) 05/02/23 13:58 Anion Gap 13.2 (5-19) 05/02/23 13:58 BUN 16 mg/dL (8-23) 05/02/23 13:58 Creatinine 1.0 mg/dL (0.5-0.9) H 05/02/23 13:58 GFR Calculation Not Reportable 05/02/23 13:58 Glucose 91 mg/dL (65-115) 05/02/23 13:58 Calculated Osmolality 285 mOsm/kg (285-295) 05/02/23 13:58 Calcium 9.2 mg/dL (8.5-10.5) 05/02/23 13:58 Total Bilirubin 0.3 mg/dL (0.15-1.2) 05/02/23 13:58 AST 19 U/L (0-32) 05/02/23 13:58 ALT 22 U/L (0-33) 05/02/23 13:58 Alkaline Phosphatase 105 U/L (35-105) 05/02/23 13:58 Troponin T Baseline 18 ng/L (0-10) H 05/02/23 15:15 Troponin T 120 Minute 19.58 ng/L (0-10) H 05/02/23 17:38 Delta Troponin T 1.58 ABS# (0-10) 05/02/23 17:38 Total Protein 6.2 g/dL (6.6-8.7) L 05/02/23 13:58 Albumin 3.9 g/dL (3.5-5.2) 05/02/23 13:58 Globulin 2.3 g/dL (1.3-4.6) 05/02/23 13:58 All radiology interpretation(s) finalized by discharge Discharge Plan Discharge Patient Disposition: Home Clinical Impression: Chest pain, Bronchitis Condition: Stable Prescriptions: New doxycycline hyclate 100 mg capsule 100 mg PO BID 7 Days Qty: 14 0RF Medrol (Esteban) 4 mg tablets,dose pack See Rx Instructions PO .COMPLEX Qty: 21 0RF Rx Instructions: orally per package directions albuterol sulfate 90 mcg/actuation HFA aerosol inhaler 2 inh inhalation Q4H PRN (Reason: shortness of breath or wheezing) Qty: 6.7 1RF No Action potassium chloride 20 mEq tablet extended release 20 meq PO DAILY Qty: 90 3RF bisacodyl 10 mg suppository 10 mg [place] DAILY PRN (Reason: Constipation) oxybutynin chloride 5 mg tablet 5 mg PO BID nystatin 100,000 unit/gram cream 1 applic topical BID 14 Days Qty: 60 1RF levofloxacin 500 mg tablet 500 mg PO DAILY 7 Days Qty: 7 0RF levothyroxine 88 mcg tablet 88 mcg PO DAILY 90 Days Qty: 90 1RF furosemide 40 mg tablet 40 mg PO DAILY 90 Days Qty: 90 1RF Hold Instructions: Dose Change metoprolol succinate 50 mg tablet extended release 24 hr 50 mg PO BID 90 Days Qty: 180 1RF atorvastatin 40 mg tablet 40 mg PO DAILY 90 Days Qty: 90 1RF lidocaine 5 % adhesive patch,medicated 1 patch topical DAILY 30 Days Qty: 30 1RF Rx Instructions: leave on most painful area for up to 12 hrs docusate sodium [Colace] 100 mg capsule 100 mg PO BID Qty: 60 4RF ondansetron HCl 4 mg tablet 4 mg PO Q8H PRN (Reason: nausea and vomiting) Qty: 30 0RF omeprazole 40 mg capsule,delayed release(DR/EC) 40 mg PO BID meclizine 25 mg tablet 25 mg PO TID PRN (Reason: Dizziness) ascorbic acid (vitamin C) [Vitamin C] 500 mg Tablet 500 mg PO DAILY vitamin B complex Tablet 1 tab PO DAILY calcium citrate-vitamin D3 315 mg-6.25 mcg (250 unit) tablet 1 tab PO DAILY Therems Multivitamin 400 mcg tablet 1 tab PO DAILY polyethylene glycol 3350 [Miralax] 17 gram powder in packet 17 g PO BID PRN (Reason: constipation) Qty: 30 0RF Discharge Orders: Discharge ED (Routine); Ordered 05/02/23 Ordered By: Edwin Tamayo Referrals: Bhargav De Leon DO [Primary Care Provider] - 1-3 days Patient Instructions: Chest Pain (ED), Acute Bronchitis (ED), Opioid Safety, Pain Management Activity Restrictions/Additional Instructions: Use the inhaler every 4 hours while awake for the next 48 hours scheduled, then as needed. Other medications as directed. Return for worsening pain despite treatment, worsening shortness of breath despite treatment, fever despite 2-3 doses of antibiotics, other concerning symptoms. Follow-up with your doctor the beginning of next week. Coding Level of Care Code ED Inspector Experimental Assembly for Abeba Vazquez
[2023-05-02] MEDS: aspirin 81 mg Chew Tablet 324 MG PO (14:16)
[2023-05-02 14:34] LABS: Alanine Aminotransferase 22 U/L (0-33); Albumin Level 3.9 g/dL (3.5-5.2); Alkaline Phosphatase 105 U/L (35-105); Anion Gap 13.2 (5-19); Aspartate Amino Transferase 19 U/L (0-32); Blood Urea Nitrogen 16 mg/dL (8-23); Calcium 9.2 mg/dL (8.5-10.5); Carbon Dioxide 29 mmol/L (22-29); Chloride 99 mmol/L (98-107); Globulin 2.3 g/dL (1.3-4.6); Glucose 91 mg/dL (65-115); Osmolality Calculated 285 mOsm/kg (285-295); Potassium 4.2 mmol/L (3.5-5.1); Sodium 137 mmol/L (136-145); Total Bilirubin 0.3 mg/dL (0.15-1.2); Total Protein 6.2 g/dL (6.6-8.7)
--- NOTE | 2023-05-02 15:23 | ECG_ITS ---
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 Measurements Intervals [place] Rate: 61 P: 72 MS: 202 QRS: 16 QRSD: 100 T: 42 QT: 403 QTc: 408 Interpretive Statements SINUS RHYTHM Compared to ECG 05/02/2023 13:35:47 No significant changes Electronically Signed On 05-02-2023 20:31:21 CDT by Martin Garcia M.D. [id number]
[2023-05-02 15:34] LABS: Basophils # 0.1 10^3/uL (0.0-0.1); Basophils % 0.6 %; Eosinophils # 0.3 10^3/uL (0.0-0.8); Eosinophils % 3.5 %; Hematocrit 40.9 % (36-47); Lymphocytes # 1.7 10^3/uL (0.8-4.8); Lymphocytes % 17.8 %; Mean Corpuscular HGB Conc 30.8 g/dL (30-55); Mean Corpuscular Hemoglobin 28.6 pg (27-33); Mean Platelet Volume 11.1 fL (7.4-10.4); Monocytes # 0.6 10^3/uL (0.2-0.9); Monocytes % 6.5 %; Neutrophils # 6.95 10^3/uL (1.8-7.7); Neutrophils % 71.2 %; Nucleated Red Blood Cells % 0 %; Platelet Count 223 10^3/cmm (157-399); Red Cell Distribution Width 13.3 % (12.1-15.1); White Blood Count 9.76 10^3/uL (3.29-11.43)
[2023-05-02 15:59] LABS: Troponin(5th) Baseline 18 ng/L (0-10)
[2023-05-02 18:03] LABS: Troponin 5 2HR 19.58 ng/L (0-10)
[2023-05-02 18:04] LABS: Troponin 5 2HR Delta 1.58 ABS# (0-10)
[2023-05-02 19:08] VITALS: BP 137/63; PULSE 63; RESP 18; O2SAT 3
--- NOTE | 2023-05-02 19:08 | PC.NURSE ---
took report from harvinder JOHNSON at 1900.
[2023-05-02] MEDS: ondansetron 2 mg/ML SDV 2 mL 4 MG IVP (19:17)
[2023-05-02] MEDS: ketorolac 30 mg/mL INJ 15 MG IVP (19:17)
[2023-05-02] MEDS: doxycycline 100 mg Tablet PO (19:17)
--- NOTE | 2023-05-02 19:18 | USR_ITS ---
PROCEDURE INFORMATION: Exam: US Duplex Lower Extremity Veins, Bilateral Exam date and time: 05/02/2023 8:03 PM Age: 78 years old Clinical indication: Pain; Leg, lower; Bilateral; Additional info: B le swelling, SOB TECHNIQUE: Imaging protocol: Real-time duplex ultrasound of the bilateral extremities with 2-D brush scale, color Doppler flow and spectral waveform analysis including responses to compression and other maneuvers (when performed) with image documentation. Complete exam focused on the lower extremity veins. COMPARISON: US soft tissue/extremity [id number] 03/21/2018 3:54 PM FINDINGS: Right deep veins: Unremarkable. The common femoral, femoral, proximal profunda femoral and popliteal veins are patent without thrombus. Normal Doppler waveforms. Normal compressibility and/or augmentation response. Left deep veins: Unremarkable. The common femoral, femoral, proximal profunda femoral and popliteal veins are patent without thrombus. Normal Doppler waveforms. Normal compressibility and/or augmentation response. Superficial veins: Bilateral saphenofemoral junctions are patent without thrombus. Soft tissues: Unremarkable. US/CV venous duplex [facility] [id number] IMPRESSION: No evidence of deep vein thrombosis.
== END 2023-05-02 20:41 | disposition home or self-care (01) ==
PROVIDERS: Family Medicine; Emergency Provider Emergency Medicine; PCP Internal Medicine
DX: R07.9 Chest pain, unspecified (principal); J40 Bronchitis, not specified as acute or chronic; Z87.891 Personal history of nicotine dependence; Z86.73 Personal history of transient ischemic attack (TIA), and cerebral infarction without residual deficits; J44.9 Chronic obstructive pulmonary disease, unspecified; E78.5 Hyperlipidemia, unspecified; I10 Essential (primary) hypertension; Z85.118 Personal history of other malignant neoplasm of bronchus and lung; Z90.2 Acquired absence of lung [part of]
CPT/HCPCS: 36415; 71045; 80053; 84484; 85025; 93005; 93970; 96374; 96375; 99285; J1885; J2405

== ENCOUNTER → 2023-05-12 11:21 | Outpatient (BNVA) | payer MEDICARE, MEDICAID, SELFPAY | PROVIDERS: PCP Internal Medicine; Visit Provider Physician Assistant | DX: S32.511A Fracture of superior rim of right pubis, initial encounter for closed fracture (principal); S32.591A Other specified fracture of right pubis, initial encounter for closed fracture; S52.131A Displaced fracture of neck of right radius, initial encounter for closed fracture; X58.XXXA Exposure to other specified factors, initial encounter | CPT/HCPCS: 73080; 73502; 99213 ==

== ENCOUNTER → 2023-05-25 14:06 | Outpatient (BNVA) | payer MEDICARE, MEDICAID, SELFPAY | PROVIDERS: PCP Internal Medicine; Visit Provider Podiatrist Foot & Ankle Surgery | DX: L60.3 Nail dystrophy (principal); I73.9 Peripheral vascular disease, unspecified | CPT/HCPCS: 11721; 99203 ==

== ENCOUNTER → 2023-05-27 12:58 | Outpatient (BNVA) | payer MEDICARE, MEDICAID, SELFPAY | PROVIDERS: PCP Internal Medicine; Referring Provider Nurse Practitioner Family; Visit Provider Surgery | DX: R13.10 Dysphagia, unspecified (principal); K21.9 Gastro-esophageal reflux disease without esophagitis | CPT/HCPCS: 99204; 99214 ==

== ENCOUNTER 2023-06-02 11:48 | Outpatient (CLI) | payer MEDICARE, MEDICAID, SELFPAY ==
--- NOTE | 2023-06-02 12:00 | US_ITS ---
WS: [id number] ULTRASOUND SOFT TISSUES lateral RIGHT thigh. HISTORY: right hip mass/lump/hematoma COMPARISON: None available. TECHNIQUE: 2-D and color Doppler imaging is submitted. Complex cystic, elliptical shaped mass in the lateral RIGHT thigh. There are some low-level echoes wi thin the mass but there is no increased vascularity. This mass extends over a length of at least 8.7 cm. Transverse diameter 4.9 cm in anterior posterior diameter 1.9 cm. Low-level echoes within the mas s do not contain increased vascularity. IMPRESSION: Complex cystic mass without increased vascularity in the lateral RIGHT thigh. This is most likely an involuting, resolving hematoma. Patient does have a history of prior trauma. Note: On a prior CT from 02/27/2023 only a small portion of the RIGHT thigh was included but there is a large soft tissue hematoma and significant soft tissue injury over the RIGHT upper thigh.
--- NOTE | 2023-06-02 13:00 | USCV_ITS ---
Vivian Hummel Age: 78 Gender: F : 1945 Exam Date: 06/02/2023 12:41 Ordering Phys: Shaila Quinones NP Technologist: HELLEN Exam Location: [facility] Indication: SYNCOPE, INCREASED SWELLING BP: 120 / 74 HR: 56 Rhythm: Sinus Technical Quality: Adequate MEASUREMENTS (Male / Female) Normal Values 2D ECHO LVOT Diameter 2.0 cm LV Ejection Fraction MOD 2C 74.8 % LV Ejection Fraction 2C AL 79.1 % LA Diameter 2.5 cm LA Width 3.1 cm LA Height 3.5 cm RA Width 2.5 cm RA Height 3.9 cm Aorta at Sinotubular Diameter 2.2 cm IVC Diameter 1.3 cm M-MODE Aortic Annulus Diameter 2.9 cm LA Ao Ratio MM 0.9 MV E Point Septal Separation 0.2 cm DOPPLER AV Peak Velocity 140.0 cm/s LVOT Peak Velocity 147.0 cm/s AV Area Cont Eq vti 3.2 cm squared AV Area Cont Eq pk 3.3 cm squared MV Peak Velocity 104.0 cm/s MV Area PHT 3.0 cm squared Mitral E to A Ratio 0.9 MV E' Velocity 41.0 cm/s Mitral E to MV E' Ratio 8.0 Mitral E to LV E' Lateral Ratio 7.5 Mitral E to LV E' Septal Ratio 8.7 TR Peak Velocity 248.8 cm/s TR Peak Gradient 24.8 mmHg TR Mean Velocity 211.0 cm/s TR Mean Gradient 18.2 mmHg TR Velocity Time Integral 93.2 cm TV Peak E Velocity 50.0 cm/s Right Atrial Pressure 3.0 mmHg Pulmonary Artery Systolic Pressu 27.8 mmHg PV Peak Velocity 113.0 cm/s RV Acceleration Time 0.1 s RV Ejection Time 0.4 s RV AcT/ET 0.2 FINDINGS Left Ventricle Left ventricle is normal in size. LV systolic function is normal with EF of 55-60%. No regional wall motion abnormalities are seen. Grade 1 diastolic dysfunction Right Ventricle Normal in size and function Right Atrium Normal in size Left Atrium Normal in size Mitral Valve Structurally normal mitral valve. Mild mitral regurgitation. Aortic Valve Structurally normal aortic valve. No significant stenosis or regurgitation. Tricuspid Valve Mild tricuspid regurgitation. Insufficient TR jet to calculate RVSP Pulmonic Valve Mild pulmonic regurgitation. Pericardium Normal Aorta Normal in size IVC Appears to be normal CONCLUSIONS LV systolic function is normal with EF of 55-60% Grade 1 diastolic dysfunction Mild mitral regurgitation. Mild tricuspid regurgitation Mild pulmonic regurgitation Compared to prior echocardiogram from 02/27/2023, no significant changes are seen Martin Garcia MD (Electronically Signed) Final Date: 05 June 2023 12:06 S
== END 2023-06-02 11:49 | disposition home or self-care (01) ==
LOC: RAD 11:48
PROVIDERS: PCP Internal Medicine; Visit Provider Nurse Practitioner Family
DX: R22.41 Localized swelling, mass and lump, right lower limb (principal); R55 Syncope and collapse; I08.8 Other rheumatic multiple valve diseases; S70.11XD Contusion of right thigh, subsequent encounter; X58.XXXD Exposure to other specified factors, subsequent encounter
CPT/HCPCS: 76882; 93306

== ENCOUNTER 2023-06-03 06:47 | Day surgery (SDC) | payer MEDICARE, MEDICAID, SELFPAY ==
[2023-06-03 07:10] VITALS: BP 180/92; PULSE 58; RESP 18; TEMP 36.3; O2SAT 97
[2023-06-03 07:21] VITALS: BMI 27.3
[2023-06-03] MEDS: sodium chloride 0.9% 1,000 ML 30 ML IV (07:31)
--- NOTE | 2023-06-03 07:36 | P.ANESASSM_ITS ---
Pre-Anesthetic Assessment Height/Weight: Height 1.52 m Weight 63.503 kg Temp Pulse Resp BP Pulse Ox O2 Del Method 97.4 F L 58 L 18 180/92 97 Room Air 06/03/23 07:10 06/03/23 07:10 06/03/23 07:10 06/03/23 07:10 06/03/23 07:10 06/03/23 07:10 Preop Diagnosis: dysphagia Operation Date: 06/03/23 08:00 Proposed Procedures p 34954 EGD w/balloon dialation R13.10,K21.9(Not Applicable) - Rodrigo Garvin, DO Was Beta Brett taken within 24 hours: Yes Was Clonidine taken within 24 hours: N/A Last intake: Intake Last Liquid Date 06/02/23 Last Liquid Time 22:30 Last Solid Date 06/02/23 Last Solid Time 18:00 Social No alcohol and No tobacco Exam alert, oriented x 3, clear to auscultation bilaterally and regular rate & rhythm Airway Submandibular: within normal limits Cervical ROM: within normal limits Mallampati: Class I History/ROS No significant history except as noted and No significant complaints Pulmonary Chronic Obstructive Pulmonary Disease 2 L NC continuous, 5 L with activity CV/HEM Congestive Heart Failure and Hypertension None reported Hepatic None reported GI Gastroesophageal Reflux Disease Metabolic Thyroid Disease [facility] None reported Neuropsych Cerebrovascular Accident and Transient Ischemic Attack Anesthetic Plan ASA status: 4 Anesthesia: MAC Risk of > 500 ml blood loss (7ml/kg in children): Yes, adequate IV access and fluids planned Medications/Allergies Home Medications Medication Instructions Recorded Confirmed Last Taken Type meclizine 25 mg tablet 25 mg PO TID PRN Dizziness 01/06/23 06/03/23 2 Weeks Ago History ~05/20/23 omeprazole 40 mg capsule,delayed 40 mg PO BID 01/06/23 06/03/23 06/02/23 History release ascorbic acid (vitamin C) 500 mg 500 mg PO DAILY 02/27/23 06/03/23 06/02/23 History tablet (Vitamin C) vitamin B complex 1 tab PO DAILY 02/27/23 06/03/23 06/02/23 History bisacodyl 10 mg rectal suppository 10 mg NC DAILY PRN Constipation 03/10/23 06/03/23 3 Months Ago History ~03/03/23 oxybutynin chloride 5 mg tablet 5 mg PO BID 03/10/23 06/03/23 06/02/23 History docusate sodium 100 mg capsule 100 mg PO BID #60 caps 04/02/23 06/03/23 06/02/23 Rx (Colace) ondansetron HCl 4 mg tablet 4 mg PO Q8H PRN nausea and 04/02/23 06/03/23 1 Month Ago Rx vomiting #30 tabs ~05/04/23 polyethylene glycol 3350 17 gram 17 g PO BID PRN constipation #30 ea 04/02/23 06/03/23 06/02/23 Rx oral powder packet (Miralax) nystatin 100,000 unit/gram topical 1 applic topical BID under breast 04/08/23 06/03/23 06/02/23 Rx cream 14 days #60 grams atorvastatin 40 mg tablet 40 mg PO DAILY 90 days #90 tabs 04/30/23 06/03/23 06/02/23 Rx lidocaine 5 % topical patch 1 patch topical DAILY 30 days #30 04/30/23 06/03/23 06/02/23 Rx ea metoprolol succinate 50 mg 50 mg PO BID 90 days #180 tabs 04/30/23 06/03/23 06/02/23 Rx tablet,extended release 24 hr albuterol sulfate 90 mcg/actuation 2 inh inhalation Q4H PRN shortness 05/02/23 06/03/23 06/02/23 Rx aerosol inhaler of breath or wheezing #6.7 grams multivitamin with folic acid 400 1 tab PO DAILY 05/02/23 06/03/23 06/02/23 History mcg tablet (Therems Multivitamin) levothyroxine 88 mcg tablet 88 mcg PO DAILY #7 tabs 05/13/23 06/03/23 06/03/23 04:30 Rx furosemide 80 mg tablet 80 mg PO DAILY #90 tabs 05/15/23 06/03/23 06/02/23 Rx potassium chloride 20 mEq 20 meq PO DAILY #90 tabs 05/15/23 06/03/23 06/02/23 Rx tablet,extended release pantoprazole 40 mg tablet,delayed 40 mg PO BID 6 weeks #84 tabs 05/27/23 06/03/23 06/03/23 04:30 Rx release (Protonix) calcium citrate 315 mg 1 tab PO DAILY #90 tabs 05/29/23 06/03/23 06/02/23 Rx calcium-vitamin D3 6.25 mcg (250 unit) tablet Allergies Allergy/AdvReac Type Severity Reaction Status Date / Time povidone-iodine Allergy Severe ALGY-Swell Verified 06/03/23 07:09 Lip/Tongue/Throat soap Allergy Severe ALGY-Swell Verified 06/03/23 07:09 Lip/Tongue/Throat Fish Containing Products Allergy Unknown ALGY-Swell Verified 06/03/23 07:09 Lip/Tongue/Throat iodine Allergy Unknown ALGY-Swell Verified 06/03/23 07:09 Lip/Tongue/Throat Opioids - Morphine Analogues Allergy ADR-Halluci Verified 06/03/23 07:09 nating Current Medications Generic Name Dose Route Start Last Admin Trade Name Freq PRN Reason Stop Dose Admin Sodium Chloride 1,000 mls @ 30 mls/hr 06/03/23 07:00 06/03/23 07:31 Sodium Chloride 0.9% IV 06/04/23 06:59 30 mls/hr .Q24H MARIALUISA Administration PFSH Anesthesia Medical History Acquired hypothyroidism Brain TIA Chronic constipation Chronic venous insufficiency of lower extremity COPD (chronic obstructive pulmonary disease) COVID-19 GERD (gastroesophageal reflux disease) Improved following dilation of gastric outlet obstruction Glaucoma Hyperlipidemia Hypertension Stable Lung cancer Pyloric stenosis Vaginal prolapse Surgical History H/O esophagogastroduodenoscopy 07/29/2019: EGD with dilation for pyloric stenosis 09/13/2019: EGD with dilation to 15 mm for pyloric stenosis H/O hysterectomy for benign disease History of lobectomy of lung History of mandibular surgery S/P cholecystectomy Family History Mother Glaucoma Social History Smoking and tobacco/nicotine status: former use of tobacco/nicotine Quit status (tobacco/nicotine): has quit using Year quit tobacco: 1998 Former quit date comment: smoked PPD 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 Second hand smoke exposure: No Alcohol intake: never Substance/Drug Use: never Lives independently: Yes Household members: none Marital status: / Current occupational status: retired Current gender identity: Female Data Anesthesia Cardiac Studies: Echocardiogram 02/27/23 Echocardiogram Ultrasound 11/30/20 Sestamibi Stress Test (Cardiology) 11/30 Cardiac Event Monitor 12/07/20
--- NOTE | 2023-06-03 07:53 | W.PM.OPSUD ---
Surgery/Procedure H&P Update DATE OF PROCEDURE: June 03, 2023 DATE H&P PERFORMED: 05/27/23 H&P UPDATE INFORMATION: I have reviewed H&P completed within last 30 days, I have examined patient prior to procedure and No changes to prior documentation PREOP DIAGNOSIS: dysphagia PLANNED PROCEDURE: Operation Date: 06/03/23 08:00 Proposed Procedures p 71228 EGD w/balloon dialation R13.10,K21.9(Not Applicable) - Rodrigo Garvin DO
[2023-06-03 08:20] VITALS: BP 147/66; PULSE 61; RESP 18; TEMP 36.1; O2SAT 97
[2023-06-03 08:35] VITALS: BP 148/67; PULSE 62; RESP 18; O2SAT 98
--- NOTE | 2023-06-03 13:29 | ANE.PACU2 ---
Inpatient post-anesthesia follow up: Airway intact: Yes Vital signs: Temperature 97 F Pulse Rate 62 Respiratory Rate 18 Blood Pressure 148/67 Pulse Oximetry 98 Oxygen Delivery Me thod Nasal Cannula Oxygen Flow Rate 2 Fraction of Inspir ed Oxygen Hydration adequate: Yes Nausea and vomiting: No Pain level: 2 Mental status: Baseline
== END 2023-06-03 09:05 | disposition home or self-care (01) ==
PROVIDERS: PCP Nurse Practitioner Family; Visit Provider Surgery
DX: R13.10 Dysphagia, unspecified (principal); K21.9 Gastro-esophageal reflux disease without esophagitis; K29.50 Unspecified chronic gastritis without bleeding; K22.2 Esophageal obstruction; K31.1 Adult hypertrophic pyloric stenosis; J44.9 Chronic obstructive pulmonary disease, unspecified; I10 Essential (primary) hypertension; Z86.73 Personal history of transient ischemic attack (TIA), and cerebral infarction without residual deficits; E03.9 Hypothyroidism, unspecified; Z86.16 Personal history of COVID-19; E78.5 Hyperlipidemia, unspecified; Z87.891 Personal history of nicotine dependence
CPT/HCPCS: 43239; 43249; 88305; 88342; J2704; J3010; J7030

== ENCOUNTER 2023-06-09 13:24 | Outpatient (CLI) | payer MEDICARE, MEDICAID, SELFPAY ==
--- NOTE | 2023-06-09 14:00 | XR_ITS ---
WS: [id number] SCREENING DEXA SCAN [employer] CLINICAL INFORMATION: screening COMPARISON: 2017 FINDINGS: The L1-L4 bone mineral density measures 0.869 g/cm2. This corresponds to a T score score of -2.6 and Z score of -0.7. Left femoral neck bone mineral density measures 0.513 g/cm2. This corresponds to a T score of -3.9 an d Z score of -1.9. Right femoral neck bone mineral density measures 0.493 g/cm2. This corresponds to a T score -4.1of an d Z score of -2.0. Mean femoral neck bone mineral density measures 0.503 g/cm2. This corresponds to a T score of -4.0 an d Z score of -2.0. IMPRESSION: Osteoporosis lumbar spine. Osteoporosis femoral necks. Patient's FRAX calculated 10 year probability for major osteoporotic fracture is 62.2% and osteoporot ic hip fracture is 39.1%. Bone mineral density lumbar spine decrease -1.1% Bone mineral density femoral necks decreased -24.4%
== END 2023-06-09 13:25 | disposition home or self-care (01) ==
LOC: RAD 13:24
PROVIDERS: PCP Nurse Practitioner Family; Visit Provider Nurse Practitioner Family
DX: Z13.820 Encounter for screening for osteoporosis (principal); M81.0 Age-related osteoporosis without current pathological fracture
CPT/HCPCS: 77080

== ENCOUNTER → 2023-06-10 13:23 | Outpatient (BNVA) | payer MEDICARE, MEDICAID, SELFPAY | PROVIDERS: PCP Nurse Practitioner Family; Visit Provider Nurse Practitioner Family | DX: E03.9 Hypothyroidism, unspecified (principal); E78.5 Hyperlipidemia, unspecified; I10 Essential (primary) hypertension | CPT/HCPCS: 80053; 80061; 84443 ==

== ENCOUNTER 2023-06-12 11:52 | Emergency (ER) | payer MEDICARE, MEDICAID, SELFPAY ==
[2023-06-12 12:08] VITALS: BP 129/60; PULSE 61; RESP 18; TEMP 36.6; O2SAT 98; BMI 27.3
[2023-06-12 13:46] LABS: Basophils # 0.1 10^3/uL (0.0-0.1); Basophils % 0.8 %; Eosinophils # 0.3 10^3/uL (0.0-0.8); Eosinophils % 2.4 %; Hematocrit 40.4 % (36-47); Lymphocytes # 1.7 10^3/uL (0.8-4.8); Lymphocytes % 15.3 %; Mean Corpuscular HGB Conc 29.7 g/dL (30-55); Mean Corpuscular Hemoglobin 29.1 pg (27-33); Mean Corpuscular Volume 98.1 fl (85-98); Mean Platelet Volume 10.9 fL (7.4-10.4); Monocytes # 0.6 10^3/uL (0.2-0.9); Monocytes % 5.1 %; Neutrophils # 8.21 10^3/uL (1.8-7.7); Nucleated Red Blood Cells % 0 %; Platelet Count 290 10^3/cmm (157-399); Red Blood Count 4.12 10^6/uL (3.85-5.65); Red Cell Distribution Width 13.6 % (12.1-15.1)
[2023-06-12 13:55] LABS: INR 0.89 (0.8-1.2); Partial Thromboplastin Time 23.5 SECONDS (23.9-36.7)
[2023-06-12 13:59] LABS: Alkaline Phosphatase 102 U/L (35-105); Blood Urea Nitrogen 19 mg/dL (8-23); Calcium 9.9 mg/dL (8.5-10.5); Carbon Dioxide 27 mmol/L (22-29); Chloride 101 mmol/L (98-107); Globulin 2.6 g/dL (1.3-4.6); Glucose 89 mg/dL (65-115); Osmolality Calculated 292 mOsm/kg (285-295); Sodium 140 mmol/L (136-145); Total Bilirubin 0.3 mg/dL (0.15-1.2); Total Protein 6.6 g/dL (6.6-8.7)
[2023-06-12 14:22] LABS: Alanine Aminotransferase 35 U/L (0-33); Anion Gap 16.2 (5-19); Aspartate Amino Transferase 34 U/L (0-32); Potassium 4.2 mmol/L (3.5-5.1)
--- NOTE | 2023-06-12 14:35 | ED_ITS ---
HPI - GI Bleed General: Chief complaint: GI Bleed Stated complaint: weakness, blood in stool, head pain Time Seen by Provider: 06/12/23 14:33 History of Present Illness: 78-year-old female presents to the emergency department with concerns that she had bright red blood in the commode this morning after going to the bathroom. She states that she had a esophageal dilation and a biopsy approximately 1 week ago and that she has been doing well since that time. She states that on Thursday or Thursday that her bleeding had stopped and this morning when she went to the bathroom after having a bowel movement she noticed there was blood in the stool and became concerned. She states that after having her bowel movement she attempted to stand up and felt dizzy and lightheaded at that time. It does appear that she has had a history of a CVA and atrial fibrillation and stopped her Plavix sometime ago. She was seen by her primary care provider on the first and discussed restarting her anticoagulation and on review of the primary care provider's note it does appear that she has advised the patient to not restart her Plavix. It also appears that she has requested the patient follow-up with a Dr. Nguyen cardiology to discuss further anticoagulation. Patient denies chest pain, dizziness or lightheaded feeling at present. Review of Systems General: Reports: 10 or more systems reviewed and unremarkable except in HPI and below Const: Reports: fatigue GI: Reports: hematochezia PFSH ED PFSH: Medical History Acquired hypothyroidism Brain TIA Chronic constipation Chronic venous insufficiency of lower extremity COPD (chronic obstructive pulmonary disease) COVID-19 GERD (gastroesophageal reflux disease) Improved following dilation of gastric outlet obstruction Glaucoma Hyperlipidemia Hypertension Stable Lung cancer Pyloric stenosis Vaginal prolapse Surgical History H/O esophagogastroduodenoscopy 07/29/2019: EGD with dilation for pyloric stenosis 09/13/2019: EGD with dilation to 15 mm for pyloric stenosis H/O hysterectomy for benign disease History of lobectomy of lung History of mandibular surgery S/P cholecystectomy Family History Mother Glaucoma Social History Smoking and tobacco/nicotine status: former use of tobacco/nicotine Quit status (tobacco/nicotine): has quit using Year quit tobacco: 1998 Former quit date comment: smoked PPD 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 Second hand smoke exposure: No Alcohol intake: never Substance/Drug Use: never Lives independently: Yes Household members: none Marital status: / Current occupational status: retired Current gender identity: Female Physical Exam Narrative: EXAM NARRATIVE: Constitutional: the patient appeared well nourished and normally developed. Vital signs as documented. HENMT: Head exam is unremarkable. Neck is without jugular venous distension, thyromegaly, or carotid bruits. Carotid upstrokes are brisk bilaterally. Eye: No scleral icterus or corneal arcus noted Resp: Lungs are clear to auscultation and percussion. Cardio: Cardiac exam reveals the PMI to be normally sized and situated. Rhythm is regular. First and second heart sounds normal. No murmurs, rubs or gallops. GI: Abdominal exam reveals normal bowel sounds, no masses, no organomegaly and no aortic enlargement. Soft, nontender to palpation. No obvious palpable masses noted. No hepatomegaly appreciated. Extremity: Extremities are non-edematous and both femoral and pedal pulses are normal. Moves all extremities well, she has sensation in all extremities. Neuro: Alert and oriented x4, person, place, time and situation. Cranial nerves II through XII are grossly intact, there is no focal neurological deficits that I can appreciate at present. Motor strength in the upper and lower extremities are equal and bilateral 5/5. Psych: Cooperative, calm, normal thought process, appropriate judgment. Skin: No lesions, rashes. Course Vital Signs: Vital signs: Vital Signs Temperature 97.9 F 06/12/23 12:08 Pulse Rate 63 06/12/23 15:14 Respiratory Rate 16 06/12/23 15:14 Blood Pressure 159/76 06/12/23 15:14 Pulse Oximetry 96 06/12/23 15:14 Oxygen Delivery Me thod Room Air 06/12/23 15:14 Oxygen Flow Rate 2 06/12/23 12:08 MDM - GI Bleed Medical Decision Making Physical exam completed and documented, I did obtain and review a CBC and CMP. The patient is remained stable while in the emergency department. I had an extensive discussion with the patient regarding her anticoagulation versus the risk and benefits and the importance of following her primary care provider's recommendation and also talking with her balance screwhead polisher regarding her anticoagulation. I had extensive discussion with the patient regarding her hemoglobin of 12 and hematocrit of 40.4. It does not appear that she is actively bleeding. Her vital signs have remained stable in the emergency department it does appear that she takes a [id number] and her heart rate has been ranging in the upper 50s to low 60s. Her blood pressure is stable at 127/72 and her oxygen saturation is 100% on her supplemental oxygen. I spent approximately 35 minutes with the patient and her family discussing the potential causes of the blood in the stool as well as the red flags and return precautions. I did review the patient's recent office visit from her primary care provider. Medical Records I reviewed the patient's medical records. Lab Data I reviewed the patient's lab results. 06/12/23 13:29 06/12/23 13:29 Laboratory Results WBC 10.80 10^3/uL (3.29-11.43) 06/12/23 13:29 RBC 4.12 10^6/uL (3.85-5.65) 06/12/23 13:29 Hgb 12.00 g/dL (11.27-16.99) 06/12/23 13:29 Hct 40.4 % (36-47) 06/12/23 13:29 MCV 98.1 fl (85-98) H 06/12/23 13:29 MCH 29.1 pg (27-33) 06/12/23 13:29 MCHC 29.7 g/dL (30-55) L 06/12/23 13:29 RDW 13.6 % (12.1-15.1) 06/12/23 13:29 Plt Count 290 10^3/cmm (157-399) 06/12/23 13:29 MPV 10.9 fL (7.4-10.4) H 06/12/23 13:29 Neut % (Auto) 76.0 % 06/12/23 13:29 Lymph % (Auto) 15.3 % 06/12/23 13:29 [place] % (Auto) 5.1 % 06/12/23 13:29 Eos % (Auto) 2.4 % 06/12/23 13:29 Baso % (Auto) 0.8 % 06/12/23 13:29 Neut # (Auto) 8.21 10^3/uL (1.8-7.7) H 06/12/23 13:29 Lymph # (Auto) 1.7 10^3/uL (0.8-4.8) 06/12/23 13:29 [place] # (Auto) 0.6 10^3/uL (0.2-0.9) 06/12/23 13:29 Eos # (Auto) 0.3 10^3/uL (0.0-0.8) 06/12/23 13:29 Baso # (Auto) 0.1 10^3/uL (0.0-0.1) 06/12/23 13:29 Nucleated RBC % (auto) 0 % 06/12/23 13:29 Nucleated RBCs # 0.0 /100WBC 06/12/23 13:29 PT 12.30 SECONDS (12.1-14.9) 06/12/23 13:29 INR 0.89 (0.8-1.2) 06/12/23 13:29 APTT 23.5 SECONDS (23.9-36.7) L 06/12/23 13:29 Sodium 140 mmol/L (136-145) 06/12/23 13:29 Potassium 4.2 mmol/L (3.5-5.1) 06/12/23 13:29 Chloride 101 mmol/L (98-107) 06/12/23 13:29 Carbon Dioxide 27 mmol/L (22-29) 06/12/23 13:29 Anion Gap 16.2 (5-19) 06/12/23 13:29 BUN 19 mg/dL (8-23) 06/12/23 13:29 Creatinine 0.9 mg/dL (0.5-0.9) 06/12/23 13:29 GFR Calculation Not Reportable 06/12/23 13:29 Glucose 89 mg/dL (65-115) 06/12/23 13:29 Calculated Osmolality 292 mOsm/kg (285-295) 06/12/23 13:29 Calcium 9.9 mg/dL (8.5-10.5) 06/12/23 13:29 Total Bilirubin 0.3 mg/dL (0.15-1.2) 06/12/23 13:29 AST 34 U/L (0-32) H 06/12/23 13:29 ALT 35 U/L (0-33) H 06/12/23 13:29 Alkaline Phosphatase 102 U/L (35-105) 06/12/23 13:29 Total Protein 6.6 g/dL (6.6-8.7) 06/12/23 13:29 Albumin 4.0 g/dL (3.5-5.2) 06/12/23 13:29 Globulin 2.6 g/dL (1.3-4.6) 06/12/23 13:29 No radiology studies performed this visit Discharge Plan Discharge Patient Disposition: Home Clinical Impression: Painless rectal bleeding Condition: Stable Prescriptions: No Action potassium chloride 20 mEq tablet extended release 20 meq PO DAILY Qty: 90 3RF furosemide 80 mg tablet 80 mg PO DAILY Qty: 90 1RF Hold Instructions: Dose Change calcium citrate-vitamin D3 315 mg-6.25 mcg (250 unit) tablet 1 tab PO DAILY Qty: 90 1RF metoprolol succinate 50 mg tablet extended release 24 hr 50 mg PO BID 90 Days Qty: 180 1RF ondansetron HCl 4 mg tablet 4 mg PO Q8H PRN (Reason: nausea and vomiting) Qty: 30 0RF raloxifene [Evista] 60 mg tablet 60 mg PO DAILY 90 Days Qty: 90 1RF ascorbic acid (vitamin C) [Vitamin C] 500 mg Tablet 500 mg PO DAILY multivitamin with folic acid [Therems Multivitamin] 400 mcg tablet 1 tab PO DAILY albuterol sulfate 90 mcg/actuation HFA aerosol inhaler 2 inh inhalation Q4H PRN (Reason: shortness of breath or wheezing) Qty: 6.7 1RF polyethylene glycol 3350 [Miralax] 17 gram powder in packet 17 g PO BID PRN (Reason: constipation) Qty: 30 0RF Tylenol Extra Strength 500 mg Capsule 1,000 mg PO BEDTIME Discharge Orders: Discharge ED (Routine); Ordered 06/12/23 Ordered By: Caio Zepeda Referrals: Shaila Quinones NP [Primary Care Provider] - Discharge Diet: Advance as tolerated Discharge Activity: Resume usual activity Activity Restrictions/Additional Instructions: Activity Restrictions/Additional Instructions: Thank you for choosing [facility] for your healthcare needs today. Please realize that you were seen in the Emergency Department and that we are providing you with an emergency medical screening exam and this may not be complete and all inclusive of all the testing and or medical work-up that you may need to determine your ailment or severity of your illness. It is very im portant that you follow-up as instructed with your Primary care provider or Specialist for additional evaluation and to discuss your medical treatment plan. You may return to the Emergency Department should you have concerns or if your condition changes or worsens in any way. Coding Level of Care Code ED Chain Person for Abeba Vazquez
[2023-06-12 14:58] VITALS: BP 145/83; PULSE 63; RESP 18; O2SAT 100
[2023-06-12 15:14] VITALS: BP 159/76; PULSE 63; RESP 16; O2SAT 96
[2023-06-12 15:46] VITALS: BP 127/72; PULSE 62; RESP 18; O2SAT 100
[2023-06-12 16:16] VITALS: BP 149/62; PULSE 62; RESP 16; O2SAT 100
== END 2023-06-12 16:17 | disposition home or self-care (01) ==
PROVIDERS: Physician Assistant; Emergency Provider Internal Medicine; PCP Nurse Practitioner Family
DX: K62.5 Hemorrhage of anus and rectum (principal); Z87.891 Personal history of nicotine dependence; Z86.73 Personal history of transient ischemic attack (TIA), and cerebral infarction without residual deficits; J44.9 Chronic obstructive pulmonary disease, unspecified; E78.5 Hyperlipidemia, unspecified; I10 Essential (primary) hypertension; Z85.118 Personal history of other malignant neoplasm of bronchus and lung
CPT/HCPCS: 36415; 80053; 85025; 85610; 85730; 99283

== ENCOUNTER → 2023-06-16 10:31 | Outpatient (BNVA) | payer MEDICARE, MEDICAID, SELFPAY | PROVIDERS: PCP Nurse Practitioner Family; Visit Provider Surgery | DX: Z09 Encounter for follow-up examination after completed treatment for conditions other than malignant neoplasm (principal); R49.0 Dysphonia | CPT/HCPCS: 99213 ==

== ENCOUNTER → 2023-07-01 13:45 | Outpatient (BNVA) | payer MEDICARE, MEDICAID, SELFPAY | PROVIDERS: PCP Nurse Practitioner Family; Visit Provider Internal Medicine Cardiovascular Disease | DX: Q28.2 Arteriovenous malformation of cerebral vessels (principal); I10 Essential (primary) hypertension; E78.5 Hyperlipidemia, unspecified; R29.6 Repeated falls; Z87.891 Personal history of nicotine dependence | CPT/HCPCS: 99214 ==

== ENCOUNTER 2023-07-21 06:00 | Outpatient (RCR) | payer MEDICARE, MEDICAID, SELFPAY | END 2023-07-27 23:59 | disposition home or self-care (01) | LOC: TPT 06:00 | PROVIDERS: PCP Nurse Practitioner Family; Visit Provider Student in an Organized Health Care Education/Training Program | DX: S42.401D Unspecified fracture of lower end of right humerus, subsequent encounter for fracture with routine healing (principal); X58.XXXD Exposure to other specified factors, subsequent encounter | CPT/HCPCS: 97162 ==

== ENCOUNTER → 2023-08-13 10:21 | Outpatient (BNVA) | payer MEDICARE, MEDICAID, SELFPAY | PROVIDERS: PCP Nurse Practitioner Family; Visit Provider Surgery | DX: K21.9 Gastro-esophageal reflux disease without esophagitis (principal); K31.1 Adult hypertrophic pyloric stenosis; K40.90 Unilateral inguinal hernia, without obstruction or gangrene, not specified as recurrent | CPT/HCPCS: 99214 ==

== ENCOUNTER 2023-08-19 09:08 | Day surgery (SDC) | payer MEDICARE, MEDICAID, SELFPAY ==
[2023-08-19 09:36] VITALS: BP 202/86; PULSE 59; RESP 18; TEMP 36.6; O2SAT 98
[2023-08-19] MEDS: sodium chloride 0.9% 1,000 ML 30 ML IV (09:44)
--- NOTE | 2023-08-19 10:00 | P.ANESASSM_ITS ---
Pre-Anesthetic Assessment Height/Weight: Height 1.52 m Weight 62.596 kg Temp Pulse Resp BP Pulse Ox O2 Del Method 97.9 F 59 L 18 202/86 98 Room Air 08/19/23 09:36 08/19/23 09:36 08/19/23 09:36 08/19/23 09:36 08/19/23 09:36 08/19/23 09:36 Preop Diagnosis: Dysphagia Operation Date: 08/19/23 10:15 Proposed Procedures p 11781 EGD w/ Ball Dial K21.9(Not Applicable) - Rodrigo Garvin DO Familial anesthetic complications: None Was Beta Brett taken within 24 hours: Yes Was Clonidine taken within 24 hours: N/A Last intake: Intake Last Liquid Date 08/18/23 Last Liquid Time 20:00 Last Solid Date 08/18/23 Last Solid Time 20:00 Social No alcohol and No tobacco (Quit 1998) Exam alert, oriented x 3 and clear to auscultation bilaterally Airway Submandibular: within normal limits Cervical ROM: Other (Decreased ROM) Mallampati: Class III Dentition: full History/ROS No significant history except as noted and No significant complaints Pulmonary Chronic Obstructive Pulmonary Disease and Exertional Dyspnea Weaned self off of O2 during the day, wear 2L at night. CV/HEM Atrial Fibrillation, Coronary Artery Disease, Congestive Heart Failure, Hy pertension and Palpitations CONCLUSIONS LV systolic function is normal with EF of 55-60% Grade 1 diastolic dysfunction Mild mitral regurgitation. Mild tricuspid regurgitation Mild pulmonic regurgitation Compared to prior echocardiogram from 02/27/2023, no significant changes are seen Bladder prolapse Hepatic None reported GI Gastroesophageal Reflux Disease Metabolic Hyperlipidemia and Thyroid Disease [facility] [place] Lower Back Pain and Osteoarthritis/DJD Neuropsych Cerebrovascular Accident, Neuropathy and Transient Ischemic Attack Brain aneurysm had surgery 2000 in [place] Anesthetic Plan ASA status: 4 Anesthesia: Anesthesia Evaluation, General and MAC Risk of > 500 ml blood loss (7ml/kg in children): No Medications/Allergies Home Medications Medication Instructions Recorded Confirmed Last Taken Type ascorbic acid (vitamin C) 500 mg 500 mg PO DAILY 02/27/23 08/17/23 08/18/23 History tablet (Vitamin C) ondansetron HCl 4 mg tablet 4 mg PO Q8H PRN nausea and 04/02/23 08/17/23 08/18/23 Rx vomiting #30 tabs polyethylene glycol 3350 17 gram 17 g PO BID PRN constipation #30 ea 04/02/23 08/17/23 08/18/23 Rx oral powder packet (Miralax) albuterol sulfate 90 mcg/actuation 2 inh inhalation Q4H PRN shortness 05/02/23 08/17/23 08/18/23 Rx aerosol inhaler of breath or wheezing #6.7 grams multivitamin with folic acid 400 1 tab PO DAILY 05/02/23 08/17/23 08/18/23 History mcg tablet (Therems Multivitamin) furosemide 80 mg tablet 80 mg PO DAILY #90 tabs 05/15/23 08/17/23 08/18/23 Rx potassium chloride 20 mEq 20 meq PO DAILY #90 tabs 05/15/23 08/17/23 08/18/23 Rx tablet,extended release calcium citrate 315 mg 1 tab PO DAILY #90 tabs 05/29/23 08/17/23 08/18/23 Rx calcium-vitamin D3 6.25 mcg (250 unit) tablet raloxifene 60 mg tablet (Evista) 60 mg PO DAILY 90 days #90 tabs 06/09/23 08/17/23 08/18/23 Rx acetaminophen 500 mg capsule 1,000 mg PO BEDTIME 06/12/23 08/17/23 08/18/23 History meloxicam 7.5 mg tablet 7.5 mg PO DAILY 90 days #90 tabs 06/24/23 08/17/23 08/18/23 Rx metoprolol succinate 50 mg 50 mg PO BID 08/17/23 08/17/23 08/19/23 History tablet,extended release 24 hr pantoprazole 40 mg tablet,delayed 40 mg PO DAILY 08/17/23 08/17/23 08/18/23 History release (Protonix) clotrimazole 1 % topical cream 1 applic topical BID 4 weeks #45 08/18/23 08/19/23 08/18/23 Rx grams oxybutynin chloride 5 mg tablet 5 mg PO DAILY #90 tabs 08/18/23 08/19/23 08/18/23 Rx Allergies Allergy/AdvReac Type Severity Reaction Status Date / Time povidone-iodine Allergy Severe ALGY-Swell Verified 08/13/23 10:57 Lip/Tongue/Throat soap Allergy Severe ALGY-Swell Verified 08/13/23 10:57 Lip/Tongue/Throat Fish Containing Products Allergy Unknown ALGY-Swell Verified 08/13/23 10:57 Lip/Tongue/Throat iodine Allergy Unknown ALGY-Swell Verified 08/13/23 10:57 Lip/Tongue/Throat Opioids - Morphine Analogues Allergy ADR-Halluci Verified 08/13/23 10:57 nating Current Medications Generic Name Dose Route Start Last Admin Trade Name Freq PRN Reason Stop Dose Admin Sodium Chloride 1,000 mls @ 30 mls/hr 08/19/23 09:00 08/19/23 09:44 Sodium Chloride 0.9% IV 08/20/23 08:59 30 mls/hr .Q24H MARIALUISA Administration PFSH Anesthesia Medical History Vaginal prolapse Chronic venous insufficiency of lower extremity COVID-19 Brain TIA COPD (chronic obstructive pulmonary disease) Chronic constipation Acquired hypothyroidism Hyperlipidemia Glaucoma Pyloric stenosis GERD (gastroesophageal reflux disease) Improved following dilation of gastric outlet obstruction Hypertension Stable Lung cancer Surgical History H/O esophagogastroduodenoscopy 07/29/2019: EGD with dilation for pyloric stenosis 09/13/2019: EGD with dilation to 15 mm for pyloric stenosis H/O hysterectomy for benign disease History of lobectomy of lung History of mandibular surgery S/P cholecystectomy Family History Mother Glaucoma Social History Smoking and tobacco/nicotine status: former use of tobacco/nicotine Quit status (tobacco/nicotine): has quit using Year quit tobacco: 1998 Former quit date comment: smoked PPD 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 Second hand smoke exposure: No Alcohol intake: never Substance/Drug Use: never Lives independently: Yes Household members: none Marital status: / Current occupational status: retired Current gender identity: Female Data Anesthesia Cardiac Studies: Echocardiogram 06/02/23 Echocardiogram Ultrasound 11/30/20 Sestamibi Stress Test (Cardiology) 11/30 Cardiac Event Monitor 12/07/20
--- NOTE | 2023-08-19 10:57 | W.PM.OPSUD ---
Surgery/Procedure H&P Update DATE OF PROCEDURE: August 19, 2023 DATE H&P PERFORMED: 08/13/22 H&P UPDATE INFORMATION: I have reviewed H&P completed within last 30 days, I have examined patient prior to procedure and No changes to prior documentation PREOP DIAGNOSIS: Dysphagia PLANNED PROCEDURE: Operation Date: 08/19/23 10:15 Proposed Procedures p 20484 EGD w/ Navarro Orozco K21.9(Not Applicable) - Rodrigo Garvin DO
[2023-08-19 11:24] VITALS: BP 137/70; PULSE 62; RESP 20; TEMP 36.1; O2SAT 95
[2023-08-19 11:43] VITALS: BP 156/63; PULSE 63; RESP 18; O2SAT 98
== END 2023-08-19 12:08 | disposition home or self-care (01) ==
PROVIDERS: PCP Nurse Practitioner Family; Visit Provider Surgery
DX: R13.10 Dysphagia, unspecified (principal); K22.2 Esophageal obstruction; K31.1 Adult hypertrophic pyloric stenosis; Z87.891 Personal history of nicotine dependence; J44.9 Chronic obstructive pulmonary disease, unspecified; Z99.81 Dependence on supplemental oxygen; I48.91 Unspecified atrial fibrillation; I25.10 Atherosclerotic heart disease of native coronary artery without angina pectoris; I11.0 Hypertensive heart disease with heart failure; I50.9 Heart failure, unspecified; Z86.73 Personal history of transient ischemic attack (TIA), and cerebral infarction without residual deficits; Z86.16 Personal history of COVID-19; E78.5 Hyperlipidemia, unspecified
CPT/HCPCS: 43249; J2704; J7030

== ENCOUNTER → 2023-08-26 10:40 | Outpatient (BNVA) | payer MEDICARE, MEDICAID, SELFPAY | PROVIDERS: PCP Nurse Practitioner Family; Visit Provider Nurse Practitioner Family | DX: N39.0 Urinary tract infection, site not specified (principal) | CPT/HCPCS: 81003; 87086 ==

== ENCOUNTER 2023-09-04 06:38 | Day surgery (SDC) | payer MEDICARE, MEDICAID, SELFPAY ==
[2023-09-04 07:03] VITALS: BP 171/62; PULSE 62; RESP 18; TEMP 36.4; O2SAT 97; BMI 26.9
[2023-09-04] MEDS: sodium chloride 0.9% 1,000 ML 30 ML IV (07:10)
--- NOTE | 2023-09-04 07:45 | ANES.PREANE2 ---
Pre-Anesthetic Assessment Height/Weight: Height 1.52 m Weight 62.596 kg Temp Pulse Resp BP Pulse Ox O2 Del Method 97.5 F L 62 18 171/62 97 Room Air 09/04/23 07:03 09/04/23 07:03 09/04/23 07:03 09/04/23 07:03 09/04/23 07:03 09/04/23 07:03 Preop Diagnosis: Dysphagia Operation Date: 09/04/23 08:00 Proposed Procedures p 32534 EGd with Ball Dial K21.9(Not Applicable) - Rodrigo Garvin DO Familial anesthetic complications: None Was Beta Brett taken within 24 hours: N/A Was Clonidine taken within 24 hours: N/A Last intake: Intake Last Liquid Date 09/03/23 Last Liquid Time 18:00 Last Solid Date 09/03/23 Last Solid Time 18:00 Social No alcohol and No tobacco (Quit 1998) Exam alert, oriented x 3, clear to auscultation bilaterally and regular rate & rhythm Airway Submandibular: within normal limits Cervical ROM: within normal limits Mallampati: Class III Dentition: false History/ROS No significant history except as noted and No significant complaints Pulmonary Chronic Obstructive Pulmonary Disease, Cough and Exertional Dyspnea O2 L at night. No longer wears O2 during daytime CV/HEM Atrial Fibrillation, Arrythmia, Coronary Artery Disease and Hypertension CONCLUSIONS LV systolic function is normal with EF of 55-60% Grade 1 diastolic dysfunction Mild mitral regurgitation. Mild tricuspid regurgitation Mild pulmonic regurgitation Compared to prior echocardiogram from 02/27/2023, no significant changes are seen Bladder prolapse Hepatic None reported GI Gastroesophageal Reflux Disease Dysphagia Metabolic Hyperlipidemia Musc/skel Lower Back Pain and Osteoarthritis/DJD Neuropsych Neuropathy and Transient Ischemic Attack (No deficits) Anesthetic Plan ASA status: 4 Anesthesia: Anesthesia Evaluation, General and MAC Risk of > 500 ml blood loss (7ml/kg in children): No Medications/Allergies Home Medications Medication Instructions Recorded Confirmed Last Taken Type ascorbic acid (vitamin C) 500 mg 500 mg PO DAILY 02/27/23 09/04/23 09/03/23 History tablet (Vitamin C) ondansetron HCl 4 mg tablet 4 mg PO Q8H PRN nausea and 04/02/23 09/02/23 09/02/23 Rx vomiting #30 tabs polyethylene glycol 3350 17 gram 17 g PO BID PRN constipation #30 ea 04/02/23 09/04/23 09/03/23 Rx oral powder packet (Miralax) albuterol sulfate 90 mcg/actuation 2 inh inhalation Q4H PRN shortness 05/02/23 09/04/23 08/18/23 Rx aerosol inhaler of breath or wheezing #6.7 grams multivitamin with folic acid 400 1 tab PO DAILY 05/02/23 09/04/23 09/03/23 History mcg tablet (Therems Multivitamin) furosemide 80 mg tablet 80 mg PO DAILY #90 tabs 05/15/23 09/04/23 09/03/23 Rx calcium citrate 315 mg 1 tab PO DAILY #90 tabs 05/29/23 09/04/23 09/03/23 Rx calcium-vitamin D3 6.25 mcg (250 unit) tablet raloxifene 60 mg tablet (Evista) 60 mg PO DAILY 90 days #90 tabs 06/09/23 09/04/23 08/18/23 Rx acetaminophen 500 mg capsule 1,000 mg PO BEDTIME 06/12/23 09/02/23 08/28/23 History meloxicam 7.5 mg tablet 7.5 mg PO DAILY 90 days #90 tabs 06/24/23 09/02/23 09/02/23 Rx pantoprazole 40 mg tablet,delayed 40 mg PO DAILY 08/17/23 09/04/23 09/03/23 History release (Protonix) potassium chloride 20 mEq 20 meq PO DAILY #10 tabs 08/21/23 09/04/23 09/03/23 Rx tablet,extended release clotrimazole 1 % topical cream 1 applic topical BID 4 weeks #45 08/26/23 09/02/23 08/26/23 Rx grams metoprolol succinate 50 mg 50 mg PO BID #180 tabs 08/26/23 09/04/23 09/04/23 Rx tablet,extended release 24 hr sulfamethoxazole 800 1 tab PO BID 7 days #14 tabs 08/26/23 09/02/23 09/02/23 Rx mg-trimethoprim 160 mg tablet (Bactrim DS) oxybutynin chloride 5 mg tablet 5 mg PO BID #180 tabs 09/01/23 09/04/23 09/03/23 Rx Allergies Allergy/AdvReac Type Severity Reaction Status Date / Time povidone-iodine Allergy Severe ALGY-Swell Verified 09/02/23 12:59 Lip/Tongue/Throat soap Allergy Severe ALGY-Swell Verified 09/02/23 12:59 Lip/Tongue/Throat Fish Containing Products Allergy Unknown ALGY-Swell Verified 09/02/23 12:59 Lip/Tongue/Throat iodine Allergy Unknown ALGY-Swell Verified 09/02/23 12:59 Lip/Tongue/Throat Opioids - Morphine Analogues Allergy ADR-Halluci Verified 09/02/23 12:59 nating Current Medications Generic Name Dose Route Start Last Admin Trade Name Freq PRN Reason Stop Dose Admin Sodium Chloride 1,000 mls @ 30 mls/hr 09/04/23 07:00 09/04/23 07:10 Sodium Chloride 0.9% IV 09/05/23 06:59 30 mls/hr .Q24H MARIALUISA Administration PFSH Anesthesia Medical History Vaginal prolapse Chronic venous insufficiency of lower extremity COVID-19 Brain TIA COPD (chronic obstructive pulmonary disease) Chronic constipation Acquired hypothyroidism Hyperlipidemia Glaucoma Pyloric stenosis GERD (gastroesophageal reflux disease) Improved following dilation of gastric outlet obstruction Hypertension Stable Lung cancer Surgical History H/O esophagogastroduodenoscopy 07/29/2019: EGD with dilation for pyloric stenosis 09/13/2019: EGD with dilation to 15 mm for pyloric stenosis H/O hysterectomy for benign disease History of lobectomy of lung History of mandibular surgery S/P cholecystectomy Family History Mother Glaucoma Social History Smoking and tobacco/nicotine status: former use of tobacco/nicotine Quit status (tobacco/nicotine): has quit using Year quit tobacco: 1998 Former quit date comment: smoked PPD 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 Second hand smoke exposure: No Alcohol intake: never Substance/Drug Use: never Lives independently: Yes Household members: none Marital status: / Current occupational status: retired Current gender identity: Female Data Anesthesia Cardiac Studies: Echocardiogram 06/02/23 Echocardiogram Ultrasound 11/30/20 Sestamibi Stress Test (Cardiology) 11/30/20 Cardiac Event Monitor 12/07/20
--- NOTE | 2023-09-04 08:21 | W.PM.OPSUD ---
Surgery/Procedure H&P Update DATE OF PROCEDURE: September 04, 2023 DATE H&P PERFORMED: 08/13/22 H&P UPDATE INFORMATION: I have reviewed H&P completed within last 30 days, I have examined patient prior to procedure and No changes to prior documentation PREOP DIAGNOSIS: Dysphagia PLANNED PROCEDURE: Operation Date: 09/04/23 08:00 Proposed Procedures p 07573 EGd with Navarro Orozco K21.9(Not Applicable) - Rodrigo Garvin DO
[2023-09-04 09:00] VITALS: BP 117/48; PULSE 60; RESP 14; TEMP 36.4; O2SAT 93
[2023-09-04 09:15] VITALS: BP 121/60; PULSE 63; RESP 16; O2SAT 100
--- NOTE | 2023-09-04 13:06 | ANE.PACU2 ---
Inpatient post-anesthesia follow up: Airway intact: Yes Vital signs: Temperature 97.6 F Pulse Rate 63 Respiratory Rate 16 Blood Pressure 121/60 Pulse Oximetry 100 Oxygen Delivery Me thod Room Air Oxygen Flow Rate 4 Fraction of Inspir ed Oxygen Hydration adequate: Yes Nausea and vomiting: No Pain level: 2 Mental status: Baseline
== END 2023-09-04 10:05 | disposition home or self-care (01) ==
PROVIDERS: PCP Nurse Practitioner Family; Visit Provider Surgery
DX: R13.10 Dysphagia, unspecified (principal); K21.9 Gastro-esophageal reflux disease without esophagitis; K22.2 Esophageal obstruction; K31.89 Other diseases of stomach and duodenum; K31.1 Adult hypertrophic pyloric stenosis; K29.50 Unspecified chronic gastritis without bleeding; Z87.891 Personal history of nicotine dependence; J44.9 Chronic obstructive pulmonary disease, unspecified; Z99.81 Dependence on supplemental oxygen; I48.91 Unspecified atrial fibrillation; I25.10 Atherosclerotic heart disease of native coronary artery without angina pectoris; I10 Essential (primary) hypertension; E78.5 Hyperlipidemia, unspecified; Z86.73 Personal history of transient ischemic attack (TIA), and cerebral infarction without residual deficits; Z86.16 Personal history of COVID-19; E03.9 Hypothyroidism, unspecified; Z85.118 Personal history of other malignant neoplasm of bronchus and lung
CPT/HCPCS: 43239; 43249; 88305; J2704; J7030

== ENCOUNTER 2023-09-07 05:57 | Day surgery (SDC) | payer MEDICARE, MEDICAID, SELFPAY ==
[2023-09-07] VITALS (12 sets, daily range): BP systolic 108–133; BP diastolic 54–79; PULSE 80–89; RESP 14–18; TEMP 36.1–36.7; O2SAT 96–98; BMI 25.5
[2023-09-07 06:39] LABS: Basophils # 0.1 10^3/uL (0.0-0.1); Basophils % 2.2 %; Eosinophils # 0.2 10^3/uL (0.0-0.8); Eosinophils % 2.7 %; Hematocrit 39.8 % (36-47); Lymphocytes % 31.6 %; Mean Corpuscular HGB Conc 31.2 g/dL (30-55); Mean Corpuscular Hemoglobin 28.7 pg (27-33); Mean Corpuscular Volume 92.1 fl (85-98); Mean Platelet Volume 10.5 fL (7.4-10.4); Monocytes # 0.6 10^3/uL (0.2-0.9); Monocytes % 8.6 %; Neutrophils # 3.51 10^3/uL (1.8-7.7); Neutrophils % 54.7 %; Nucleated Red Blood Cells % 0 %; Platelet Count 233 10^3/cmm (157-399); Red Blood Count 4.32 10^6/uL (3.85-5.65); Red Cell Distribution Width 12.9 % (12.1-15.1)
[2023-09-07] MEDS: sodium chloride 0.9% 1,000 ML 30 ML IV (06:45)
--- NOTE | 2023-09-07 06:45 | ECG_ITS ---
[facility] Test Date: 2023-09-07 Pat Name: Vivian Hummel Department: Room: Gender: Female [employer] Detail: : 1945 Requested By: Nadine Alves Order Number: [id number] Tommy MD: Stuart Nguyen M.D. Measurements Intervals [place] Rate: 56 P: 83 MN: 233 QRS: 11 QRSD: 84 T: 47 QT: 424 QTc: 410 Interpretive Statements SINUS BRADYCARDIA WITH MARKED SINUS ARRHYTHMIA WITH FIRST DEGREE AV BLOCK Compared to ECG 05/02/2023 15:23:11 First degree AV block now present Sinus rhythm no longer present Electronically Signed On 09-07-2023 19:34:17 [place] KNITTER by Stuart Nguyen M.D. [email or web address] health [email or web address] [id number]
--- NOTE | 2023-09-07 06:51 | ANES.PREANE2 ---
Pre-Anesthetic Assessment Height/Weight: Height 1.52 m Weight 59.421 kg O2 Del Method Room Air 09/07/23 06:16 Operation Date: 09/07/23 07:00 Proposed Procedures p 10165 lap right inguinal hernia with mesh K40.90(Right) - Rodrigo Garvin DO Familial anesthetic complications: None Was Beta Brett taken within 24 hours: N/A Was Clonidine taken within 24 hours: N/A Last intake: Intake Last Liquid Date 09/06/23 Last Liquid Time 19:00 Last Solid Date 09/06/23 Last Solid Time 19:00 Social No alcohol and No tobacco Exam alert, oriented x 3, clear to auscultation bilaterally and regular rate & rhythm Airway Mallampati: Class III Dentition: false Pulmonary Chronic Obstructive Pulmonary Disease O2 at night CV/HEM Atrial Fibrillation and Hypertension Ef 55% GI Gastroesophageal Reflux Disease Metabolic Thyroid Disease Neuropsych avm/brain aneurysm/ TIE Anesthetic Plan ASA status: 3 Anesthesia: General Risk of > 500 ml blood loss (7ml/kg in children): No Medications/Allergies Home Medications Medication Instructions Recorded Confirmed Last Taken Type ascorbic acid (vitamin C) 500 mg 500 mg PO DAILY 02/27/23 09/07/23 09/06/23 History tablet (Vitamin C) ondansetron HCl 4 mg tablet 4 mg PO Q8H PRN nausea and 04/02/23 09/04/23 09/02/23 Rx vomiting #30 tabs polyethylene glycol 3350 17 gram 17 g PO BID PRN constipation #30 ea 04/02/23 09/07/23 09/06/23 Rx oral powder packet (Miralax) albuterol sulfate 90 mcg/actuation 2 inh inhalation Q4H PRN shortness 05/02/23 09/04/23 08/18/23 Rx aerosol inhaler of breath or wheezing #6.7 grams multivitamin with folic acid 400 1 tab PO DAILY 05/02/23 09/07/23 09/06/23 History mcg tablet (Therems Multivitamin) furosemide 80 mg tablet 80 mg PO DAILY #90 tabs 05/15/23 09/07/23 09/06/23 Rx calcium citrate 315 mg 1 tab PO DAILY #90 tabs 05/29/23 09/07/23 09/06/23 Rx calcium-vitamin D3 6.25 mcg (250 unit) tablet raloxifene 60 mg tablet (Evista) 60 mg PO DAILY 90 days #90 tabs 06/09/23 09/07/23 09/06/23 Rx acetaminophen 500 mg capsule 1,000 mg PO BEDTIME 06/12/23 09/04/23 08/28/23 History meloxicam 7.5 mg tablet 7.5 mg PO DAILY 90 days #90 tabs 06/24/23 09/04/23 09/02/23 Rx pantoprazole 40 mg tablet,delayed 40 mg PO DAILY 08/17/23 09/07/23 09/06/23 History release (Protonix) potassium chloride 20 mEq 20 meq PO DAILY #10 tabs 08/21/23 09/07/23 09/06/23 Rx tablet,extended release clotrimazole 1 % topical cream 1 applic topical BID 4 weeks #45 08/26/23 09/04/23 09/04/23 Rx grams metoprolol succinate 50 mg 50 mg PO BID #180 tabs 08/26/23 09/07/23 09/07/23 Rx tablet,extended release 24 hr oxybutynin chloride 5 mg tablet 5 mg PO BID #180 tabs 09/01/23 09/07/23 09/06/23 Rx Allergies Allergy/AdvReac Type Severity Reaction Status Date / Time povidone-iodine Allergy Severe ALGY-Swell Verified 09/04/23 16:11 Lip/Tongue/Throat soap Allergy Severe ALGY-Swell Verified 09/04/23 16:11 Lip/Tongue/Throat Fish Containing Products Allergy Unknown ALGY-Swell Verified 09/04/23 16:11 Lip/Tongue/Throat iodine Allergy Unknown ALGY-Swell Verified 09/04/23 16:11 Lip/Tongue/Throat Opioids - Morphine Analogues Allergy ADR-Halluci Verified 09/04/23 16:11 [facility] Anesthesia Medical History Vaginal prolapse Chronic venous insufficiency of lower extremity COVID-19 Brain TIA COPD (chronic obstructive pulmonary disease) Chronic constipation Acquired hypothyroidism Hyperlipidemia Glaucoma Pyloric stenosis GERD (gastroesophageal reflux disease) Improved following dilation of gastric outlet obstruction Hypertension Stable Lung cancer Surgical History H/O esophagogastroduodenoscopy 07/29/2019: EGD with dilation for pyloric stenosis 09/13/2019: EGD with dilation to 15 mm for pyloric stenosis H/O hysterectomy for benign disease History of lobectomy of lung History of mandibular surgery S/P cholecystectomy Family History Mother Glaucoma Social History Smoking and tobacco/nicotine status: former use of tobacco/nicotine Quit status (tobacco/nicotine): has quit using Year quit tobacco: 1998 Former quit date comment: smoked PPD 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 Second hand smoke exposure: No Alcohol intake: never Substance/Drug Use: never Lives independently: Yes Household members: none Marital status: / Current occupational status: retired Current gender identity: Female Data Anesthesia 09/07/23 06:27 09/07/23 06:27 Short CBC 09/07/23 Range/Units 06:27 WBC 6.40 (3.29-11.43) 10^3/uL Hgb 12.40 (11.27-16.99) g/dL Hct 39.8 (36-47) % MCV 92.1 (85-98) fl Plt Count 233 (157-399) 10^3/cmm Neut % (Auto) 54.7 % Neut # (Auto) 3.51 (1.8-7.7) 10^3/uL Cardiac Studies: Echocardiogram 06/02/23 Echocardiogram Ultrasound 11/30/20 Sestamibi Stress Test (Cardiology) 11/30/20 Cardiac Event Monitor 12/07/20
[2023-09-07 06:56] LABS: Blood Urea Nitrogen 20 mg/dL (8-23); Calcium 9.6 mg/dL (8.5-10.5); Carbon Dioxide 25 mmol/L (22-29); Chloride 102 mmol/L (98-107); Glucose 93 mg/dL (65-115); Osmolality Calculated 288 mOsm/kg (285-295); Sodium 138 mmol/L (136-145)
[2023-09-07 06:59] LABS: Anion Gap 14.8 (5-19); Potassium 3.8 mmol/L (3.5-5.1)
--- NOTE | 2023-09-07 07:00 | PM.HP ---
Providers/Chief Complaint Primary Care Provider: Shaila Quinones NP Chief Complaint: K40.90 History of Present Illness Vivian Hummel is a 78 year old female Review of Systems General: Reports: 10 or more systems reviewed and unremarkable except in HPI and below Medications/Allergies Home Medications Medication Instructions Recorded Confirmed Last Taken Type ascorbic acid (vitamin C) 500 mg 500 mg PO DAILY 02/27/23 09/07/23 09/06/23 History tablet (Vitamin C) ondansetron HCl 4 mg tablet 4 mg PO Q8H PRN nausea and 04/02/23 09/04/23 09/02/23 Rx vomiting #30 tabs polyethylene glycol 3350 17 gram 17 g PO BID PRN constipation #30 ea 04/02/23 09/07/23 09/06/23 Rx oral powder packet (Miralax) albuterol sulfate 90 mcg/actuation 2 inh inhalation Q4H PRN shortness 05/02/23 09/04/23 08/18/23 Rx aerosol inhaler of breath or wheezing #6.7 grams multivitamin with folic acid 400 1 tab PO DAILY 05/02/23 09/07/23 09/06/23 History mcg tablet (Therems Multivitamin) furosemide 80 mg tablet 80 mg PO DAILY #90 tabs 05/15/23 09/07/23 09/06/23 Rx calcium citrate 315 mg 1 tab PO DAILY #90 tabs 05/29/23 09/07/23 09/06/23 Rx calcium-vitamin D3 6.25 mcg (250 unit) tablet raloxifene 60 mg tablet (Evista) 60 mg PO DAILY 90 days #90 tabs 06/09/23 09/07/23 09/06/23 Rx acetaminophen 500 mg capsule 1,000 mg PO BEDTIME 06/12/23 09/04/23 08/28/23 History meloxicam 7.5 mg tablet 7.5 mg PO DAILY 90 days #90 tabs 06/24/23 09/04/23 09/02/23 Rx pantoprazole 40 mg tablet,delayed 40 mg PO DAILY 08/17/23 09/07/23 09/06/23 History release (Protonix) potassium chloride 20 mEq 20 meq PO DAILY #10 tabs 08/21/23 09/07/23 09/06/23 Rx tablet,extended release clotrimazole 1 % topical cream 1 applic topical BID 4 weeks #45 08/26/23 09/04/23 09/04/23 Rx grams metoprolol succinate 50 mg 50 mg PO BID #180 tabs 08/26/23 09/07/23 09/07/23 Rx tablet,extended release 24 hr oxybutynin chloride 5 mg tablet 5 mg PO BID #180 tabs 09/01/23 09/07/23 09/06/23 Rx Allergies Allergy/AdvReac Type Severity Reaction Status Date / Time povidone-iodine Allergy Severe ALGY-Swell Verified 09/04/23 16:11 Lip/Tongue/Throat soap Allergy Severe ALGY-Swell Verified 09/04/23 16:11 Lip/Tongue/Throat Fish Containing Products Allergy Unknown ALGY-Swell Verified 09/04/23 16:11 Lip/Tongue/Throat iodine Allergy Unknown ALGY-Swell Verified 09/04/23 16:11 Lip/Tongue/Throat Opioids - Morphine Analogues Allergy ADR-Halluci Verified 09/04/23 16:11 nating PFSH Acute PFSH: Medical History Vaginal prolapse Chronic venous insufficiency of lower extremity COVID-19 Brain TIA COPD (chronic obstructive pulmonary disease) Chronic constipation Acquired hypothyroidism Hyperlipidemia Glaucoma Pyloric stenosis GERD (gastroesophageal reflux disease) Improved following dilation of gastric outlet obstruction Hypertension Stable Lung cancer Surgical History H/O esophagogastroduodenoscopy 07/29/2019: EGD with dilation for pyloric stenosis 09/13/2019: EGD with dilation to 15 mm for pyloric stenosis H/O hysterectomy for benign disease History of lobectomy of lung History of mandibular surgery S/P cholecystectomy Family History Mother Glaucoma Social History Smoking and tobacco/nicotine status: former use of tobacco/nicotine Quit status (tobacco/nicotine): has quit using Year quit tobacco: 1998 Former quit date comment: smoked PPD 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 Second hand smoke exposure: No Alcohol intake: never Substance/Drug Use: never Lives independently: Yes Household members: none Marital status: / Current occupational status: retired Current gender identity: Female Vitals/I&O/Wt Last Vital Signs O2 Del Method Room Air 09/07/23 06:16 Weight last 48 hrs Weight 131 lb Data 09/07/23 06:27 09/07/23 06:27 A&P Assessment and plan (1) Hernia: Plan Laparoscopic repair of right inguinal hernia with mesh Attestations Medical Necessity Statement*: Home Coding Level of Care Code Acute Code for [facility] Fwd Diagnoses Hernia K46.9
[2023-09-07] MEDS: ceFAZolin 2,000 MG in sodium chloride 0.9% (plus) 50 ML 100 MG IV (07:06)
[2023-09-07] MEDS: lidocaine-epi 2% 20 mL INJ 10 ML INJECTION (07:45)
--- NOTE | 2023-09-07 08:09 | P.OP_ITS ---
Operative Report Date of procedure: September 07, 2023 Pre-op diagnosis: Right inguinal hernia Post-op diagnosis: Direct right inguinal hernia Procedure done: Laparoscopic repair of right inguinal hernia with mesh Implants: Extra-large right 3D max Bard mesh Specimens removed/disposition: None Surgeon: Rodrigo Garvin DO Anesthesia: General Estimated blood loss (mL): 5 Complications: None apparent Brief History: This very pleasant 78-year-old female who presented to my office with a right inguinal hernia. Laparoscopic repair with mesh was indicated. The risk and benefits explained and documented. Procedure: Patient was wheeled into the operative room and placed on the OR table in a supine position. Abdomen was inspected prepped and draped in usual sterile fashion. Time-out was performed and all present were in agreement. A 15 blade scalpel was used to make 1.2 centimeter incision infraumbilically. Combination of sharp and blunt dissection was performed down to the anterior rectus sheath which was opened sharply. The dissecting balloon was then inserted into the space of Retzius and blown up. We put the camera into the port and identified that we were in the correct space. I then placed 2 5 millimeter trocars suprapu bically in the midline. I then used endokitners to bluntly dissect in the space of Retzius out laterally. A direct right inguinal hernia containing peritoneal fat was identified on the right. The peritoneum broke open on the left side, exposing the abdominal contents. Blunt dissection was performed to dissect down the hernia sac until the vas deferens dove medially. An extra-large right ingui nal mesh was then placed into the space of Retzius. The mesh was unrolled and tacked once medially at the pubic bone. The mesh laid out nicely over the spermatic cord. Next, I moved with the 5 mm trocars to the left abdomen and used the secure strap to tack the peritoneum back to the abdominal wall.. I watched the hernia sac remained in place as insufflation was removed. Incisions were closed with 4-0 Monocryl in a subcuticular interrupted fashion. Skin glue was applied. Patient tolerated the procedure well.
[2023-09-07] MEDS: ondansetron 2 mg/ML SDV 2 mL 4 MG IVP ×2 (09:07→09:54)
[2023-09-07] MEDS: TRAMadol 50 mg Tablet PO (09:25)
[2023-09-07] MEDS: ketorolac 30 mg/mL INJ 15 MG IVP (10:15)
[2023-09-07] MEDS: HYDROmorphone 1 mg/mL INJ 1 mL 0.5 MG IVP (10:52)
--- NOTE | 2023-09-07 11:40 | ANE.PACU2 ---
Inpatient post-anesthesia follow up: Airway intact: Yes Vital signs: Temperature 97.0 F Pulse Rate 82 Respiratory Rate 18 Blood Pressure 118/73 Pulse Oximetry 97 Oxygen Delivery Me thod Room Air Oxygen Flow Rate Fraction of Inspir ed Oxygen Hydration adequate: Yes Nausea and vomiting: No Pain level: 1 Mental status: Baseline
== END 2023-09-07 11:40 | disposition home or self-care (01) ==
PROVIDERS: PCP Nurse Practitioner Family; Visit Provider Surgery
PROC: (CPT 49650; principal; 2023-09-07 07:00)
DX: K40.90 Unilateral inguinal hernia, without obstruction or gangrene, not specified as recurrent (principal); Z86.16 Personal history of COVID-19; Z86.73 Personal history of transient ischemic attack (TIA), and cerebral infarction without residual deficits; J44.9 Chronic obstructive pulmonary disease, unspecified; E03.9 Hypothyroidism, unspecified; E78.5 Hyperlipidemia, unspecified; K21.9 Gastro-esophageal reflux disease without esophagitis; I10 Essential (primary) hypertension; Z85.118 Personal history of other malignant neoplasm of bronchus and lung; Z87.891 Personal history of nicotine dependence; Z99.81 Dependence on supplemental oxygen
CPT/HCPCS: 49650; 36415; 51702; 80048; 85025; 93005; C1781; J0131; J0330; J0360; J0690; J1100; J1170; J1885; J2371; J2405; J2704; J3010; J3490; J7030

== ENCOUNTER 2023-09-10 12:38 | Emergency (ER) | payer MEDICARE, MEDICAID, SELFPAY ==
[2023-09-10 12:40] VITALS: BP 149/64; PULSE 72; RESP 18; TEMP 36.6; O2SAT 98; BMI 25.5
[2023-09-10 13:13] LABS: Basophils # 0.2 10^3/uL (0.0-0.1); Basophils % 1.8 %; Eosinophils # 0.2 10^3/uL (0.0-0.8); Eosinophils % 2.4 %; Hematocrit 41.7 % (36-47); Lymphocytes # 2.2 10^3/uL (0.8-4.8); Lymphocytes % 26.2 %; Mean Corpuscular HGB Conc 31.9 g/dL (30-55); Mean Corpuscular Hemoglobin 29.3 pg (27-33); Mean Corpuscular Volume 91.9 fl (85-98); Monocytes # 0.5 10^3/uL (0.2-0.9); Monocytes % 5.5 %; Neutrophils # 5.37 10^3/uL (1.8-7.7); Neutrophils % 63.9 %; Nucleated Red Blood Cells % 0 %; Platelet Count 277 10^3/cmm (157-399); Red Blood Count 4.54 10^6/uL (3.85-5.65); Red Cell Distribution Width 12.9 % (12.1-15.1)
[2023-09-10 13:33] LABS: Alanine Aminotransferase 14 U/L (0-33); Albumin Level 3.7 g/dL (3.5-5.2); Alkaline Phosphatase 66 U/L (35-105); Anion Gap 13.5 (5-19); Aspartate Amino Transferase 24 U/L (0-32); Blood Urea Nitrogen 16 mg/dL (8-23); Calcium 9.9 mg/dL (8.5-10.5); Carbon Dioxide 29 mmol/L (22-29); Chloride 101 mmol/L (98-107); Glucose 105 mg/dL (65-115); Lipase 56 U/L (13-60); Osmolality Calculated 290 mOsm/kg (285-295); Potassium 4.5 mmol/L (3.5-5.1); Sodium 139 mmol/L (136-145); Total Bilirubin 0.4 mg/dL (0.15-1.2); Total Protein 6.7 g/dL (6.6-8.7)
--- NOTE | 2023-09-10 13:51 | CT_ITS ---
WS: [id number] CT ABDOMEN AND PELVIS NONCONTRAST HISTORY: abd pain, recent hernia surgery. Left-sided abdominal pain. TECHNIQUE: Imaging performed through the abdomen and pelvis. Coronal and sagittal reformats are submi tted. All CT scans at [facility] use at least one of these dose optimization techniques: auto mated exposure control; mA and/or kV adjustment per patient size (includes targeted exams where dose is matched to clinical indication); or iterative reconstruction. DLP: 507.37 mGy.cm COMPARISON: 02/27/2023 Lower thorax: Benign calcified granuloma LEFT lower lobe. Liver: There is several too small to characterize hypodensities within the liver which were present o n the prior study of 02/27/2023. No bile duct dilatation. Gallbladder: Prior cholecystectomy. Pancreas: Normal size and attenuation. Normal pancreatic duct. No pancreatitis or mass. Spleen: Normal. Adrenal glands: Normal. No mass. Right kidney: Mild atrophy. No obstruction. Left kidney: Mild atrophy with no obstruction. 1.5 cm cyst in the mid kidney has been previously desc ribed. Aorta: Mild atherosclerosis abdominal aorta with no aneurysm. No free fluid, intraperitoneal air or significant lymphadenopathy. GI tract: No obstruction. Normal appendix. Mild distal colonic diverticular disease without acute div erticulitis. Abdominal wall: No ventral abdominal wall hernia. There is mild soft tissue stranding in the region o f the RIGHT inguinal canal. As per history recent repair of a hernia has been performed. There are nu merous foci of air within the soft tissues of the abdominal wall, both RIGHT and LEFT but no abscess. No hematoma. There is a loop of small bowel closely associated with the inguinal hernia but there is no obstruction. Pelvis: No free fluid. No abscess. Prior hysterectomy. Osseous structures: Increase in the lumbar lordosis. T12 30% anterior compression fracture has been p reviously described. IMPRESSION: 1. Postsurgical changes in the RIGHT lower quadrant at the hernia repair site. No abscess or hematom a. 2. There are a few foci of air in the subcutaneous soft tissues of the pelvis, bilateral and extendi ng over the LEFT lateral abdominal wall. These foci of air may be appropriate if the surgery was rece nt. 3. No GI tract obstruction. 4. Prior hysterectomy and cholecystectomy.
--- NOTE | 2023-09-10 13:53 | W.ED.ABDPA2 ---
HPI - Abdominal Pain General: Chief Complaint: Abdominal Pain Stated Complaint: abd pain Time Seen by Provider: 09/10/23 13:42 Source: patient Mode of arrival: ambulatory Limitations: no limitations History of Present Illness: 78-year-old female states that she had hernia repair 3 days ago she states she been having some lower abdominal pain worse today especially if she bends over states pain is a 4 out of 10 she denies any vomiting denies diarrhea denies any fevers. Associated Symptoms: Denies chills, diarrhea, dysuria, fever(s), nausea and vomiting Review of Systems Const: Denies: fever(s), chills, body aches or change in appetite ENMT: Denies: throat pain or dental pain Card: Denies: chest pain Resp: Denies: dyspnea GI: Reports: abdominal pain; Denies: nausea, vomiting or diarrhea : Denies: dysuria Musc: Denies: neck pain or back pain Skin/Breast: Denies: rash PFSH ED PFSH: Medical History Vaginal prolapse Chronic venous insufficiency of lower extremity COVID-19 Brain TIA COPD (chronic obstructive pulmonary disease) Chronic constipation Acquired hypothyroidism Hyperlipidemia Glaucoma Pyloric stenosis GERD (gastroesophageal reflux disease) Improved following dilation of gastric outlet obstruction Hypertension Stable Lung cancer Surgical History H/O esophagogastroduodenoscopy 07/29/2019: EGD with dilation for pyloric stenosis 09/13/2019: EGD with dilation to 15 mm for pyloric stenosis H/O hysterectomy for benign disease History of lobectomy of lung History of mandibular surgery S/P cholecystectomy Family History Mother Glaucoma Social History Smoking and tobacco/nicotine status: former use of tobacco/nicotine Quit status (tobacco/nicotine): has quit using Year quit tobacco: 1998 Former quit date comment: smoked PPD 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 Second hand smoke exposure: No Alcohol intake: never Substance/Drug Use: never Lives independently: Yes Household members: none Marital status: / Current occupational status: retired Current gender identity: Female Physical Exam Const: COMMON NORMALS: no acute distress, patient oriented x3 and healthy appearing HENMT: COMMON NORMALS: normocephalic and atraumatic HEAD & SCALP: normocephalic and atraumatic Neck/C-Spine: COMMON NORMALS: full ROM and supple Chest: COMMONS NORMALS: normal inspection of the chest Resp: COMMON NORMALS: normal respiratory effort, No retractions, No use of accessory muscles and clear to auscultation bilaterally AUSCULTATION: clear to auscultation bilaterally Cardio: COMMON NORMALS: regular rate, regular rhythm and No murmurs present (Cardio) RATE: regular rate RHYTHM: regular rhythm GI: COMMON NORMALS: Normal to inspection, nondistended, normoactive bowel sounds present, Soft to palpation and no masses PALPATION: Yes Soft to palpation OTHER: mild tenderness Extremity: COMMON NORMALS: normal to inspection and full ROM Neuro: COMMON NORMALS: patient oriented x3, moves all extremities and no focal motor deficits Psych: COMMON NORMALS: mental status grossly normal, Normal thought process present and cooperative THOUGHT PROCESS: Normal thought process present Skin: COMMON NORMALS: no rashes or lesions noted and no wounds GENERAL SKIN EXAM: no rashes or lesions noted Course Vital Signs: Vital signs: Vital Signs Temperature 97.8 F 09/10/23 12:40 Pulse Rate 72 09/10/23 12:40 Respiratory Rate 16 09/10/23 14:14 Blood Pressure 149/64 09/10/23 12:40 Pulse Oximetry 95 09/10/23 14:14 Oxygen Delivery Me thod Room Air 09/10/23 12:40 MDM - Abdominal Pain Medical Decision Making Patient presents with postop abdominal pain incisions are all clean dry intact CT scan shows no acute findings blood works normal she is stable she is stable for discharge she is follow-up with her surgeon return if worsening. Medical Records I reviewed the patient's medical records. Lab Data I reviewed the patient's lab results. 09/10/23 13:06 09/10/23 13:06 Labs/Radiology: Laboratory Results WBC 8.40 10^3/uL (3.29-11.43) 09/10/23 13:06 RBC 4.54 10^6/uL (3.85-5.65) 09/10/23 13:06 Hgb 13.30 g/dL (11.27-16.99) 09/10/23 13:06 Hct 41.7 % (36-47) 09/10/23 13:06 MCV 91.9 fl (85-98) 09/10/23 13:06 MCH 29.3 pg (27-33) 09/10/23 13:06 MCHC 31.9 g/dL (30-55) 09/10/23 13:06 RDW 12.9 % (12.1-15.1) 09/10/23 13:06 Plt Count 277 10^3/cmm (157-399) 09/10/23 13:06 MPV 10.0 fL (7.4-10.4) 09/10/23 13:06 Neut % (Auto) 63.9 % 09/10/23 13:06 Lymph % (Auto) 26.2 % 09/10/23 13:06 [place] % (Auto) 5.5 % 09/10/23 13:06 Eos % (Auto) 2.4 % 09/10/23 13:06 Baso % (Auto) 1.8 % 09/10/23 13:06 Neut # (Auto) 5.37 10^3/uL (1.8-7.7) 09/10/23 13:06 Lymph # (Auto) 2.2 10^3/uL (0.8-4.8) 09/10/23 13:06 [place] # (Auto) 0.5 10^3/uL (0.2-0.9) 09/10/23 13:06 Eos # (Auto) 0.2 10^3/uL (0.0-0.8) 09/10/23 13:06 Baso # (Auto) 0.2 10^3/uL (0.0-0.1) H 09/10/23 13:06 Nucleated RBC % (auto) 0 % 09/10/23 13:06 Nucleated RBCs # 0.0 /100WBC 09/10/23 13:06 Sodium 139 mmol/L (136-145) 09/10/23 13:06 Potassium 4.5 mmol/L (3.5-5.1) 09/10/23 13:06 Chloride 101 mmol/L (98-107) 09/10/23 13:06 Carbon Dioxide 29 mmol/L (22-29) 09/10/23 13:06 Anion Gap 13.5 (5-19) 09/10/23 13:06 BUN 16 mg/dL (8-23) 09/10/23 13:06 Creatinine 1.1 mg/dL (0.5-0.9) H 09/10/23 13:06 GFR Calculation Not Reportable 09/10/23 13:06 Glucose 105 mg/dL (65-115) 09/10/23 13:06 Calculated Osmolality 290 mOsm/kg (285-295) 09/10/23 13:06 Calcium 9.9 mg/dL (8.5-10.5) 09/10/23 13:06 Total Bilirubin 0.4 mg/dL (0.15-1.2) 09/10/23 13:06 AST 24 U/L (0-32) 09/10/23 13:06 ALT 14 U/L (0-33) 09/10/23 13:06 Alkaline Phosphatase 66 U/L (35-105) 09/10/23 13:06 Total Protein 6.7 g/dL (6.6-8.7) 09/10/23 13:06 Albumin 3.7 g/dL (3.5-5.2) 09/10/23 13:06 Globulin 3.0 g/dL (1.3-4.6) 09/10/23 13:06 Lipase 56 U/L (13-60) 09/10/23 13:06 All radiology interpretation(s) finalized by discharge Discharge Plan Discharge Patient Disposition: Home Clinical Impression: Postoperative abdominal pain Condition: Stable Prescriptions: New hydrocodone-acetaminophen 5-325 mg tablet 1 tab PO Q6H PRN (Reason: pain) Qty: 14 0RF No Action furosemide 80 mg tablet 80 mg PO DAILY Qty: 90 1RF Hold Instructions: Dose Change calcium citrate-vitamin D3 315 mg-6.25 mcg (250 unit) tablet 1 tab PO DAILY Qty: 90 1RF meloxicam 7.5 mg tablet 7.5 mg PO DAILY 90 Days Qty: 90 0RF Hold Instructions: Resume on 09/09/23. metoprolol succinate 50 mg tablet extended release 24 hr 50 mg PO BID Qty: 180 0RF clotrimazole 1 % cream 1 applic topical BID 28 Days Qty: 45 1RF ondansetron HCl 4 mg tablet 4 mg PO Q8H PRN (Reason: nausea and vomiting) Qty: 30 0RF raloxifene [Evista] 60 mg tablet 60 mg PO DAILY 90 Days Qty: 90 1RF potassium chloride 20 mEq tablet extended release 20 meq PO DAILY Qty: 10 0RF oxybutynin chloride 5 mg tablet 5 mg PO BID Qty: 180 0RF ascorbic acid (vitamin C) [Vitamin C] 500 mg Tablet 500 mg PO DAILY multivitamin with folic acid [Therems Multivitamin] 400 mcg tablet 1 tab PO DAILY albuterol sulfate 90 mcg/actuation HFA aerosol inhaler 2 inh inhalation Q4H PRN (Reason: shortness of breath or wheezing) Qty: 6.7 1RF pantoprazole [Protonix] 40 mg tablet,delayed release (DR/EC) 40 mg PO DAILY polyethylene glycol 3350 [Miralax] 17 gram powder in packet 17 g PO BID PRN (Reason: constipation) Qty: 30 0RF acetaminophen 500 mg Capsule 1,000 mg PO BEDTIME tramadol 50 mg tablet 100 mg PO Q6H PRN (Reason: pain) Qty: 30 0RF Rx Instructions: May take only 1 tab at a time DOK 100 mg capsule 100 mg PO BID Qty: 14 0RF Discharge Orders: Discharge ED (Routine); Ordered 09/10/23 Ordered By: Ewa Pena Referrals: Rodrigo Garvin DO [Physician] - 1-3 days Shaila Quinones NP [Primary Care Provider] - Discharge Diet: Advance as tolerated Discharge Activity: Resume usual activity Patient Instructions: Abdominal Pain (ED) Coding Level of Care Code ED Pad Making Machine Operator for Abeba Vazquez
--- NOTE | 2023-09-10 14:02 | PC.NURSE ---
Dr. Pena changed the patient's medications from IV to IM because patient is not wanting an IV.
[2023-09-10 14:14] VITALS: RESP 16; O2SAT 95
[2023-09-10] MEDS: morphine 4 mg/mL SDV 1 mL IM (14:14)
[2023-09-10] MEDS: ondansetron 2 mg/ML SDV 2 mL 4 MG IM (14:14)
== END 2023-09-10 15:38 | disposition home or self-care (01) ==
PROVIDERS: Emergency Provider Emergency Medicine; PCP Nurse Practitioner Family
DX: G89.18 Other acute postprocedural pain (principal); R10.30 Lower abdominal pain, unspecified; Z87.891 Personal history of nicotine dependence; Z86.73 Personal history of transient ischemic attack (TIA), and cerebral infarction without residual deficits; J44.9 Chronic obstructive pulmonary disease, unspecified; E78.5 Hyperlipidemia, unspecified; I10 Essential (primary) hypertension; Z85.118 Personal history of other malignant neoplasm of bronchus and lung
CPT/HCPCS: 36415; 74176; 80053; 83690; 85025; 96372; 99284; J2270; J2405

== ENCOUNTER → 2023-09-15 14:15 | Outpatient (BNVA) | payer MEDICARE, MEDICAID, SELFPAY | PROVIDERS: PCP Nurse Practitioner Family; Visit Provider Physician Assistant | DX: S32.511A Fracture of superior rim of right pubis, initial encounter for closed fracture; S32.591A Other specified fracture of right pubis, initial encounter for closed fracture; S52.131A Displaced fracture of neck of right radius, initial encounter for closed fracture; W19.XXXA Unspecified fall, initial encounter | CPT/HCPCS: 73080; 73502; 99213 ==

== ENCOUNTER → 2023-09-24 11:33 | Outpatient (BNVA) | payer MEDICARE, MEDICAID, SELFPAY | PROVIDERS: PCP Nurse Practitioner Family; Visit Provider Surgery | DX: Z98.890 Other specified postprocedural states (principal); Z87.19 Personal history of other diseases of the digestive system | CPT/HCPCS: 99024 ==

== ENCOUNTER → 2023-10-08 13:04 | Outpatient (BNVA) | payer MEDICARE, MEDICAID, SELFPAY | PROVIDERS: PCP Nurse Practitioner Family; Visit Provider Nurse Practitioner Family | DX: K59.00 Constipation, unspecified (principal); M62.838 Other muscle spasm; E78.5 Hyperlipidemia, unspecified; R07.9 Chest pain, unspecified; I10 Essential (primary) hypertension | CPT/HCPCS: 80053; 83735; 84443; 85025 ==

== ENCOUNTER → 2023-12-07 11:13 | Outpatient (BNVA) | payer MEDICARE, MEDICAID, SELFPAY | PROVIDERS: PCP Nurse Practitioner Family; Visit Provider Nurse Practitioner Family | DX: R30.0 Dysuria (principal) | CPT/HCPCS: 81003; 87077; 87086; 87184 ==

== ENCOUNTER 2023-12-10 14:27 | Emergency (ER) | payer MEDICARE, MEDICAID, SELFPAY ==
[2023-12-10 14:41] VITALS: BP 173/77; PULSE 72; TEMP 36.7; O2SAT 98; BMI 26.9
--- NOTE | 2023-12-10 14:45 | USR_ITS ---
PROCEDURE INFORMATION: Exam: US Duplex Right Lower Extremity Veins, Limited Exam date and time: 12/10/2023 3:30 PM Age: 78 years old Clinical indication: Pain; Leg, lower; Right; Additional info: Swelling TECHNIQUE: Imaging protocol: Real-time duplex ultrasound of the right extremity with 2-D brush scale, color Doppler flow and spectral waveform analysis including responses to compression and other maneuvers (when performed) with image documentation. Limited exam was focused on the right lower extremity veins. COMPARISON: US soft tissue/extremity [id number] 06/02/2023 12:32 PM FINDINGS: Right deep veins: The common femoral, femoral, proximal profunda femoral and popliteal veins are patent without evidence of thrombus and demonstrate normal waveforms. Visualized deep calf veins are patent. Superficial veins: Saphenofemoral junction is patent without thrombus. No evidence of thrombophlebitis. Soft tissues: No gross sonographic abnormality. US/[place] [id number] IMPRESSION: 1. No sonographic evidence of deep venous thrombosis in the right lower extremity.
--- NOTE | 2023-12-10 16:51 | ED_ITS ---
HPI - Extremity Problem 2 General: Chief complaint: Extremity Injury, Lower Stated complaint: R leg swelling Time Seen by Provider: 12/10/23 16:51 History of Present Illness: 78-year-old female comes in today for co ncerns of discoloration of the right hip area and some swelling to the lower extremities. Patient appears nontoxic. Patient was referred to the ER from nurse practitioner Joni's office. Patient endorses that she is able to ambulate and walk on the extremity but is concerned due to some swelling and redness in the area. Patient has an old fracture of the pelvis and right femur that did not require surgery. Patient reports that she continues to have pain and discomfort but is concerned about the discoloration. Review of Systems 2 General: Reports: 10 or more systems reviewed and unremarkable except in HPI and below Musc: Reports: extremity pain and extremity swelling PFSH ED 2 PFSH: Medical History Vaginal prolapse Chronic venous insufficiency of lower extremity COVID-19 Brain TIA COPD (chronic obstructive pulmonary disease) Chronic constipation Acquired hypothyroidism Hyperlipidemia Glaucoma Pyloric stenosis GERD (gastroesophageal reflux disease) Improved following dilation of gastric outlet obstruction Hypertension Stable Lung cancer Surgical History S/P right inguinal hernia repair H/O esophagogastroduodenoscopy 07/29/2019: EGD with dilation for pyloric stenosis 09/13/2019: EGD with dilation to 15 mm for pyloric stenosis H/O hysterectomy for benign disease History of lobectomy of lung History of mandibular surgery S/P cholecystectomy Family History Mother Glaucoma Social History Smoking and tobacco/nicotine status: former use of tobacco/nicotine Quit status (tobacco/nicotine): has quit using Year quit tobacco: 1998 Former quit date comment: smoked PPD 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 Second hand smoke exposure: No Alcohol intake: never Substance/Drug Use: never Lives independently: Yes Household members: none Marital status: / Current occupational status: retired Current gender identity: Female Physical Exam 2 Const: COMMON NORMALS: alert HENMT: COMMON NORMALS: normocephalic HEAD & SCALP: normocephalic Neck/C-Spine: COMMON NORMALS: full ROM Resp: COMMON NORMALS: normal respiratory effort and clear to auscultation bilaterally AUSCULTATION: clear to auscultation bilaterally Cardio: COMMON NORMALS: regular rate and regular rhythm RATE: regular rate RHYTHM: regular rhythm GI: COMMON NORMALS: non-tender Back/Pelvis: COMMON NORMALS: thoracic and lumbar spine normal to inspection Extremity: NARRATIVE EXTREMITY EXAM: Minimal to no significant lower body swelling. RIGHT LOWER EXTREMITY: Yes upper leg (Lateral discoloration with tenderness no redness) Neuro: SENSORIUM/ORIENTATION: Yes alert Skin: COMMON NORMALS: turgor normal GENERAL SKIN EXAM: turgor normal Course 2 Vital Signs: Vital signs: Vital Signs Temperature 98.0 F 12/10/23 14:41 Pulse Rate 62 12/10/23 18:29 Respiratory Rate 16 12/10/23 18:29 Blood Pressure 130/58 12/10/23 18:29 Pulse Oximetry 96 12/10/23 18:29 Oxygen Delivery Me thod Room Air 12/10/23 18:18 MDM - Extremity (Nontraumatic) Medical Decision Making Patient comes in today for concerns of abnormal discoloration to the right upper thigh. Patient has old injury to the thigh when she had fallen and broken her pelvis last year. Patient reports that it seems like the swelling waxes and wanes in the area. Patient has recently been started on some Lasix due to some increased swelling of her lower extremities that improved quite a bit but now it seems like it is coming back. Patient denies any fever. Patient presently is on some cephalexin for her urinary tract infection. Differential diagnosis includes not limited to cellulitis, DVT, resolving hematoma, anxiety about health. Venous ultrasound was negative for DVT. Chest x-ray was normal. X-ray of the pelvis and right hip noted no acute injuries. CBC and CMP were normal. BNP was normal. I reviewed exam with patient with recommendations for treatment and follow-up. The son reported that he was having problems with his mom at home increasing anxiety of his . He was requesting that we admit patient for admission to the senior living. I recommended that patient and son talk further about this at home because at this time there is no signs of illness that would require admission to the hospital and admission to the senior living would have to go through outpatient setting. I reviewed this with Dr. Pena who agreed with plan. Lab Data 12/10/23 17:14 12/10/23 17:14 Radiology Impressions Venous Duplex 12/10/23 14:45 IMPRESSION: 1. No sonographic evidence of deep venous thrombosis in the right lower extremity. Chest X-Ray 12/10/23 16:59 IMPRESSION: 1. No acute cardiopulmonary abnormality. Hip/Pelvis X-Ray 12/10/23 16:59 IMPRESSION: 1. No evidence of acute fracture or subluxation. If there is ongoing clinical concern, consider correlation with CT given the degree of bony demineralization. 2. Chronic fractures of the right hemipelvis. Laboratory Results WBC 10.11 10^3/uL (3.29-11.43) 12/10/23 17:14 RBC 4.57 10^6/uL (3.85-5.65) 12/10/23 17:14 Hgb 13.40 g/dL (11.27-16.99) 12/10/23 17:14 Hct 43.1 % (36-47) 12/10/23 17:14 MCV 94.3 fl (85-98) 12/10/23 17:14 MCH 29.3 pg (27-33) 12/10/23 17:14 MCHC 31.1 g/dL (30-55) 12/10/23 17:14 RDW 13.2 % (12.1-15.1) 12/10/23 17:14 Plt Count 290 10^3/cmm (157-399) 12/10/23 17:14 MPV 10.6 fL (7.4-10.4) H 12/10/23 17:14 Neut % (Auto) 76.6 % 12/10/23 17:14 Lymph % (Auto) 15.3 % 12/10/23 17:14 [place] % (Auto) 6.1 % 12/10/23 17:14 Eos % (Auto) 1.0 % 12/10/23 17:14 Baso % (Auto) 0.7 % 12/10/23 17:14 Neut # (Auto) 7.74 10^3/uL (1.8-7.7) H 12/10/23 17:14 Lymph # (Auto) 1.6 10^3/uL (0.8-4.8) 12/10/23 17:14 [place] # (Auto) 0.6 10^3/uL (0.2-0.9) 12/10/23 17:14 Eos # (Auto) 0.1 10^3/uL (0.0-0.8) 12/10/23 17:14 Baso # (Auto) 0.1 10^3/uL (0.0-0.1) 12/10/23 17:14 Nucleated RBC % (auto) 0 % 12/10/23 17:14 Nucleated RBCs # 0.0 /100WBC 12/10/23 17:14 Sodium 139 mmol/L (136-145) 12/10/23 17:14 Potassium 3.8 mmol/L (3.5-5.1) 12/10/23 17:14 Chloride 102 mmol/L (98-107) 12/10/23 17:14 Carbon Dioxide 29 mmol/L (22-29) 12/10/23 17:14 Anion Gap 11.8 (5-19) 12/10/23 17:14 BUN 20 mg/dL (8-23) 12/10/23 17:14 Creatinine 1.0 mg/dL (0.5-0.9) H 12/10/23 17:14 GFR Calculation Not Reportable 12/10/23 17:14 Glucose 110 mg/dL (65-115) 12/10/23 17:14 Calculated Osmolality 291 mOsm/kg (285-295) 12/10/23 17:14 Calcium 8.8 mg/dL (8.5-10.5) 12/10/23 17:14 NT-Pro-B Natriuret Pep 337 pg/mL (0-450) 12/10/23 17:14 All radiology interpretation(s) finalized by discharge Discharge Plan Discharge Patient Disposition: Home Clinical Impression: Peripheral edema Condition: Stable Prescriptions: No Action furosemide 80 mg tablet 80 mg PO DAILY Qty: 90 1RF Hold Instructions: Dose Change meloxicam 7.5 mg tablet 7.5 mg PO DAILY 90 Days Qty: 90 0RF Hold Instructions: Resume on 08/21/23. metoprolol succinate 50 mg tablet extended release 24 hr 50 mg PO BID Qty: 180 0RF clotrimazole 1 % cream 1 applic topical BID 28 Days Qty: 45 1RF Linzess 72 mcg capsule 72 mcg PO DAILY 30 Days Qty: 30 0RF magnesium oxide [MagOx] 400 mg (241.3 mg magnesium) tablet 400 mg PO DAILY 90 Days Qty: 90 1RF alpha lipoic acid 600 mg tablet 600 mg PO TID 30 Days Qty: 90 0RF cephalexin 500 mg capsule 500 mg PO TID Qty: 30 0RF potassium chloride 20 mEq tablet extended release 20 meq PO DAILY Qty: 10 0RF oxybutynin chloride 5 mg tablet 5 mg PO BID Qty: 180 0RF levothyroxine 25 mcg tablet 25 mcg PO DAILY 30 Days Qty: 30 0RF (DME) shower transfer bench See Rx Instructions .Route .MEDSUPPLY Qty: 1 0RF Rx Instructions: As directed ondansetron 8 mg tablet,disintegrating 8 mg PO Q8H PRN (Reason: nausea and vomiting) Qty: 20 0RF raloxifene [Evista] 60 mg tablet 60 mg PO DAILY 90 Days Qty: 90 1RF calcium citrate-vitamin D3 315 mg-6.25 mcg (250 unit) tablet 1 tab PO DAILY Qty: 90 1RF Aquaphor Healing 41 % ointment 1 applic topical BID PRN (Reason: dry skin) Qty: 50 1RF ascorbic acid (vitamin C) [Vitamin C] 500 mg Tablet 500 mg PO DAILY multivitamin with folic acid [[place]ms Multivitamin] 400 mcg tablet 1 tab PO DAILY albuterol sulfate 90 mcg/actuation HFA aerosol inhaler 2 inh inhalation Q4H PRN (Reason: shortness of breath or wheezing) Qty: 6.7 1RF polyethylene glycol 3350 [Miralax] 17 gram powder in packet 17 g PO BID PRN (Reason: constipation) Qty: 30 0RF acetaminophen 500 mg Capsule 1,000 mg PO BEDTIME tramadol 50 mg tablet 100 mg PO Q6H PRN (Reason: pain) Qty: 30 0RF Rx Instructions: May take only 1 tab at a time DOK 100 mg capsule 100 mg PO BID Qty: 14 0RF Discharge Orders: Discharge ED (Routine); Ordered 12/10/23 Ordered By: Cm Mcgrath Referrals: Shaila Quinones NP [Primary Care Provider] - Discharge Diet: Usual diet Discharge Activity: Increase activity as tolerated Patient Instructions: Edema (ED) Activity Restrictions/Additional Instructions: Follow-up with primary care Coding Level of Care Code ED Documentation Supervisor for Abeba Vazquez
--- NOTE | 2023-12-10 16:59 | XRR_ITS ---
PROCEDURE INFORMATION: Exam: XR Right Hip Exam date and time: 12/10/2023 5:33 PM Age: 78 years old Clinical indication: Injury or trauma; Fall; Additional info: Injury, pain TECHNIQUE: Imaging protocol: Radiologic exam of the right hip. Views: 1 view hip with pelvis when performed. COMPARISON: CR XR hip RT 2-3V wo/w pel* [id number] 09/15/2023 2:23 PM FINDINGS: Bones/joints: Mild osteoarthritis of the right hip without evidence of acute fracture or subluxation. Chronic fractures of the superior and inferior pubic rami on the right. Bony demineralization compatible with osteopenia or osteoporosis. Sacrum and coccyx are partially obscured by bowel gas/stool. Soft tissues: No gross soft tissue abnormality. XR/XR hip RT 2-3V wo/w pel* [id number] IMPRESSION: 1. No evidence of acute fracture or subluxation. If there is ongoing clinical concern, consider correlation with CT given the degree of bony demineralization. 2. Chronic fractures of the right hemipelvis.
--- NOTE | 2023-12-10 16:59 | XRR_ITS ---
PROCEDURE INFORMATION: Exam: XR Chest Exam date and time: 12/10/2023 5:33 PM Age: 78 years old Clinical indication: Dyspnea TECHNIQUE: Imaging protocol: Radiologic exam of the chest. Views: 1 view. COMPARISON: CR (CHEST, ) 05/02/2023 2:17 PM FINDINGS: Lungs: No focal consolidation. Left basilar calcified granuloma. Pleural spaces: No evidence of pneumothorax. No evidence of pleural effusion. Heart/Mediastinum: Cardiomediastinal silhouette is within normal limits. Bones/joints: No evidence of acute osseous abnormality. The right 7th rib is not well visualized, similar to prior radiographs from April 2023. XR/XR chest 1V portable [id number] IMPRESSION: 1. No acute cardiopulmonary abnormality.
--- NOTE | 2023-12-10 16:59 | ECG_ITS ---
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 Measurements Intervals [place] Rate: 66 P: 86 MD: 215 QRS: 25 QRSD: 87 T: 65 QT: 389 QTc: 409 Interpretive Statements SINUS RHYTHM WITH SINUS ARRHYTHMIA WITH FIRST DEGREE AV BLOCK Compared to ECG 09/07/2023 06:45:38 Sinus bradycardia no longer present Electronically Signed On 12-10-2023 23:07:23 CDT by Stuart Nguyen M.D. [email or web address] Display SystemAllied [email or web address] [email or web address] medical [id number]
[2023-12-10 17:28] LABS: Basophils # 0.1 10^3/uL (0.0-0.1); Basophils % 0.7 %; Eosinophils # 0.1 10^3/uL (0.0-0.8); Hematocrit 43.1 % (36-47); Lymphocytes # 1.6 10^3/uL (0.8-4.8); Lymphocytes % 15.3 %; Mean Corpuscular HGB Conc 31.1 g/dL (30-55); Mean Corpuscular Hemoglobin 29.3 pg (27-33); Mean Corpuscular Volume 94.3 fl (85-98); Mean Platelet Volume 10.6 fL (7.4-10.4); Monocytes # 0.6 10^3/uL (0.2-0.9); Monocytes % 6.1 %; Neutrophils # 7.74 10^3/uL (1.8-7.7); Neutrophils % 76.6 %; Nucleated Red Blood Cells % 0 %; Platelet Count 290 10^3/cmm (157-399); Red Blood Count 4.57 10^6/uL (3.85-5.65); Red Cell Distribution Width 13.2 % (12.1-15.1); White Blood Count 10.11 10^3/uL (3.29-11.43)
[2023-12-10 17:58] LABS: Blood Urea Nitrogen 20 mg/dL (8-23); Calcium 8.8 mg/dL (8.5-10.5); Carbon Dioxide 29 mmol/L (22-29); Chloride 102 mmol/L (98-107); Glucose 110 mg/dL (65-115); NT Pro B Type Natriuretic Pept 337 pg/mL (0-450); Osmolality Calculated 291 mOsm/kg (285-295); Sodium 139 mmol/L (136-145)
[2023-12-10 18:02] LABS: Anion Gap 11.8 (5-19); Potassium 3.8 mmol/L (3.5-5.1)
[2023-12-10 18:18] VITALS: BP 130/58; RESP 18; O2SAT 97
[2023-12-10 18:29] VITALS: BP 130/58; PULSE 62; RESP 16; O2SAT 96
== END 2023-12-10 18:30 | disposition home or self-care (01) ==
PROVIDERS: Emergency Medicine; Emergency Provider Nurse Practitioner Family; PCP Nurse Practitioner Family
DX: R60.0 Localized edema (principal); Z87.891 Personal history of nicotine dependence; Z86.73 Personal history of transient ischemic attack (TIA), and cerebral infarction without residual deficits; J44.9 Chronic obstructive pulmonary disease, unspecified; E78.5 Hyperlipidemia, unspecified; I10 Essential (primary) hypertension; Z85.118 Personal history of other malignant neoplasm of bronchus and lung
CPT/HCPCS: 71045; 73502; 80048; 83880; 85025; 93005; 93971; 99285

== ENCOUNTER → 2024-01-06 09:56 | Outpatient (BNVA) | payer MEDICARE, MEDICAID, SELFPAY | PROVIDERS: PCP Nurse Practitioner Family; Visit Provider Internal Medicine Cardiovascular Disease | DX: I10 Essential (primary) hypertension (principal); E78.2 Mixed hyperlipidemia; I87.2 Venous insufficiency (chronic) (peripheral); R06.02 Shortness of breath; Z87.891 Personal history of nicotine dependence | CPT/HCPCS: 99214 ==

== ENCOUNTER 2024-01-23 21:24 | Emergency (ER) | payer MEDICARE, MEDICAID, SELFPAY ==
[2024-01-23 21:30] VITALS: BP 158/79; PULSE 80; RESP 17; TEMP 36.9; O2SAT 97; BMI 25.5
--- NOTE | 2024-01-23 22:06 | CTR_ITS ---
PROCEDURE INFORMATION: Exam: CT Abdomen And Pelvis Without Contrast Exam date and time: 01/23/2024 10:55 PM Age: 78 years old Clinical indication: Nausea and vomiting; Prior surgery; Surgery date: 6+ months; Surgery type: Gb. Hysterectomy. Gastric outlet dilation. Patient HX: Patient has had persistent n/v x 3 weeks and unable to keep anything down. Patient has gastric outlet stricture with multiple dilation procedures. History of lung cancer. ; Additional info: Abd pain TECHNIQUE: Imaging protocol: Computed tomography of the abdomen and pelvis without contrast. Radiation optimization: All CT scans at this facility use at least one of these dose optimization techniques: automated exposure control; mA and/or kV adjustment per patient size (includes targeted exams where dose is matched to clinical indication); or iterative reconstruction. Other contrast: Oral, READICAT, 450 ML; COMPARISON: CT abdomen pelvis wo con [id number] 09/10/2023 2:15 PM RADIATION DOSE METRICS: Total DLP (mGy-cm): 484.99 FINDINGS: Lungs: Bibasilar atelectasis. Liver: Hepatic dome cyst. Gallbladder and bile ducts: Cholecystectomy. Common bile duct dilated, likely related to cholecystectomy. Pancreas: Normal. No ductal dilation. Spleen: Normal. No splenomegaly. Adrenal glands: Normal. No mass. Kidneys and ureters: Normal. No hydronephrosis. Stomach and bowel: Gastric wall thickening, please correlate for gastritis. Diverticulosis without diverticulitis. Constipation. Appendix: No evidence of appendicitis. Intraperitoneal space: Unremarkable. No free air. No significant fluid collection. 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 Lymph nodes: Unremarkable. No enlarged lymph nodes. Urinary bladder: Unremarkable as visualized. Reproductive: Unremarkable as visualized. Bones/joints: T12 vertebral body compression fracture without retropulsion of bony fragments appears similar to prior exam. Soft tissues: Unremarkable. CT/CT abdomen pelvis wo con [id number] IMPRESSION: 1. Gastric wall thickening, please correlate for gastritis. 2. T12 vertebral body compression fracture without retropulsion of bony fragments appears similar to prior exam. 3. Bibasilar atelectasis. 4. Cholecystectomy. 5. Diverticulosis without diverticulitis. 6. Constipation. 7. Hepatic dome cyst. 8. Common bile duct dilated, likely related to cholecystectomy. 9. 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
[2024-01-23] MEDS: sodium chloride 0.9% 1,000 ML 999 ML IV (22:12)
[2024-01-23 22:16] LABS: Basophils # 0.1 10^3/uL (0.0-0.1); Basophils % 0.9 %; Eosinophils # 0.1 10^3/uL (0.0-0.8); Eosinophils % 0.6 %; Hematocrit 44.2 % (36-47); Lymphocytes # 1.7 10^3/uL (0.8-4.8); Lymphocytes % 14.3 %; Mean Corpuscular HGB Conc 31.9 g/dL (30-55); Mean Corpuscular Hemoglobin 28.7 pg (27-33); Mean Corpuscular Volume 89.8 fl (85-98); Mean Platelet Volume 10.6 fL (7.4-10.4); Monocytes # 0.5 10^3/uL (0.2-0.9); Monocytes % 4.2 %; Neutrophils # 9.25 10^3/uL (1.8-7.7); Neutrophils % 79.7 %; Nucleated Red Blood Cells % 0 %; Platelet Count 351 10^3/cmm (157-399); Red Blood Count 4.92 10^6/uL (3.85-5.65); Red Cell Distribution Width 12.3 % (12.1-15.1)
[2024-01-23 22:36] LABS: Lactic Sepsis W/Reflex 1.2 mmol/L (0.5-2.2)
[2024-01-23 22:37] LABS: Alanine Aminotransferase 14 U/L (0-33); Albumin Level 4.3 g/dL (3.5-5.2); Alkaline Phosphatase 132 U/L (35-105); Anion Gap 16.1 (5-19); Aspartate Amino Transferase 18 U/L (0-32); Blood Urea Nitrogen 15 mg/dL (8-23); Calcium 9.8 mg/dL (8.5-10.5); Carbon Dioxide 28 mmol/L (22-29); Chloride 99 mmol/L (98-107); Globulin 3.3 g/dL (1.3-4.6); Glucose 102 mg/dL (65-115); Lipase 64 U/L (13-60); Osmolality Calculated 289 mOsm/kg (285-295); Potassium 4.1 mmol/L (3.5-5.1); Sodium 139 mmol/L (136-145); Total Bilirubin 0.5 mg/dL (0.15-1.2); Total Protein 7.6 g/dL (6.6-8.7)
[2024-01-23] MEDS: barium sulfate 450 mL Oral Susp PO (23:15)
[2024-01-23 23:22] LABS: Urine Color Yellow (Yellow)
[2024-01-23 23:23] VITALS: BP 141/75; PULSE 71; O2SAT 98
[2024-01-23 23:23] LABS: Add Urine Microscopic? YES; Bacteria Urine 2+ /hpf; Bilirubin Urine Neg (Negative); Blood Urine Neg (Negative); Glucose Urine UA Norm (Normal); Ketones Urine 1+ (Negative); Leukocyte Esterase Urine 1+ (Negative); Nitrate Urine Negative (Negative); Protein Urine Neg (Negative); RBC Urine 0-4 /hpf (0-2); Squamous Epithelial Cell Urine 15-25 /hpf (0-5); Urine Appearance Cloudy (CLEAR); Urobilinogen Urine Neg (Negative); WBC Urine 15-25 /hpf (0-5); pH Urine 6 (5-7)
[2024-01-23 23:43] VITALS: PULSE 78; O2SAT 94
--- NOTE | 2024-01-23 23:48 | W.ED.ABDPA2 ---
HPI - Abdominal Pain General: Chief Complaint: Abdominal Pain Stated Complaint: not eating, lower abd pain Time Seen by Provider: 01/23/24 22:00 History of Present Illness: 78-year-old female history of gastric outlet obstructions. She has had multiple EGDs with gastric outlet dilatation performed. She presents with inability to eat for the past couple of weeks. She says she is lost weight. She is not had a bowel movement in 3 days or so. She has been vomiting. She has not had a fever. She was placed on an acid medication by her doctor in the [facility] living, but this does not seem to be helping. Associated Symptoms: Denies chills, diarrhea, fever(s) and hematochezia Review of Systems Const: Denies: fever(s), chills or body aches Eyes: Denies: change in vision Card: Denies: chest pain or palpitations Resp: Denies: dyspnea, productive cough, non-productive cough or wheezing GI: Denies: diarrhea or hematochezia : Denies: difficulty voiding Skin/Breast: Denies: rash Neuro: Denies: headache(s), weakness in extremities, dizziness or confusion PFSH ED PFSH: Medical History Vaginal prolapse Chronic venous insufficiency of lower extremity (~01/06/24) COVID-19 Brain TIA COPD (chronic obstructive pulmonary disease) Chronic constipation Acquired hypothyroidism Hyperlipidemia Glaucoma Pyloric stenosis GERD (gastroesophageal reflux disease) Improved following dilation of gastric outlet obstruction Hypertension Stable Lung cancer Surgical History S/P right inguinal hernia repair H/O esophagogastroduodenoscopy 07/29/2019: EGD with dilation for pyloric stenosis 09/13/2019: EGD with dilation to 15 mm for pyloric stenosis H/O hysterectomy for benign disease History of lobectomy of lung History of mandibular surgery S/P cholecystectomy Family History Mother Glaucoma Social History Smoking and tobacco/nicotine status: former use of tobacco/nicotine Quit status (tobacco/nicotine): has quit using Year quit tobacco: 1998 Former quit date comment: smoked PPD 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 Second hand smoke exposure: No Alcohol intake: never Substance/Drug Use: never Lives independently: Yes Household members: none Marital status: / Current occupational status: retired Current gender identity: Female Physical Exam Const: COMMON NORMALS: no acute distress GENERAL APPEARANCE: cooperative; not ill appearing and not frail appearing HENMT: COMMON NORMALS: normocephalic, atraumatic and Normal external nose present HEAD & SCALP: normocephalic and atraumatic FACE & SINUS: normal facial exam and face symmetric NOSE: Normal external nose present Eye: COMMON NORMALS: Equal, round and reactive pupils present and EOMs intact bilaterally PUPIL: Yes Equal, round and reactive pupils present Neck/C-Spine: GENERAL: Yes trachea midline Chest: CHEST: Yes Symmetrical chest wall rise Resp: COMMON NORMALS: normal respiratory effort, No retractions, No use of accessory muscles and clear to auscultation bilaterally AUSCULTATION: clear to auscultation bilaterally Cardio: COMMON NORMALS: regular rate and regular rhythm RATE: regular rate RHYTHM: regular rhythm GI: INSPECTION: Yes abdominal distension PALPATION: Yes Tenderness to palpation present (GI) (Epigastric) Details: RLQ Extremity: COMMON NORMALS: no pedal edema Neuro: ROSALIND COMA SCALE: document GCS findings Rosalind coma scale eye opening: Spontaneous Rosalind coma scale verbal response: Orientated Rosalind coma scale motor response: Obey commands [place] coma scale total score: 15 SENSORY EXAM: Yes extremities (intact) Psych: COMMON NORMALS: speech normal SPEECH: Yes normal speech Skin: COMMON NORMALS: no rashes or lesions noted GENERAL SKIN EXAM: no rashes or lesions noted Course Vital Signs: Vital signs: Vital Signs Temperature 98.5 F 01/23/24 21:30 Pulse Rate 75 01/24/24 00:13 Respiratory Rate 17 01/23/24 21:30 Blood Pressure 167/99 01/24/24 00:13 Pulse Oximetry 97 01/24/24 00:13 Oxygen Delivery Me thod Room Air 01/23/24 23:23 MDM - Abdominal Pain Medical Decision Making 78-year-old female with a history of gastric outlet obstruction. Vitals are stable. White blood cell count is 11.6. Creatinine is 1.1. Laboratory otherwise not remarkable. CT scan shows gastric wall thickening consistent with gastritis. T12 vertebral body compression fracture. Other chronic findings. There is constipation present. She is given oral contrast to ensure that there is no significant outlet obstruction, and there does not appear to be. She will be given a bowel prep for constipation. She will continue treatment with PPI prescribed by her PCP for gastritis. We will ask case management to have her follow-up with her surgeon regarding potential need for EGD in the future. She knows to return for worsening symptoms despite treatment Lab Data 01/23/24 22:04 01/23/24 22:04 Labs/Radiology: Radiology Impressions Abdomen/Pelvis CT 01/23/24 22:06 IMPRESSION: 1. Gastric wall thickening, please correlate for gastritis. 2. T12 vertebral body compression fracture without retropulsion of bony fragments appears similar to prior exam. 3. Bibasilar atelectasis. 4. Cholecystectomy. 5. Diverticulosis without diverticulitis. 6. Constipation. 7. Hepatic dome cyst. 8. Common bile duct dilated, likely related to cholecystectomy. 9. 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 Laboratory Results WBC 11.60 10^3/uL (3.29-11.43) H 01/23/24 22:04 RBC 4.92 10^6/uL (3.85-5.65) 01/23/24 22:04 Hgb 14.10 g/dL (11.27-16.99) 01/23/24 22:04 Hct 44.2 % (36-47) 01/23/24 22:04 MCV 89.8 fl (85-98) 01/23/24 22:04 MCH 28.7 pg (27-33) 01/23/24 22:04 MCHC 31.9 g/dL (30-55) 01/23/24 22:04 RDW 12.3 % (12.1-15.1) 01/23/24 22:04 Plt Count 351 10^3/cmm (157-399) 01/23/24 22:04 MPV 10.6 fL (7.4-10.4) H 01/23/24 22:04 Neut % (Auto) 79.7 % 01/23/24 22:04 Lymph % (Auto) 14.3 % 01/23/24 22:04 [place] % (Auto) 4.2 % 01/23/24 22:04 Eos % (Auto) 0.6 % 01/23/24 22:04 Baso % (Auto) 0.9 % 01/23/24 22:04 Neut # (Auto) 9.25 10^3/uL (1.8-7.7) H 01/23/24 22:04 Lymph # (Auto) 1.7 10^3/uL (0.8-4.8) 01/23/24 22:04 [place] # (Auto) 0.5 10^3/uL (0.2-0.9) 01/23/24 22:04 Eos # (Auto) 0.1 10^3/uL (0.0-0.8) 01/23/24 22:04 Baso # (Auto) 0.1 10^3/uL (0.0-0.1) 01/23/24 22:04 Nucleated RBC % (auto) 0 % 01/23/24 22:04 Nucleated RBCs # 0.0 /100WBC 01/23/24 22:04 Sodium 139 mmol/L (136-145) 01/23/24 22:04 Potassium 4.1 mmol/L (3.5-5.1) 01/23/24 22:04 Chloride 99 mmol/L (98-107) 01/23/24 22:04 Carbon Dioxide 28 mmol/L (22-29) 01/23/24 22:04 Anion Gap 16.1 (5-19) 01/23/24 22:04 BUN 15 mg/dL (8-23) 01/23/24 22:04 Creatinine 1.1 mg/dL (0.5-0.9) H 01/23/24 22:04 GFR Calculation Not Reportable 01/23/24 22:04 Glucose 102 mg/dL (65-115) 01/23/24 22:04 Calculated Osmolality 289 mOsm/kg (285-295) 01/23/24 22:04 Lactic Acid 1.2 mmol/L (0.5-2.2) 01/23/24 22:04 Calcium 9.8 mg/dL (8.5-10.5) 01/23/24 22:04 Total Bilirubin 0.5 mg/dL (0.15-1.2) 01/23/24 22:04 AST 18 U/L (0-32) 01/23/24 22:04 ALT 14 U/L (0-33) 01/23/24 22:04 Alkaline Phosphatase 132 U/L (35-105) H 01/23/24 22:04 C-Reactive Protein 3.0 mg/L (0.0-4.9) 01/23/24 22:04 Total Protein 7.6 g/dL (6.6-8.7) 01/23/24 22:04 Albumin 4.3 g/dL (3.5-5.2) 01/23/24 22:04 Globulin 3.3 g/dL (1.3-4.6) 01/23/24 22:04 Lipase 64 U/L (13-60) H 01/23/24 22:04 Urine Color Yellow (Yellow) 01/23/24 22:57 Urine Appearance Cloudy (CLEAR) A 01/23/24 22:57 Urine pH 6 (5-7) 01/23/24 22:57 Ur Specific [place] 1.010 (1.005-1.030) 01/23/24 22:57 Urine Protein Neg (Negative) 01/23/24 22:57 Urine Glucose (UA) Norm (Normal) 01/23/24 22:57 Urine Ketones 1+ (Negative) H 01/23/24 22:57 Urine Blood Neg (Negative) 01/23/24 22:57 Urine Nitrate Negative (Negative) 01/23/24 22:57 Urine Bilirubin Neg (Negative) 01/23/24 22:57 Urine Urobilinogen Neg mg/dL (Negative) 01/23/24 22:57 Ur Leukocyte Esterase 1+ (Negative) H 01/23/24 22:57 Urine RBC 0-4 /hpf (0-2) H 01/23/24 22:57 Urine WBC 15-25 /hpf (0-5) H 01/23/24 22:57 Ur Squamous Epith Cells 15-25 /hpf (0-5) H 01/23/24 22:57 Amorphous Sediment Not Reportable 01/23/24 22:57 Urine Bacteria 2+ /hpf (NONE) H 01/23/24 22:57 All radiology interpretation(s) finalized by discharge Discharge Plan Discharge Patient Disposition: Home Clinical Impression: Gastritis, Acute constipation Condition: Stable Prescriptions: No Action furosemide 80 mg tablet 80 mg PO DAILY Qty: 90 1RF Hold Instructions: Dose Change meloxicam 7.5 mg tablet 7.5 mg PO DAILY 90 Days Qty: 90 0RF Hold Instructions: Resume on 09/09/23. metoprolol succinate 50 mg tablet extended release 24 hr 50 mg PO BID Qty: 180 0RF clotrimazole 1 % cream 1 applic topical BID 28 Days Qty: 45 1RF Linzess 72 mcg capsule 72 mcg PO DAILY 30 Days Qty: 30 0RF magnesium oxide [MagOx] 400 mg (241.3 mg magnesium) tablet 400 mg PO DAILY 90 Days Qty: 90 1RF alpha lipoic acid 600 mg tablet 600 mg PO TID 30 Days Qty: 90 0RF cephalexin 500 mg capsule 500 mg PO TID Qty: 30 0RF potassium chloride 20 mEq tablet extended release 20 meq PO DAILY Qty: 10 0RF oxybutynin chloride 5 mg tablet 5 mg PO BID Qty: 180 0RF levothyroxine 25 mcg tablet 25 mcg PO DAILY 30 Days Qty: 30 0RF (DME) shower transfer bench See Rx Instructions .Route .MEDSUPPLY Qty: 1 0RF Rx Instructions: As directed ondansetron 8 mg tablet,disintegrating 8 mg PO Q8H PRN (Reason: nausea and vomiting) Qty: 20 0RF raloxifene [Evista] 60 mg tablet 60 mg PO DAILY 90 Days Qty: 90 1RF calcium citrate-vitamin D3 315 mg-6.25 mcg (250 unit) tablet 1 tab PO DAILY Qty: 90 1RF Aquaphor Healing 41 % ointment 1 applic topical BID PRN (Reason: dry skin) Qty: 50 1RF ascorbic acid (vitamin C) [Vitamin C] 500 mg Tablet 500 mg PO DAILY multivitamin with folic acid [Therems Multivitamin] 400 mcg tablet 1 tab PO DAILY albuterol sulfate 90 mcg/actuation HFA aerosol inhaler 2 inh inhalation Q4H PRN (Reason: shortness of breath or wheezing) Qty: 6.7 1RF polyethylene glycol 3350 [Miralax] 17 gram powder in packet 17 g PO BID PRN (Reason: constipation) Qty: 30 0RF acetaminophen 500 mg Capsule 1,000 mg PO BEDTIME tramadol 50 mg tablet 100 mg PO Q6H PRN (Reason: pain) Qty: 30 0RF Rx Instructions: May take only 1 tab at a time DOK 100 mg capsule 100 mg PO BID Qty: 14 0RF Discharge Orders: Discharge ED (Routine); Ordered 01/24/24 Ordered By: Edwin Tamayo Referrals: Rodrigo Garvin DO [Physician] - 4-7 days Shaila Quinones NP [Primary Care Provider] - Patient Instructions: Gastritis (ED), Constipation (ED), Opioid Safety, Pain Management Activity Restrictions/Additional Instructions: Case management has been asked to make an appointment with you for follow-up with Dr. Garvin. He should get a call regarding this next week. Medication as directed. Continue medication for gastritis prescribed by your primary care physician. Return for fever, vomiting liquids despite treatment, worsening pain despite treatment, any other concerning symptoms. Coding Level of Care Code ED Superannuation Funds Manager for Abeba Vazquez
[2024-01-24 00:13] VITALS: BP 167/99; PULSE 75; O2SAT 97
[2024-01-24] MEDS: magnesium citrate Btl 296 mL PO (01:12)
[2024-01-24 01:13] VITALS: BP 162/73; PULSE 77; O2SAT 97
== END 2024-01-24 01:05 | disposition home or self-care (01) ==
PROVIDERS: Emergency Provider Emergency Medicine; PCP Nurse Practitioner Family
DX: K29.70 Gastritis, unspecified, without bleeding (principal); Z87.891 Personal history of nicotine dependence; Z86.73 Personal history of transient ischemic attack (TIA), and cerebral infarction without residual deficits; J44.9 Chronic obstructive pulmonary disease, unspecified; E78.5 Hyperlipidemia, unspecified; I10 Essential (primary) hypertension; Z85.118 Personal history of other malignant neoplasm of bronchus and lung
CPT/HCPCS: 74176; 80053; 81001; 83605; 83690; 85025; 86140; 96360; 96361; 99285; J7030

== ENCOUNTER 2024-01-31 20:34 | Emergency (ER) | payer MEDICARE, MEDICAID, SELFPAY ==
[2024-01-31 20:35] VITALS: BP 103/76; PULSE 113; RESP 28; TEMP 36.9; O2SAT 94; BMI 25.9
--- NOTE | 2024-01-31 20:35 | ECG_ITS ---
[facility] Test Date: 2024-01-31 Pat Name: Vivian Hummel Department: Room: Gender: Female Rn Hyperbaric: : 1945 Requested By: Benjamin Rizvi Order Number: [id number] Sanders MD: Casey Jj M.D. Measurements Intervals Allen Rate: 112 P: 100 VA: 178 QRS: 8 QRSD: 83 T: 54 QT: 328 QTc: 448 Interpretive Statements SINUS TACHYCARDIA ABNORMAL RHYTHM ECG Compared to ECG 12/10/2023 17:10:07 Sinus rhythm no longer present Sinus arrhythmia no longer present First degree AV block no longer present Electronically Signed On 02-01-2024 14:45:56 CDT by Casey Jj M.D. [id number]
--- NOTE | 2024-01-31 20:41 | XRR_ITS ---
PROCEDURE INFORMATION: Exam: XR Chest Exam date and time: 01/31/2024 8:58 PM Age: 78 years old Clinical indication: Pain; Right-sided; Additional info: R side pain TECHNIQUE: Imaging protocol: Radiologic exam of the chest. Views: 1 view. COMPARISON: CR (CHEST, ) 12/10/2023 5:33 PM FINDINGS: Lungs: Left lower lobe atelectasis versus minimal infiltrate. Emphysematous changes. Pleural spaces: Unremarkable. No pleural effusion. No pneumothorax. Heart/Mediastinum: Unremarkable. No cardiomegaly. Vasculature: Aorta appears somewhat prominent, somewhat similar to prior exam, chest CT could further characterize this. Bones/joints: Unremarkable. XR/XR chest 1V portable [id number] IMPRESSION: 1. Left lower lobe atelectasis versus minimal infiltrate. 2. Emphysematous changes. 3. Aorta appears somewhat prominent, somewhat similar to prior exam, chest CT could further characterize this.
--- NOTE | 2024-01-31 20:41 | XRR_ITS ---
PROCEDURE INFORMATION: Exam: XR Right Hip Exam date and time: 01/31/2024 8:58 PM Age: 78 years old Clinical indication: Right hip; Patient HX: RT hip pain; No nown injury; Additional info: R hip pain TECHNIQUE: Imaging protocol: Radiologic exam of the right hip. Views: 1 view hip with pelvis when performed. COMPARISON: CT abdomen pelvis wo con [id number] 01/23/2024 10:55 PM FINDINGS: Bones/joints: Right inferior pubic ramus likely chronic fracture, CT could further characterize this. Soft tissues: Unremarkable. XR/XR hip RT 2-3V wo/w pel* [id number] IMPRESSION: Right inferior pubic ramus likely chronic fracture, CT could further characterize this.
[2024-01-31] MEDS: ketorolac 30 mg/mL INJ 15 MG IVP (20:57)
[2024-01-31 21:04] LABS: Basophils # 0.1 10^3/uL (0.0-0.1); Basophils % 0.7 %; Eosinophils # 0.1 10^3/uL (0.0-0.8); Eosinophils % 0.8 %; Hematocrit 38.1 % (36-47); Lymphocytes # 1.4 10^3/uL (0.8-4.8); Lymphocytes % 10.1 %; Mean Corpuscular HGB Conc 32.3 g/dL (30-55); Mean Corpuscular Hemoglobin 28.6 pg (27-33); Mean Corpuscular Volume 88.6 fl (85-98); Mean Platelet Volume 10.8 fL (7.4-10.4); Monocytes # 0.7 10^3/uL (0.2-0.9); Monocytes % 5.3 %; Neutrophils # 11.34 10^3/uL (1.8-7.7); Neutrophils % 82.7 %; Nucleated Red Blood Cells % 0 %; Platelet Count 272 10^3/cmm (157-399); Red Cell Distribution Width 12.8 % (12.1-15.1); White Blood Count 13.71 10^3/uL (3.29-11.43)
[2024-01-31 21:24] LABS: Troponin(5th) Baseline 33 ng/L (0-10)
[2024-01-31 21:33] LABS: Anion Gap 18.1 (5-19); Blood Urea Nitrogen 26 mg/dL (8-23); Calcium 9.4 mg/dL (8.5-10.5); Carbon Dioxide 23 mmol/L (22-29); Chloride 98 mmol/L (98-107); Glucose 184 mg/dL (65-115); NT Pro B Type Natriuretic Pept 800 pg/mL (0-450); Osmolality Calculated 290 mOsm/kg (285-295); Potassium 4.1 mmol/L (3.5-5.1); Sodium 135 mmol/L (136-145)
[2024-01-31 21:55] VITALS: BP 107/67; PULSE 94; RESP 24; O2SAT 93
--- NOTE | 2024-01-31 21:55 | ED_ITS ---
Documented by User: Benjamin Rizvi MD 01/31/24 22:25 HPI - Chest Pain 2 General: Chief Complaint: Chest Pain Stated Complaint: STEMI Time Seen by Provider: 01/31/24 20:36 Source: patient, family and EMS Mode of arrival: EMS Limitations: no limitations History of Present Illness: Patient presents via EMS for right-sided pain from the hip to the shoulder and in the right chest as well. EMS reported she had some transient hypotension during transport but also gave her a nitro tablet. Patient's pain did not improve the nitro. She was also given for 81 mg aspirin 4 mg Zofran and 50 mcg of fentanyl. On arrival her main complaint is right hip and right side pain as well as pounding in her head. Patient reports she was standing at the counter organizing her pills when she suddenly started feeling worse. MD complaint: chest discomfort Review of Systems 2 General: Reports: 10 or more systems reviewed and unremarkable except in HPI and below PFSH ED 2 PFSH: Medical History Vaginal prolapse Chronic venous insufficiency of lower extremity (~01/06/24) COVID-19 Brain TIA COPD (chronic obstructive pulmonary disease) Chronic constipation Acquired hypothyroidism Hyperlipidemia Glaucoma Pyloric stenosis GERD (gastroesophageal reflux disease) Improved following dilation of gastric outlet obstruction Hypertension Stable Lung cancer Surgical History S/P right inguinal hernia repair H/O esophagogastroduodenoscopy 07/29/2019: EGD with dilation for pyloric stenosis 09/13/2019: EGD with dilation to 15 mm for pyloric stenosis H/O hysterectomy for benign disease History of lobectomy of lung History of mandibular surgery S/P cholecystectomy Family History Mother Glaucoma Social History Smoking and tobacco/nicotine status: former use of tobacco/nicotine Quit status (tobacco/nicotine): has quit using Year quit tobacco: 1998 Former quit date comment: smoked PPD 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 Second hand smoke exposure: No Alcohol intake: never Substance/Drug Use: never Lives independently: Yes Household members: none Marital status: / Current occupational status: retired Current gender identity: Female Physical Exam 2 Const: COMMON NORMALS: no acute distress, average body habitus, patient oriented x3, healthy appearing, alert and well nourished GENERAL APPEARANCE: well kempt and well developed HENMT: COMMON NORMALS: normocephalic, atraumatic, external ears normal and moist oral mucous membranes HEAD & SCALP: normocephalic and atraumatic E XTERNAL EAR: Yes external ears normal Eye: COMMON NORMALS: Equal, round and reactive pupils present, EOMs intact bilaterally and conjunctivae normal CONJUNCTIVA: Yes conjunctivae normal P UPIL: Yes Equal, round and reactive pupils present Neck/C-Spine: COMMON NORMALS: full ROM, no lymphadenopathy and supple Chest: CHEST: Yes Symmetrical chest wall rise and No Surgical scars present (Chest) Resp: COMMON NORMALS: normal respiratory effort, No retractions, No use of accessory muscles and clear to auscultation bilaterally AUSCULTATION: clear to auscultation bilaterally Cardio: COMMON NORMALS: regular rate, regular rhythm, S1 normal heart sound present, S2 normal heart sound present, No gallops present (Cardio), No clicks present (Cardio), No murmurs present (Cardio) and No rub (Cardio) RATE: r egular rate RHYTHM: regular rhythm HEART SOUNDS: S1 normal heart sound present, S2 normal heart sound present and no murmurs PERIPHERAL PULSES: o ther (Radial pulses 2+ and symmetric) GI: COMMON NORMALS: Soft to palpation, non-tender and no masses INSPECTION: No abdominal distension PALPATION: Yes Soft to palpation, No Guarding due to palpation present (GI) and No Rebound tenderness present : COMMON NORMALS: Yes no CVA tenderness BLADDER/KIDNEY EXAM: Yes no CVA tenderness Back/Pelvis: COMMON NORMALS: no CVA tenderness Extremity: COMMON NORMALS: normal to inspection, full ROM, capillary refill normal and no clubbing, cyanosis or edema Neuro: COMMON NORMALS: patient oriented x3 SENSORIUM/ORIENTATION: Yes alert Psych: APPEARANCE: Yes well kempt Skin: COMMON NORMALS: no rashes or lesions noted, no wounds, turgor normal and no jaundice GENERAL SKIN EXAM: no rashes or lesions noted and turgor normal Course 2 Reevaluation(s): Reevaluation #1: Patient reports her headache had improved but now it is coming back. Also still feels that her heart is just pounding. Time: 21:56 Consultations: Consultation #1: Paged hospitalist to discuss admission. Agree that she has some CEDRIC and feels pretty dry but wants to wait until her second troponin is back to discuss admission. Time: 21:56 Vital Signs: Vital signs: Vital Signs Temperature 98.5 F 01/31/24 20:35 Pulse Rate 76 02/01/24 02:33 Respiratory Rate 20 H 02/01/24 02:33 Blood Pressure 135/54 02/01/24 02:33 Pulse Oximetry 94 02/01/24 02:33 Oxygen Delivery Me thod Nasal Cannula 02/01/24 02:33 Oxygen Flow Rate 2 02/01/24 02:33 MDM - Chest Pain Medical Decision Making Patient presents with right-sided pain, tachycardia, right-sided chest pain and a remote history of right pulmonary lobectomy secondary to lung cancer. Patient was that her head is just pounding and her heart rate is pounding. She has a trip pulm and of 33 from baseline of 17 previously. Her creatinine is currently 1.5 from a baseline of 1.1 previously. We are still currently pending a second troponin, did briefly discuss with the hospitalist since I was recommending admission and he requested that we give a second troponin and then talk again. I feel patient is dehydrated with an CEDRIC and likely warrants admission given her risk factors. Including the possibility of treatment for NSTEMI which I suspect would be actually type II. Family does report that she is taking maybe half the meds that she is actually on her med list and patient reports that she wrote down what she is actually taking now. Med list has been given to nurse to update. Due to shift change I will pass the patient off to Dr. Tamayo to await second troponin. Medical Records I reviewed the patient's medical records. Lab Data I reviewed the patient's lab results. 01/31/24 20:57 01/31/24 20:57 Radiology Impressions Chest X-Ray 01/31/24 20:41 IMPRESSION: 1. Left lower lobe atelectasis versus minimal infiltrate. 2. Emphysematous changes. 3. Aorta appears somewhat prominent, somewhat similar to prior exam, chest CT could further characterize this. Hip/Pelvis X-Ray 01/31/24 20:41 IMPRESSION: Right inferior pubic ramus likely chronic fracture, CT could further characterize this. Chest CTA 02/01/24 00:30 IMPRESSION: 1. Negative for pulmonary embolus. 2. Left upper lobe 8.1 mm pulmonary nodule wall, series 7, image 148, more prominent compared to prior exam. For both low risk and high risk patients, consider CT Chest at 3 months, PET/CT, or biopsy. (Reference: Mavis) 3. Scattered subcentimeter short axis nonspecific mediastinal lymph nodes. 4. Cardiomegaly. 5. Several hepatic cysts. 6. Emphysematous changes. 7. Bilateral patchy largely lower lobe left greater than right atelectasis versus minimal infiltrate. 8. Right upper lobectomy changes again seen. REFERENCES: Mavis Kimbrough, et al. Guidelines for Management of Incidental Pulmonary Nodules Detected on CT Images: From the Fleischner Society 2017. Radiology. 2017;284(1):228-243. Laboratory Results WBC 13.71 10^3/uL (3.29-11.43) H 01/31/24 20:57 RBC 4.30 10^6/uL (3.85-5.65) 01/31/24 20:57 Hgb 12.30 g/dL (11.27-16.99) 01/31/24 20:57 Hct 38.1 % (36-47) 01/31/24 20:57 MCV 88.6 fl (85-98) 01/31/24 20:57 MCH 28.6 pg (27-33) 01/31/24 20:57 MCHC 32.3 g/dL (30-55) 01/31/24 20:57 RDW 12.8 % (12.1-15.1) 01/31/24 20:57 Plt Count 272 10^3/cmm (157-399) 01/31/24 20:57 MPV 10.8 fL (7.4-10.4) H 01/31/24 20:57 Neut % (Auto) 82.7 % 01/31/24 20:57 Lymph % (Auto) 10.1 % 01/31/24 20:57 [place] % (Auto) 5.3 % 01/31/24 20:57 Eos % (Auto) 0.8 % 01/31/24 20:57 Baso % (Auto) 0.7 % 01/31/24 20:57 Neut # (Auto) 11.34 10^3/uL (1.8-7.7) H 01/31/24 20:57 Lymph # (Auto) 1.4 10^3/uL (0.8-4.8) 01/31/24 20:57 [place] # (Auto) 0.7 10^3/uL (0.2-0.9) 01/31/24 20:57 Eos # (Auto) 0.1 10^3/uL (0.0-0.8) 01/31/24 20:57 Baso # (Auto) 0.1 10^3/uL (0.0-0.1) 01/31/24 20:57 Nucleated RBC % (auto) 0 % 01/31/24 20:57 Nucleated RBCs # 0.0 /100WBC 01/31/24 20:57 D-Dimer 0.98 ug/mLFEU (0-0.59) H 01/31/24 20:57 Sodium 135 mmol/L (136-145) L 01/31/24 20:57 Potassium 4.1 mmol/L (3.5-5.1) 01/31/24 20:57 Chloride 98 mmol/L (98-107) 01/31/24 20:57 Carbon Dioxide 23 mmol/L (22-29) 01/31/24 20:57 Anion Gap 18.1 (5-19) 01/31/24 20:57 BUN 26 mg/dL (8-23) H 01/31/24 20:57 Creatinine 1.5 mg/dL (0.5-0.9) H 01/31/24 20:57 GFR Calculation Not Reportable 01/31/24 20:57 Glucose 184 mg/dL (65-115) H 01/31/24 20:57 Calculated Osmolality 290 mOsm/kg (285-295) 01/31/24 20:57 Calcium 9.4 mg/dL (8.5-10.5) 01/31/24 20:57 Troponin T Baseline 33 ng/L (0-10) H 01/31/24 20:57 Troponin T 120 Minute 38.24 ng/L (0-10) H 01/31/24 22:40 Delta Troponin T 5.24 ABS# (0-10) 01/31/24 22:40 Troponin T Hi Sens 6Hr 40.25 ng/L (0-10) H 02/01/24 02:46 Troponin T Hi Sens 6Hr Delta 7.25 ng/L (0-12) 02/01/24 02:46 NT-Pro-B Natriuret Pep 800 pg/mL (0-450) H 01/31/24 20:57 Procalcitonin 0.42 ng/mL (0-0.5) 01/31/24 20:57 Urine Color Yellow (Yellow) 01/31/24 23:15 Urine Appearance Cloudy (CLEAR) A 01/31/24 23:15 Urine pH 5 (5-7) 01/31/24 23:15 Ur Specific [place] 1.000 (1.005-1.030) L 01/31/24 23:15 Urine Protein Neg (Negative) 01/31/24 23:15 Urine Glucose (UA) Norm (Normal) 01/31/24 23:15 Urine Ketones Negative (Negative) 01/31/24 23:15 Urine Blood Neg (Negative) 01/31/24 23:15 Urine Nitrate Negative (Negative) 01/31/24 23:15 Urine Bilirubin Neg (Negative) 01/31/24 23:15 Urine Urobilinogen Neg mg/dL (Negative) 01/31/24 23:15 Ur Leukocyte Esterase 2+ (Negative) H 01/31/24 23:15 Urine RBC 0-4 /hpf (0-2) H 01/31/24 23:15 Urine WBC 5-10 /hpf (0-5) H 01/31/24 23:15 Ur Squamous Epith Cells 5-10 /hpf (0-5) H 01/31/24 23:15 Amorphous Sediment Not Reportable 01/31/24 23:15 Urine Bacteria 2+ /hpf (NONE) H 01/31/24 23:15 Hyaline Casts 0-4 /lpf H 01/31/24 23:15 Urine Mucus Trace /hpf 01/31/24 23:15 All radiology interpretation(s) finalized by discharge ED provider radiology interpretation(s): X-ray of the chest personally reviewed and I see no acute abnormality. EKG Data EKG 1: I personally reviewed and interpreted this EKG as follows: EKG interpretation date: 01/31/24 EKG interpretation time: 20:36 Prior EKG tracings: available for review Interpretation: Patient has sinus rhythm tachycardic at 112, normal [place] QRS and QTc intervals. Reviewing the EKG I do not see any ST elevation or depression. Comparing EKG to previous she is now have some tachycardia and previously had a first-degree AV block. Previous EKG is dated 12/10/2023. Discharge Plan Discharge Patient Disposition: Home Clinical Impression: Acute dehydration, Tachycardia Condition: Stable Prescriptions: No Action furosemide 80 mg tablet 80 mg PO DAILY Qty: 90 1RF Hold Instructions: Dose Change meloxicam 7.5 mg tablet 7.5 mg PO DAILY 90 Days Qty: 90 0RF Hold Instructions: Resume on 09/09/23. metoprolol succinate 50 mg tablet extended release 24 hr 50 mg PO BID Qty: 180 0RF clotrimazole 1 % cream 1 applic topical BID 28 Days Qty: 45 1RF Linzess 72 mcg capsule 72 mcg PO DAILY 30 Days Qty: 30 0RF magnesium oxide [MagOx] 400 mg (241.3 mg magnesium) tablet 400 mg PO DAILY 90 Days Qty: 90 1RF alpha lipoic acid 600 mg tablet 600 mg PO TID 30 Days Qty: 90 0RF cephalexin 500 mg capsule 500 mg PO TID Qty: 30 0RF potassium chloride 20 mEq tablet extended release 20 meq PO DAILY Qty: 10 0RF oxybutynin chloride 5 mg tablet 5 mg PO BID Qty: 180 0RF levothyroxine 25 mcg tablet 25 mcg PO DAILY 30 Days Qty: 30 0RF (DME) shower transfer bench See Rx Instructions .Route .MEDSUPPLY Qty: 1 0RF Rx Instructions: As directed ondansetron 8 mg tablet,disintegrating 8 mg PO Q8H PRN (Reason: nausea and vomiting) Qty: 20 0RF raloxifene [Evista] 60 mg tablet 60 mg PO DAILY 90 Days Qty: 90 1RF calcium citrate-vitamin D3 315 mg-6.25 mcg (250 unit) tablet 1 tab PO DAILY Qty: 90 1RF Aquaphor Healing 41 % ointment 1 applic topical BID PRN (Reason: dry skin) Qty: 50 1RF ascorbic acid (vitamin C) [Vitamin C] 500 mg Tablet 500 mg PO DAILY multivitamin with folic acid [Therems Multivitamin] 400 mcg tablet 1 tab PO DAILY albuterol sulfate 90 mcg/actuation HFA aerosol inhaler 2 inh inhalation Q4H PRN (Reason: shortness of breath or wheezing) Qty: 6.7 1RF polyethylene glycol 3350 [Miralax] 17 gram powder in packet 17 g PO BID PRN (Reason: constipation) Qty: 30 0RF acetaminophen 500 mg Capsule 1,000 mg PO BEDTIME tramadol 50 mg tablet 100 mg PO Q6H PRN (Reason: pain) Qty: 30 0RF Rx Instructions: May take only 1 tab at a time DOK 100 mg capsule 100 mg PO BID Qty: 14 0RF Discharge Orders: Discharge ED (Routine); Ordered 02/01/24 Ordered By: Edwin Tamayo Referrals: Shaila Quinones VEGETABLE FARMING SUPERVISOR [Primary Care Provider] - 1-3 days Patient Instructions: Chest Pain (ED), Dehydration (ED), Tachycardia (ED), Opioid Safety, Pain Management Activity Restrictions/Additional Instructions: Return for worsening chest pain, fever, shortness of breath, repeated episodes of syncope or passing out, other concerning symptoms. See your doctor this week. They may wish to perform additional outpatient testing. Coding Level of Care Code ED Instrument Engineer for Chg Fwd Documented by User: Edwin Tamayo DO 02/01/24 05:18 HPI - Chest Pain 2 General: Chief Complaint: Chest Pain Stated Complaint: STEMI Time Seen by Provider: 01/31/24 20:36 PFSH ED 2 PFSH: Medical History Vaginal prolapse Chronic venous insufficiency of lower extremity (~01/06/24) COVID-19 Brain TIA COPD (chronic obstructive pulmonary disease) Chronic constipation Acquired hypothyroidism Hyperlipidemia Glaucoma Pyloric stenosis GERD (gastroesophageal reflux disease) Improved following dilation of gastric outlet obstruction Hypertension Stable Lung cancer Surgical History S/P right inguinal hernia repair H/O esophagogastroduodenoscopy 07/29/2019: EGD with dilation for pyloric stenosis 09/13/2019: EGD with dilation to 15 mm for pyloric stenosis H/O hysterectomy for benign disease History of lobectomy of lung History of mandibular surgery S/P cholecystectomy Family History Mother Glaucoma Social History Smoking and tobacco/nicotine status: former use of tobacco/nicotine Quit status (tobacco/nicotine): has quit using Year quit tobacco: 1998 Former quit date comment: smoked PPD 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 Second hand smoke exposure: No Alcohol intake: never Substance/Drug Use: never Lives independently: Yes Household members: none Marital status: / Current occupational status: retired Current gender identity: Female Course 2 Vital Signs: Vital signs: Vital Signs Temperature 98.5 F 01/31/24 20:35 Pulse Rate 76 02/01/24 02:33 Respiratory Rate 20 H 02/01/24 02:33 Blood Pressure 135/54 02/01/24 02:33 Pulse Oximetry 94 02/01/24 02:33 Oxygen Delivery Me thod Nasal Cannula 02/01/24 02:33 Oxygen Flow Rate 2 02/01/24 02:33 MDM - Chest Pain Medical Decision Making Patient presents with right-sided pain, tachycardia, right-sided chest pain and a remote history of right pulmonary lobectomy secondary to lung cancer. Patient was that her head is just pounding and her heart rate is pounding. She has a trip pulm and of 33 from baseline of 17 previously. Her creatinine is currently 1.5 from a baseline of 1.1 previously. We are still currently pending a second troponin, did briefly discuss with the hospitalist since I was recommending admission and he requested that we give a second troponin and then talk again. I feel patient is dehydrated with an CEDRIC and likely warrants admission given her risk factors. Including the possibility of treatment for NSTEMI which I suspect would be actually type II. Family does report that she is taking maybe half the meds that she is actually on her med list and patient reports that she wrote down what she is actually taking now. Med list has been given to nurse to update. Due to shift change I will pass the patient off to Dr. Tamayo to await second troponin. Patient checked out to me at shift change. Second troponin toñito an insignificant amount. Tachycardia has resolved. She is essentially asymptomatic lying in bed at this point. Her D-dimer was elevated. I spoke with Dr. Quinones. He suggests CTA scan. It is negative for PE. Negative for a significant acute infiltrate. Because of small change in troponin, patient was held for 6-hour troponin which does not show significant change. She will be discharged at this point. To return for any return or worsening symptoms. This patient was a intermediate patient last week. I am unsure why she is not a intermediate patient now, she is quite frail, and likely to return in the near future given her history. Lab Data 01/31/24 20:57 01/31/24 20:57 Radiology Impressions Chest X-Ray 01/31/24 20:41 IMPRESSION: 1. Left lower lobe atelectasis versus minimal infiltrate. 2. Emphysematous changes. 3. Aorta appears somewhat prominent, somewhat similar to prior exam, chest CT could further characterize this. Hip/Pelvis X-Ray 01/31/24 20:41 IMPRESSION: Right inferior pubic ramus likely chronic fracture, CT could further characterize this. Chest CTA 02/01/24 00:30 IMPRESSION: 1. Negative for pulmonary embolus. 2. Left upper lobe 8.1 mm pulmonary nodule wall, series 7, image 148, more prominent compared to prior exam. For both low risk and high risk patients, consider CT Chest at 3 months, PET/CT, or biopsy. (Reference: Mavis) 3. Scattered subcentimeter short axis nonspecific mediastinal lymph nodes. 4. Cardiomegaly. 5. Several hepatic cysts. 6. Emphysematous changes. 7. Bilateral patchy largely lower lobe left greater than right atelectasis versus minimal infiltrate. 8. Right upper lobectomy changes again seen. REFERENCES: Mavis Kimbrough, et al. Guidelines for Management of Incidental Pulmonary Nodules Detected on CT Images: From the Fleischner Society 2017. Radiology. 2017;284(1):228-243. Laboratory Results WBC 13.71 10^3/uL (3.29-11.43) H 01/31/24 20:57 RBC 4.30 10^6/uL (3.85-5.65) 01/31/24 20:57 Hgb 12.30 g/dL (11.27-16.99) 01/31/24 20:57 Hct 38.1 % (36-47) 01/31/24 20:57 MCV 88.6 fl (85-98) 01/31/24 20:57 MCH 28.6 pg (27-33) 01/31/24 20:57 MCHC 32.3 g/dL (30-55) 01/31/24 20:57 RDW 12.8 % (12.1-15.1) 01/31/24 20:57 Plt Count 272 10^3/cmm (157-399) 01/31/24 20:57 MPV 10.8 fL (7.4-10.4) H 01/31/24 20:57 Neut % (Auto) 82.7 % 01/31/24 20:57 Lymph % (Auto) 10.1 % 01/31/24 20:57 [place] % (Auto) 5.3 % 01/31/24 20:57 Eos % (Auto) 0.8 % 01/31/24 20:57 Baso % (Auto) 0.7 % 01/31/24 20:57 Neut # (Auto) 11.34 10^3/uL (1.8-7.7) H 01/31/24 20:57 Lymph # (Auto) 1.4 10^3/uL (0.8-4.8) 01/31/24 20:57 [place] # (Auto) 0.7 10^3/uL (0.2-0.9) 01/31/24 20:57 Eos # (Auto) 0.1 10^3/uL (0.0-0.8) 01/31/24 20:57 Baso # (Auto) 0.1 10^3/uL (0.0-0.1) 01/31/24 20:57 Nucleated RBC % (auto) 0 % 01/31/24 20:57 Nucleated RBCs # 0.0 /100WBC 01/31/24 20:57 D-Dimer 0.98 ug/mLFEU (0-0.59) H 01/31/24 20:57 Sodium 135 mmol/L (136-145) L 01/31/24 20:57 Potassium 4.1 mmol/L (3.5-5.1) 01/31/24 20:57 Chloride 98 mmol/L (98-107) 01/31/24 20:57 Carbon Dioxide 23 mmol/L (22-29) 01/31/24 20:57 Anion Gap 18.1 (5-19) 01/31/24 20:57 BUN 26 mg/dL (8-23) H 01/31/24 20:57 Creatinine 1.5 mg/dL (0.5-0.9) H 01/31/24 20:57 GFR Calculation Not Reportable 01/31/24 20:57 Glucose 184 mg/dL (65-115) H 01/31/24 20:57 Calculated Osmolality 290 mOsm/kg (285-295) 01/31/24 20:57 Calcium 9.4 mg/dL (8.5-10.5) 01/31/24 20:57 Troponin T Baseline 33 ng/L (0-10) H 01/31/24 20:57 Troponin T 120 Minute 38.24 ng/L (0-10) H 01/31/24 22:40 Delta Troponin T 5.24 ABS# (0-10) 01/31/24 22:40 Troponin T Hi Sens 6Hr 40.25 ng/L (0-10) H 02/01/24 02:46 Troponin T Hi Sens 6Hr Delta 7.25 ng/L (0-12) 02/01/24 02:46 NT-Pro-B Natriuret Pep 800 pg/mL (0-450) H 01/31/24 20:57 Procalcitonin 0.42 ng/mL (0-0.5) 01/31/24 20:57 Urine Color Yellow (Yellow) 01/31/24 23:15 Urine Appearance Cloudy (CLEAR) A 01/31/24 23:15 Urine pH 5 (5-7) 01/31/24 23:15 Ur Specific [place] 1.000 (1.005-1.030) L 01/31/24 23:15 Urine Protein Neg (Negative) 01/31/24 23:15 Urine Glucose (UA) Norm (Normal) 01/31/24 23:15 Urine Ketones Negative (Negative) 01/31/24 23:15 Urine Blood Neg (Negative) 01/31/24 23:15 Urine Nitrate Negative (Negative) 01/31/24 23:15 Urine Bilirubin Neg (Negative) 01/31/24 23:15 Urine Urobilinogen Neg mg/dL (Negative) 01/31/24 23:15 Ur Leukocyte Esterase 2+ (Negative) H 01/31/24 23:15 Urine RBC 0-4 /hpf (0-2) H 01/31/24 23:15 Urine WBC 5-10 /hpf (0-5) H 01/31/24 23:15 Ur Squamous Epith Cells 5-10 /hpf (0-5) H 01/31/24 23:15 Amorphous Sediment Not Reportable 01/31/24 23:15 Urine Bacteria 2+ /hpf (NONE) H 01/31/24 23:15 Hyaline Casts 0-4 /lpf H 01/31/24 23:15 Urine Mucus Trace /hpf 01/31/24 23:15 Discharge Plan Discharge Patient Disposition: Home Clinical Impression: Acute dehydration, Tachycardia Condition: Stable Prescriptions: No Action furosemide 80 mg tablet 80 mg PO DAILY Qty: 90 1RF Hold Instructions: Dose Change meloxicam 7.5 mg tablet 7.5 mg PO DAILY 90 Days Qty: 90 0RF Hold Instructions: Resume on 09/09/23. metoprolol succinate 50 mg tablet extended release 24 hr 50 mg PO BID Qty: 180 0RF clotrimazole 1 % cream 1 applic topical BID 28 Days Qty: 45 1RF Linzess 72 mcg capsule 72 mcg PO DAILY 30 Days Qty: 30 0RF magnesium oxide [MagOx] 400 mg (241.3 mg magnesium) tablet 400 mg PO DAILY 90 Days Qty: 90 1RF alpha lipoic acid 600 mg tablet 600 mg PO TID 30 Days Qty: 90 0RF cephalexin 500 mg capsule 500 mg PO TID Qty: 30 0RF potassium chloride 20 mEq tablet extended release 20 meq PO DAILY Qty: 10 0RF oxybutynin chloride 5 mg tablet 5 mg PO BID Qty: 180 0RF levothyroxine 25 mcg tablet 25 mcg PO DAILY 30 Days Qty: 30 0RF (DME) shower transfer bench See Rx Instructions .Route .MEDSUPPLY Qty: 1 0RF Rx Instructions: As directed ondansetron 8 mg tablet,disintegrating 8 mg PO Q8H PRN (Reason: nausea and vomiting) Qty: 20 0RF raloxifene [Evista] 60 mg tablet 60 mg PO DAILY 90 Days Qty: 90 1RF calcium citrate-vitamin D3 315 mg-6.25 mcg (250 unit) tablet 1 tab PO DAILY Qty: 90 1RF Aquaphor Healing 41 % ointment 1 applic topical BID PRN (Reason: dry skin) Qty: 50 1RF ascorbic acid (vitamin C) [Vitamin C] 500 mg Tablet 500 mg PO DAILY multivitamin with folic acid [Therems Multivitamin] 400 mcg tablet 1 tab PO DAILY albuterol sulfate 90 mcg/actuation HFA aerosol inhaler 2 inh inhalation Q4H PRN (Reason: shortness of breath or wheezing) Qty: 6.7 1RF polyethylene glycol 3350 [Miralax] 17 gram powder in packet 17 g PO BID PRN (Reason: constipation) Qty: 30 0RF acetaminophen 500 mg Capsule 1,000 mg PO BEDTIME tramadol 50 mg tablet 100 mg PO Q6H PRN (Reason: pain) Qty: 30 0RF Rx Instructions: May take only 1 tab at a time DOK 100 mg capsule 100 mg PO BID Qty: 14 0RF Discharge Orders: Discharge ED (Routine); Ordered 02/01/24 Ordered By: Edwin Tamayo Referrals: Shaila Quinones NP [Primary Care Provider] - 1-3 days Patient Instructions: Chest Pain (ED), Dehydration (ED), Tachycardia (ED), Opioid Safety, Pain Management Activity Restrictions/Additional Instructions: Return for worsening chest pain, fever, shortness of breath, repeated episodes of syncope or passing out, other concerning symptoms. See your doctor this week. They may wish to perform additional outpatient testing. Coding Level of Care Code ED Instrument Engineer for Abeba Vazquez
[2024-01-31 22:00] VITALS: BP 122/67; PULSE 96; RESP 22; O2SAT 97
[2024-01-31] MEDS: sodium chloride 0.9% 1,000 ML 999 ML IV (22:02)
[2024-01-31 22:24] LABS: D Dimer 0.98 ug/mLFEU (0-0.59)
[2024-01-31 22:28] LABS: Procalcitonin 0.42 ng/mL (0-0.5)
[2024-01-31 23:00] VITALS: BP 143/78; PULSE 106; RESP 22; O2SAT 96
--- NOTE | 2024-01-31 23:00 | ECG_ITS ---
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 Measurements Intervals [place] Rate: 92 P: 71 WI: 217 QRS: 2 QRSD: 90 T: 38 QT: 370 QTc: 458 Interpretive Statements SINUS RHYTHM WITH FIRST DEGREE AV BLOCK Compared to ECG 01/31/2024 20:35:58 First degree AV block now present Sinus tachycardia no longer present Electronically Signed On 02-01-2024 14:50:25 CDT by Casey Jj M.D. [email or web address]
[2024-01-31 23:08] LABS: Troponin 5 2HR 38.24 ng/L (0-10); Troponin 5 2HR Delta 5.24 ABS# (0-10)
[2024-02-01 00:09] LABS: Add Urine Microscopic? YES; Bilirubin Urine Neg (Negative); Blood Urine Neg (Negative); Glucose Urine UA Norm (Normal); Ketones Urine Negative (Negative); Leukocyte Esterase Urine 2+ (Negative); Nitrate Urine Negative (Negative); Protein Urine Neg (Negative); Urine Appearance Cloudy (CLEAR); Urine Color Yellow (Yellow); Urobilinogen Urine Neg (Negative); pH Urine 5 (5-7)
[2024-02-01 00:10] LABS: Add Urine Culture? Yes; Bacteria Urine 2+ /hpf; Hyaline Casts Urine 0-4 /lpf; Mucus Urine TRACE /hpf; RBC Urine 0-4 /hpf (0-2)
--- NOTE | 2024-02-01 00:30 | CTR_ITS ---
PROCEDURE INFORMATION: Exam: CTA Chest With Contrast Exam date and time: 02/01/2024 1:12 AM Age: 78 years old Clinical indication: Pain and abnormal findings; Abnormal diagnostic tests; Elevated d-dimer; Shortness of breath; Chest pressure; Prior surgery; Surgery date: 6+ months; Surgery type: Lung lobectomy. Gb; Patient HX: C/O chest pain. Hypoxic with dimer of 0.98. History of lung cancer. TECHNIQUE: Imaging protocol: Computed tomographic angiography of the chest with contrast. Exam focused on the arteries. 3D rendering (Not supervised by radiologist): MIP and/or 3D reconstructed images were created by the technologist. Radiation optimization: All CT scans at this facility use at least one of these dose optimization techniques: automated exposure control; mA and/or kV adjustment per patient size (includes targeted exams where dose is matched to clinical indication); or iterative reconstruction. Contrast material: OMNI 350; Contrast volume: 47 ml; Contrast route: INTRAVENOUS (IV); COMPARISON: CT chest [facility] [id number] 02/27/2023 2:36 PM RADIATION DOSE METRICS: Total DLP (mGy-cm): 261.07 FINDINGS: Pulmonary arteries: Normal. No pulmonary emboli. Aorta: Unremarkable. No aortic aneurysm. No aortic dissection. Lungs: Left upper lobe 8.1 mm pulmonary nodule wall, series 7, image 148, more prominent compared to prior exam. Emphysematous changes. Bilateral patchy largely lower lobe left greater than right atelectasis versus minimal infiltrate. Right upper lobectomy changes again seen. Pleural spaces: Unremarkable. No pneumothorax. No pleural effusion. Heart: Cardiomegaly. Lymph nodes: Scattered subcentimeter short axis nonspecific mediastinal lymph nodes. Liver: Several hepatic cysts. Bones/joints: Unremarkable. No acute fracture. Soft tissues: Unremarkable. CT/CT angio chest PE protcl [id number] IMPRESSION: 1. Negative for pulmonary embolus. 2. Left upper lobe 8.1 mm pulmonary nodule wall, series 7, image 148, more prominent compared to prior exam. For both low risk and high risk patients, consider CT Chest at 3 months, PET/CT, or biopsy. (Reference: Mavis) 3. Scattered subcentimeter short axis nonspecific mediastinal lymph nodes. 4. Cardiomegaly. 5. Several hepatic cysts. 6. Emphysematous changes. 7. Bilateral patchy largely lower lobe left greater than right atelectasis versus minimal infiltrate. 8. Right upper lobectomy changes again seen. REFERENCES: Mavis Kimbrough, et al. Guidelines for Management of Incidental Pulmonary Nodules Detected on CT Images: From the Fleischner Society 2017. Radiology. 2017;284(1):228-243.
[2024-02-01] MEDS: diphenhydrAMINE 50 mg/mL SDV 1mL IVP (00:59)
[2024-02-01] MEDS: methylPREDNISolone sod succ 40 mg/mL INJ IVP (01:00)
[2024-02-01] MEDS: iohexol 350 mg/mL 500 mL Btl (per mL) IV (01:22)
[2024-02-01 02:33] VITALS: BP 135/54; PULSE 76; RESP 20; O2SAT 94
--- NOTE | 2024-02-01 03:12 | ECG_ITS ---
[facility] Test Date: 2024-02-01 Pat Name: Vivian Hummel Department: Room: Gender: Female Assessment Nurse: : 1945 Requested By: Benjamin Rizvi Order Number: [id number] Tommy MD: Casey Jj M.D. Measurements Intervals [place] Rate: 73 P: 61 SD: 210 QRS: 2 QRSD: 86 T: 37 QT: 403 QTc: 446 Interpretive Statements SINUS RHYTHM WITH FIRST DEGREE AV BLOCK Compared to ECG 01/31/2024 23:00:12 No significant changes Electronically Signed On 02-01-2024 14:50:37 CDT by Casey Jj M.D. [email or web address] Centrejohn c. st[facility] hospitalSummit Microelectronicstrinity health system twin [facility] medical centerTV [employer]/store/OM/[id number]
[2024-02-01 03:16] LABS: Troponin 5 6HR 40.25 ng/L (0-10); Troponin 5 6HR Delta 7.25 ng/L (0-12)
[2024-02-01 05:30] VITALS: BP 136/63; PULSE 75; RESP 21; O2SAT 93
[2024-02-01 06:20] VITALS: PULSE 72; RESP 18; O2SAT 93
== END 2024-02-01 10:14 | disposition home or self-care (01) ==
PROVIDERS: Emergency Medicine; Internal Medicine; Emergency Provider Emergency Medicine; PCP Nurse Practitioner Family
DX: R00.0 Tachycardia, unspecified (principal); E86.0 Dehydration; N17.9 Acute kidney failure, unspecified; Z85.118 Personal history of other malignant neoplasm of bronchus and lung; Z86.73 Personal history of transient ischemic attack (TIA), and cerebral infarction without residual deficits; J44.9 Chronic obstructive pulmonary disease, unspecified; E78.5 Hyperlipidemia, unspecified; I10 Essential (primary) hypertension; Z87.891 Personal history of nicotine dependence
CPT/HCPCS: 36415; 71045; 71275; 73502; 80048; 81001; 81003; 83880; 84145; 84484; 85025; 85378; 87086; 93005; 96361; 96374; 96375; 99285; J1200; J1885; J2919; J7030; Q9967

== ENCOUNTER → 2024-02-05 10:09 | Outpatient (BNVA) | payer MEDICARE, MEDICAID, SELFPAY | PROVIDERS: PCP Nurse Practitioner Family; Visit Provider Nurse Practitioner Family | DX: I10 Essential (primary) hypertension (principal); N39.0 Urinary tract infection, site not specified; R13.10 Dysphagia, unspecified | CPT/HCPCS: 80053; 85025 ==

== ENCOUNTER → 2024-04-07 11:24 | Outpatient (BNVA) | payer MEDICARE, MEDICAID, SELFPAY | PROVIDERS: PCP Nurse Practitioner Family; Visit Provider Nurse Practitioner Family | DX: I10 Essential (primary) hypertension (principal); R30.0 Dysuria; R13.10 Dysphagia, unspecified; E03.9 Hypothyroidism, unspecified; W57.XXXA Bitten or stung by nonvenomous insect and other nonvenomous arthropods, initial encounter | CPT/HCPCS: 80053; 81000; 84443; 85025; 86618; 86666; 86757 ==

== ENCOUNTER → 2024-08-30 15:37 | Outpatient (BNVA) | payer MEDICARE, MEDICAID, SELFPAY | PROVIDERS: PCP Nurse Practitioner Family; Visit Provider Nurse Practitioner Family | DX: I10 Essential (primary) hypertension (principal); R13.10 Dysphagia, unspecified; R07.89 Other chest pain | CPT/HCPCS: 80053; 80061; 81000; 81003; 84443; 85025; 87086 ==

== ENCOUNTER → 2024-11-15 11:08 | Outpatient (BNVA) | payer MEDICARE, SELFPAY | PROVIDERS: PCP Nurse Practitioner Family; Visit Provider Nurse Practitioner Family | DX: N39.0 Urinary tract infection, site not specified (principal); M54.50 Low back pain, unspecified; R13.10 Dysphagia, unspecified; I10 Essential (primary) hypertension; M79.602 Pain in left arm; E03.9 Hypothyroidism, unspecified | CPT/HCPCS: 80053; 81000; 81003; 84443; 85025 ==

== ENCOUNTER → 2025-01-30 13:12 | Outpatient (BNVA) | payer MEDICARE, SELFPAY | PROVIDERS: PCP Nurse Practitioner Family; Visit Provider Nurse Practitioner Family | DX: I10 Essential (primary) hypertension (principal); M81.0 Age-related osteoporosis without current pathological fracture; E78.2 Mixed hyperlipidemia; N39.0 Urinary tract infection, site not specified | CPT/HCPCS: 80053; 80061; 81000; 82306; 82607; 83735; 84443; 85025; 87086 ==

== ENCOUNTER → 2025-03-07 10:15 | Day surgery (SDC) | payer MEDICARE, SELFPAY ==
[2023-01-06 12:19] VITALS: BMI 28.1
--- NOTE | 2023-01-06 12:45 | ANES.PREANE2 ---
Pre-Anesthetic Assessment Height/Weight: Height 1.52 m Weight 65.317 kg Operation Date: 01/07/23 10:40 Proposed Procedures p Anterior and posterior colporrhaphy 76612, Single incision midurethral sling 76427, Sacrospinous fixation 92580,N81.9(Not Applicable) - Trav Ohara MD s Posterior Repair Posterior Colporrhaphy(Not Applicable) - Trav Ohara MD s Sling Single Incision Midurethral Sling(Not Applicable) - Trav Ohara MD s Sacrospinous Ligament Suspension(Not Applicable) - Trav Ohara MD Familial anesthetic complications: None Social No alcohol and No tobacco former smoker Exam alert, oriented x 3, clear to auscultation bilaterally and regular rate & rhythm Airway Mallampati: Class III Dentition: full Pulmonary Chronic Obstructive Pulmonary Disease CV/HEM Hypertension skipped beats Metabolic Hyperlipidemia Neuropsych Cerebrovascular Accident and Transient Ischemic Attack (on plavix which was not held, so will require re-scheduling) brain aneurysm Anesthetic Plan ASA status: 3 Anesthesia: General Risk of > 500 ml blood loss (7ml/kg in children): No Medications/Allergies Home Medications Medication Instructions Recorded Confirmed Last Taken Type multivitamin 1 tab PO DAILY@11 11/29/20 01/06/23 01/06/23 History Vitamin C 1 tab PO DAILY@0430 01/19/21 01/06/23 01/06/23 History vitamin B complex 1 tab PO DAILY@0430 01/19/21 01/06/23 01/06/23 History aspirin 81 mg tablet,delayed 81 mg PO DAILY 07/25/21 01/06/23 01/06/23 History release (Adult Low Dose Aspirin) furosemide 40 mg tablet 40 mg PO DAILY #90 tabs 07/25/21 01/06/23 01/06/23 Rx polyethylene glycol 3350 17 17 g PO BID@08,20 PRN Constipation 07/25/21 01/06/23 01/06/23 History gram/dose oral powder potassium chloride 20 mEq 20 meq PO DAILY #90 tabs 07/25/21 01/06/23 01/06/23 Rx tablet,extended release metoprolol succinate 50 mg 50 mg PO BID #180 tabs 06/04/22 01/06/23 01/06/23 Rx tablet,extended release 24 hr oxybutynin chloride 5 mg tablet 5 mg PO BID@0430,1400 #180 tabs 07/10/22 01/06/23 01/06/23 Rx atorvastatin 40 mg tablet 40 mg PO DAILY #90 tabs 07/14/22 01/06/23 01/06/23 Rx levothyroxine 88 mcg tablet 88 mcg PO DAILY #90 tabs 09/02/22 01/06/23 01/05/23 Rx fluticasone propionate 50 2 spray intranasal DAILY PRN 09/26/22 01/06/23 01/04/23 Rx mcg/actuation nasal Allergy Symptoms #16 grams spray,suspension clopidogrel 75 mg tablet 75 mg PO DAILY 90 days #90 tabs 12/15/22 01/06/23 01/06/23 Rx clotrimazole 1 % topical cream 1 applic topical BID 4 weeks #45 12/15/22 01/06/23 01/06/23 Rx grams meclizine 25 mg tablet 25 mg PO TID 01/06/23 01/06/23 01/06/23 History omeprazole 40 mg capsule,delayed 40 mg PO BID 01/06/23 01/06/23 01/06/23 History release Allergies Allergy/AdvReac Type Severity Reaction Status Date / Time povidone-iodine Allergy Severe ALGY-Swell Verified 01/06/23 10:51 Lip/Tongue/Throat soap Allergy Severe ALGY-Swell Verified 01/06/23 10:51 Lip/Tongue/Throat Fish Containing Products Allergy Unknown ALGY-Swell Verified 01/06/23 10:51 Lip/Tongue/Throat iodine Allergy Unknown ALGY-Swell Verified 01/06/23 10:51 Lip/Tongue/Throat Opioids - Morphine Analogues Allergy ADR-Halluci Verified 01/06/23 12:06 [facility] Anesthesia Medical History Acquired hypothyroidism Brain TIA Chronic constipation Chronic venous insufficiency of lower extremity COVID-19 Glaucoma Hyperlipidemia Hypertension Stable Lung cancer Pyloric stenosis Surgical History H/O esophagogastroduodenoscopy 07/29/2019: EGD with dilation for pyloric stenosis 09/13/2019: EGD with dilation to 15 mm for pyloric stenosis H/O hysterectomy for benign disease History of lobectomy of lung History of mandibular surgery S/P cholecystectomy Family History Mother Glaucoma Social History Smoking and tobacco status: former smoker Quit status (tobacco): has quit using tobacco Year quit tobacco: 1998 Former quit date comment: smoked PPD 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 Second hand smoke exposure: No Alcohol intake: never Substance/Drug Use: never Lives independently: Yes Household members: none Marital status: / Current occupational status: retired Current gender identity: Female Data Anesthesia Cardiac Studies: Echocardiogram Ultrasound 11/30/20 Sestamibi Stress Test (Cardiology) 11/30/20 Cardiac Event Monitor 12/07/20
--- NOTE | 2025-03-07 10:24 | XRR_ITS ---
PROCEDURE INFORMATION: Exam: XR Right Hip Exam date and time: 03/07/2025 10:45 AM Age: 80 years old Clinical indication: Hip pain; Right hip; Prior surgery; Surgery date: 6+ months; Surgery type: Lobectomy, gb; Fall x 2 years ago. Swelling on RT leg x few months. HX of lung cancer; Additional info: M25.551 - pain in right hip TECHNIQUE: Imaging protocol: Radiologic exam of the right hip. Views: 1 view hip with pelvis when performed. COMPARISON: CR (PELVIS, ) 01/31/2024 8:58 PM FINDINGS: Bones/joints: No acute fracture. Mild probably old posttraumatic deformity is again seen involving the right inferior pubic ramus. The bones are demineralized. Hip joint space is unremarkable. Soft tissues: Unremarkable. XR/XR hip RT 2-3V wo/w pel* [id number] IMPRESSION: Stable nonacute findings.
--- NOTE | 2025-03-07 10:24 | XRR_ITS ---
PROCEDURE INFORMATION: Exam: XR Right Femur Exam date and time: 03/07/2025 10:45 AM Age: 80 years old Clinical indication: Pain; Hip; Right; Prior surgery; Surgery date: 6+ months; Surgery type: Lobectomy, gb; Fall x 2 years ago. Swelling on RT leg x few months. HX of lung cancer; Additional info: M25.551 - pain in right hip TECHNIQUE: Imaging protocol: Radiologic exam of the right femur. Views: 2 views. COMPARISON: CR XR femur RT min 2V* [id number] 02/26/2023 10:39 PM FINDINGS: Bones/joints: No fracture or other acute abnormality. Degenerative changes are seen in the knee joint involving the patellofemoral and medial compartments. The bones appear demineralized. Soft tissues: Unremarkable. XR/XR femur RT min 2V* [id number] IMPRESSION: Stable nonacute findings.
== END ==
PROVIDERS: PCP Nurse Practitioner Family; Visit Provider Nurse Practitioner Family
DX: M21.851 Other specified acquired deformities of right thigh (principal); Z85.118 Personal history of other malignant neoplasm of bronchus and lung; Z90.2 Acquired absence of lung [part of]
CPT/HCPCS: 73502; 73552; 81000

== ENCOUNTER → 2025-03-23 12:50 | Outpatient (BNVA) | payer MEDICARE, SELFPAY | PROVIDERS: PCP Nurse Practitioner Family; Visit Provider Nurse Practitioner Family | DX: L82.1 Other seborrheic keratosis (principal); D18.01 Hemangioma of skin and subcutaneous tissue; L91.8 Other hypertrophic disorders of the skin; L57.8 Other skin changes due to chronic exposure to nonionizing radiation; L82.0 Inflamed seborrheic keratosis; L29.89 Other pruritus; Z78.9 Other specified health status; L53.8 Other specified erythematous conditions; R20.8 Other disturbances of skin sensation | CPT/HCPCS: 17110; 99203 ==

== ENCOUNTER → 2025-04-27 11:26 | Outpatient (BNVA) | payer MEDICARE, SELFPAY | PROVIDERS: PCP Nurse Practitioner Family; Visit Provider Nurse Practitioner Family | DX: J02.9 Acute pharyngitis, unspecified (principal) | CPT/HCPCS: 87071; 87880 ==

== ENCOUNTER → 2025-06-28 10:50 | Outpatient (BNVA) | payer MEDICARE, SELFPAY | PROVIDERS: PCP Nurse Practitioner Family; Visit Provider Nurse Practitioner Family | DX: I10 Essential (primary) hypertension (principal); R13.10 Dysphagia, unspecified; R07.89 Other chest pain | CPT/HCPCS: 80053; 80061; 81000; 84443; 85025; 87086 ==

== ENCOUNTER → 2025-07-24 11:04 | Outpatient (BNVA) | payer MEDICARE, SELFPAY | PROVIDERS: PCP Nurse Practitioner Family; Visit Provider Nurse Practitioner Family | DX: R30.0 Dysuria (principal); N39.0 Urinary tract infection, site not specified | CPT/HCPCS: 81000; 87086 ==